=== PATIENT | male | born 1955 | race Caucasian/White ===

== ENCOUNTER 2024-10-12 14:00 | Outpatient (OUT) | payer MEDICARE, OTHER, SELFPAY | END 2024-10-12 14:01 | disposition home or self-care (01) | LOC: WC 14:04 | PROVIDERS: PCP Physician Assistant; Visit Provider Physician Assistant | DX: I70.235 Atherosclerosis of native arteries of right leg with ulceration of other part of foot (principal); L97.512 Non-pressure chronic ulcer of other part of right foot with fat layer exposed; I70.234 Atherosclerosis of native arteries of right leg with ulceration of heel and midfoot; L97.412 Non-pressure chronic ulcer of right heel and midfoot with fat layer exposed | CPT/HCPCS: G0463 ==

== ENCOUNTER 2024-10-19 13:51 | Outpatient (OUT) | payer MEDICARE, OTHER, SELFPAY | END 2024-10-19 13:52 | disposition home or self-care (01) | LOC: WC 13:52 | PROVIDERS: PCP Physician Assistant; Visit Provider Physician Assistant | DX: I70.235 Atherosclerosis of native arteries of right leg with ulceration of other part of foot (principal); L97.512 Non-pressure chronic ulcer of other part of right foot with fat layer exposed; I70.234 Atherosclerosis of native arteries of right leg with ulceration of heel and midfoot; L97.412 Non-pressure chronic ulcer of right heel and midfoot with fat layer exposed | CPT/HCPCS: G0463 ==

== ENCOUNTER 2024-10-19 14:24 | Outpatient (OUT) | payer MEDICARE, OTHER, SELFPAY ==
[2024-10-19 14:46] LABS: Basophils Absolute Auto 0.1 10^3/uL (0.0-0.1); Basophils Percent Auto 0.3 % (0.2-2.0); Eosinophils Absolute Auto 0.4 10^3/uL (0.0-0.7); Hematocrit 30.2 % (42.0-54.0); Hemoglobin 9.4 g/dL (14.0-18.0); Immature Granulocytes Pct Auto 0.7 % (0.0-0.5); Lymphocytes Absolute Auto 2.6 10^3/uL (1.2-3.8); Lymphocytes Percent Auto 17.8 % (20.5-60.0); Mean Corpuscular HGB Conc 31.1 g/dL (29.9-35.2); Mean Corpuscular Hemoglobin 26.4 pg (25.9-34.0); Mean Corpuscular Volume 84.8 fL (80.0-94.0); Mean Platelet Volume 9.1 fL (9.5-13.5); Monocytes Absolute Auto 1.2 10^3/uL (0.3-0.8); Monocytes Percent Auto 7.9 % (1.7-12.0); Neutrophils Absolute Auto 10.2 10^3/uL (1.4-6.5); Neutrophils Percent Auto 70.3 % (43.0-75.0); Platelet Count 398 10^3/uL (150-450); Red Blood Count 3.56 10^6/uL (4.70-6.10); Red Cell Distribution Width 15.1 % (11.0-15.0); White Blood Count 14.5 10^3/uL (4.0-11.0)
[2024-10-19 15:14] LABS: Anion Gap 11.1; Carbon Dioxide 29.3 mmol/L (21.0-32.0); Chloride 99 mmol/L (98-107); Estimated GFR (African America 43 (>=60 mL/min/1.73m^2); Estimated GFR (Non-African Ame 35 (>=60 mL/min/1.73m^2); Glucose 160 mg/dL (74-106); Potassium 4.4 mmol/L (3.5-5.1); Sodium 135 mmol/L (136-145)
== END 2024-10-19 14:25 | disposition home or self-care (01) ==
LOC: LAB 14:26
PROVIDERS: PCP Physician Assistant; Visit Provider Physician Assistant
DX: L03.115 Cellulitis of right lower limb (principal)
CPT/HCPCS: 36415; 80048; 85025

== ENCOUNTER 2024-10-26 14:00 | Outpatient (OUT) | payer MEDICARE, OTHER, SELFPAY | END 2024-10-26 14:01 | disposition home or self-care (01) | LOC: WC 10-27 16:47 | PROVIDERS: Visit Provider Physician Assistant | DX: I70.235 Atherosclerosis of native arteries of right leg with ulceration of other part of foot (principal); L97.512 Non-pressure chronic ulcer of other part of right foot with fat layer exposed; I70.234 Atherosclerosis of native arteries of right leg with ulceration of heel and midfoot; L97.421 Non-pressure chronic ulcer of left heel and midfoot limited to breakdown of skin | CPT/HCPCS: G0463 ==

== ENCOUNTER 2024-11-02 13:58 | Outpatient (OUT) | payer MEDICARE, OTHER, SELFPAY | END 2024-11-02 13:59 | disposition home or self-care (01) | LOC: WC 14:00 | PROVIDERS: Visit Provider Physician Assistant | DX: I70.235 Atherosclerosis of native arteries of right leg with ulceration of other part of foot (principal); L97.512 Non-pressure chronic ulcer of other part of right foot with fat layer exposed; I70.234 Atherosclerosis of native arteries of right leg with ulceration of heel and midfoot; L97.412 Non-pressure chronic ulcer of right heel and midfoot with fat layer exposed | CPT/HCPCS: G0463 ==

== ENCOUNTER 2024-11-09 15:15 | Outpatient (OUT) | payer MEDICARE, OTHER, SELFPAY | END 2024-11-09 15:16 | disposition home or self-care (01) | LOC: WC 15:15 | PROVIDERS: Visit Provider Physician Assistant | DX: I70.235 Atherosclerosis of native arteries of right leg with ulceration of other part of foot (principal); L97.512 Non-pressure chronic ulcer of other part of right foot with fat layer exposed; I70.234 Atherosclerosis of native arteries of right leg with ulceration of heel and midfoot; L97.412 Non-pressure chronic ulcer of right heel and midfoot with fat layer exposed | CPT/HCPCS: G0463 ==

== ENCOUNTER 2024-11-30 13:41 | Outpatient (OUT) | payer MEDICARE, OTHER, SELFPAY ==
--- OUTSIDE RECORDS SUMMARY | 2024-11-30 13:56 | XMS_ITS | CCD ---
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 calories with serious comorbidity and body mass index (BMI) of 32.0 to 32.9 in adult] 08-16-2024 Chronic Other nutritional; endocrine; and metabolic disorders (2 sources) Weight increased; Translations: [Abnormal weight gain] 08-16-2024 Episodic Other upper respiratory infections (2 sources) Nasal discharge; Translations: [Postnasal drip] 08-04-2024 Episodic Peripheral and visceral atherosclerosis (20 sources) Critical lower limb ischemia ; Translations: [Atherosclerosis of [place] arteries of extremities with rest pain, unspecified extremity] Onset: 07-16-2024 07-17-2024 Chronic Residual codes; unclassified (2 sources) Postoperative state; Translations: [Other specified postprocedural states] 09-16-2024 Episodic Residual codes; unclassified (1 source) Other specified postprocedural states; Translations: [Other specified postprocedural states] Onset: 09-13-2024 Episodic Sprains and strains (2 sources) Low back strain; Translations: [Strain of muscle, fascia and tendon of lower back, initial encounter] Onset: 2024 2024 Episodic Unclassified (1 source) Critical Limb [place] Onset: 07-17-2024 Unclassified (1 source) right fem endart with angioplasty 07/29 Onset: 09-01-2024 Unclassified (1 source) Black Foot, Abdominal Pain Onset: 07-16-2024 Past or Other Problems Problem Classification Problem Date Documented Da te Episodic/Chronic Abdominal pain (1 source) Abdominal pain Onset: Episodic Cancer of colon (20 sources) History of malignant neoplasm of colon; Translations: [Personal history of other malignant neoplasm of large intestine] Onset: 0 12-25-2022 Episodic Complication of device; implant or graft (20 sources) Arteriosclerosis of coronary artery bypass graft; Translations: [Atherosclerosis of coronary artery bypass graft(s), unspecified, with other forms of angina pectoris] Onset: 5 Resolved: 3 12-25-2022 Chronic Conditions associated with dizziness or vertigo (20 sources) Dizziness; Translations: [Dizziness and giddiness] Onset: 2 06-30-2023 Episodic Gangrene (1 source) Gangrene, not elsewhere classified; Translations: [Gangrene, not elsewhere classified] Onset: 5 Episodic Genitourinary symptoms and ill-defined conditions (13 sources) Microalbuminuria; Translations: [Proteinuria, unspecified] Onset: 3 06-15-2023 Episodic Mood disorders (2 sources) Mood disorders Onset: 5 09-13-2024 Other aftercare (13 sources) Long-term current use of anticoagulant; Translations: [residential (current) use of anticoagulants] Onset: 3 12-25-2022 Episodic Other aftercare (13 sources) Long-term current use of oral hypoglycemic medication; Translations: [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 drugs] Onset: 3 12-25-2022 Episodic Other and unspecified benign neoplasm (20 sources) History of adenomatous polyp of colon; Translations: [Personal history of colonic polyps] Onset: 0 12-25-2022 Episodic Other and unspecified benign neoplasm (20 sources) Adenomatous polyp of colon ; Translations: [Benign neoplasm of descending colon] Onset: 0 06-30-2023 Episodic Other circulatory disease (13 sources) History of cardiac arrest; Translations: [Personal history of sudden cardiac arrest] Onset: 3 12-25-2022 Episodic Other connective tissue disease (20 sources) Transient neurological symptoms; Translations: [Other symptoms and signs involving the nervous system] Onset: 2 06-30-2023 Episodic Other connective tissue disease (1 source) Foot pain Onset: 5 Episodic Other gastrointestinal disorders (20 sources) Diarrhea; Translations: [Diarrhea, unspecified] Onset: 5 07-22-2024 Episodic Other nutritional; endocrine; and metabolic disorders (13 sources) Overweight in adulthood with body mass index of 25 or more but less than 30; Translations: [Body mass index (BMI) 29.0-29.9, adult] Onset: 3 12-25-2022 Episodic Other skin disorders (13 sources) Acne; Translations: [Other acne] Onset: 3 12-25-2022 Episodic Residual codes; unclassified (13 sources) History of partial resection of colon; Translations: [Acquired absence of other specified parts of digestive tract] Onset: 3 12-25-2022 Episodic Residual codes; unclassified (13 sources) History of excision of intestinal structure; Translations: [Other specified postprocedural states] Onset: 1 06-30-2023 Episodic Screening and history of mental health and substance abuse codes (13 sources) Ex-smoker; Translations: [Personal history of nicotine dependence] Onset: 3 12-25-2022 Episodic Unclassified (13 sources) Onset: 0 08-30-2019 Results Test Name Value Interpretation Reference Range Facility BASIC METABOLIC PANLon 09-17 Anion gap [Moles/Vol] 9 mmol/L Normal 5-15 [facility] Comment on above: Performed By: #### C MELVA BMP, , 2776-07 ####[facility] ([id number])[address] [address] Calcium [Mass/Vol] 8.4 mg/dL Low 8.5-10.5 [facility] Comment on above: Performed By: #### Elise FRYE BMP, , 2776-07 ####[facility] ([id number])[address], [address], [place] [address] Chloride [Moles/Vol] 103 mmol/L Normal 98-109 [facility] Comment on above: Performed By: #### Elise FRYE, BMP, , 2776-07 ####[facility] ([id number])[address], [address] [address] CO2 [Moles/Vol] 23 mmol/L Normal 22-32 [facility] Comment on above: Performed By: #### Elise FRYE, BMP, , 2776-07 ####[facility] ([id number])[address], [address], [place] [address] Creatinine [Mass/Vol] 1.43 mg/dL High 0.60-1.30 [facility] Comment on above: Result Comment: METH OD TRACEABLE TO IDMS STANDARD Performed By: #### Elise FRYE, BMP, , 2776-07 ####[facility] ([id number])[address] [address], [place] [address] GFR/1.73 sq M.predicted among non-blacks MDRD (S/P/Bld) [Vol rate/Area] 53 mL/min/{1.73_m2} Low >59 [facility] Comment on above: Result Comment: Repo rted eGFR is based on theCKD-EPI 2020 equation that doesnot use a race coefficient. Performed By: #### ANIBAL SARGENT, , 2776-07 ####[facility] ([id number])[address] [address], [place] [address] Glucose [Mass/Vol] 215 mg/dL High 65-99 [facility] Comment on above: Performed By: #### ANIBAL SARGENT, , 2776-07 ####[facility] ([id number])[address] [address], [place] [address] Potassium [Moles/Vol] 4.5 mmol/L Normal 3.5-5.0 [facility] Comment on above: Performed By: #### ANIBAL SARGENT, , 2776-07 ####[facility] ([id number])[address] [address], [place] [address] Sodium [Moles/Vol] 135 mmol/L Normal 134-146 [facility] Comment on above: Performed By: #### ANIBAL SARGENT, , 2776-07 ####[facility] ([id number])[address] [address], [place] [address] Urea nitrogen [Mass/Vol] 28 mg/dL High 5-27 [facility] Comment on above: Performed By: #### ANIBAL SARGENT, , 2776-07 ####[facility] ([id number])[address] [address] [address] Basic Metabolic Panelon 03-0 Anion gap [Moles/Vol] 9 mmol/L 5 - 15 mmol/L [facility] Calcium [Mass/Vol] 8.4 mg/dL Low 8.5 - 10. 5 mg/dL [facility] Chloride [Moles/Vol] 103 mmol/L 98 - 10 9 mmol/L [facility] CO2 [Moles/Vol] 23 mmol/L 22 - 32 mmol/L [facility] Creatinine [Mass/Vol] 1.43 mg/dL High 0.60 - 1.30 mg/dL [facility] Comment on above: METHOD TRACEABLE TO [facility] STANDARD eGFR (CKD-EPI)non-race dependent 53 Low - PINF [facility] Comment on above: Reported eGFR is based on the CKD-EPI 2020 equation that does not use a race coefficient. Glucose [Mass/Vol] 215 mg/dL High 65 - 99 mg/dL [facility] Potassium [Moles/Vol] 4.5 mmol/L 3.5 - 5.0 mmol/L [facility] Sodium [Moles/Vol] 135 mmol/L 134 - 146 mmol/L [facility] Urea nitrogen [Mass/Vol] 28 mg/dL High 5 - 27 mg/dL [facility] CBC without diffon Erythrocyte distribution width (RBC) [Ratio] 16 % High 11.5 - 15.0 % [facility] Hematocrit (Bld) [Volume fraction] 24.3 % Low 39 - 49 % [facility] Hemoglobin (Bld) [Mass/Vol] 8.1 g/dL Low 13.0 - 17.0 g/dL [facility] Interpretation and review of laboratory results Abnormal [facility] MCH (RBC) [Entitic mass] 28.5 pg 27 - 34 pg [facility] MCHC (RBC) [Mass/Vol] 33.3 g/dL 32 - 3 6 g/dL [facility] MCV (RBC) [Entitic vol] 86 fL 80 - 100 fL [facility] Platelet mean volume (Bld) [Entitic vol] 7.9 fL 7 - 12 fL [facility] Platelets (Bld) [#/Vol] 255 10*3/uL [facility] RBC (Bld) [#/Vol] 2.84 10*6/uL Low [facility] WBC corrected for nucl RBC Auto (Bld) [#/Vol] 8.6 [facility] COMPLETE BLOOD COUNTon 09-17 Erythrocyte distribution width (RBC) [Ratio] 16.0 % High 11.5-15.0 [facility] Comment on above: Performed By: #### ANIBAL SARGENT, , 2776-07 ####[facility] ([id number])[address], [address] [place] [address] Hematocrit (Bld) [Volume fraction] 24.3 % Low 39-49 [facility] Comment on above: Performed By: #### ANIBAL SARGENT, , 2776-07 ####[facility] ([id number])[address], [address], [place] [address] Hemoglobin (Bld) [Mass/Vol] 8.1 g/dL Low 13.0-17.0 [facility] Comment on above: Performed By: #### ANIBAL SARGENT, , 2776-07 ####[facility] ([id number])[address], [address], [place] [address] MCH (RBC) [Entitic mass] 28.5 pg Normal 27-34 [facility] Comment on above: Performed By: #### ANIBAL SARGENT, , 2776-07 ####[facility] ([id number])[address], [address], [place] [address] MCHC (RBC) [Mass/Vol] 33.3 g/dL Normal 32-36 [facility] Comment on above: Performed By: #### ANIBAL SARGENT, , 2776-07 ####[facility] ([id number])[address], [address], [place] [address] MCV (RBC) [Entitic vol] 86 fL Normal 80-100 [facility] Comment on above: Performed By: #### ANIBAL SARGENT, , 2776-07 ####[facility] ([id number])[address] [address], [place] [address] Platelet mean volume (Bld) [Entitic vol] 7.9 fL Normal 7-12 [facility] Comment on above: Performed By: #### ANIBAL SARGENT, , 2776-07 ####[facility] ([id number])[address], [address], [place] [address] Platelets (Bld) [#/Vol] 255 10*3/uL Normal 150-450 [facility] Comment on above: Performed By: #### ANIBAL SARGENT, , 2776-07 ####[facility] ([id number])[address] [address], [place] [address] RBC COUNT 2.84 X10E12/L Low 4.10-5.70 [facility] Comment on above: Performed By: #### ANIBAL SARGENT, , 2776-07 ####[facility] ([id number])[address] [address] WBC (Bld) [#/Vol] 8.6 10*3/uL Normal 4.0-11.0 [facility] Comment on above: Performed By: #### ANIBAL SARGENT, , 2776-07 ####[facility] ([id number])[address] [address], [place] [address] Glucose Glucometer (BldC) [M ass/Vol]on 09-17-2024 Glucose [Mass/Vol] 289 mg/dL High 65 - 99 mg/dL [facility] Interpretation and review of laboratory results Abnormal [facility] Glucose [Mass/Vol] 289 mg/dL High 65-99 [facility] Glucose [Mass/Vol] 181 mg/dL High 65 - 99 mg/dL [facility] Interpretation and review of laboratory results Abnormal [facility] Glucose [Mass/Vol] 181 mg/dL High 65-99 [facility] MAGNESIUMon 09-17-2024 Magnesium [Mass/Vol] 1.7 mg/dL Low 1.8-2.6 [facility] Comment on above: Performed By: #### ANIBAL SARGENT, , 2776-07 ####[facility] ([id number])[address], [address] [place] [address] Magnesiumon 09-17-2024 Magnesium [Mass/Vol] 1.7 mg/dL Low 1.8 - 2 .6 mg/dL [facility] No Panel Informationon 09-17 Interpretation and review of laboratory results Abnormal [facility] PHOSPHORUSon 09-17-2024 Phosphate [Mass/Vol] 3.1 mg/dL Normal 2.4-4.9 [facility] Comment on above: Performed By: #### ANIBAL SARGENT, , 2776-07 ####[facility] ([id number])[address], [address] [place] [address] Phosphoruson 09-17-2024 Phosphate [Mass/Vol] 3.1 mg/dL 2.4 - 4 .9 mg/dL [facility] BASIC METABOLIC PANLon 09-16 Anion gap [Moles/Vol] 9 mmol/L Normal 5-15 [facility] Comment on above: Performed By: #### ANIBAL SARGENT, , 2776-07 ####[facility] ([id number])[address], [address] [place] [address] Calcium [Mass/Vol] 8.4 mg/dL Low 8.5-10.5 [facility] Comment on above: Performed By: #### ANIBAL SARGENT, , 2776-07 ####[facility] ([id number])[address] [address], [place] [address] Chloride [Moles/Vol] 101 mmol/L Normal 98-109 [facility] Comment on above: Performed By: #### C MELVA [facility], , 2776-07 ####[facility] ([id number])[address], [address], [place] [address] CO2 [Moles/Vol] 24 mmol/L Normal 22-32 [facility] Comment on above: Performed By: #### Elise FRYE [facility], , 2776-07 ####[facility] ([id number])[address] [address] [address] Creatinine [Mass/Vol] 1.40 mg/dL High 0.60-1.30 [facility] Comment on above: Result Comment: METH OD TRACEABLE TO IDMS STANDARD Performed By: #### Elise FRYE [facility], , 2776-07 ####[facility] ([id number])[address] [address] [address] GFR/1.73 sq M.predicted among non-blacks MDRD (S/P/Bld) [Vol rate/Area] 54 mL/min/{1.73_m2} Low >59 [facility] Comment on above: Result Comment: Repo rted eGFR is based on theCKD-EPI 2020 equation that doesnot use a race coefficient. Performed By: #### ANIBAL SARGENT, , 2776-07 ####[facility] ([id number])[address] [address] [address] Glucose [Mass/Vol] 294 mg/dL High 65-99 [facility] Comment on above: Performed By: #### ANIBAL SARGENT, , 2776-07 ####[facility] ([id number])[address] [address], [place] [address] Potassium [Moles/Vol] 5.0 mmol/L Normal 3.5-5.0 [facility] Comment on above: Performed By: #### C MELVA, [facility], , 2776-07 ####[facility] ([id number])[address], [address] [place] [address] Sodium [Moles/Vol] 134 mmol/L Normal 134-146 [facility] Comment on above: Performed By: #### Elise FRYE, ANIBAL, , 2776-07 ####[facility] ([id number])[address], [address] [place] [address] Urea nitrogen [Mass/Vol] 30 mg/dL High 5-27 [facility] Comment on above: Performed By: #### Elise FRYE, ANIBAL, , 2776-07 ####[facility] ([id number])[address], [address] [address] Basic Metabolic Panelon 03-0 Anion gap [Moles/Vol] 9 mmol/L 5 - 15 mmol/L [facility] Calcium [Mass/Vol] 8.4 mg/dL Low 8.5 - 10. 5 mg/dL [facility] Chloride [Moles/Vol] 101 mmol/L 98 - 10 9 mmol/L [facility] CO2 [Moles/Vol] 24 mmol/L 22 - 32 mmol/L [facility] Creatinine [Mass/Vol] 1.4 mg/dL High 0.60 - 1.30 mg/dL [facility] Comment on above: METHOD TRACEABLE TO IDMS STANDARD eGFR (CKD-EPI)non-race dependent 54 Low - PINF [facility] Comment on above: Reported eGFR is based on the CKD-EPI 2020 equation that does not use a race coefficient. Glucose [Mass/Vol] 294 mg/dL High 65 - 99 mg/dL [facility] Interpretation and review of laboratory results Abnormal [facility] Potassium [Moles/Vol] 5 mmol/L 3.5 - 5.0 mmol/L [facility] Sodium [Moles/Vol] 134 mmol/L 134 - 146 mmol/L [facility] Urea nitrogen [Mass/Vol] 30 mg/dL High 5 - 27 mg/dL [facility] CBC without diffon Erythrocyte distribution width (RBC) [Ratio] 15.9 % High 11.5 - 15.0 % [facility] Hematocrit (Bld) [Volume fraction] 23.2 % Low 39 - 49 % [facility] Hemoglobin (Bld) [Mass/Vol] 7.7 g/dL Low 13.0 - 17.0 g/dL [facility] Interpretation and review of laboratory results Abnormal [facility] MCH (RBC) [Entitic mass] 28.5 pg 27 - 34 pg [facility] MCHC (RBC) [Mass/Vol] 33.4 g/dL 32 - 3 6 g/dL [facility] MCV (RBC) [Entitic vol] 85 fL 80 - 100 fL [facility] Platelet mean volume (Bld) [Entitic vol] 8.2 fL 7 - 12 fL [facility] Platelets (Bld) [#/Vol] 223 10*3/uL [facility] RBC (Bld) [#/Vol] 2.72 10*6/uL Low [facility] WBC corrected for nucl RBC Auto (Bld) [#/Vol] 9.1 [facility] COMPLETE BLOOD COUNTon 09-16 Erythrocyte distribution width (RBC) [Ratio] 15.9 % High 11.5-15.0 [facility] Comment on above: Performed By: #### C ANIBAL FRYE, 2777- ####[facility] ([id number])[address], [address], [place] [address] Hematocrit (Bld) [Volume fraction] 23.2 % Low 39-49 [facility] Comment on above: Performed By: #### C ANIBAL FRYE, [address]-5, 2777-1 ####[facility] ([id number])[address], [place] [address] Hemoglobin (Bld) [Mass/Vol] 7.7 g/dL Low 13.0-17.0 [facility] Comment on above: Performed By: #### C MELVA, BMP, , 2776-07 ####[facility] ([id number])[address], [address], [place] [address] MCH (RBC) [Entitic mass] 28.5 pg Normal 27-34 [facility] Comment on above: Performed By: #### Elise FRYE, BMP, , 2776-07 ####[facility] ([id number])[address] [address] MCHC (RBC) [Mass/Vol] 33.4 g/dL Normal 32-36 [facility] Comment on above: Performed By: #### Elise FRYE, BMP, , 2776-07 ####[facility] ([id number])[address], [place] [address] MCV (RBC) [Entitic vol] 85 fL Normal 80-100 [facility] Comment on above: Performed By: #### ANIBAL SARGENT, , 2776-07 ####[facility] ([id number])[address], [address], [place] [address] Platelet mean volume (Bld) [Entitic vol] 8.2 fL Normal 7-12 [facility] Comment on above: Performed By: #### Elise FRYE, BMP, , 2776-07 ####[facility] ([id number])[address], [address], [place] [address] Platelets (Bld) [#/Vol] 223 10*3/uL Normal 150-450 [facility] Comment on above: Performed By: #### Elise FRYE, BMP, , 2776-07 ####[facility] ([id number])[address], [address], [place] [address] RBC COUNT 2.72 X10E12/L Low 4.10-5.70 [facility] Comment on above: Performed By: #### C MELVA, ANIBAL, , 2776-07 ####[facility] ([id number])[address], [address] [place] [address] WBC (Bld) [#/Vol] 9.1 10*3/uL Normal 4.0-11.0 [facility] Comment on above: Performed By: #### C MELVA, ANIBAL, , 2776-07 ####[facility] ([id number])[address], [address] [place] [address] Glucose Glucometer (BldC) [M ass/Vol]on 09-16-2024 Glucose [Mass/Vol] 249 mg/dL High 65 - 99 mg/dL [facility] Interpretation and review of laboratory results Abnormal [facility] Glucose [Mass/Vol] 249 mg/dL High 65-99 [facility] Glucose [Mass/Vol] 293 mg/dL High 65 - 99 mg/dL [facility] Interpretation and review of laboratory results Abnormal [facility] Glucose [Mass/Vol] 293 mg/dL High 65-99 [facility] Glucose [Mass/Vol] 298 mg/dL High 65 - 99 mg/dL [facility] Interpretation and review of laboratory results Abnormal [facility] Glucose [Mass/Vol] 298 mg/dL High 65-99 [facility] Glucose [Mass/Vol] 272 mg/dL High 65 - 99 mg/dL [facility] Interpretation and review of laboratory results Abnormal [facility] Glucose [Mass/Vol] 272 mg/dL High 65-99 [facility] MAGNESIUMon 09-16-2024 Magnesium [Mass/Vol] 1.9 mg/dL Normal 1.8-2.6 [facility] Comment on above: Performed By: #### C MELVA, ANIBAL, , 2776-07 ####[facility] ([id number])[address], [place] [address] Magnesiumon 09-16-2024 Magnesium [Mass/Vol] 1.9 mg/dL 1.8 - 2 .6 mg/dL [facility] No Panel Informationon 09-16 [facility] PHOSPHORUSon 09-16-2024 Phosphate [Mass/Vol] 3.8 mg/dL Normal 2.4-4.9 [facility] Comment on above: Performed By: #### ANIBAL SARGENT, , 1 ####[facility] ([id number])[address], [place] [address] Phosphoruson 09-16-2024 Phosphate [Mass/Vol] 3.8 mg/dL 2.4 - 4 .9 mg/dL [facility] BASIC METABOLIC PANLon 09-15 Anion gap [Moles/Vol] 7 mmol/L Normal 5-15 [facility] Comment on above: Performed By: #### ANIBAL SARGENT, , 2776-07 ####[facility] ([id number])[address], [place] [address] Calcium [Mass/Vol] 7.9 mg/dL Low 8.5-10.5 [facility] Comment on above: Performed By: #### ANIBAL SARGETN, , 2776-07 ####[facility] ([id number])[address], [place] [address] Chloride [Moles/Vol] 103 mmol/L Normal 98-109 [facility] Comment on above: Performed By: #### ANIBAL SARGENT, , 2776-07 ####[facility] ([id number])[address], [place] [address] CO2 [Moles/Vol] 22 mmol/L Normal 22-32 [facility] Comment on above: Performed By: #### ANIBAL SARGENT, , 2776-07 ####[facility] ([id number])[address] [address], [place] [address] Creatinine [Mass/Vol] 1.64 mg/dL High 0.60-1.30 [facility] Comment on above: Result Comment: METH OD TRACEABLE TO IDMS STANDARD Performed By: #### C MELVA, [facility], , 2776-07 ####[facility] ([id number])[address] [address], [place] [address] GFR/1.73 sq M.predicted among non-blacks MDRD (S/P/Bld) [Vol rate/Area] 45 mL/min/{1.73_m2} Low >59 [facility] Comment on above: Result Comment: Repo rted eGFR is based on theCKD-EPI 2020 equation that doesnot use a race coefficient. Performed By: #### C MELVA [facility], , 2776-07 ####[facility] ([id number])[address] [address], [place] [address] Glucose [Mass/Vol] 191 mg/dL High 65-99 [facility] Comment on above: Performed By: #### C MELVA [facility], , 2776-07 ####[facility] ([id number])[address] [address] Potassium [Moles/Vol] 4.7 mmol/L Normal 3.5-5.0 [facility] Comment on above: Performed By: #### C MELVA, [facility], , 2776-07 ####[facility] ([id number])[address] [place] [address] Sodium [Moles/Vol] 132 mmol/L Low 134-146 [facility] Comment on above: Performed By: #### C MELVA, [facility], , 2776-07 ####[facility] ([id number])[address], [place] [address] Urea nitrogen [Mass/Vol] 27 mg/dL Normal 5-27 [facility] Comment on above: Performed By: #### C BC, BMP, [address]-5, 2777-1 ####[facility] ([id number])[address] [facility] [address] [place] [address] Basic Metabolic Panelon Anion gap [Moles/Vol] 7 mmol/L 5 - 15 mmol/L [facility] Calcium [Mass/Vol] 7.9 mg/dL Low 8.5 - 10. 5 mg/dL [facility] Chloride [Moles/Vol] 103 mmol/L 98 - 10 9 mmol/L [facility] CO2 [Moles/Vol] 22 mmol/L 22 - 32 mmol/L [facility] Creatinine [Mass/Vol] 1.64 mg/dL High 0.60 - 1.30 mg/dL [facility] Comment on above: METHOD TRACEABLE TO [facility] STANDARD eGFR (CKD-EPI)non-race dependent 45 Low - PINF [facility] Comment on above: Reported eGFR is based on the CKD-EPI 2020 equation that does not use a race coefficient. Glucose [Mass/Vol] 191 mg/dL High 65 - 99 mg/dL [facility] Interpretation and review of laboratory results Abnormal [facility] Potassium [Moles/Vol] 4.7 mmol/L 3.5 - 5.0 mmol/L [facility] Sodium [Moles/Vol] 132 mmol/L Low 134 - 146 mmol/L [facility] Urea nitrogen [Mass/Vol] 27 mg/dL 5 - 27 mg/dL [facility] CBC without diffon Erythrocyte distribution width (RBC) [Ratio] 16.8 % High 11.5 - 15.0 % [facility] Hematocrit (Bld) [Volume fraction] 24.1 % Low 39 - 49 % [facility] Hemoglobin (Bld) [Mass/Vol] 7.8 g/dL Low 13.0 - 17.0 g/dL [facility] Interpretation and review of laboratory results Abnormal [facility] MCH (RBC) [Entitic mass] 28.1 pg 27 - 34 pg [facility] MCHC (RBC) [Mass/Vol] 32.4 g/dL 32 - 3 6 g/dL [facility] MCV (RBC) [Entitic vol] 87 fL 80 - 100 fL [facility] Platelet mean volume (Bld) [Entitic vol] 8.2 fL 7 - 12 fL [facility] Platelets (Bld) [#/Vol] 217 10*3/uL [facility] RBC (Bld) [#/Vol] 2.78 10*6/uL Low [facility] WBC corrected for nucl RBC Auto (Bld) [#/Vol] 9.5 [facility] COMPLETE BLOOD COUNTon 09-15 Erythrocyte distribution width (RBC) [Ratio] 16.8 % High 11.5-15.0 [facility] Comment on above: Performed By: #### C ANIBAL FRYE, , 2776-07 ####[facility] ([id number])[address], [address] [place] [address] Hematocrit (Bld) [Volume fraction] 24.1 % Low 39-49 [facility] Comment on above: Performed By: #### ANIBAL SARGENT, , 2776-07 ####[facility] ([id number])[address], [address] [place] [address] Hemoglobin (Bld) [Mass/Vol] 7.8 g/dL Low 13.0-17.0 [facility] Comment on above: Performed By: #### ANIBAL SARGENT, , 2776-07 ####[facility] ([id number])[address], [address] [place] [address] MCH (RBC) [Entitic mass] 28.1 pg Normal 27-34 [facility] Comment on above: Performed By: #### ANIBAL SARGENT, , 2776-07 ####[facility] ([id number])[address], [address] [address] MCHC (RBC) [Mass/Vol] 32.4 g/dL Normal 32-36 [facility] Comment on above: Performed By: #### Elise FRYE, ANIBAL, , 2776-07 ####[facility] ([id number])[address], [address] [address] MCV (RBC) [Entitic vol] 87 fL Normal 80-100 [facility] Comment on above: Performed By: #### Elise FRYE, BMP, , 2776-07 ####[facility] ([id number])[address], [address], [place] [address] Platelet mean volume (Bld) [Entitic vol] 8.2 fL Normal 7-12 [facility] Comment on above: Performed By: #### Elise FRYE, [facility], , 2776-07 ####[facility] ([id number])[address] [address] [address] Platelets (Bld) [#/Vol] 217 10*3/uL Normal 150-450 [facility] Comment on above: Performed By: #### ANIBAL SARGENT, , 2776-07 ####[facility] ([id number])[address], [address] [address] RBC COUNT 2.78 X10E12/L Low 4.10-5.70 [facility] Comment on above: Performed By: #### Elise FRYE, BMP, , 2776-07 ####[facility] ([id number])[address], [address] [address] WBC (Bld) [#/Vol] 9.5 10*3/uL Normal 4.0-11.0 [facility] Comment on above: Performed By: #### C ANIBAL FRYE, 2771 ####[facility] ([id number])[address], [address] [place] [address] Glucose Glucometer (BldC) [M ass/Vol]on 09-15-2024 Glucose [Mass/Vol] 266 mg/dL High 65 - 99 mg/dL [facility] Interpretation and review of laboratory results Abnormal [facility] Glucose [Mass/Vol] 266 mg/dL High 65-99 [facility] Glucose [Mass/Vol] 297 mg/dL High 65 - 99 mg/dL [facility] Interpretation and review of laboratory results Abnormal [facility] Glucose [Mass/Vol] 297 mg/dL High 65-99 [facility] Glucose [Mass/Vol] 125 mg/dL High 65 - 99 mg/dL [facility] Interpretation and review of laboratory results Abnormal [facility] Glucose [Mass/Vol] 125 mg/dL High 65-99 [facility] MAGNESIUMon 09-15-2024 Magnesium [Mass/Vol] 2.1 mg/dL Normal 1.8-2.6 [facility] Comment on above: Performed By: #### ANIBAL SARGENT, 2776-07 ####[facility] ([id number])[address], [address] [place] [address] Magnesiumon 09-15-2024 Magnesium [Mass/Vol] 2.1 mg/dL 1.8 - 2 .6 mg/dL [facility] No Panel Informationon 09-15 [facility] PHOSPHORUSon 09-15-2024 Phosphate [Mass/Vol] 4.1 mg/dL Normal 2.4-4.9 [facility] Comment on above: Performed By: #### ANIBAL SARGENT, 2777-1 ####[facility] ([id number])[address], [address] [place] [address] Phosphoruson 09-15-2024 Phosphate [Mass/Vol] 4.1 mg/dL 2.4 - 4 .9 mg/dL [facility] Surgical Pathologyon 025 Surgical Pathology Normal [facility] Comment on above: Result Comment: [facility] [address] [place] [address] Surgical Pathology ConsultationPatient Name:PONCHO JOSE JR.:1955 (Age: 69)Gender:MTaken:09/15/2024Reported:09/26/2024Physician(s):Gucci Murray MD ( )Copy To: Rec. #:[id number]: #[id number] Pathologic Diagnosis1. 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 Right foot, great metatarsal, resection: Viable bone, no evidence of osteomyelitis. Report Electronically Signed Outrg/09/26/2024Carlitos Ochoa MDInterpretation performed at [facility], [address] [place] [address], License number: [id number].Clinical HistoryGangrene.Gross Description1. Received in formalin labeled REBECA, right great toe is a dove and wrinkled digit disarticulated at the proximal margin, 8.3 x 2.9 cm. A brown-mike lesion is identified on 90% of the digit. The proximal margin is inked black. A fuels sales representative cross-section of the lesion into the bone is submitted cassette A. Cassette A is submitted in RDO decalcification. A fuels sales representative shave of the proximal skin margin is submitted cassette B. (2, ss, [id number],m5) DM.2. Received in formalin labeled REBECA, right great metatarsal is a pink-dove portion of bone, 3.8 x 2.7 x 1.5 cm. No skin is identified. The specimen is serially sectioned to reveal dove spongy cut surfaces. A fuels sales representative cross-section of the proximal margin is submitted in RDO for decalcification. (1, ss, [id number],m5) DM.dm/09/15/2024NSKSpecimen(s) Received1: Right great toe2: Right great metatarsalFee Codes(s):1; 12619, 195492; 68135, 06452 TISSUE CULTUREon 09-15-2024 Bacteria identified Aer cx Nom (Tiss) Susceptible [facility] Comment on above: Performed By: #### 6 27-0 ####[facility] ([id number])[address], [address], [place] [address] APTTon 09-14-2024 aPTT Coag (PPP) [Time] 28 s Pr Moment.Us [facility] BASIC METABOLIC PANLon 09-14 Anion gap [Moles/Vol] 7 mmol/L Normal 5-15 [facility] Comment on above: Performed By: #### C MELVA, BMP, , 2776-07 ####[facility] ([id number])[address], [address] [address] Calcium [Mass/Vol] 8.0 mg/dL Low 8.5-10.5 [facility] Comment on above: Performed By: #### Elise FRYE, BMP, , 2776-07 ####[facility] ([id number])[address], [address] [address] Chloride [Moles/Vol] 101 mmol/L Normal 98-109 [facility] Comment on above: Performed By: #### Elise BC, BMP, , 2776-07 ####[facility] ([id number])[address] [address] CO2 [Moles/Vol] 24 mmol/L Normal 22-32 [facility] Comment on above: Performed By: #### Elise BC, BMP, , 2776-07 ####[facility] ([id number])[address], [address], [place] [address] Creatinine [Mass/Vol] 1.45 mg/dL High 0.60-1.30 [facility] Comment on above: Result Comment: METH OD TRACEABLE TO IDMS STANDARD Performed By: #### C ANIBAL FRYE, , 2776-07 ####[facility] ([id number])[address] [address], [place] [address] GFR/1.73 sq M.predicted among non-blacks MDRD (S/P/Bld) [Vol rate/Area] 52 mL/min/{1.73_m2} Low >59 [facility] Comment on above: Result Comment: Repo rted eGFR is based on theCKD-EPI 2020 equation that doesnot use a race coefficient. Performed By: #### ANIBAL SARGENT, , 2776-07 ####[facility] ([id number])[address] [address], [place] [address] Glucose [Mass/Vol] 276 mg/dL High 65-99 [facility] Comment on above: Performed By: #### ANIBAL SARGENT, , 2776-07 ####[facility] ([id number])[address] [address], [place] [address] Potassium [Moles/Vol] 5.3 mmol/L High 3.5-5.0 [facility] Comment on above: Performed By: #### ANIBAL SARGENT, , 2776-07 ####[facility] ([id number])[address] [address], [place] [address] Sodium [Moles/Vol] 132 mmol/L Low 134-146 [facility] Comment on above: Performed By: #### ANIBAL SARGENT, , 2776-07 ####[facility] ([id number])[address] [address] [address] Urea nitrogen [Mass/Vol] 25 mg/dL Normal 5-27 [facility] Comment on above: Performed By: #### C , [facility], [address]-8, 2777-1 ####[facility] ([id number])[address] [facility], [address] [place] [address] Basic Metabolic Panelon 03- Anion gap [Moles/Vol] 7 mmol/L 5 - 15 mmol/L [facility] Calcium [Mass/Vol] 8 mg/dL Low 8.5 - 10. 5 mg/dL [facility] Chloride [Moles/Vol] 101 mmol/L 98 - 10 9 mmol/L [facility] CO2 [Moles/Vol] 24 mmol/L 22 - 32 mmol/L [facility] Creatinine [Mass/Vol] 1.45 mg/dL High 0.60 - 1.30 mg/dL [facility] Comment on above: METHOD TRACEABLE TO IDAR STANDARD eGFR (CKD-EPI)non-race dependent 52 Low - PINF [facility] Comment on above: Reported eGFR is based on the CKD-EPI 2020 equation that does not use a race coefficient. Glucose [Mass/Vol] 276 mg/dL High 65 - 99 mg/dL [facility] Interpretation and review of laboratory results Abnormal [facility] Potassium [Moles/Vol] 5.3 mmol/L High 3.5 - 5.0 mmol/L [facility] Sodium [Moles/Vol] 132 mmol/L Low 134 - 146 mmol/L [facility] Urea nitrogen [Mass/Vol] 25 mg/dL 5 - 27 mg/dL [facility] CBC without diffon Erythrocyte distribution width (RBC) [Ratio] 16 % High 11.5 - 15.0 % [facility] Hematocrit (Bld) [Volume fraction] 25 % Low 39 - 49 % [facility] Hemoglobin (Bld) [Mass/Vol] 8.3 g/dL Low 13.0 - 17.0 g/dL [facility] Interpretation and review of laboratory results Abnormal [facility] MCH (RBC) [Entitic mass] 28.3 pg 27 - 34 pg [facility] MCHC (RBC) [Mass/Vol] 33.1 g/dL 32 - 3 6 g/dL [facility] MCV (RBC) [Entitic vol] 86 fL 80 - 100 fL [facility] Platelet mean volume (Bld) [Entitic vol] 7.9 fL 7 - 12 fL [facility] Platelets (Bld) [#/Vol] 231 10*3/uL [facility] RBC (Bld) [#/Vol] 2.92 10*6/uL Low [facility] WBC corrected for nucl RBC Auto (Bld) [#/Vol] 10.1 [facility] COMPLETE BLOOD COUNTon 09-14 Erythrocyte distribution width (RBC) [Ratio] 16.0 % High 11.5-15.0 [facility] Comment on above: Performed By: #### Elise FRYE [facility], , 2776-07 ####[facility] ([id number])[address] [address] [place] [address] Hematocrit (Bld) [Volume fraction] 25.0 % Low 39-49 [facility] Comment on above: Performed By: #### ANIBAL SARGENT, , 2776-07 ####[facility] ([id number])[address] [address] [place] [address] Hemoglobin (Bld) [Mass/Vol] 8.3 g/dL Low 13.0-17.0 [facility] Comment on above: Performed By: #### ANIBAL SARGENT, , 2776-07 ####[facility] ([id number])[address] [address] [place] [address] MCH (RBC) [Entitic mass] 28.3 pg Normal 27-34 [facility] Comment on above: Performed By: #### Elise FRYE [facility], , 2776-07 ####[facility] ([id number])[address] [address] MCHC (RBC) [Mass/Vol] 33.1 g/dL Normal 32-36 [facility] Comment on above: Performed By: #### C MELVA, BMP, , 2776-07 ####[facility] ([id number])[address], [address], [place] [address] MCV (RBC) [Entitic vol] 86 fL Normal 80-100 [facility] Comment on above: Performed By: #### Elise FRYE, BMP, , 2776-07 ####[facility] ([id number])[address], [address], [place] [address] Platelet mean volume (Bld) [Entitic vol] 7.9 fL Normal 7-12 [facility] Comment on above: Performed By: #### Elise FREY, BMP, , 2776-07 ####[facility] ([id number])[address], [address], [place] [address] Platelets (Bld) [#/Vol] 231 10*3/uL Normal 150-450 [facility] Comment on above: Performed By: #### Elise FRYE, BMP, , 2776-07 ####[facility] ([id number])[address], [address], [place] [address] RBC COUNT 2.92 X10E12/L Low 4.10-5.70 [facility] Comment on above: Performed By: #### Elise FRYE, BMP, , 2776-07 ####[facility] ([id number])[address], [address], [place] [address] WBC (Bld) [#/Vol] 10.1 10*3/uL Normal 4.0-11.0 [facility] Comment on above: Performed By: #### Elise FRYE, BMP, , 2776-07 ####[facility] ([id number])[address], [address], [place] [address] Glucose Glucometer (BldC) [M ass/Vol]on 09-14-2024 Glucose [Mass/Vol] 236 mg/dL High 65 - 99 mg/dL [facility] Interpretation and review of laboratory results Abnormal [facility] Glucose [Mass/Vol] 236 mg/dL High 65-99 [facility] Glucose [Mass/Vol] 177 mg/dL High 65 - 99 mg/dL [facility] Interpretation and review of laboratory results Abnormal [facility] Glucose [Mass/Vol] 177 mg/dL High 65-99 [facility] Glucose [Mass/Vol] 226 mg/dL High 65 - 99 mg/dL [facility] Interpretation and review of laboratory results Abnormal [facility] Glucose [Mass/Vol] 226 mg/dL High 65-99 [facility] HEMOGLOBINon 09-14-2024 Hemoglobin (Bld) [Mass/Vol] 8.2 g/dL Low 13.0-17.0 [facility] Comment on above: Performed By: #### 7 18-7, PLTCT, PINR, 71770-8 ####[facility] ([id number])[address], [address] [place] [address] Hemoglobinon 09-14-2024 Hemoglobin (Bld) [Mass/Vol] 8.2 g/dL Low 13.0 - 17.0 g/dL [facility] Hemoglobin (Bld) [Mass/Vol]o n 09-14-2024 Interpretation and review of laboratory results Abnormal [facility] MAGNESIUMon 09-14-2024 Magnesium [Mass/Vol] 2.4 mg/dL Normal 1.8-2.6 [facility] Comment on above: Performed By: #### C BC, BMP, 14737-6, 2777-1 ####[facility] ([id number])[address], [address] [place] [address] Magnesiumon 09-14-2024 Magnesium [Mass/Vol] 2.4 mg/dL 1.8 - 2 .6 mg/dL [facility] No Panel Informationon 09-14 [facility] PHOSPHORUSon 09-14-2024 Phosphate [Mass/Vol] 3.7 mg/dL Normal 2.4-4.9 [facility] Comment on above: Performed By: #### C BC, BMP, 20670-5, 2777-1 ####[facility] ([id number])[address], [address] [address] PLATELET COUNT AND MPVon Platelet mean volume (Bld) [Entitic vol] 8.0 fL Normal 7-12 [facility] Comment on above: Performed By: #### 7 18-7, PLTCT, PINR, 16409-3 ####[facility] ([id number])[address] [address] Platelets (Bld) [#/Vol] 231 10*3/uL Normal 150-450 [facility] Comment on above: Performed By: #### 7 18-7, PLTCT, PINR, 29090-4 ####[facility] ([id number])[address], [address], [place] [address] POTASSIUMon 09-14-2024 Potassium [Moles/Vol] 4.7 mmol/L Normal 3.5-5.0 [facility] Comment on above: Performed By: #### 2 823-3 ####[facility] ([id number])[address], [address], [place] [address] PROTIME AND INRon 09-14-2024 INR Coag (PPP) [Relative time] 1.0 {INR} Normal 0.9-1.2 [facility] Comment on above: Performed By: #### 7 18-7, PLTCT, PINR, 30874-6 ####[facility] ([id number])[address], [address], [place] [address] PT Coag (PPP) [Time] 11.7 s Normal 9.8-13.2 [facility] Comment on above: Performed By: #### 7 18-7, PLTCT, PINR, 19024-5 ####[facility] ([id number])[address], [address] [place] [address] Phosphoruson 09-14-2024 Phosphate [Mass/Vol] 3.7 mg/dL 2.4 - 4 .9 mg/dL [facility] Platelet counton 09-14-2024 Platelet mean volume (Bld) [Entitic vol] 8 fL 7 - 12 fL [facility] Platelets (Bld) [#/Vol] 231 10*3/uL [facility] Potassiumon 09-14-2024 Potassium [Moles/Vol] 4.7 mmol/L 3.5 - 5.0 mmol/L [facility] Potassium [Moles/Vol]on [facility] Protime & INRon 09-14-2024 INR Coag (PPP) [Relative time] 1 {INR} [facility] PT Coag (PPP) [Time] 11.7 s [facility] aPTT Coag (PPP) [Time]on aPTT Coag (Bld) [Time] 28 s Normal 26-37 [facility] Comment on above: Performed By: #### 7 18-7, PLTCT, PINR, 74547-6 ####[facility] ([id number])[address], [address] [place] [address] BASIC METABOLIC PANLon 09-13 Anion gap [Moles/Vol] 6 mmol/L Normal 5-15 [facility] Comment on above: Performed By: #### Elise BCA, BMP ####[facility] ([id number])[address], [address] [place] [address] Calcium [Mass/Vol] 8.4 mg/dL Low 8.5-10.5 [facility] Comment on above: Performed By: #### C BCA, BMP ####[facility] ([id number])[address] [address] Chloride [Moles/Vol] 104 mmol/L Normal 98-109 [facility] Comment on above: Performed By: #### C BCA, BMP ####[facility] ([id number])[address] [address] CO2 [Moles/Vol] 25 mmol/L Normal 22-32 [facility] Comment on above: Performed By: #### C BCA, BMP ####[facility] ([id number])[address] [address], [place] [address] Creatinine [Mass/Vol] 1.32 mg/dL High 0.60-1.30 [facility] Comment on above: Result Comment: METH OD TRACEABLE TO IDMS STANDARD Performed By: #### C BCA, BMP ####[facility] ([id number])[address] [address], [place] [address] GFR/1.73 sq M.predicted among non-blacks MDRD (S/P/Bld) [Vol rate/Area] 58 mL/min/{1.73_m2} Low >59 [facility] Comment on above: Result Comment: Repo rted eGFR is based on theCKD-EPI 2020 equation that doesnot use a race coefficient. Performed By: #### C BCA, BMP ####[facility] ([id number])[address] [address] [address] Glucose [Mass/Vol] 86 mg/dL Normal 65-99 [facility] Comment on above: Performed By: #### C BCA, BMP ####[facility] ([id number])[address] [address] [address] Potassium [Moles/Vol] 4.2 mmol/L Normal 3.5-5.0 [facility] Comment on above: Performed By: #### C BCA, BMP ####[facility] ([id number])[address], [address] [place] [address] Sodium [Moles/Vol] 135 mmol/L Normal 134-146 [facility] Comment on above: Performed By: #### C BCA, BMP ####[facility] ([id number])[address], [address] [place] [address] Urea nitrogen [Mass/Vol] 18 mg/dL Normal 5-27 [facility] Comment on above: Performed By: #### C BCA, BMP ####[facility] ([id number])[address], [address] [place] [address] Basic Metabolic Panelon Anion gap [Moles/Vol] 6 mmol/L 5 - 15 mmol/L [facility] Calcium [Mass/Vol] 8.4 mg/dL Low 8.5 - 10. 5 mg/dL [facility] Chloride [Moles/Vol] 104 mmol/L 98 - 10 9 mmol/L [facility] CO2 [Moles/Vol] 25 mmol/L 22 - 32 mmol/L [facility] Creatinine [Mass/Vol] 1.32 mg/dL High 0.60 - 1.30 mg/dL [facility] Comment on above: METHOD TRACEABLE TO IDAR STANDARD eGFR (CKD-EPI)non-race dependent 58 Low - PINF [facility] Comment on above: Reported eGFR is based on the CKD-EPI 2020 equation that does not use a race coefficient. Glucose [Mass/Vol] 86 mg/dL 65 - 99 mg/dL [facility] Interpretation and review of laboratory results Abnormal [facility] Potassium [Moles/Vol] 4.2 mmol/L 3.5 - 5.0 mmol/L [facility] Sodium [Moles/Vol] 135 mmol/L 134 - 146 mmol/L [facility] Urea nitrogen [Mass/Vol] 18 mg/dL 5 - 27 mg/dL [facility] CBC AND AUTO DIFFon 09-14-19 25 ABSOLUTE BASOPHIL 0.0 X10E9/L Normal 0.0-0.2 [facility] Comment on above: Performed By: #### C BCA, BMP ####[facility] ([id number])[address], [place] [address] ABSOLUTE NEUTROPHIL 5.9 X10E9/L Normal 1.5-6.6 [facility] Comment on above: Performed By: #### C BCA, BMP ####[facility] ([id number])[address], [place] [address] Basophils/100 WBC (Bld) 0.4 % Normal [facility] Comment on above: Performed By: #### C BCA, BMP ####[facility] ([id number])[address] [address], [place] [address] Eosinophils (Bld) [#/Vol] 0.2 10*3/uL Normal 0.0-0.4 [facility] Comment on above: Performed By: #### C BCA, BMP ####[facility] ([id number])[address] [address], [place] [address] Eosinophils/100 WBC (Bld) 2.5 % Normal [facility] Comment on above: Performed By: #### C BCA, BMP ####[facility] ([id number])[address] [address], [place] [address] Erythrocyte distribution width (RBC) [Ratio] 16.1 % High 11.5-15.0 [facility] Comment on above: Performed By: #### C BCA, BMP ####[facility] ([id number])[address] [address] [place] [address] Hematocrit (Bld) [Volume fraction] 28.0 % Low 39-49 [facility] Comment on above: Performed By: #### C BCA, BMP ####[facility] ([id number])[address], [place] [address] Hemoglobin (Bld) [Mass/Vol] 9.2 g/dL Low 13.0-17.0 [facility] Comment on above: Performed By: #### C [place], BMP ####[facility] ([id number])[address] [address], [place] [address] Lymphocytes (Bld) [#/Vol] 1.4 10*3/uL Normal 1.0-3.5 [facility] Comment on above: Performed By: #### C [place], BMP ####[facility] ([id number])[address] [address] [place] [id number] Lymphocytes/100 WBC (Bld) 17.9 % Normal [facility] Comment on above: Performed By: #### C [place], BMP ####[facility] ([id number])[address] [address], [place] [address] MCH (RBC) [Entitic mass] 28.0 pg Normal 27-34 [facility] Comment on above: Performed By: #### C [place], BMP ####[facility] ([id number])[address] [address], [place] [address] MCHC (RBC) [Mass/Vol] 32.8 g/dL Normal 32-36 [facility] Comment on above: Performed By: #### C [place], BMP ####[facility] ([id number])[address] [address], [place] [address] MCV (RBC) [Entitic vol] 85 fL Normal 80-100 [facility] Comment on above: Performed By: #### C [place], BMP ####[facility] ([id number])[address] [address], [place] [address] Monocytes (Bld) [#/Vol] 0.4 10*3/uL Normal 0-0.9 [facility] Comment on above: Performed By: #### C CLEVELAND, BMP ####[facility] ([id number])[address], [address] [address] Monocytes/100 WBC (Bld) 5.1 % Normal [facility] Comment on above: Performed By: #### C CLEVELAND, BMP ####[facility] ([id number])[address], [address] [address] Neutrophils/100 WBC (Bld) 74.1 % Normal [facility] Comment on above: Performed By: #### C CLEVELAND, BMP ####[facility] ([id number])[address], [address] [address] Platelet mean volume (Bld) [Entitic vol] 7.7 fL Normal 7-12 [facility] Comment on above: Performed By: #### C CLEVELAND, BMP ####[facility] ([id number])[address] [address], [place] [address] Platelets (Bld) [#/Vol] 246 10*3/uL Normal 150-450 [facility] Comment on above: Performed By: #### C CLEVELAND, BMP ####[facility] ([id number])[address] [address] [address] RBC COUNT 3.28 X10E12/L Low 4.10-5.70 [facility] Comment on above: Performed By: #### C CLEVELAND, BMP ####[facility] ([id number])[address] [address] [address] WBC (Bld) [#/Vol] 7.9 10*3/uL Normal 4.0-11.0 [facility] Comment on above: Performed By: #### C CLEVELAND, BMP ####[facility] ([id number])[address] [address] [address] CBC auto differentialon 03-0 Basophils (Bld) [#/Vol] 0 10*3/uL P [facility] Basophils/100 WBC (Bld) 0.4 % P [facility] Eosinophils (Bld) [#/Vol] 0.2 10*3/uL [facility] Eosinophils/100 WBC (Bld) 2.5 % [facility] Erythrocyte distribution width (RBC) [Ratio] 16.1 % High 11.5 - 15.0 % [facility] Hematocrit (Bld) [Volume fraction] 28 % Low 39 - 49 % [facility] Hemoglobin (Bld) [Mass/Vol] 9.2 g/dL Low 13.0 - 17.0 g/dL [facility] Interpretation and review of laboratory results Abnormal [facility] Lymphocytes (Bld) [#/Vol] 1.4 10*3/uL [facility] Lymphocytes/100 WBC (Bld) 17.9 % [facility] MCH (RBC) [Entitic mass] 28 pg 27 - 34 pg [facility] MCHC (RBC) [Mass/Vol] 32.8 g/dL 32 - 3 6 g/dL [facility] MCV (RBC) [Entitic vol] 85 fL 80 - 100 fL [facility] Monocytes (Bld) [#/Vol] 0.4 10*3/uL [facility] Monocytes/100 WBC (Bld) 5.1 % [facility] Neutrophils (Bld) [#/Vol] 5.9 10*3/uL [facility] Neutrophils/100 WBC (Bld) 74.1 % [facility] Platelet mean volume (Bld) [Entitic vol] 7.7 fL 7 - 12 fL [facility] Platelets (Bld) [#/Vol] 246 10*3/uL [facility] RBC (Bld) [#/Vol] 3.28 10*6/uL Low [facility] WBC corrected for nucl RBC Auto (Bld) [#/Vol] 7.9 [facility] Glucose Glucometer (BldC) [M ass/Vol]on 09-13-2024 Glucose [Mass/Vol] 313 mg/dL High 65 - 99 mg/dL [facility] Interpretation and review of laboratory results Abnormal [facility] Glucose [Mass/Vol] 313 mg/dL High 65-99 [facility] Glucose [Mass/Vol] 98 mg/dL 65 - 99 mg/dL [facility] Glucose [Mass/Vol] 98 mg/dL Normal 65-99 [facility] Glucose [Mass/Vol] 108 mg/dL High 65 - 99 mg/dL [facility] Interpretation and review of laboratory results Abnormal [facility] Glucose [Mass/Vol] 108 mg/dL High 65-99 [facility] Ionized magnesiumon 09-14-19 Magnesium Ionized ISE (Bld) [Moles/Vol] 0.43 mmol/L Low 0.45 - 0.74 mmol/L [facility] Comment on above: NEW REFERENCE RANGE Magnesium Ionized ISE (Bld) [Moles/Vol]on 09-13-2024 Interpretation and review of laboratory results Abnormal [facility] Magnesium [Moles/Vol] 0.43 mmol/L Low 0.45-0.74 Pr [facility] Comment on above: Result Comment: NEW REFERENCE RANGE Performed By: #### 7 3572-0 ####[facility] ([id number])[address] [place] [address], [address] [place] [address] POCT ABG Rapid K GLU ICA HHo n 09-13-2024 Arterial patency Wrist artery --pre arterial puncture [facility] Base excess Calc (Bld) [Moles/Vol] 0.6 mmol/L [facility] Calcium.ionized ISE [Moles/Vol] 4.5 mg/dL 4.5 - 5.3 mg/dL [facility] CO2 (Bld) [Partial pressure] 34.9 mm[Hg] Low [facility] Glucose [Mass/Vol] 54 mg/dL Low 65 - 99 mg/dL [facility] HCO3 (Bld) [Moles/Vol] 24.5 mmol/L P [facility] Hematocrit (Bld) [Volume fraction] 27 % Low 39 - 49 % [facility] Hemoglobin (Bld) [Mass/Vol] 8.7 g/dL Low 13.0 - 17.0 g/dL [facility] Interpretation and review of laboratory results Abnormal [facility] Oxygen (Bld) [Partial pressure] 187 mm[Hg] High [facility] Oxygen/Inspired gas setting [Volume Fraction] Ventilator 100 % [facility] pH (Bld) 7.454 [pH] High 7.350 - 7.450 [facility] Potassium [Moles/Vol] 4.2 mmol/L 3.5 - 5.0 mmol/L [facility] Specimen site Narrative YULIA Talley [facility] Specimen type Nom (Spec) Arterial [facility] RAPID CARDIACon 09-13-2024 DUTCH'S TEST Normal [facility] Comment on above: Performed By: #### A SOLO5 ####[facility] ([id number])[address] [place] [address] Base excess Calc (Bld) [Moles/Vol] 0.6 mmol/L Normal 0.0-2.0 [facility] Comment on above: Performed By: #### A FAB5 ####[facility] ([id number])[address] [place] [address] Body temperature 98.6 [degF] Normal 37.0 [facility] Comment on above: Performed By: #### A FAB5 ####[facility] ([id number])[address] [place] [address] Glucose [Mass/Vol] 54 mg/dL Low 65-99 [facility] Comment on above: Performed By: #### A FAB5 ####[facility] ([id number])[address] [place] [address] HCO3 (Bld) [Moles/Vol] 24.5 mmol/L Normal 22-26 [facility] Comment on above: Performed By: #### A FAB5 ####[facility] ([id number])[address] [facility] [address] Hematocrit (Bld) [Volume fraction] 27 % Low 39-49 [facility] Comment on above: Performed By: #### A FAB5 ####[facility] ([id number])[address] [place] [address] Hemoglobin (Bld) [Mass/Vol] 8.7 g/dL Low 13.0-17.0 [facility] Comment on above: Performed By: #### A FAB5 ####[facility] ([id number])[address] [place] [address] INSP. O2 CONC. 100 % Normal [facility] Comment on above: Performed By: #### A FAB5 ####[facility] ([id number])[address] [facility] [address] IONIZED CALCIUM 4.5 mg/dL Normal 4.5-5.3 [facility] Comment on above: Performed By: #### A FAB5 ####[facility] ([id number])[address] [facility] [address] Oxygen (Bld) [Partial pressure] 187 mm[Hg] High 80-100 [facility] Comment on above: Performed By: #### A FAB5 ####[facility] ([id number])[address] [facility] [address] Oxygen saturation in Blood 100.4 % Normal >90 [facility] Comment on above: Performed By: #### A FAB5 ####[facility] ([id number])[address] [place] [address] PCO2 34.9 [facility] Low 35-45 [facility] Comment on above: Performed By: #### A FAB5 ####[facility] ([id number])[address] [facility] [place] [address] pH (Bld) 7.454 [pH] High 7.350-7.45 0 [facility] Comment on above: Performed By: #### A FAB5 ####[facility] ([id number])[address] [place] [address] Potassium [Moles/Vol] 4.2 mmol/L Normal 3.5-5.0 [facility] Comment on above: Performed By: #### A FAB5 ####[facility] ([id number])[address] [place] [address] SAMPLE SITE YULIA Normal [facility] Comment on above: Performed By: #### A FAB5 ####[facility] ([id number])[address] [place] [address] SAMPLE TYPE Arterial [facility] Comment on above: Performed By: #### A FAB5 ####[facility] ([id number])[address] [place] [address] APTTon 09-09-2024 aPTT Coag (PPP) [Time] 33 s Pr [email or web address] BASIC METABOLIC PANLon 09-09 Anion gap [Moles/Vol] 8 mmol/L Normal 5-15 [facility] Comment on above: Performed By: #### C MELVA, PINR, 48066-6, BMP ####[facility] ([id number])[address], [address], [place] [address] Calcium [Mass/Vol] 9.6 mg/dL Normal 8.5-10.5 [facility] Comment on above: Performed By: #### C BC, PINR, 38395-2, BMP ####[facility] ([id number])[address] [address] Chloride [Moles/Vol] 99 mmol/L Normal 98-109 [facility] Comment on above: Performed By: #### Elise BC, PINR, 77839-2, BMP ####[facility] ([id number])[address], [place] [address] CO2 [Moles/Vol] 28 mmol/L Normal 22-32 [facility] Comment on above: Performed By: #### GUY SARGENT, 97329-0, BMP ####[facility] ([id number])[address], [address], [place] [address] Creatinine [Mass/Vol] 1.64 mg/dL High 0.60-1.30 [facility] Comment on above: Result Comment: METH OD TRACEABLE TO IDMS STANDARD Performed By: #### C GUY FRYE, 55881-0, BMP ####[facility] ([id number])[address], [address] [address] GFR/1.73 sq M.predicted among non-blacks MDRD (S/P/Bld) [Vol rate/Area] 45 mL/min/{1.73_m2} Low >59 [facility] Comment on above: Result Comment: Repo rted eGFR is based on theCKD-EPI 2020 equation that doesnot use a race coefficient. Performed By: #### GUY SARGENT, 67187-8, BMP ####[facility] ([id number])[address], [address], [place] [address] Glucose [Mass/Vol] 169 mg/dL High 65-99 [facility] Comment on above: Performed By: #### GUY SARGENT, 31417-0, BMP ####[facility] ([id number])[address] [address], [place] [address] Potassium [Moles/Vol] 4.9 mmol/L Normal 3.5-5.0 [facility] Comment on above: Performed By: #### GUY SARGENT, 17940-7, BMP ####[facility] ([id number])[address], [address], [place] [address] Sodium [Moles/Vol] 135 mmol/L Normal 134-146 [facility] Comment on above: Performed By: #### C BC, PINR, 51806-3, BMP ####[facility] ([id number])[address], [address] [place] [address] Urea nitrogen [Mass/Vol] 19 mg/dL Normal 5-27 [facility] Comment on above: Performed By: #### C BC, PINR, 24596-3, BMP ####[facility] ([id number])[address], [address], [place] [address] Basic Metabolic Panelon 08-14 Anion gap [Moles/Vol] 8 mmol/L 5 - 15 mmol/L [facility] Calcium [Mass/Vol] 9.6 mg/dL 8.5 - 10. 5 mg/dL [facility] Chloride [Moles/Vol] 99 mmol/L 98 - 10 9 mmol/L [facility] CO2 [Moles/Vol] 28 mmol/L 22 - 32 mmol/L [facility] Creatinine [Mass/Vol] 1.64 mg/dL High 0.60 - 1.30 mg/dL [facility] Comment on above: METHOD TRACEABLE TO [facility] STANDARD eGFR (CKD-EPI)non-race dependent 45 Low - PINF [facility] Comment on above: Reported eGFR is based on the CKD-EPI 2020 equation that does not use a race coefficient. Glucose [Mass/Vol] 169 mg/dL High 65 - 99 mg/dL [facility] Interpretation and review of laboratory results Abnormal [facility] Potassium [Moles/Vol] 4.9 mmol/L 3.5 - 5.0 mmol/L [facility] Sodium [Moles/Vol] 135 mmol/L 134 - 146 mmol/L [facility] Urea nitrogen [Mass/Vol] 19 mg/dL 5 - 27 mg/dL [facility] CBC without diffon Erythrocyte distribution width (RBC) [Ratio] 16.1 % High 11.5 - 15.0 % [facility] Hematocrit (Bld) [Volume fraction] 31.6 % Low 39 - 49 % [facility] Hemoglobin (Bld) [Mass/Vol] 10.3 g/dL Low 13.0 - 17.0 g/dL [facility] Interpretation and review of laboratory results Abnormal [facility] MCH (RBC) [Entitic mass] 28.3 pg 27 - 34 pg [facility] MCHC (RBC) [Mass/Vol] 32.6 g/dL 32 - 3 6 g/dL [facility] MCV (RBC) [Entitic vol] 87 fL 80 - 100 fL [facility] Platelet mean volume (Bld) [Entitic vol] 8 fL 7 - 12 fL [facility] Platelets (Bld) [#/Vol] 336 10*3/uL [facility] RBC (Bld) [#/Vol] 3.63 10*6/uL Low [facility] WBC corrected for nucl RBC Auto (Bld) [#/Vol] 8.9 [facility] COMPLETE BLOOD COUNTon 09-09 Erythrocyte distribution width (RBC) [Ratio] 16.1 % High 11.5-15.0 [facility] Comment on above: Performed By: #### C GUY FRYE, 10085-6, BMP ####[facility] ([id number])[address], [address] [place] [address] Hematocrit (Bld) [Volume fraction] 31.6 % Low 39-49 [facility] Comment on above: Performed By: #### GUY SARGENT, 79605-2, BMP ####[facility] ([id number])[address], [address] [place] [address] Hemoglobin (Bld) [Mass/Vol] 10.3 g/dL Low 13.0-17.0 [facility] Comment on above: Performed By: #### GUY SARGENT, 42057-3, BMP ####[facility] ([id number])[address], [address], [place] [address] MCH (RBC) [Entitic mass] 28.3 pg Normal 27-34 [facility] Comment on above: Performed By: #### Elise FRYE, PINR, 47299-5, BMP ####[facility] ([id number])[address] [address] MCHC (RBC) [Mass/Vol] 32.6 g/dL Normal 32-36 [facility] Comment on above: Performed By: #### Elise FRYE, PINR, 24539-9, BMP ####[facility] ([id number])[address], [address] [address] MCV (RBC) [Entitic vol] 87 fL Normal 80-100 [facility] Comment on above: Performed By: #### Elise FRYE, PINR, 53773-3, BMP ####[facility] ([id number])[address], [address] [address] Platelet mean volume (Bld) [Entitic vol] 8.0 fL Normal 7-12 [facility] Comment on above: Performed By: #### Elise FRYE PINR, 66650-5, BMP ####[facility] ([id number])[address], [address] [address] Platelets (Bld) [#/Vol] 336 10*3/uL Normal 150-450 [facility] Comment on above: Performed By: #### Elise FRYE PINR, 35491-6, BMP ####[facility] ([id number])[address], [address] [address] RBC COUNT 3.63 X10E12/L Low 4.10-5.70 [facility] Comment on above: Performed By: #### Elise FRYE, PINR, 66884-5, BMP ####[facility] ([id number])[address], [address] [address] WBC (Bld) [#/Vol] 8.9 10*3/uL Normal 4.0-11.0 [facility] Comment on above: Performed By: #### C MELVA, PINR, 15541-6, BMP ####[facility] ([id number])[address], [address] [place] [address] No Panel Informationon 09-09 [facility] PROTIME AND INRon 09-09-2024 INR Coag (PPP) [Relative time] 1.0 {INR} Normal 0.9-1.2 [facility] Comment on above: Performed By: #### C MELVA, PINR, 12459-2, BMP ####[facility] ([id number])[address], [address] [place] [address] PT Coag (PPP) [Time] 11.2 s Normal 9.8-13.2 [facility] Comment on above: Performed By: #### Elise FRYE, PINR, 27323-5, BMP ####[facility] ([id number])[address], [address] [place] [address] Protime-INRon 09-09-2024 INR Coag (PPP) [Relative time] 1 {INR} [facility] PT Coag (PPP) [Time] 11.2 s [facility] Type and screen(includes ind irect bigg)on 09-09-2024 ABO O [facility] Rh Nom (Bld) Positive [facility] URINALYSISon 09-09-2024 Bilirubin Ql (U) Negative Normal NEG [facility] Comment on above: Performed By: #### U A ####[facility] ([id number])[address], [address] [place] [address] BLOOD/HGB Negative Normal NEG [facility] Comment on above: Performed By: #### U A ####[facility] ([id number])[address], [address] [place] [address] Color (U) YELLOW Normal YELLOW [facility] Comment on above: Performed By: #### U A ####[facility] ([id number])[address], [address], [place] [address] Glucose Ql (U) >1000 Abnormal NEG [facility] Comment on above: Performed By: #### U A ####[facility] ([id number])[address], [address], [place] [address] Ketones Ql (U) Negative Normal NEG [facility] Comment on above: Performed By: #### U A ####[facility] ([id number])[address], [address] [address] Leukocyte esterase Test strip Ql (U) Negative Normal NEG [facility] Comment on above: Result Comment: HIGH CONCENTRATIONS OF GLUCOSE MAY DECREASE THE REACTIVITY OF THE DIPSTICK LEUKOCYTE TEST PAD. Performed By: #### U A ####[facility] ([id number])[address], [address], [place] [address] Nitrite Ql (U) Negative Normal NEG [facility] Comment on above: Performed By: #### U A ####[facility] ([id number])[address], [address], [place] [address] pH (U) 7.5 [pH] Normal 5.0-8.5 [facility] Comment on above: Performed By: #### U A ####[facility] ([id number])[address] [address], [place] [address] Protein Ql (U) Negative Normal NEG [facility] Comment on above: Performed By: #### U A ####[facility] ([id number])[address], [place] [address] Specific gravity (U) [Rel density] 1.022 Normal 1.003-1.03 5 [facility] Comment on above: Performed By: #### U A ####[facility] ([id number])[address], [address], [place] [address] TURBIDITY CLEAR Normal CLEAR [facility] Comment on above: Performed By: #### U A ####[facility] ([id number])[address], [address], [place] [address] Urobilinogen (U) [Mass/Vol] mg/dL Normal <1.1 [facility] Comment on above: Performed By: #### U A ####[facility] ([id number])[address], [address], [place] [address] Urinalysison 09-09-2024 Bilirubin Ql (U) Negative Negative^N egative [facility] Color (U) YELLOW YELLOW^YEL LOW [facility] Glucose (U) [Mass/Vol] mg/dL Abnormal Negat edna^N egative mg/dL [facility] Hemoglobin Auto test strip Ql (U) Negative Negative^N egative [facility] Interpretation and review of laboratory results Abnormal [facility] Ketones (U) [Mass/Vol] Negative Negat edna^N egative mg/dL [facility] Leukocyte esterase Auto test strip Ql (U) Negative Negative^N egative [facility] Comment on above: HIGH CONCENTRATIONS OF GLUCOSE MAY DECREASE THE REACTIVITY OF THE DIPSTICK LEUKOCYTE TEST PAD. Nitrite Auto test strip Ql (U) Negative Negative^N egative [facility] pH (U) 7.5 [pH] 5.0 - 8.5 [facility] Protein (U) [Mass/Vol] Negative Negat edna^N egative mg/dL [facility] Specific gravity Refractometry automated (U) [Rel density] 1.022 1.003 - 1.035 [facility] Turbidity Ql (U) CLEAR CLEAR^SUSY R [facility] Urobilinogen Qn (U) NINF [facility] aPTT Coag (PPP) [Time]on aPTT Coag (Bld) [Time] 33 s Normal 26-37 [facility] Comment on above: Performed By: #### C BC, PINR, 45132-7, BMP ####[facility] ([id number])[address], [place] [address] Glucose (Bld) [Mass/Vol]Orde red By: Veronika Fine on 08-16-2024 Glucose Blood, POC 314 mg/dL [facility] - Hematology and Cell countson 08-16-2024 HbA1c (Bld) [Mass fraction] 9.1 % [facility] No Panel InformationOrdered By: Veronika Fine on 08-16-2024 [facility] Creatinine (Bld) [Mass/Vol]o n 08-12-2024 Creatinine [Mass/Vol] 1.8 mg/dL High 0.7-1.2 [facility] Comment on above: Performed By: #### 6 299-2, 2339-0, 70450-5 ####[facility] ([id number])[address] [place] [address] GFR/1.73 sq M.predicted among non-blacks MDRD (S/P/Bld) [Vol rate/Area] 40 mL/min/{1.73_m2} Low >59 [facility] Comment on above: Result Comment: Repo rted eGFR is based on theCKD-EPI 2020 equation that doesnot use a race coefficient. Performed By: #### 6 299-2, 2339-0, 79097-2 ####[facility] ([id number])[address] [place] [address] Glucose (Bld) [Mass/Vol]on 0 08-12-2024 Glucose [Mass/Vol] 141 mg/dL High 65-99 [facility] Comment on above: Performed By: #### 6 299-2, 2339-0, 17859-7 ####[facility] ([id number])[address] [place] [address] Urea nitrogen (Bld) [Mass/Vo l]on 08-12-2024 Urea nitrogen [Mass/Vol] 23 mg/dL Normal 6-27 [facility] Comment on above: Performed By: #### 6 299-2, 2339-0, 54058-9 ####[facility] ([id number])[address] [place] [address] CBC (INCLUDES DIFF/PLT)on Basophils (Bld) [#/Vol] 0.066 10*3/uL Normal 0-200 [facility] Comment on above: Performed By: #### 1 0231, 6399 #### [facility] of [address], [address] [place] [address] Medical Equipment Technician: Anant Saleh MD Basophils/100 WBC (Bld) 0.5 % Normal [facility] Comment on above: Performed By: #### 1 0231, 6399 #### [facility] [place] [address] Medical Equipment Technician: Anant Saleh MD Eosinophils (Bld) [#/Vol] 0.498 10*3/uL Normal 15-500 [facility] Comment on above: Performed By: #### 1 0231, 6399 #### [facility] of [place] [address] Medical Equipment Technician: Anant Saleh MD Eosinophils/100 WBC (Bld) 3.8 % Normal [facility] Comment on above: Performed By: #### 1 0231, 6399 #### [facility] of [place] [address] Medical Equipment Technician: Anant Saleh MD Erythrocyte distribution width (RBC) [Ratio] 13.9 % Normal 11.0-15.0 [facility] Comment on above: Performed By: #### 1 0231, 6399 #### [facility] of [place] [address] Medical Equipment Technician: Anant Saleh MD Hematocrit (Bld) [Volume fraction] 34.0 % Low 38.5-50.0 [facility] Comment on above: Performed By: #### 1 0231, 6399 #### [facility] of [address], [address] [place] [address] Medical Equipment Technician: Anant Saleh MD Hemoglobin (Bld) [Mass/Vol] 11.0 g/dL Low 13.2-17.1 [facility] Comment on above: Performed By: #### 1 [id number], [id number] #### [facility] of [address], [address] [place] [address] Medical Equipment Technician: Anant Saleh MD Lymphocytes (Bld) [#/Vol] 2.45 10*3/uL Normal 850-3900 [facility] Comment on above: Performed By: #### 1 [id number], [id number] #### [facility] of [address], [address] [place] [address] Medical Equipment Technician: Anant Saleh MD Lymphocytes/100 WBC (Bld) 18.7 % Normal [facility] Comment on above: Performed By: #### 1 023, [id number] #### [facility] [place] [address] Medical Equipment Technician: Anant Saleh MD MCH (RBC) [Entitic mass] 28.7 pg Normal 27.0-33.0 [facility] Comment on above: Performed By: #### 1 023, [id number] #### [facility] [place] [address] Medical Equipment Technician: Anant Saleh MD MCHC (RBC) [Mass/Vol] 32.4 g/dL Normal 32.0-36.[address] [facility] Comment on above: Result Comment: For adults, a slight decrease in the calculated MCHC value (in the range of 30 to 32 g/dL) is most likely not clinically significant; however, it should be interpreted with caution in correlation with other red cell parameters and the patient's clinical condition. Performed By: #### 1 0231, 6399 #### [facility] [place] [address] Medical Equipment Technician: Anant Saleh MD MCV (RBC) [Entitic vol] 88.8 fL Normal 80.0-100.0 [facility] Comment on above: Performed By: #### 1 0231, 6399 #### [facility] [place] [address] Medical Equipment Technician: Anant Saleh MD Monocytes (Bld) [#/Vol] 1.048 10*3/uL High 200-950 [facility] Comment on above: Performed By: #### 1 0231, 6399 #### [facility] [place] [address] Medical Equipment Technician: Anant Saleh MD Monocytes/100 WBC (Bld) 8.0 % Normal [facility] Comment on above: Performed By: #### 1 0231, 6399 #### [facility] [place] [address] Medical Equipment Technician: Anant Saleh MD Neutrophils (Bld) [#/Vol] 9.039 10*3/uL High 5822-2727 [facility] Comment on above: Performed By: #### 1 0231, 6399 #### [facility] [place] [address] Medical Equipment Technician: Anant Saleh MD Neutrophils/100 WBC (Bld) 69 % Normal [facility] Comment on above: Performed By: #### 1 0231, 6399 #### [facility] [place] [address] Medical Equipment Technician: Anant Saleh MD Platelet mean volume (Bld) [Entitic vol] 10.7 fL Normal 7.5-12.5 [facility] Comment on above: Performed By: #### 1 0231, 6399 #### [facility] [place] [address] Medical Equipment Technician: Anant Saleh MD Platelets (Bld) [#/Vol] 357 10*3/uL Normal 140-400 [facility] Comment on above: Performed By: #### 1 0231, 6399 #### [facility] of [address], [address] [place] [address] Medical Equipment Technician: Anant Saleh MD RBC (Bld) [#/Vol] 3.83 10*6/uL Low 4.20-5.80 [facility] Comment on above: Performed By: #### 1 0231, 6399 #### [facility] of [address], [address] [place] [address] Medical Equipment Technician: Anant Saleh MD WBC (Bld) [#/Vol] 13.1 10*3/uL High 3.8-10.8 [facility] Comment on above: Performed By: #### 1 0231, 6399 #### [facility] of [address], [address] [place] [address] Medical Equipment Technician: Anant Saleh MD [facility] METABOLIC PANE [facility] 08-09-2024 Albumin [Mass/Vol] 3.6 g/dL Normal 3.6-5.1 [facility] Comment on above: Performed By: #### 1 0231, 6399 #### [facility] of [address], [address] [place] [address] Medical Equipment Technician: Anant Saleh MD Albumin/Globulin [Mass ratio] 1.2 {ratio} Normal 1.0-2.5 [facility] Comment on above: Performed By: #### 1 0231, 6399 #### [facility] of [address], [address] [place] [address] Medical Equipment Technician: Anant Saleh MD ALP [Catalytic activity/Vol] 114 U/L Normal 35-144 [facility] Comment on above: Performed By: #### 1 0231, 6399 #### [facility] of [address], [address] [place] [address] Medical Equipment Technician: Anant Saleh MD ALT [Catalytic activity/Vol] 17 U/L Normal 9-46 [facility] Comment on above: Performed By: #### 1 0231, 6399 #### [facility] [place] [address] Medical Equipment Technician: Anant Saleh MD AST [Catalytic activity/Vol] 20 U/L Normal 10-35 [facility] Comment on above: Performed By: #### 1 0231, 6399 #### [facility] [place] [address] Medical Equipment Technician: Anant Saleh MD Bilirubin [Mass/Vol] 0.4 mg/dL Normal 0.2-1.2 [facility] Comment on above: Performed By: #### 1 0231, 6399 #### [facility] [place] [address] Medical Equipment Technician: Anant Saleh MD Calcium [Mass/Vol] 8.7 mg/dL Normal 8.6-10.3 [facility] Comment on above: Performed By: #### 1 0231, 6399 #### [facility] [place] [address] Medical Equipment Technician: Anant Saleh MD Chloride [Moles/Vol] 99 mmol/L Normal 98-110 [facility] Comment on above: Performed By: #### 1 0231, 6399 #### [facility] [place] [address] Medical Equipment Technician: Anant Saleh MD CO2 [Moles/Vol] 23 mmol/L Normal 20-32 [facility] Comment on above: Performed By: #### 1 0231, 6399 #### [facility] [place] [address] Medical Equipment Technician: Anant Saleh MD Creatinine [Mass/Vol] 2.06 mg/dL High 0.70-1.[address] [facility] Comment on above: Performed By: #### 1 0231, 6399 #### [facility] [place] [address] Medical Equipment Technician: Anant Saleh MD GFR/1.73 sq M.predicted among non-blacks MDRD (S/P/Bld) [Vol rate/Area] 34 mL/min/{1.73_m2} Low > OR = 60 [facility] Comment on above: Performed By: #### 1 1, 6399 #### [facility] [address], [address] [place] [address] Medical Equipment Technician: Anant Saleh MD Globulin (S) [Mass/Vol] 3.1 g/dL Normal 1.9-3.7 [facility] Comment on above: Performed By: #### 1 0231, 6399 #### [facility] [address], [address] [place] [address] Medical Equipment Technician: Anant Saleh MD Glucose [Mass/Vol] 214 mg/dL High 65-99 [facility] Comment on above: Result Comment: Fasting reference interval For someone without known diabetes, a glucose value >125 mg/dL indicates that they may have diabetes and this should be confirmed with a follow-up test. Performed By: #### 1 230, 6399 #### [facility] [address], [address] [place] [address] Medical Equipment Technician: Anant Saleh MD Potassium [Moles/Vol] 5.5 mmol/L High 3.5-5.[address] [facility] Comment on above: Performed By: #### 1 230, 6399 #### [facility] [place] [address] Medical Equipment Technician: Anant Saleh MD Protein [Mass/Vol] 6.7 g/dL Normal 6.1-8.1 [facility] Comment on above: Performed By: #### 1 0231, 6399 #### [facility] [place] [address] Medical Equipment Technician: Anant Saleh MD Sodium [Moles/Vol] 134 mmol/L Low 135-146 [facility] Comment on above: Performed By: #### 1 023, 6399 #### [facility] [place] [address] Medical Equipment Technician: Anant Saleh MD Urea nitrogen [Mass/Vol] 20 mg/dL Normal 7-25 [facility] Comment on above: Performed By: #### 1 0231, 6399 #### [facility] [address], [address] [place] [address] Medical Equipment Technician: Anant Saleh MD Urea nitrogen/Creatinine [Mass ratio] 10 mg/mg Normal 6- [facility] Comment on above: Performed By: #### 1 0231, 6399 #### [facility] [address] [place] [address] Rd, [address] [place] [phone] Medical Equipment Technician: Anant Saleh MD CBC W Auto Differential pane l (Bld)on 08-05-2024 Basophils (Bld) [#/Vol] 86 10*3/uL [facility] Basophils/100 WBC (Bld) 0.6 % [facility] Eosinophils (Bld) [#/Vol] 601 10*3/uL High [facility] Eosinophils/100 WBC (Bld) 4.2 % [facility] Erythrocyte distribution width (RBC) [Ratio] 14.1 % 11.0 - 15.0 % [facility] Hematocrit (Bld) [Volume fraction] 34.5 % Low 38.5 - 50.0 % [facility] Hemoglobin (Bld) [Mass/Vol] 11.1 g/dL Low 13.2 - 17.1 g/dL [facility] Lymphocytes (Bld) [#/Vol] 2989 10*3/uL [facility] Lymphocytes/100 WBC (Bld) 20.9 % [facility] MCH (RBC) [Entitic mass] 28.5 pg 27.0 - 33.0 pg [facility] MCHC (RBC) [Mass/Vol] 32.2 g/dL 32.0 - 36.0 g/dL [facility] Comment on above: For adults, a slight decrease in the calculated MCHC value (in the range of 30 to 32 g/dL) is most likely not clinically significant; however, it should be interpreted with caution in correlation with other red cell parameters and the patient's clinical condition. MCV (RBC) [Entitic vol] 88.7 fL 80.0 - 100.0 fL [facility] Monocytes (Bld) [#/Vol] 1115 10*3/uL High [facility] Monocytes/100 WBC (Bld) 7.8 % [facility] Neutrophils (Bld) [#/Vol] 9510 10*3/uL High [facility] Neutrophils/100 WBC (Bld) 66.5 % [facility] Platelet mean volume (Bld) [Entitic vol] 10.4 fL 7.5 - 12.5 fL [facility] Platelets (Bld) [#/Vol] 359 10*3/uL [facility] RBC (Bld) [#/Vol] 3.89 10*6/uL Low [facility] WBC (Bld) [#/Vol] 14.3 10*3/uL High [facility] Laboratory - Chemistry and C hemistry - challengeon 08-05-2024 Albumin [Mass/Vol] 3.6 g/dL 3.6 - 5.1 g/dL [facility] Albumin/Globulin [Mass ratio] 1.3 {ratio} [facility] ALP [Catalytic activity/Vol] 90 U/L 35 - 144 U/L [facility] ALT [Catalytic activity/Vol] 16 U/L 9 - 46 U/L [facility] AST [Catalytic activity/Vol] 19 U/L 10 - 35 U/L [facility] Bilirubin [Mass/Vol] 0.6 mg/dL 0.2 - 1 .2 mg/dL [facility] Calcium [Mass/Vol] 9 mg/dL 8.6 - 10. 3 mg/dL [facility] Chloride [Moles/Vol] 100 mmol/L 98 - 11 0 mmol/L [facility] CO2 [Moles/Vol] 24 mmol/L 20 - 32 mmol/L [facility] Creatinine [Mass/Vol] 1.8 mg/dL High 0.70 - 1.35 mg/dL [facility] GFR/1.73 sq M.predicted among non-blacks MDRD (S/P/Bld) [Vol rate/Area] 40 mL/min/{1.73_m2} Low > OR = 60 mL/min/1.7 3m2 [facility] Globulin (S) [Mass/Vol] 2.8 g/dL [facility] Glucose [Mass/Vol] 238 mg/dL High 65 - 99 mg/dL [facility] Comment on above: Fasting reference interval For someone without known diabetes, a glucose value >125 mg/dL indicates that they may have diabetes and this should be confirmed with a follow-up test. Magnesium [Mass/Vol] 2.2 mg/dL 1.5 - 2 .5 mg/dL [facility] Potassium [Moles/Vol] 5.4 mmol/L High 3.5 - 5.3 mmol/L [facility] Protein [Mass/Vol] 6.4 g/dL 6.1 - 8.1 g/dL [facility] Sodium [Moles/Vol] 134 mmol/L Low 135 - 146 mmol/L [facility] Urea nitrogen [Mass/Vol] 20 mg/dL 7 - 25 mg/dL [facility] Urea nitrogen/Creatinine [Mass ratio] 11 mg/mg [facility] No Panel Informationon 08-05 Interpretation and review of laboratory results Abnormal [facility] Performing Organizat ion Information Site ID: QPT Name: [employer] [facility] Address: [address] [place] [address], [address] [place] [id number] Director: Anant Saleh MD [facility]ly [facility] COMPLETE BLOOD COUNTon 08-01 Erythrocyte distribution width (RBC) [Ratio] 14.7 % Normal 11.5-15.0 [facility] Comment on above: Performed By: #### Elise FRYE CMP, [address]-3 ####[facility] ([id number])[address] [address] Hematocrit (Bld) [Volume fraction] 28.8 % Low 39-49 [facility] Comment on above: Performed By: #### Elise FRYE CMP, ####[facility] ([id number])[address] [address] Hemoglobin (Bld) [Mass/Vol] 9.9 g/dL Low 13.0-17.0 [facility] Comment on above: Performed By: #### Elise FRYE CMP, ####[facility] ([id number])[address] [address] MCH (RBC) [Entitic mass] 29.5 pg Normal 27-34 [facility] Comment on above: Performed By: #### Elise FRYE CMP, ####[facility] ([id number])[address] [address] MCHC (RBC) [Mass/Vol] 34.4 g/dL Normal 32-36 [facility] Comment on above: Performed By: #### C BC, CMP, ####[facility] ([id number])[address], [address] [address] MCV (RBC) [Entitic vol] 86 fL Normal 80-100 [facility] Comment on above: Performed By: #### Elise BC, CMP, ####[facility] ([id number])[address] [address] Platelet mean volume (Bld) [Entitic vol] 7.8 fL Normal 7-12 [facility] Comment on above: Performed By: #### Elise BC, CMP, ####[facility] ([id number])[address] [address] Platelets (Bld) [#/Vol] 230 10*3/uL Normal 150-450 [facility] Comment on above: Performed By: #### Elise BC, CMP, ####[facility] ([id number])[address] [address] RBC COUNT 3.35 X10E12/L Low 4.10-5.70 [facility] Comment on above: Performed By: #### C BC, CMP, ####[facility] ([id number])[address] [address] [address] WBC (Bld) [#/Vol] 10.4 10*3/uL Normal 4.0-11.0 [facility] Comment on above: Performed By: #### Elise BC, CMP, ####[facility] ([id number])[address], [address], [place] [address] COMPREHENSIVE METABOLIC PANE [facility]ell 08-01-2024 Albumin [Mass/Vol] 2.8 g/dL Low 3.2-5.3 [facility] Comment on above: Performed By: #### C BC, CMP, [id number] ####[facility] ([id number])[address], [address], [place] [address] ALP [Catalytic activity/Vol] 64 U/L Normal 39-130 [facility] Comment on above: Performed By: #### Elise FRYE, CMP, ####[facility] ([id number])[address], [address], [place] [address] ALT [Catalytic activity/Vol] 11 U/L Normal 0-40 [facility] Comment on above: Performed By: #### Elise FRYE, CMP, ####[facility] ([id number])[address], [address], [place] [address] Anion gap [Moles/Vol] 7 mmol/L Normal 5-15 [facility] Comment on above: Performed By: #### Elise FRYE, CMP, ####[facility] ([id number])[address], [address], [place] [address] AST [Catalytic activity/Vol] 13 U/L Normal 0-41 [facility] Comment on above: Performed By: #### Elise FRYE, CMP, ####[facility] ([id number])[address], [address], [place] [address] Bilirubin [Mass/Vol] 0.4 mg/dL Normal 0.3-1.2 [facility] Comment on above: Performed By: #### Elise BC, CMP, ####[facility] ([id number])[address], [address], [place] [address] Calcium [Mass/Vol] 7.7 mg/dL Low 8.5-10.5 [facility] Comment on above: Performed By: #### Elise FRYE [facility], ####[facility] ([id number])[address], [address], [place] [address] Chloride [Moles/Vol] 105 mmol/L Normal 98-109 [facility] Comment on above: Performed By: #### Elise FRYE [facility], ####[facility] ([id number])[address], [address] [address] CO2 [Moles/Vol] 26 mmol/L Normal 22-32 [facility] Comment on above: Performed By: #### Elise FRYE CMP, ####[facility] ([id number])[address] [address] [address] Creatinine [Mass/Vol] 1.24 mg/dL Normal 0.60-1.30 [facility] Comment on above: Result Comment: METH OD TRACEABLE TO IDMS STANDARD Performed By: #### Elise FRYE [facility], ####[facility] ([id number])[address] [address] [address] GFR/1.73 sq M.predicted among non-blacks MDRD (S/P/Bld) [Vol rate/Area] 63 mL/min/{1.73_m2} Normal >59 [facility] Comment on above: Result Comment: Repo rted eGFR is based on theCKD-EPI 2020 equation that doesnot use a race coefficient. Performed By: #### Elise FRYE CMP, ####[facility] ([id number])[address], [address], [place] [address] Glucose [Mass/Vol] 102 mg/dL High 65-99 [facility] Comment on above: Performed By: #### C GARETH FRYE, ####[facility] ([id number])[address], [address] [address] Potassium [Moles/Vol] 4.0 mmol/L Normal 3.5-5.0 [facility] Comment on above: Performed By: #### Elise FRYE [facility], ####[facility] ([id number])[address], [address] [address] Protein [Mass/Vol] 5.4 g/dL Low 6.0-8.0 [facility] Comment on above: Performed By: #### Elise FRYE [facility], ####[facility] ([id number])[address] [address] Sodium [Moles/Vol] 138 mmol/L Normal 134-146 [facility] Comment on above: Performed By: #### Elise FRYE [facility], ####[facility] ([id number])[address], [place] [address] Urea nitrogen [Mass/Vol] 18 mg/dL Normal 5-27 [facility] Comment on above: Performed By: #### Elise FRYE [facility], [address]-7 ####[facility] ([id number])[address] [address], [place] [address] Calcium.ionized (Bld) [Mass/ Vol]on 08-01-2024 IONIZED CALCIUM 4.6 mg/dL Normal 4.5-5.3 [facility] Comment on above: Performed By: #### 3 8230-9 ####[facility] ([id number])[address] [address] Glucose Glucometer (BldC) [M ass/Vol]on 08-01-2024 Glucose [Mass/Vol] 113 mg/dL High 65-99 [facility] MAGNESIUMon 08-01-2024 Magnesium [Mass/Vol] 1.6 mg/dL Low 1.8-2.6 [facility] Comment on above: Performed By: #### Elise FRYE [facility], ####[facility] ([id number])[address], [place] [address] COMPLETE BLOOD COUNTon 07-31 Erythrocyte distribution width (RBC) [Ratio] 14.4 % Normal 11.5-15.0 [facility] Comment on above: Performed By: #### Elise FRYE [facility], ####[facility] ([id number])[address], [place] [address] Hematocrit (Bld) [Volume fraction] 31.3 % Low 39-49 [facility] Comment on above: Performed By: #### Elise FRYE CMP, ####[facility] ([id number])[address], [place] [address] Hemoglobin (Bld) [Mass/Vol] 10.6 g/dL Low 13.0-17.0 [facility] Comment on above: Performed By: #### Elise FRYE [facility], ####[facility] ([id number])[address], [place] [address] MCH (RBC) [Entitic mass] 29.1 pg Normal 27-34 [facility] Comment on above: Performed By: #### Elise FRYE [facility], ####[facility] ([id number])[address], [place] [address] MCHC (RBC) [Mass/Vol] 34.0 g/dL Normal 32-36 [facility] Comment on above: Performed By: #### Elise FRYE CMP, ####[facility] ([id number])[address], [place] [address] MCV (RBC) [Entitic vol] 86 fL Normal 80-100 [facility] Comment on above: Performed By: #### Elise FRYE, CMP, ####[facility] ([id number])[address], [place] [address] Platelet mean volume (Bld) [Entitic vol] 8.0 fL Normal 7-12 [facility] Comment on above: Performed By: #### Elise BC, CMP, ####[facility] ([id number])[address] [address] Platelets (Bld) [#/Vol] 233 10*3/uL Normal 150-450 [facility] Comment on above: Performed By: #### Elise FRYE, CMP, ####[facility] ([id number])[address] [address] RBC COUNT 3.65 X10E12/L Low 4.10-5.70 [facility] Comment on above: Performed By: #### Elise FRYE, CMP, [address]672-3 ####[facility] ([id number])[address] [address], [place] [address] WBC (Bld) [#/Vol] 13.1 10*3/uL High 4.0-11.0 [facility] Comment on above: Performed By: #### Elise BC, CMP, ####[facility] ([id number])[address], [place] [address] COMPREHENSIVE METABOLIC PANE Markell 07-31-2024 Albumin [Mass/Vol] 3.0 g/dL Low 3.2-5.3 [facility] Comment on above: Performed By: #### Elise BC, CMP, ####[facility] ([id number])[address] [address] ALP [Catalytic activity/Vol] 69 U/L Normal 39-130 [facility] Comment on above: Performed By: #### Elise FRYE, CMP, ####[facility] ([id number])[address], [address], [place] [address] ALT [Catalytic activity/Vol] 7 U/L Normal 0-40 [facility] Comment on above: Performed By: #### Elise FRYE CMP, ####[facility] ([id number])[address], [place] [address] Anion gap [Moles/Vol] 8 mmol/L Normal 5-15 [facility] Comment on above: Performed By: #### Elise FRYE CMP, ####[facility] ([id number])[address], [place] [address] AST [Catalytic activity/Vol] 14 U/L Normal 0-41 [facility] Comment on above: Performed By: #### Elise FRYE CMP, ####[facility] ([id number])[address], [place] [address] Bilirubin [Mass/Vol] 0.4 mg/dL Normal 0.3-1.2 [facility] Comment on above: Performed By: #### Elise FRYE CMP, ####[facility] ([id number])[address], [place] [address] Calcium [Mass/Vol] 8.0 mg/dL Low 8.5-10.5 [facility] Comment on above: Performed By: #### Elise FRYE CMP, ####[facility] ([id number])[address], [place] [address] Chloride [Moles/Vol] 106 mmol/L Normal 98-109 [facility] Comment on above: Performed By: #### Elise FRYE CMP, ####[facility] ([id number])[address], [place] [address] CO2 [Moles/Vol] 24 mmol/L Normal 22-32 [facility] Comment on above: Performed By: #### Elise FRYE CMP, ####[facility] ([id number])[address], [place] [address] Creatinine [Mass/Vol] 1.32 mg/dL High 0.60-1.30 [facility] Comment on above: Result Comment: METH OD TRACEABLE TO IDMS STANDARD Performed By: #### Elise FRYE CMP, ####[facility] ([id number])[address], [place] [address] GFR/1.73 sq M.predicted among non-blacks MDRD (S/P/Bld) [Vol rate/Area] 58 mL/min/{1.73_m2} Low >59 [facility] Comment on above: Result Comment: Repo rted eGFR is based on theCKD-EPI 2020 equation that doesnot use a race coefficient. Performed By: #### Elise FRYE CMP, ####[facility] ([id number])[address], [place] [address] Glucose [Mass/Vol] 80 mg/dL Normal 65-99 [facility] Comment on above: Performed By: #### Elise FRYE CMP, ####[facility] ([id number])[address] [address], [place] [address] Potassium [Moles/Vol] 4.2 mmol/L Normal 3.5-5.0 [facility] Comment on above: Performed By: #### Elise FRYE CMP, ####[facility] ([id number])[address], [place] [address] Protein [Mass/Vol] 5.8 g/dL Low 6.0-8.0 [facility] Comment on above: Performed By: #### C [facility], 132[address]-4 ####[facility] ([id number])[address], [place] [address] Sodium [Moles/Vol] 138 mmol/L Normal 134-146 [facility] Comment on above: Performed By: #### Elise FRYE [facility], 16773-2 ####[facility] ([id number])[address], [place] [address] Urea nitrogen [Mass/Vol] 21 mg/dL Normal 5-27 [facility] Comment on above: Performed By: #### Elise FRYE [facility], 46619-3 ####[facility] ([id number])[address], [place] [address] Glucose Glucometer (BldC) [M ass/Vol]on 07-31-2024 Glucose [Mass/Vol] 100 mg/dL High 65- [facility] Glucose [Mass/Vol] 109 mg/dL High 65- [facility] Glucose [Mass/Vol] 128 mg/dL High 65- [facility] Glucose [Mass/Vol] 160 mg/dL High 65- [facility] Glucose [Mass/Vol] 158 mg/dL High 65- [facility] Glucose [Mass/Vol] 128 mg/dL High 65-99 [facility] Glucose [Mass/Vol] 147 mg/dL High 65- [facility] Glucose [Mass/Vol] 190 mg/dL High 65-99 [facility] Glucose [Mass/Vol] 230 mg/dL High 65-99 [facility] Glucose [Mass/Vol] 211 mg/dL High 65-99 [facility] Glucose [Mass/Vol] 241 mg/dL High 65-99 [facility] Glucose [Mass/Vol] 161 mg/dL High 65-99 [facility] Glucose [Mass/Vol] 140 mg/dL High 65-99 [facility] Glucose [Mass/Vol] 110 mg/dL High 65-99 [facility] Glucose [Mass/Vol] 123 mg/dL High 65-99 [facility] Glucose [Mass/Vol] 104 mg/dL High 65-99 [facility] Glucose [Mass/Vol] 89 mg/dL Normal 65-99 [facility] Glucose [Mass/Vol] 93 mg/dL Normal 65-99 [facility] Glucose [Mass/Vol] 114 mg/dL High 65-99 [facility] Glucose [Mass/Vol] 144 mg/dL High 65-99 [facility] Glucose [Mass/Vol] 189 mg/dL High 65-99 [facility] MAGNESIUMon 07-31-2024 Magnesium [Mass/Vol] 2.2 mg/dL Normal 1.8-2.6 [facility] Comment on above: Performed By: #### C , [facility], 90[address]-4 ####[facility] ([id number])[address], [place] [address] POTASSIUMon 07-31-2024 Potassium [Moles/Vol] 3.9 mmol/L Normal 3.5-5.0 [facility] Comment on above: Performed By: #### 2 823-3 ####[facility] ([id number])[address], [address], [place] [address] Potassium [Moles/Vol] 3.8 mmol/L Normal 3.5-5.0 [facility] Comment on above: Performed By: #### 2 823-3 ####[facility] ([id number])[address], [address], [place] [address] Potassium [Moles/Vol] 3.9 mmol/L Normal 3.5-5.0 [facility] Comment on above: Performed By: #### 2 823-3 ####[facility] ([id number])[address] [address] [address] COMPLETE BLOOD COUNTon 07-30 Erythrocyte distribution width (RBC) [Ratio] 14.3 % Normal 11.5-15.0 [facility] Comment on above: Performed By: #### Elise BC, CMP, ####[facility] ([id number])[address] [address] [address] Hematocrit (Bld) [Volume fraction] 29.2 % Low 39-49 [facility] Comment on above: Performed By: #### Elise FRYE, CMP, ####[facility] ([id number])[address] [address] Hemoglobin (Bld) [Mass/Vol] 9.9 g/dL Low 13.0-17.0 [facility] Comment on above: Performed By: #### Elise FRYE, CMP, ####[facility] ([id number])[address] [address] [address] MCH (RBC) [Entitic mass] 29.0 pg Normal 27-34 [facility] Comment on above: Performed By: #### Elies FRYE, CMP, ####[facility] ([id number])[address] [address] [address] MCHC (RBC) [Mass/Vol] 33.9 g/dL Normal 32-36 [facility] Comment on above: Performed By: #### Elise BC, CMP, ####[facility] ([id number])[address] [address] [address] MCV (RBC) [Entitic vol] 85 fL Normal 80-100 [facility] Comment on above: Performed By: #### Elise BC, CMP, ####[facility] ([id number])[address] [address] Platelet mean volume (Bld) [Entitic vol] 8.0 fL Normal 7-12 [facility] Comment on above: Performed By: #### Eilse BC, CMP, ####[facility] ([id number])[address], [address] [address] Platelets (Bld) [#/Vol] 223 10*3/uL Normal 150-450 [facility] Comment on above: Performed By: #### Elise BC, CMP, ####[facility] ([id number])[address], [address] [address] RBC COUNT 3.42 X10E12/L Low 4.10-5.70 [facility] Comment on above: Performed By: #### Elise BC, CMP, ####[facility] ([id number])[address] [address] [place] [address] WBC (Bld) [#/Vol] 12.1 10*3/uL High 4.0-11.0 [facility] Comment on above: Performed By: #### Elise BC, CMP, ####[facility] ([id number])[address] [address] COMPREHENSIVE METABOLIC PANE Markell 07-30-2024 Albumin [Mass/Vol] 3.0 g/dL Low 3.2-5.3 [facility] Comment on above: Performed By: #### Elise BC, CMP, ####[facility] ([id number])[address], [address] [address] ALP [Catalytic activity/Vol] 76 U/L Normal 39-130 [facility] Comment on above: Performed By: #### Elise BC, CMP, ####[facility] ([id number])[address], [address], [place] [address] ALT [Catalytic activity/Vol] 11 U/L Normal 0-40 [facility] Comment on above: Performed By: #### Elise FRYE [facility], ####[facility] ([id number])[address], [place] [address] Anion gap [Moles/Vol] 16 mmol/L High 5-15 [facility] Comment on above: Performed By: #### Elise FRYE CMP, ####[facility] ([id number])[address], [place] [address] AST [Catalytic activity/Vol] 13 U/L Normal 0-41 [facility] Comment on above: Performed By: #### Elise FRYE CMP, ####[facility] ([id number])[address], [address], [place] [address] Bilirubin [Mass/Vol] 0.7 mg/dL Normal 0.3-1.2 [facility] Comment on above: Performed By: #### Elise FRYE CMP, ####[facility] ([id number])[address], [place] [address] Calcium [Mass/Vol] 8.1 mg/dL Low 8.5-10.5 [facility] Comment on above: Performed By: #### Elise FRYE CMP, ####[facility] ([id number])[address], [address], [place] [address] Chloride [Moles/Vol] 94 mmol/L Low 98-109 [facility] Comment on above: Performed By: #### Elise FRYE CMP, ####[facility] ([id number])[address], [address], [place] [address] CO2 [Moles/Vol] 20 mmol/L Low 22-32 [facility] Comment on above: Performed By: #### Elise FRYE [facility], ####[facility] ([id number])[address] [address] [address] Creatinine [Mass/Vol] 1.36 mg/dL High 0.60-1.30 [facility] Comment on above: Result Comment: METH OD TRACEABLE TO IDMS STANDARD Performed By: #### Elise FRYE [facility], ####[facility] ([id number])[address] [address] [address] GFR/1.73 sq M.predicted among non-blacks MDRD (S/P/Bld) [Vol rate/Area] 56 mL/min/{1.73_m2} Low >59 [facility] Comment on above: Result Comment: Repo rted eGFR is based on theCKD-EPI 2020 equation that doesnot use a race coefficient. Performed By: #### Elise FRYE [facility], ####[facility] ([id number])[address] [address] [address] Glucose [Mass/Vol] 406 mg/dL Critically high 65-99 [facility] Comment on above: Performed By: #### Elise FRYE [facility], ####[facility] ([id number])[address] [address] [address] Potassium [Moles/Vol] 4.8 mmol/L Normal 3.5-5.0 [facility] Comment on above: Performed By: #### Elise FRYE [facility], ####[facility] ([id number])[address] [address] [address] Protein [Mass/Vol] 6.0 g/dL Normal 6.0-8.0 [facility] Comment on above: Performed By: #### Elise FRYE [facility], ####[facility] ([id number])[address], [place] [address] Sodium [Moles/Vol] 130 mmol/L Low 134-146 [facility] Comment on above: Performed By: #### C MELVA, [facility], 87[address]-5 ####[facility] ([id number])[address], [address] [place] [address] Urea nitrogen [Mass/Vol] 19 mg/dL Normal 5-27 [facility] Comment on above: Performed By: #### C MELVA, [facility], ####[facility] ([id number])[address], [address], [place] [address] Glucose Glucometer (BldC) [M ass/Vol]on 07-30-2024 Glucose [Mass/Vol] 182 mg/dL High 65-99 [facility] Glucose [Mass/Vol] 171 mg/dL High 65-99 [facility] Glucose [Mass/Vol] 140 mg/dL High 65-99 [facility] Glucose [Mass/Vol] 121 mg/dL High 65-99 [facility] Glucose [Mass/Vol] 94 mg/dL Normal 65-99 [facility] Glucose [Mass/Vol] 98 mg/dL Normal 65-99 [facility] Glucose [Mass/Vol] 91 mg/dL Normal 65-99 [facility] Glucose [Mass/Vol] 137 mg/dL High 65-99 [facility] Glucose [Mass/Vol] 165 mg/dL High 65-99 [facility] Glucose [Mass/Vol] 267 mg/dL High 65-99 [facility] Glucose [Mass/Vol] 296 mg/dL High 65-99 [facility] Glucose [Mass/Vol] 303 mg/dL High 65-99 [facility] Glucose [Mass/Vol] 311 mg/dL High 65-99 [facility] Glucose [Mass/Vol] 314 mg/dL High 65-99 [facility] Glucose [Mass/Vol] 372 mg/dL High 65-99 [facility] Glucose [Mass/Vol] 428 mg/dL Critically high 65-99 [facility] Glucose [Mass/Vol] 365 mg/dL High 65-99 [facility] Glucose [Mass/Vol] 415 mg/dL Critically high 65-99 [facility] Heparin unfractionated Chrom ogenic method Qn (PPP)on 07-30-2024 ANTI XA UFH <0.04 Low 0.30-0.70 [facility] Comment on above: Result Comment: Opti mal time for testing is 6 hrs post dosageThis test is specific for monitoring patientson UFH, and is not recommended for use withother Anti-Xa medications. Performed By: #### 3 274-8 ####[facility] ([id number])[address], [address] [place] [address] MAGNESIUMon 07-30-2024 Magnesium [Mass/Vol] 2.7 mg/dL High 1.8-2.6 [facility] Comment on above: Performed By: #### C BC, CMP, ####[facility] ([id number])[address], [address] [place] [address] POTASSIUMon 07-30-2024 Potassium [Moles/Vol] 3.8 mmol/L Normal 3.5-5.0 [facility] Comment on above: Performed By: #### 2 823-3 ####[facility] ([id number])[address], [address] [place] [address], [place] [address] BASIC METABOLIC PANLon 07-29 Anion gap [Moles/Vol] 12 mmol/L Normal 5-15 [facility] Comment on above: Performed By: #### 3 274-8, CBC, BMP, , 2777-1 ####[facility] ([id number])[address], [address] [place] [address], [place] [address] Calcium [Mass/Vol] 8.3 mg/dL Low 8.5-10.5 [facility] Comment on above: Performed By: #### 3 274-8, CBC, BMP, , 2776-07 ####[facility] ([id number])[address], [address], [place] [address] Chloride [Moles/Vol] 96 mmol/L Low 98-109 [facility] Comment on above: Performed By: #### 3 274-8, CBC, BMP, , 2776-07 ####[facility] ([id number])[address], [address], [place] [address] CO2 [Moles/Vol] 25 mmol/L Normal 22-32 [facility] Comment on above: Performed By: #### 3 274-8, CBC, BMP, , 2776-07 ####[facility] ([id number])[address] [address] [place] [address] Creatinine [Mass/Vol] 1.48 mg/dL High 0.60-1.30 [facility] Comment on above: Result Comment: METH OD TRACEABLE TO IDMS STANDARD Performed By: #### 3 274-8, CBC, BMP, , 2776-07 ####[facility] ([id number])[address] [address] GFR/1.73 sq M.predicted among non-blacks MDRD (S/P/Bld) [Vol rate/Area] 51 mL/min/{1.73_m2} Low >59 [facility] Comment on above: Result Comment: Repo rted eGFR is based on theCKD-EPI 2020 equation that doesnot use a race coefficient. Performed By: #### 3 274-8, CBC, BMP, , 2776-07 ####[facility] ([id number])[address], [address], [place] [address] Glucose [Mass/Vol] 237 mg/dL High 65-99 [facility] Comment on above: Performed By: #### 3 274-8, CBC, BMP, , 2776- ####[facility] ([id number])[address], [address], [place] [address] Potassium [Moles/Vol] 3.7 mmol/L Normal 3.5-5.0 [facility] Comment on above: Performed By: #### 3 274-8, CBC, BMP, , 2776- ####[facility] ([id number])[address], [address], [place] [address] Sodium [Moles/Vol] 133 mmol/L Low 134-146 [facility] Comment on above: Performed By: #### 3 274-8, CBC, BMP, , 2776- ####[facility] ([id number])[address], [address] [place] [address] Urea nitrogen [Mass/Vol] 13 mg/dL Normal 5-27 [facility] Comment on above: Performed By: #### 3 274-8, CBC, BMP, , 2776- ####[facility] ([id number])[address], [address] [place] [address] CBC AND AUTO DIFFon 20 25 ABSOLUTE BASOPHIL 0.0 X10E9/L Normal 0.0-0.2 [facility] Comment on above: Performed By: #### C BCA, CMP ####[facility] ([id number])[address], [address], [place] [address] ABSOLUTE NEUTROPHIL 8.7 X10E9/L High 1.5-6.6 [facility] Comment on above: Performed By: #### C BCA, CMP ####[facility] ([id number])[address], [address] [place] [address] Basophils/100 WBC (Bld) 0.2 % Normal [facility] Comment on above: Performed By: #### C BCA, CMP ####[facility] ([id number])[address] [address], [place] [address] Eosinophils (Bld) [#/Vol] 0.2 10*3/uL Normal 0.0-0.4 [facility] Comment on above: Performed By: #### C BCA, CMP ####[facility] ([id number])[address] [address] Eosinophils/100 WBC (Bld) 1.4 % Normal [facility] Comment on above: Performed By: #### C [place], CMP ####[facility] ([id number])[address] [address] Erythrocyte distribution width (RBC) [Ratio] 14.5 % Normal 11.5-15.0 [facility] Comment on above: Performed By: #### C [place], CMP ####[facility] ([id number])[address] [address], [place] [address] Hematocrit (Bld) [Volume fraction] 29.6 % Low 39-49 [facility] Comment on above: Performed By: #### C BCA, CMP ####[facility] ([id number])[address] [address], [place] [address] Hemoglobin (Bld) [Mass/Vol] 10.1 g/dL Low 13.0-17.0 [facility] Comment on above: Performed By: #### C BCA, CMP ####[facility] ([id number])[address] [address] Lymphocytes (Bld) [#/Vol] 1.4 10*3/uL Normal 1.0-3.5 [facility] Comment on above: Performed By: #### C BCA, CMP ####[facility] ([id number])[address] [address] Lymphocytes/100 WBC (Bld) 12.5 % Normal [facility] Comment on above: Performed By: #### C [place], CMP ####[facility] ([id number])[address], [facility] [address], [place] [address] MCH (RBC) [Entitic mass] 29.3 pg Normal 27-34 [facility] Comment on above: Performed By: #### C BCA, CMP ####[facility] ([id number])[address] [address] MCHC (RBC) [Mass/Vol] 34.1 g/dL Normal 32-36 [facility] Comment on above: Performed By: #### C [place], CMP ####[facility] ([id number])[address] [address], [place] [address] MCV (RBC) [Entitic vol] 86 fL Normal 80-100 [facility] Comment on above: Performed By: #### C [place], CMP ####[facility] ([id number])[address] [address] Monocytes (Bld) [#/Vol] 0.7 10*3/uL Normal 0-0.9 [facility] Comment on above: Performed By: #### C BCA, CMP ####[facility] ([id number])[address] [address] Monocytes/100 WBC (Bld) 6.7 % Normal [facility] Comment on above: Performed By: #### C BCA, CMP ####[facility] ([id number])[address] [address] Neutrophils/100 WBC (Bld) 79.2 % Normal [facility] Comment on above: Performed By: #### C BCA, CMP ####[facility] ([id number])[address], [place] [address] Platelet mean volume (Bld) [Entitic vol] 7.8 fL Normal 7-12 [facility] Comment on above: Performed By: #### C [place], CMP ####[facility] ([id number])[address], [place] [address] Platelets (Bld) [#/Vol] 205 10*3/uL Normal 150-450 [facility] Comment on above: Performed By: #### C [place], CMP ####[facility] ([id number])[address], [place] [address] RBC COUNT 3.43 X10E12/L Low 4.10-5.70 [facility] Comment on above: Performed By: #### Elise GUTHRIE, CMP ####[facility] ([id number])[address] [address] WBC (Bld) [#/Vol] 11.0 10*3/uL Normal 4.0-11.0 [facility] Comment on above: Performed By: #### C [place], CMP ####[facility] ([id number])[address] [place] [address] COMPLETE BLOOD COUNTon 07-29 Erythrocyte distribution width (RBC) [Ratio] 14.3 % Normal 11.5-15.0 [facility] Comment on above: Performed By: #### 3 274-8, CBC, BMP, 66160-1, 2776-1 ####[facility] ([id number])[address] [address], [place] [address] Hematocrit (Bld) [Volume fraction] 30.4 % Low 39-49 [facility] Comment on above: Performed By: #### 3 274-8, CBC, BMP, 06937-8, 2776-1 ####[facility] ([id number])[address], [place] [address] Hemoglobin (Bld) [Mass/Vol] 10.4 g/dL Low 13.0-17.0 [facility] Comment on above: Performed By: #### 3 274-8, CBC, BMP, 05950-0, 2776-07 ####[facility] ([id number])[address] [address] [place] [address] MCH (RBC) [Entitic mass] 29.2 pg Normal 27-34 [facility] Comment on above: Performed By: #### 3 274-8, CBC, BMP, , 2776-07 ####[facility] ([id number])[address] [address] [place] [address] MCHC (RBC) [Mass/Vol] 34.1 g/dL Normal 32-36 [facility] Comment on above: Performed By: #### 3 274-8, CBC, BMP, , 2776-07 ####[facility] ([id number])[address] [address] [place] [address], [place] [address] MCV (RBC) [Entitic vol] 86 fL Normal 80-100 [facility] Comment on above: Performed By: #### 3 274-8, CBC, BMP, , 2776-07 ####[facility] ([id number])[address] [address] [place] [address] Platelet mean volume (Bld) [Entitic vol] 8.5 fL Normal 7-12 [facility] Comment on above: Performed By: #### 3 274-8, CBC, BMP, , 2776-07 ####[facility] ([id number])[address] [address] [place] [address], [place] [address] Platelets (Bld) [#/Vol] 219 10*3/uL Normal 150-450 [facility] Comment on above: Performed By: #### 3 274-8, CBC, BMP, , 2776-07 ####[facility] ([id number])[address], [place] [address] RBC COUNT 3.55 X10E12/L Low 4.10-5.70 [facility] Comment on above: Performed By: #### 3 274-8, CBC, BMP, , 2776-07 ####[facility] ([id number])[address] [address] [place] [address] WBC (Bld) [#/Vol] 9.5 10*3/uL Normal 4.0-11.0 [facility] Comment on above: Performed By: #### 3 274-8, CBC, BMP, , 2776-07 ####[facility] ([id number])[address] [place] [address] COMPREHENSIVE METABOLIC PANE Markell 07-29-2024 Albumin [Mass/Vol] 2.9 g/dL Low 3.2-5.3 [facility] Comment on above: Performed By: #### C BCA, CMP ####[facility] ([id number])[address], [place] [address] ALP [Catalytic activity/Vol] 73 U/L Normal 39-130 [facility] Comment on above: Performed By: #### C BCA, CMP ####[facility] ([id number])[address] [address] [place] [address] ALT [Catalytic activity/Vol] 11 U/L Normal 0-40 [facility] Comment on above: Performed By: #### C BCA, CMP ####[facility] ([id number])[address], [address] [place] [address] Anion gap [Moles/Vol] 12 mmol/L Normal 5-15 [facility] Comment on above: Performed By: #### C BCA, CMP ####[facility] ([id number])[address], [place] [address] AST [Catalytic activity/Vol] 14 U/L Normal 0-41 [facility] Comment on above: Performed By: #### C BCA, CMP ####[facility] ([id number])[address] [address], [place] [address] Bilirubin [Mass/Vol] 0.9 mg/dL Normal 0.3-1.2 [facility] Comment on above: Performed By: #### C BCA, CMP ####[facility] ([id number])[address] [address], [place] [address] Calcium [Mass/Vol] 7.9 mg/dL Low 8.5-10.5 [facility] Comment on above: Performed By: #### C BCA, CMP ####[facility] ([id number])[address] [address], [place] [address] Chloride [Moles/Vol] 96 mmol/L Low 98-109 [facility] Comment on above: Performed By: #### C BCA, CMP ####[facility] ([id number])[address] [address], [place] [address] CO2 [Moles/Vol] 24 mmol/L Normal 22-32 [facility] Comment on above: Performed By: #### C BCA, CMP ####[facility] ([id number])[address] [address], [place] [address] Creatinine [Mass/Vol] 1.32 mg/dL High 0.60-1.30 [facility] Comment on above: Result Comment: METH OD TRACEABLE TO IDMS STANDARD Performed By: #### C BCA, CMP ####[facility] ([id number])[address] [address], [place] [address] GFR/1.73 sq M.predicted among non-blacks MDRD (S/P/Bld) [Vol rate/Area] 58 mL/min/{1.73_m2} Low >59 [facility] Comment on above: Result Comment: Repo rted eGFR is based on theCKD-EPI 2020 equation that doesnot use a race coefficient. Performed By: #### C BCA, CMP ####[facility] ([id number])[address], [place] [address] Glucose [Mass/Vol] 319 mg/dL High 65-99 [facility] Comment on above: Performed By: #### C BCA, CMP ####[facility] ([id number])[address] [address], [place] [address] Potassium [Moles/Vol] 4.7 mmol/L Normal 3.5-5.0 [facility] Comment on above: Performed By: #### C BCA, CMP ####[facility] ([id number])[address] [address], [place] [address] Protein [Mass/Vol] 5.7 g/dL Low 6.0-8.0 [facility] Comment on above: Performed By: #### C BCA, CMP ####[facility] ([id number])[address], [place] [address] Sodium [Moles/Vol] 132 mmol/L Low 134-146 [facility] Comment on above: Performed By: #### C BCA, CMP ####[facility] ([id number])[address] [address] [address] Urea nitrogen [Mass/Vol] 14 mg/dL Normal 5-27 [facility] Comment on above: Performed By: #### C BCA, CMP ####[facility] ([id number])[address], [place] [address] Calcium.ionized (Bld) [Mass/ Vol]on 07-29-2024 IONIZED CALCIUM 4.5 mg/dL Normal 4.5-5.3 [facility] Comment on above: Performed By: #### 3 8230-9, 46471-6 ####[facility] ([id number])[address], [address] [place] [address] IONIZED CALCIUM 4.5 mg/dL Normal 4.5-5.3 [facility] Comment on above: Performed By: #### 3 8230-9 ####[facility] ([id number])[address] [address] [place] [id number] Glucose Glucometer (BldC) [M ass/Vol]on 07-29-2024 Glucose [Mass/Vol] 308 mg/dL High 65-99 [facility] Glucose [Mass/Vol] 218 mg/dL High 65-99 [facility] Glucose [Mass/Vol] 231 mg/dL High 65-99 [facility] Glucose [Mass/Vol] 256 mg/dL High 65-99 [facility] Heparin unfractionated Chrom ogenic method Qn (PPP)on 07-29-2024 ANTI XA UFH 0.51 IU/mL Normal 0.30-0.70 [facility] Comment on above: Result Comment: Opti mal time for testing is 6 hrs post dosageThis test is specific for monitoring patientson UFH, and is not recommended for use withother Anti-Xa medications. Performed By: #### 3 274-8, CBC, BMP, , 2776-1 ####[facility] ([id number])[address], [address] [place] [address] MAGNESIUMon 07-29-2024 Magnesium [Mass/Vol] 1.9 mg/dL Normal 1.8-2.6 [facility] Comment on above: Performed By: #### 3 274-8, CBC, BMP, , 7-1 ####[facility] ([id number])[address], [address] [place] [address] Magnesium Ionized ISE (Bld) [Moles/Vol]on 07-29-2024 Magnesium [Moles/Vol] 0.44 mmol/L Low 0.45-0.74 [facility] Comment on above: Result Comment: NEW REFERENCE RANGE Performed By: #### 3 8230-9, 48315-9 ####[facility] ([id number])[address], [address], [place] [address] PHOSPHORUSon 07-29-2024 Phosphate [Mass/Vol] 3.0 mg/dL Normal 2.4-4.9 [facility] Comment on above: Performed By: #### 3 274-8, CBC, BMP, , 1 ####[facility] ([id number])[address], [address], [place] [address] POTASSIUMon 07-29-2024 Potassium [Moles/Vol] 3.7 mmol/L Normal 3.5-5.0 [facility] Comment on above: Performed By: #### 2 823-3 ####[facility] ([id number])[address], [address], [place] [address] XR PELVIS 1 OR 2 VWSon 07-29 XR PELVIS 1 OR 2 VWS Normal [facility] BASIC METABOLIC PANLon 07-28 Anion gap [Moles/Vol] 11 mmol/L Normal 5-15 [facility] Comment on above: Performed By: #### C BC, BMP, , 2776-07, 3274-8 ####[facility] ([id number])[address], [address] [address] Calcium [Mass/Vol] 8.2 mg/dL Low 8.5-10.5 [facility] Comment on above: Performed By: #### C BC, BMP, , 2776-, 3274-8 ####[facility] ([id number])[address], [place] [address] Chloride [Moles/Vol] 97 mmol/L Low 98-109 [facility] Comment on above: Performed By: #### C BC, BMP, 23614-7, 2776-1, 3273-8 ####[facility] ([id number])[address], [address], [place] [address] CO2 [Moles/Vol] 24 mmol/L Normal 22-32 [facility] Comment on above: Performed By: #### C BC, BMP, , 2776-1, 327-8 ####[facility] ([id number])[address], [facility] [address], [place] [address] Creatinine [Mass/Vol] 1.56 mg/dL High 0.60-1.30 [facility] Comment on above: Result Comment: METH OD TRACEABLE TO IDMS STANDARD Performed By: #### C MELVA, BMP, , 2776-07, 3273-8 ####[facility] ([id number])[address] [address] GFR/1.73 sq M.predicted among non-blacks MDRD (S/P/Bld) [Vol rate/Area] 48 mL/min/{1.73_m2} Low >59 [facility] Comment on above: Result Comment: Repo rted eGFR is based on theCKD-EPI 2020 equation that doesnot use a race coefficient. Performed By: #### C BC, BMP, , 2776-1, 327-8 ####[facility] ([id number])[address] [address], [place] [address] Glucose [Mass/Vol] 275 mg/dL High 65-99 [facility] Comment on above: Performed By: #### C BC, BMP, 89992-0, 2776-1, 327-8 ####[facility] ([id number])[address], [address], [place] [address] Potassium [Moles/Vol] 3.9 mmol/L Normal 3.5-5.0 [facility] Comment on above: Performed By: #### C BC, BMP, 40343-9, 2776-1, 3273-8 ####[facility] ([id number])[address], [address], [place] [address] Sodium [Moles/Vol] 132 mmol/L Low 134-146 [facility] Comment on above: Performed By: #### C MELVA, BMP, 59333-5, 2776-, 3274-8 ####[facility] ([id number])[address], [address], [place] [address] Urea nitrogen [Mass/Vol] 13 mg/dL Normal 5-27 [facility] Comment on above: Performed By: #### Elise FRYE, BMP, , 2776-07, 3278 ####[facility] ([id number])[address], [address], [place] [address] COMPLETE BLOOD COUNTon 07-28 Erythrocyte distribution width (RBC) [Ratio] 14.2 % Normal 11.5-15.0 [facility] Comment on above: Performed By: #### Elise FRYE, BMP, 49614-5, 2776-, 327-8 ####[facility] ([id number])[address], [address] [place] [address] Hematocrit (Bld) [Volume fraction] 32.1 % Low 39-49 [facility] Comment on above: Performed By: #### C MELVA, BMP, 77848-5, 2776-, 3274-8 ####[facility] ([id number])[address] [address] [place] [address] Hemoglobin (Bld) [Mass/Vol] 11.0 g/dL Low 13.0-17.0 [facility] Comment on above: Performed By: #### C BC, BMP, 39678-5, 7-1, 327-8 ####[facility] ([id number])[address], [address] [address] MCH (RBC) [Entitic mass] 29.2 pg Normal 27-34 [facility] Comment on above: Performed By: #### C BC, BMP, 72625-6, 2776-1, 3273-8 ####[facility] ([id number])[address], [address] [address] MCHC (RBC) [Mass/Vol] 34.1 g/dL Normal 32-36 [facility] Comment on above: Performed By: #### Elise BC, BMP, 75877-2, 2776-1, 327-8 ####[facility] ([id number])[address], [address] [address] MCV (RBC) [Entitic vol] 86 fL Normal 80-100 [facility] Comment on above: Performed By: #### Elise BC, BMP, 62838-2, 2776-, 327-8 ####[facility] ([id number])[address], [address], [place] [address] Platelet mean volume (Bld) [Entitic vol] 8.9 fL Normal 7-12 [facility] Comment on above: Performed By: #### Elise BC, BMP, 10760-1, 2776-1, 327-8 ####[facility] ([id number])[address], [address] [address] Platelets (Bld) [#/Vol] 242 10*3/uL Normal 150-450 [facility] Comment on above: Performed By: #### Elise BC, BMP, 26968-6, 2777-1, 3274-8 ####[facility] ([id number])[address] [address] RBC COUNT 3.75 X10E12/L Low 4.10-5.70 [facility] Comment on above: Performed By: #### C MELVA, [facility], [address]-3, 2776-, 3274-8 ####[facility] ([id number])[address] [address] WBC (Bld) [#/Vol] 8.4 10*3/uL Normal 4.0-11.0 [facility] Comment on above: Performed By: #### C MELVA, [facility], , 2776-, 3274-8 ####[facility] ([id number])[address] [address] Calcium.ionized (Bld) [Mass/ Vol]on 07-28-2024 IONIZED CALCIUM 4.6 mg/dL Normal 4.5-5.3 [facility] Comment on above: Performed By: #### 3 8230-9 ####[facility] ([id number])[address] [address] IONIZED CALCIUM 4.3 mg/dL Low 4.5-5.3 [facility] Comment on above: Performed By: #### 3 8230-9 ####[facility] ([id number])[address] [address] Glucose Glucometer (BldC) [M ass/Vol]on 07-28-2024 Glucose [Mass/Vol] 309 mg/dL High 65-99 [facility] Glucose [Mass/Vol] 225 mg/dL High 65-99 [facility] Glucose [Mass/Vol] 258 mg/dL High 65-99 [facility] Glucose [Mass/Vol] 226 mg/dL High 65-99 [facility] Heparin unfractionated Chrom ogenic method Qn (PPP)on 07-28-2024 ANTI XA UFH 0.58 IU/mL Normal 0.30-0.70 [facility] Comment on above: Result Comment: Opti mal time for testing is 6 hrs post dosageThis test is specific for monitoring patientson UFH, and is not recommended for use withother Anti-Xa medications. Performed By: #### C MELVA, BMP, , 2776-07, 3274-8 ####[facility] ([id number])[address], [address] [address] MAGNESIUMon 07-28-2024 Magnesium [Mass/Vol] 2.2 mg/dL Normal 1.8-2.6 [facility] Comment on above: Performed By: #### 1 9123-9 ####[facility] ([id number])[address], [address] [address] Magnesium [Mass/Vol] 1.6 mg/dL Low 1.8-2.6 [facility] Comment on above: Performed By: #### C MELVA, [facility], , 2776-07, 3274-8 ####[facility] ([id number])[address], [address], [place] [address] PHOSPHORUSon 07-28-2024 Phosphate [Mass/Vol] 3.0 mg/dL Normal 2.4-4.9 [facility] Comment on above: Performed By: #### C MELVA, ANIBAL, , 2776-07, 3274-8 ####[facility] ([id number])[address], [address], [place] [address] BASIC METABOLIC PANLon 07-27 Anion gap [Moles/Vol] 10 mmol/L Normal 5-15 [facility] Comment on above: Performed By: #### C [place], BMP, , 2776-07 ####[facility] ([id number])[address], [address], [place] [address] Calcium [Mass/Vol] 8.3 mg/dL Low 8.5-10.5 [facility] Comment on above: Performed By: #### C ANIBAL GUTHRIE, , 2776-07 ####[facility] ([id number])[address], [address] [address] Chloride [Moles/Vol] 98 mmol/L Normal 98-109 [facility] Comment on above: Performed By: #### C ANIBAL GUTHRIE, , 2776-07 ####[facility] ([id number])[address], [address], [place] [address] CO2 [Moles/Vol] 26 mmol/L Normal 22-32 [facility] Comment on above: Performed By: #### C ANIBAL GUTHRIE, , 2776-07 ####[facility] ([id number])[address], [address], [place] [address] Creatinine [Mass/Vol] 1.52 mg/dL High 0.60-1.30 [facility] Comment on above: Result Comment: METH OD TRACEABLE TO IDMS STANDARD Performed By: #### C ANIBAL GUTHRIE, , 2776-07 ####[facility] ([id number])[address], [address], [place] [address] GFR/1.73 sq M.predicted among non-blacks MDRD (S/P/Bld) [Vol rate/Area] 49 mL/min/{1.73_m2} Low >59 [facility] Comment on above: Result Comment: Repo rted eGFR is based on theCKD-EPI 2020 equation that doesnot use a race coefficient. Performed By: #### C ANIBAL GUTHRIE, , 2776-07 ####[facility] ([id number])[address], [address] [address] Glucose [Mass/Vol] 231 mg/dL High 65-99 [facility] Comment on above: Performed By: #### C ANIBAL GUTHRIE, , 2776-07 ####[facility] ([id number])[address], [address], [place] [address] Potassium [Moles/Vol] 3.9 mmol/L Normal 3.5-5.0 [facility] Comment on above: Performed By: #### C [facility], [facility], , 2776-07 ####[facility] ([id number])[address], [address], [place] [address] Sodium [Moles/Vol] 134 mmol/L Normal 134-146 [facility] Comment on above: Performed By: #### C [place], [facility], , 2776-07 ####[facility] ([id number])[address], [address] [place] [address] Urea nitrogen [Mass/Vol] 12 mg/dL Normal 5-27 [facility] Comment on above: Performed By: #### C [place], [facility], , 2776-07 ####[facility] ([id number])[address], [address] [place] [address] CBC AND AUTO DIFFon 01-15-20 25 ABSOLUTE BASOPHIL 0.0 X10E9/L Normal 0.0-0.2 [facility] Comment on above: Performed By: #### C [place] [facility], , 2776-07 ####[facility] ([id number])[address], [address] [place] [address] ABSOLUTE NEUTROPHIL 6.9 X10E9/L High 1.5-6.6 [facility] Comment on above: Performed By: #### C [place], [facility], , 2776-07 ####[facility] ([id number])[address], [address] [place] [address] Basophils/100 WBC (Bld) 0.4 % Normal [facility] Comment on above: Performed By: #### C [place], BMP, , 2776-07 ####[facility] ([id number])[address] [address], [place] [address] Eosinophils (Bld) [#/Vol] 0.3 10*3/uL Normal 0.0-0.4 [facility] Comment on above: Performed By: #### C [place], BMP, , 2776-07 ####[facility] ([id number])[address] [address], [place] [address] Eosinophils/100 WBC (Bld) 3.2 % Normal [facility] Comment on above: Performed By: #### C [place], BMP, , 2776-07 ####[facility] ([id number])[address] [address], [place] [address] Erythrocyte distribution width (RBC) [Ratio] 14.3 % Normal 11.5-15.0 [facility] Comment on above: Performed By: #### C [place], BMP, , 2776-07 ####[facility] ([id number])[address] [address], [place] [address] Hematocrit (Bld) [Volume fraction] 33.6 % Low 39-49 [facility] Comment on above: Performed By: #### C [place], BMP, , 2776-07 ####[facility] ([id number])[address] [address], [place] [address] Hemoglobin (Bld) [Mass/Vol] 11.4 g/dL Low 13.0-17.0 [facility] Comment on above: Performed By: #### C BCA, BMP, , 2776-07 ####[facility] ([id number])[address] [address], [place] [address] Lymphocytes (Bld) [#/Vol] 2.3 10*3/uL Normal 1.0-3.5 [facility] Comment on above: Performed By: #### C ANIBAL GUTHRIE, , 2776-07 ####[facility] ([id number])[address], [address] [address] Lymphocytes/100 WBC (Bld) 21.6 % Normal [facility] Comment on above: Performed By: #### Elise GUTHRIE BMP, , 2776-07 ####[facility] ([id number])[address], [address] [address] MCH (RBC) [Entitic mass] 29.2 pg Normal 27-34 [facility] Comment on above: Performed By: #### ANIBAL Olivares BCA, , 2776-07 ####[facility] ([id number])[address], [address] [address] MCHC (RBC) [Mass/Vol] 33.8 g/dL Normal 32-36 [facility] Comment on above: Performed By: #### Elise GUTHRIE BMP, , 2776-07 ####[facility] ([id number])[address], [address] [address] MCV (RBC) [Entitic vol] 87 fL Normal 80-100 [facility] Comment on above: Performed By: #### Elise GUTHRIE BMP, , 2776-07 ####[facility] ([id number])[address], [address] [address] Monocytes (Bld) [#/Vol] 1.2 10*3/uL High 0-0.9 [facility] Comment on above: Performed By: #### Elise GUTHRIE, BMP, , 2776-07 ####[facility] ([id number])[address], [address] [address] Monocytes/100 WBC (Bld) 10.9 % Normal [facility] Comment on above: Performed By: #### C [place], BMP, , 2776-07 ####[facility] ([id number])[address], [address], [place] [address] Neutrophils/100 WBC (Bld) 63.9 % Normal [facility] Comment on above: Performed By: #### Elise GUTHRIE, BMP, , 2776-07 ####[facility] ([id number])[address], [address], [place] [address] Platelet mean volume (Bld) [Entitic vol] 8.5 fL Normal 7-12 [facility] Comment on above: Performed By: #### Elise GUTHRIE, BMP, , 2776-07 ####[facility] ([id number])[address], [address], [place] [address] Platelets (Bld) [#/Vol] 235 10*3/uL Normal 150-450 [facility] Comment on above: Performed By: #### Elise GUTHRIE, BMP, , 2776-07 ####[facility] ([id number])[address], [address], [place] [address] RBC COUNT 3.89 X10E12/L Low 4.10-5.70 [facility] Comment on above: Performed By: #### Elise BCA, BMP, , 2776-07 ####[facility] ([id number])[address], [address], [place] [address] WBC (Bld) [#/Vol] 10.8 10*3/uL Normal 4.0-11.0 [facility] Comment on above: Performed By: #### Elise BCA, BMP, , 2776-07 ####[facility] ([id number])[address], [place] [address] Calcium.ionized (Bld) [Mass/ Vol]on 07-27-2024 IONIZED CALCIUM 4.3 mg/dL Low 4.5-5.3 [facility] Comment on above: Performed By: #### 3 8230-9 ####[facility] ([id number])[address], [address] [place] [address] Glucose Glucometer (BldC) [M ass/Vol]on 07-27-2024 Glucose [Mass/Vol] 274 mg/dL High 65-99 [facility] Glucose [Mass/Vol] 261 mg/dL High 65-99 [facility] Glucose [Mass/Vol] 313 mg/dL High 65-99 [facility] Glucose [Mass/Vol] 228 mg/dL High 65-99 [facility] Heparin unfractionated Chrom ogenic method Qn (PPP)on 07-27-2024 ANTI XA UFH 0.60 IU/mL Normal 0.30-0.70 [facility] Comment on above: Result Comment: Opti mal time for testing is 6 hrs post dosageThis test is specific for monitoring patientson UFH, and is not recommended for use withother Anti-Xa medications. Performed By: #### 3 274-8 ####[facility] ([id number])[address] [address] [place] [address] MAGNESIUMon 07-27-2024 Magnesium [Mass/Vol] 2.1 mg/dL Normal 1.8-2.6 [facility] Comment on above: Performed By: #### C ANIBAL GUTHRIE, [address]-8, 2777-1 ####[facility] ([id number])[address] [address] [place] [address] PHOSPHORUSon 07-27-2024 Phosphate [Mass/Vol] 2.9 mg/dL Normal 2.4-4.9 [facility] Comment on above: Performed By: #### C ANIBAL GUTHRIE, 01637-7, 2777-1 ####[facility] ([id number])[address], [address], [place] [address] BASIC METABOLIC PANLon 07-26 Anion gap [Moles/Vol] 11 mmol/L Normal 5-15 [facility] Comment on above: Performed By: #### C BCA, PINR, 3274-8, BMP, 20234-9, 2776-1 ####[facility] ([id number])[address], [address], [place] [address] Calcium [Mass/Vol] 8.4 mg/dL Low 8.5-10.5 [facility] Comment on above: Performed By: #### C BCA, PINR, 3274-8, BMP, 81538-3, 2776-07 ####[facility] ([id number])[address], [address], [place] [address] Chloride [Moles/Vol] 96 mmol/L Low 98-109 [facility] Comment on above: Performed By: #### C BCA, PINR, 3274-8, BMP, 55793-4, 2776-07 ####[facility] ([id number])[address], [address], [place] [address] CO2 [Moles/Vol] 28 mmol/L Normal 22-32 [facility] Comment on above: Performed By: #### C BCA, PINR, 3274-8, BMP, 96259-5, 2776-07 ####[facility] ([id number])[address], [address], [place] [address] Creatinine [Mass/Vol] 1.55 mg/dL High 0.60-1.30 [facility] Comment on above: Result Comment: METH OD TRACEABLE TO IDMS STANDARD Performed By: #### C BCA, PINR, 3274-8, BMP, 88705-7, 2776- ####[facility] ([id number])[address], [address], [place] [address] GFR/1.73 sq M.predicted among non-blacks MDRD (S/P/Bld) [Vol rate/Area] 48 mL/min/{1.73_m2} Low >59 [facility] Comment on above: Result Comment: Repo rted eGFR is based on theCKD-EPI 2020 equation that doesnot use a race coefficient. Performed By: #### C BCA, PINR, 3274-8, BMP, , 2776-07 ####[facility] ([id number])[address], [address], [place] [address] Glucose [Mass/Vol] 259 mg/dL High 65-99 [facility] Comment on above: Performed By: #### C BCA, PINR, 3274-8, BMP, , 2776-07 ####[facility] ([id number])[address], [address], [place] [address] Potassium [Moles/Vol] 3.7 mmol/L Normal 3.5-5.0 [facility] Comment on above: Performed By: #### C BCA, PINR, 3274-8, BMP, , 2776-07 ####[facility] ([id number])[address], [address], [place] [address] Sodium [Moles/Vol] 135 mmol/L Normal 134-146 [facility] Comment on above: Performed By: #### C BCA, PINR, 3274-8, BMP, , 2776-07 ####[facility] ([id number])[address] [address], [place] [address] Urea nitrogen [Mass/Vol] 12 mg/dL Normal 5-27 [facility] Comment on above: Performed By: #### C BCA, PINR, 3274-8, BMP, , 2776-07 ####[facility] ([id number])[address], [address] [place] [address] CBC AND AUTO DIFFon 07-26-19 25 ABSOLUTE BASOPHIL 0.0 X10E9/L Normal 0.0-0.2 [facility] Comment on above: Performed By: #### C BCA, PINR, 4-8, BMP, , 2776-07 ####[facility] ([id number])[address], [address] [place] [address] ABSOLUTE NEUTROPHIL 5.2 X10E9/L Normal 1.5-6.6 [facility] Comment on above: Performed By: #### C BCA, PINR, 4-8, BMP, , 2776-07 ####[facility] ([id number])[address] [address] [place] [address] Basophils/100 WBC (Bld) 0.4 % Normal [facility] Comment on above: Performed By: #### C BCA, PINR, 3273-8, BMP, , 2776-07 ####[facility] ([id number])[address] [address] Eosinophils (Bld) [#/Vol] 0.3 10*3/uL Normal 0.0-0.4 [facility] Comment on above: Performed By: #### C BCA, PINR, 3273-8, BMP, , 2776-07 ####[facility] ([id number])[address] [address] Eosinophils/100 WBC (Bld) 3.0 % Normal [facility] Comment on above: Performed By: #### C BCA, PINR, 3274-8, BMP, , 2776-07 ####[facility] ([id number])[address] [address] [place] [address] Erythrocyte distribution width (RBC) [Ratio] 14.1 % Normal 11.5-15.0 [facility] Comment on above: Performed By: #### C BCA, PINR, 3274-8, BMP, , 2776-07 ####[facility] ([id number])[address], [address] [place] [address] Hematocrit (Bld) [Volume fraction] 31.2 % Low 39-49 [facility] Comment on above: Performed By: #### C BCA, PINR, 3274-8, BMP, , 2776-07 ####[facility] ([id number])[address], [address] [place] [address]116 Hemoglobin (Bld) [Mass/Vol] 10.9 g/dL Low 13.0-17.0 [facility] Comment on above: Performed By: #### C BCA, PINR, 3274-8, BMP, , 2776-07 ####[facility] ([id number])[address], [address] [place] [address]751 Lymphocytes (Bld) [#/Vol] 2.2 10*3/uL Normal 1.0-3.5 [facility] Comment on above: Performed By: #### C BCA, PINR, 3274-8, BMP, , 2776-07 ####[facility] ([id number])[address] [address] [place] [address]58 Lymphocytes/100 WBC (Bld) 25.0 % Normal [facility] Comment on above: Performed By: #### C BCA, PINR, 3274-8, BMP, , 2776-07 ####[facility] ([id number])[address] [address] [place] [address]058 MCH (RBC) [Entitic mass] 29.7 pg Normal 27-34 [facility] Comment on above: Performed By: #### C BCA, PINR, 3274-8, BMP, , 2776-07 ####[facility] ([id number])[address], [address], [place] [address] MCHC (RBC) [Mass/Vol] 34.9 g/dL Normal 32-36 [facility] Comment on above: Performed By: #### C BCA, PINR, 3274-8, BMP, , 2776-07 ####[facility] ([id number])[address], [address] [place] [address]458 MCV (RBC) [Entitic vol] 85 fL Normal 80-100 [facility] Comment on above: Performed By: #### C BCA, PINR, 3274-8, BMP, , 2776-07 ####[facility] ([id number])[address] [address], [place] [address] Monocytes (Bld) [#/Vol] 1.2 10*3/uL High 0-0.9 [facility] Comment on above: Performed By: #### C BCA, PINR, 3274-8, BMP, , 2776-07 ####[facility] ([id number])[address] [address] [place] [address] Monocytes/100 WBC (Bld) 13.3 % Normal P [facility] Comment on above: Performed By: #### C BCA, PINR, 3274-8, BMP, , 2776-07 ####[facility] ([id number])[address] [address] [place] [address]169 Neutrophils/100 WBC (Bld) 58.3 % Normal [facility] Comment on above: Performed By: #### C BCA, PINR, 3274-8, BMP, , 2776-07 ####[facility] ([id number])[address] [address] [place] [address] 85000 Platelet mean volume (Bld) [Entitic vol] 9.0 fL Normal 7-12 [facility] Comment on above: Performed By: #### C BCA, PINR, 3274-8, BMP, , 1 ####[facility] ([id number])[address] [address] [place] [address] Platelets (Bld) [#/Vol] 221 10*3/uL Normal 150-450 [facility] Comment on above: Performed By: #### C BCA, PINR, 3274-8, BMP, , 1 ####[facility] ([id number])[address] [address] RBC COUNT 3.66 X10E12/L Low 4.10-5.70 [facility] Comment on above: Performed By: #### C BCA, PINR, 4-8, BMP, , 1 ####[facility] ([id number])[address] [address] WBC (Bld) [#/Vol] 8.9 10*3/uL Normal 4.0-11.0 [facility] Comment on above: Performed By: #### C BCA, PINR, 3274-8, BMP, , 1 ####[facility] ([id number])[address] [address] Calcium.ionized (Bld) [Mass/ Vol]on 07-26-2024 IONIZED CALCIUM 4.2 mg/dL Low 4.5-5.3 [facility] Comment on above: Performed By: #### 3 8230-9 ####[facility] ([id number])[address] [address] [place] [address] Glucose Glucometer (BldC) [M ass/Vol]on 07-26-2024 Glucose [Mass/Vol] 354 mg/dL High 65-99 [facility] Glucose [Mass/Vol] 348 mg/dL High 65-99 [facility] Glucose [Mass/Vol] 235 mg/dL High 65-99 [facility] Glucose [Mass/Vol] 229 mg/dL High 65-99 [facility] Heparin unfractionated Chrom ogenic method Qn (PPP)on 07-26-2024 ANTI XA UFH 0.52 IU/mL Normal 0.30-0.70 [facility] Comment on above: Result Comment: Opti mal time for testing is 6 hrs post dosageThis test is specific for monitoring patientson UFH, and is not recommended for use withother Anti-Xa medications. Performed By: #### C GUY GUTHRIE, 3274-8, BMP, , 1 ####[facility] ([id number])[address], [address] [place] [address] MAGNESIUMon 07-26-2024 Magnesium [Mass/Vol] 2.3 mg/dL Normal 1.8-2.6 [facility] Comment on above: Performed By: #### 2 823-3, ####[facility] ([id number])[address], [address] [place] [address] Magnesium [Mass/Vol] 1.6 mg/dL Low 1.8-2.6 [facility] Comment on above: Performed By: #### C [place], PINR, 327-8, BMP, , 1 ####[facility] ([id number])[address], [address], [place] [address] PHOSPHORUSon 07-26-2024 Phosphate [Mass/Vol] 3.4 mg/dL Normal 2.4-4.9 [facility] Comment on above: Performed By: #### C [place], PINR, 327-8, BMP, , 1 ####[facility] ([id number])[address], [address], [place] [address] POTASSIUMon 07-26-2024 Potassium [Moles/Vol] 4.1 mmol/L Normal 3.5-5.0 [facility] Comment on above: Performed By: #### 2 823-3, ####[facility] ([id number])[address], [address], [place] [address] PROTIME AND INRon 07-26-2024 INR Coag (PPP) [Relative time] 1.1 {INR} Normal 0.8-1.1 [facility] Comment on above: Performed By: #### C BCA, PINR, 3274-8, BMP, , 2776-07 ####[facility] ([id number])[address], [address], [place] [address] PT Coag (PPP) [Time] 12.6 s Normal 9.8-13.2 [facility] Comment on above: Performed By: #### C BCA, PINR, 3274-8, BMP, , 2776-07 ####[facility] ([id number])[address], [address], [place] [address] BASIC METABOLIC PANLon 07-25 Anion gap [Moles/Vol] 11 mmol/L Normal 5-15 [facility] Comment on above: Performed By: #### C BCA, 3274-8, BMP, 84632-6, 2776-, FEPR, 2276-4, 4-8, 2132-03 ####[facility] ([id number])[address], [address] [address] Calcium [Mass/Vol] 8.6 mg/dL Normal 8.5-10.5 [facility] Comment on above: Performed By: #### C BCA, 3274-8, BMP, 10068-8, 2776-1, FEPR, 2276-4, 2284-8, 2132-9 ####[facility] ([id number])[address], [address] [place] [address] Chloride [Moles/Vol] 97 mmol/L Low 98-109 [facility] Comment on above: Performed By: #### C BCA, 3274-8, BMP, 62412-1, 2777-1, FEPR, 2276-4, 2284-8, 2132-03 ####[facility] ([id number])[address], [address] [place] [address] CO2 [Moles/Vol] 26 mmol/L Normal 22-32 [facility] Comment on above: Performed By: #### C BCA, 3274-8, BMP, 86440-7, 2776-1, FEPR, 2276-4, 2283-8, 2132-03 ####[facility] ([id number])[address] [address] [place] [address] Creatinine [Mass/Vol] 1.53 mg/dL High 0.60-1.30 [facility] Comment on above: Result Comment: METH OD TRACEABLE TO IDMS STANDARD Performed By: #### C BCA, 3274-8, BMP, 98420-4, 2776-1, FEPR, 2276-4, 2283-8, 2132-03 ####[facility] ([id number])[address] [address] GFR/1.73 sq M.predicted among non-blacks MDRD (S/P/Bld) [Vol rate/Area] 49 mL/min/{1.73_m2} Low >59 [facility] Comment on above: Result Comment: Repo rted eGFR is based on theCKD-EPI 2020 equation that doesnot use a race coefficient. Performed By: #### C BCA, 3274-8, BMP, 49932-2, 2777-1, FEPR, 2276-4, 2284-8, 2132-03 ####[facility] ([id number])[address], [address], [place] [address] Glucose [Mass/Vol] 209 mg/dL High 65-99 [facility] Comment on above: Performed By: #### C BCA, 3274-8, BMP, 99113-5, 2777-1, FEPR, 2276-4, 2284-8, 2132-03 ####[facility] ([id number])[address], [address] [place] [address] Potassium [Moles/Vol] 3.7 mmol/L Normal 3.5-5.0 [facility] Comment on above: Performed By: #### C BCA, 3274-8, BMP, 65037-7, 7-1, FEPR, 2276-4, 228-8, 2132-03 ####[facility] ([id number])[address], [address] [place] [address] Sodium [Moles/Vol] 134 mmol/L Normal 134-146 [facility] Comment on above: Performed By: #### C BCA, 3274-8, BMP, 85351-9, 2776-1, FEPR, 2276-4, 228-8, 2132-03 ####[facility] ([id number])[address], [address] [place] [address] Urea nitrogen [Mass/Vol] 10 mg/dL Normal 5-27 [facility] Comment on above: Performed By: #### C BCA, 3274-8, BMP, 35606-1, 2776-1, FEPR, 2276-4, 2284-8, 2132-03 ####[facility] ([id number])[address], [address] [place] [address] CBC AND AUTO DIFFon 07-25-19 25 ABSOLUTE BASOPHIL 0.1 X10E9/L Normal 0.0-0.2 [facility] Comment on above: Performed By: #### C BCA, 3274-8, BMP, 78579-0, 2777-1, FEPR, 2276-4, 2284-8, 2132-03 ####[facility] ([id number])[address], [address], [place] [address] ABSOLUTE NEUTROPHIL 6.4 X10E9/L Normal 1.5-6.6 [facility] Comment on above: Performed By: #### C BCA, 3274-8, BMP, 50887-8, 2777-1, FEPR, 2276-4, 2284-8, 2132-03 ####[facility] ([id number])[address], [address], [place] [address] Basophils/100 WBC (Bld) 0.7 % Normal [facility] Comment on above: Performed By: #### C BCA, 3274-8, BMP, 55050-8, 7-1, FEPR, 2276-4, 2283-8, 2132-03 ####[facility] ([id number])[address] [address] [place] [address] Eosinophils (Bld) [#/Vol] 0.3 10*3/uL Normal 0.0-0.4 [facility] Comment on above: Performed By: #### C BCA, 3274-8, BMP, 56151-8, 7-1, FEPR, 2276-4, 2283-8, 2132-03 ####[facility] ([id number])[address], [address] [place] [address] Eosinophils/100 WBC (Bld) 2.9 % Normal [facility] Comment on above: Performed By: #### C BCA, 3274-8, BMP, 72272-9, 2777-1, FEPR, 2276-4, 4-8, 2132-03 ####[facility] ([id number])[address], [address], [place] [address] Erythrocyte distribution width (RBC) [Ratio] 14.2 % Normal 11.5-15.0 [facility] Comment on above: Performed By: #### C BCA, 3274-8, BMP, 23273-9, 2777-1, FEPR, 2276-4, 2284-8, 2132-03 ####[facility] ([id number])[address], [address], [place] [address] Hematocrit (Bld) [Volume fraction] 33.0 % Low 39-49 [facility] Comment on above: Performed By: #### C BCA, 3274-8, BMP, 93257-2, 2777-1, FEPR, 2276-4, 2284-8, 2132-03 ####[facility] ([id number])[address], [address] [place] [address] Hemoglobin (Bld) [Mass/Vol] 11.4 g/dL Low 13.0-17.0 [facility] Comment on above: Performed By: #### C BCA, 3274-8, BMP, 09037-9, 2777-1, FEPR, 2276-4, 2284-8, 2132-03 ####[facility] ([id number])[address], [address] [place] [address] Lymphocytes (Bld) [#/Vol] 2.7 10*3/uL Normal 1.0-3.5 [facility] Comment on above: Performed By: #### C BCA, 3274-8, BMP, 01876-3, 2777-1, FEPR, 2276-4, 2284-8, 2132-03 ####[facility] ([id number])[address] [address] [place] [address] Lymphocytes/100 WBC (Bld) 25.0 % Normal [facility] Comment on above: Performed By: #### C BCA, 3274-8, BMP, 43438-0, 2777-1, FEPR, 2276-4, 2284-8, 2132-03 ####[facility] ([id number])[address], [address] [place] [address] MCH (RBC) [Entitic mass] 29.0 pg Normal 27-34 [facility] Comment on above: Performed By: #### C BCA, 3274-8, BMP, 29702-9, 2777-1, FEPR, 2276-4, 2283-8, 2132-03 ####[facility] ([id number])[address], [address] [place] [address] MCHC (RBC) [Mass/Vol] 34.5 g/dL Normal 32-36 [facility] Comment on above: Performed By: #### C BCA, 3274-8, BMP, 37779-7, 2777-1, FEPR, 2276-4, 2283-8, 2132-03 ####[facility] ([id number])[address], [address] [place] [address] MCV (RBC) [Entitic vol] 84 fL Normal 80-100 [facility] Comment on above: Performed By: #### C BCA, 3274-8, BMP, 31738-0, 7-1, FEPR, 2276-4, 2283-8, 2132-03 ####[facility] ([id number])[address] [address] [place] [address] Monocytes (Bld) [#/Vol] 1.3 10*3/uL High 0-0.9 [facility] Comment on above: Performed By: #### C BCA, 3274-8, BMP, 30921-5, 2777-1, FEPR, 2276-4, 2283-8, 2132-03 ####[facility] ([id number])[address], [address] [place] [address] Monocytes/100 WBC (Bld) 12.3 % Normal [facility] Comment on above: Performed By: #### C BCA, 3274-8, BMP, 01040-9, 2777-1, FEPR, 2276-4, 2284-8, 2132-03 ####[facility] ([id number])[address], [address] [place] [address] Neutrophils/100 WBC (Bld) 59.1 % Normal [facility] Comment on above: Performed By: #### C BCA, 3274-8, BMP, 31657-0, 2777-1, FEPR, 2276-4, 2284-8, 2132-03 ####[facility] ([id number])[address], [address] [place] [address] Platelet mean volume (Bld) [Entitic vol] 8.8 fL Normal 7-12 [facility] Comment on above: Performed By: #### C BCA, 3274-8, BMP, 82780-7, 2777-1, FEPR, 2276-4, 2284-8, 2132-03 ####[facility] ([id number])[address] [address] [place] [address] Platelets (Bld) [#/Vol] 241 10*3/uL Normal 150-450 [facility] Comment on above: Performed By: #### C BCA, 3274-8, BMP, 23814-3, 2777-1, FEPR, 2276-4, 2284-8, 2132-03 ####[facility] ([id number])[address], [address] [place] [address] RBC COUNT 3.92 X10E12/L Low 4.10-5.70 [facility] Comment on above: Performed By: #### C BCA, 3274-8, BMP, 55287-3, 2777-1, FEPR, 2276-4, 2284-8, 2132-03 ####[facility] ([id number])[address], [address] [place] [address] WBC (Bld) [#/Vol] 10.9 10*3/uL Normal 4.0-11.0 [facility] Comment on above: Performed By: #### C BCA, 3274-8, BMP, 37100-3, 2777-1, FEPR, 2276-4, 2284-8, 2132-03 ####[facility] ([id number])[address], [address] [place] [address] Calcium.ionized (Bld) [Mass/ Vol]on 07-25-2024 IONIZED CALCIUM 4.3 mg/dL Low 4.5-5.3 [facility] Comment on above: Performed By: #### 3 8230-9 ####[facility] ([id number])[address], [address] [place] [address] FERRITINon 07-25-2024 Ferritin [Mass/Vol] 136 ng/mL Normal 24-336 [facility] Comment on above: Performed By: #### C BCA, 3274-8, BMP, 60217-8, 7-1, FEPR, 2276-4, 2283-8, 2132-03 ####[facility] ([id number])[address], [address] [place] [address] Folate [Mass/Vol]on 07-25-19 25 FOLIC ACID 23.9 ng/mL Normal >5.8 [facility] Comment on above: Result Comment: NEW REFERENCE RANGE Performed By: #### C BCA, 3274-8, BMP, 26231-8, 7-1, FEPR, 2276-4, 228-8, 2132-03 ####[facility] ([id number])[address], [address] [place] [address] Glucose Glucometer (BldC) [M ass/Vol]on 07-25-2024 Glucose [Mass/Vol] 257 mg/dL High 65-99 [facility] Glucose [Mass/Vol] 209 mg/dL High 65-99 [facility] Glucose [Mass/Vol] 268 mg/dL High 65-99 [facility] Glucose [Mass/Vol] 203 mg/dL High 65-99 [facility] Heparin unfractionated Chrom ogenic method Qn (PPP)on 07-25-2024 ANTI XA UFH 0.59 IU/mL Normal 0.30-0.70 [facility] Comment on above: Result Comment: Opti mal time for testing is 6 hrs post dosageThis test is specific for monitoring patientson UFH, and is not recommended for use withother Anti-Xa medications. Performed By: #### C BCA, 3274-8, BMP, 75251-7, 2777-1, FEPR, 2276-4, 2284-8, 2132-03 ####[facility] ([id number])[address], [address] [place] [address] IRON PROFILEon 07-25-2024 Iron [Mass/Vol] 47 ug/dL Low 50-212 [facility] Comment on above: Performed By: #### C BCA, 3274-8, BMP, 21677-9, 2777-1, FEPR, 2276-4, 2284-8, 2132-03 ####[facility] ([id number])[address], [address] [place] [address] IRON BINDING 216 ug/dL Low 250-425 [facility] Comment on above: Performed By: #### C BCA, 3274-8, BMP, 63149-6, 2777-1, FEPR, 2276-4, 2284-8, 2132-03 ####[facility] ([id number])[address], [address] [place] [address] IRON SATURATION 22 % SATURATION Normal 20-50 [facility] Comment on above: Performed By: #### C BCA, 3274-8, BMP, 02007-1, 2777-1, FEPR, 2276-4, 2284-8, 9 ####[facility] ([id number])[address], [address] [address] MAGNESIUMon 07-25-2024 Magnesium [Mass/Vol] 1.7 mg/dL Low 1.8-2.6 [facility] Comment on above: Performed By: #### C BCA, 3274-8, BMP, 38768-7, 2776-1, FEPR, 6-4, 2283-8, 2132-03 ####[facility] ([id number])[address], [address] [address] PHOSPHORUSon 07-25-2024 Phosphate [Mass/Vol] 3.5 mg/dL Normal 2.4-4.9 [facility] Comment on above: Performed By: #### C BCA, 3274-8, BMP, 61642-3, 2776-, FEPR, 2275-4, 2284-02, 2132-03 ####[facility] ([id number])[address], [address], [place] [address] VITAMIN B12on 07-25-2024 Cobalamin (Vitamin B12) [Mass/Vol] 710 pg/mL Normal 180-914 [facility] Comment on above: Performed By: #### C BCA, 3274-8, BMP, 42607-5, 2776-07, FEPR, 2275-4, 8, 2132-03 ####[facility] ([id number])[address], [address], [place] [address] CBC AND AUTO DIFFon 07-24-19 25 ABSOLUTE BASOPHIL 0.0 X10E9/L Normal 0.0-0.2 [facility] Comment on above: Performed By: #### 3 274-8, CBCA, CMP, , 2776-07 ####[facility] ([id number])[address], [address] [address] ABSOLUTE NEUTROPHIL 6.8 X10E9/L High 1.5-6.6 [facility] Comment on above: Performed By: #### 3 274-8, CBCA, CMP, , 2776-07 ####[facility] ([id number])[address] [address] [address] Basophils/100 WBC (Bld) 0.4 % Normal [facility] Comment on above: Performed By: #### 3 274-8, CBCA, CMP, , 2776- ####[facility] ([id number])[address] [address], [place] [address] Eosinophils (Bld) [#/Vol] 0.3 10*3/uL Normal 0.0-0.4 [facility] Comment on above: Performed By: #### 3 274-8, CBCA, CMP, , 2776-07 ####[facility] ([id number])[address] [address] [place] [address]689 Eosinophils/100 WBC (Bld) 2.8 % Normal [facility] Comment on above: Performed By: #### 3 274-8, CBCA, CMP, , 2776-07 ####[facility] ([id number])[address] [address], [place] [address] Erythrocyte distribution width (RBC) [Ratio] 14.1 % Normal 11.5-15.0 [facility] Comment on above: Performed By: #### 3 274-8, CBCA, CMP, , 2776-07 ####[facility] ([id number])[address] [address], [place] [address] Hematocrit (Bld) [Volume fraction] 32.1 % Low 39-49 [facility] Comment on above: Performed By: #### 3 274-8, CBCA, CMP, 38060-2, 2776- ####[facility] ([id number])[address] [address] [place] [address]97 Hemoglobin (Bld) [Mass/Vol] 11.1 g/dL Low 13.0-17.0 [facility] Comment on above: Performed By: #### 3 274-8, CBCA, CMP, , 2776-07 ####[facility] ([id number])[address] [address] Lymphocytes (Bld) [#/Vol] 2.4 10*3/uL Normal 1.0-3.5 [facility] Comment on above: Performed By: #### 3 274-8, CBCA, CMP, , 2776-07 ####[facility] ([id number])[address] [address] Lymphocytes/100 WBC (Bld) 22.3 % Normal [facility] Comment on above: Performed By: #### 3 274-8, CBCA, CMP, , 2776-07 ####[facility] ([id number])[address] [address] MCH (RBC) [Entitic mass] 29.4 pg Normal 27-34 [facility] Comment on above: Performed By: #### 3 274-8, CBCA, CMP, , 2776-07 ####[facility] ([id number])[address] [address] MCHC (RBC) [Mass/Vol] 34.4 g/dL Normal 32-36 [facility] Comment on above: Performed By: #### 3 274-8, CBCA, CMP, , 2776-07 ####[facility] ([id number])[address] [address] MCV (RBC) [Entitic vol] 86 fL Normal 80-100 [facility] Comment on above: Performed By: #### 3 274-8, CBCA, CMP, 72103-6, 2776-07 ####[facility] ([id number])[address], [place] [address] Monocytes (Bld) [#/Vol] 1.1 10*3/uL High 0-0.9 [facility] Comment on above: Performed By: #### 3 274-8, CBCA, CMP, 62402-9, 2776- ####[facility] ([id number])[address], [place] [address] Monocytes/100 WBC (Bld) 10.5 % Normal [facility] Comment on above: Performed By: #### 3 274-8, CBCA, CMP, 22349-6, 2776-07 ####[facility] ([id number])[address], [address] [place] [address] Neutrophils/100 WBC (Bld) 64.0 % Normal [facility] Comment on above: Performed By: #### 3 274-8, CBCA, CMP, 17760-8, 2776- ####[facility] ([id number])[address], [address] [place] [address]18 Platelet mean volume (Bld) [Entitic vol] 8.7 fL Normal 7-12 [facility] Comment on above: Performed By: #### 3 274-8, CBCA, CMP, 51746-7, 2776- ####[facility] ([id number])[address], [address] [place] [address]998 Platelets (Bld) [#/Vol] 230 10*3/uL Normal 150-450 [facility] Comment on above: Performed By: #### 3 274-8, CBCA, CMP, 13549-8, 2776- ####[facility] ([id number])[address] [address] RBC COUNT 3.76 X10E12/L Low 4.10-5.70 [facility] Comment on above: Performed By: #### 3 274-8, CBCA, CMP, 70789-8, 2776-1 ####[facility] ([id number])[address], [place] [address] WBC (Bld) [#/Vol] 10.7 10*3/uL Normal 4.0-11.0 [facility] Comment on above: Performed By: #### 3 274-8, CBCA, CMP, 73251-0, 2776-1 ####[facility] ([id number])[address], [place] [address] COMPREHENSIVE METABOLIC PANE [place] 07-24-2024 Albumin [Mass/Vol] 3.2 g/dL Normal 3.2-5.3 [facility] Comment on above: Performed By: #### 3 274-8, CBCA, CMP, 98435-1, 2776-1 ####[facility] ([id number])[address], [place] [address] ALP [Catalytic activity/Vol] 83 U/L Normal 39-130 [facility] Comment on above: Performed By: #### 3 274-8, CBCA, CMP, 62480-8, 2776-1 ####[facility] ([id number])[address], [address] [facility] [address] ALT [Catalytic activity/Vol] 17 U/L Normal 0-40 [facility] Comment on above: Performed By: #### 3 274-8, CBCA, CMP, 62781-8, 2776-1 ####[facility] ([id number])[address], [address] [address] Anion gap [Moles/Vol] 10 mmol/L Normal 5-15 [facility] Comment on above: Performed By: #### 3 274-8, CBCA, CMP, 02486-9, 2776-07 ####[facility] ([id number])[address], [address], [place] [address] AST [Catalytic activity/Vol] 19 U/L Normal 0-41 [facility] Comment on above: Performed By: #### 3 274-8, CBCA, CMP, , 2776- ####[facility] ([id number])[address], [address], [place] [address] Bilirubin [Mass/Vol] 0.5 mg/dL Normal 0.3-1.2 [facility] Comment on above: Performed By: #### 3 274-8, CBCA, CMP, , 2776-07 ####[facility] ([id number])[address], [address], [place] [address] Calcium [Mass/Vol] 8.1 mg/dL Low 8.5-10.5 [facility] Comment on above: Performed By: #### 3 274-8, CBCA, CMP, , 2776-07 ####[facility] ([id number])[address], [address], [place] [address] Chloride [Moles/Vol] 95 mmol/L Low 98-109 [facility] Comment on above: Performed By: #### 3 274-8, CBCA, CMP, , 2776-07 ####[facility] ([id number])[address], [address], [place] [address] CO2 [Moles/Vol] 25 mmol/L Normal 22-32 [facility] Comment on above: Performed By: #### 3 274-8, CBCA, CMP, , 2776-07 ####[facility] ([id number])[address], [address], [place] [address] Creatinine [Mass/Vol] 1.50 mg/dL High 0.60-1.30 [facility] Comment on above: Result Comment: METH OD TRACEABLE TO IDMS STANDARD Performed By: #### 3 274-8, CBCA, CMP, , 2776-07 ####[facility] ([id number])[address] [address] [address] GFR/1.73 sq M.predicted among non-blacks MDRD (S/P/Bld) [Vol rate/Area] 50 mL/min/{1.73_m2} Low >59 [facility] Comment on above: Result Comment: Repo rted eGFR is based on theCKD-EPI 2020 equation that doesnot use a race coefficient. Performed By: #### 3 274-8, CBCA, CMP, , 2776-07 ####[facility] ([id number])[address] [address], [place] [address] Glucose [Mass/Vol] 280 mg/dL High 65-99 [facility] Comment on above: Performed By: #### 3 274-8, CBCA, CMP, , 2776-07 ####[facility] ([id number])[address] [address] [address] Potassium [Moles/Vol] 3.9 mmol/L Normal 3.5-5.0 [facility] Comment on above: Performed By: #### 3 274-8, CBCA, CMP, , 2776-07 ####[facility] ([id number])[address] [address] [address] Protein [Mass/Vol] 6.1 g/dL Normal 6.0-8.0 [facility] Comment on above: Performed By: #### 3 274-8, CBCA, CMP, , 2776-07 ####[facility] ([id number])[address] [address] [address] Sodium [Moles/Vol] 130 mmol/L Low 134-146 [facility] Comment on above: Performed By: #### 3 274-8, CBCA, CMP, , 2776-1 ####[facility] ([id number])[address], [address] [place] [address] Urea nitrogen [Mass/Vol] 10 mg/dL Normal 5-27 [facility] Comment on above: Performed By: #### 3 274-8, CBCA, CMP, , 1 ####[facility] ([id number])[address], [address] [place] [address] Calcium.ionized (Bld) [Mass/ Vol]on 07-24-2024 IONIZED CALCIUM 4.6 mg/dL Normal 4.5-5.3 [facility] Comment on above: Performed By: #### 3 8230-9 ####[facility] ([id number])[address], [address] [place] [address] IONIZED CALCIUM 4.1 mg/dL Low 4.5-5.3 [facility] Comment on above: Performed By: #### 3 8230-9 ####[facility] ([id number])[address], [address] [place] [address] Glucose Glucometer (BldC) [M ass/Vol]on 07-24-2024 Glucose [Mass/Vol] 225 mg/dL High 65-99 [facility] Glucose [Mass/Vol] 285 mg/dL High 65-99 [facility] Glucose [Mass/Vol] 189 mg/dL High 65-99 [facility] Glucose [Mass/Vol] 274 mg/dL High 65-99 [facility] HEMOGLOBINon 07-24-2024 Hemoglobin (Bld) [Mass/Vol] 11.0 g/dL Low 13.0-17.0 [facility] Comment on above: Performed By: #### 7 18-7 ####[facility] ([id number])[address] [address] [place] [address] Heparin unfractionated Chrom ogenic method Qn (PPP)on 07-24-2024 ANTI XA UFH 0.59 IU/mL Normal 0.30-0.70 [facility] Comment on above: Result Comment: Opti mal time for testing is 6 hrs post dosageThis test is specific for monitoring patientson UFH, and is not recommended for use withother Anti-Xa medications. Performed By: #### 3 274-8, CBCA, CMP, , 1 ####[facility] ([id number])[address] [address] [place] [address] MAGNESIUMon 07-24-2024 Magnesium [Mass/Vol] 2.2 mg/dL Normal 1.8-2.6 [facility] Comment on above: Performed By: #### 1 9123-9 ####[facility] ([id number])[address] [address] [place] [address] Magnesium [Mass/Vol] 1.8 mg/dL Normal 1.8-2.6 [facility] Comment on above: Performed By: #### 3 274-8, CBCA, CMP, , 1 ####[facility] ([id number])[address] [address] [place] [address] PHOSPHORUSon 07-24-2024 Phosphate [Mass/Vol] 2.7 mg/dL Normal 2.4-4.9 [facility] Comment on above: Performed By: #### 3 274-8, CBCA, CMP, , 2776-07 ####[facility] ([id number])[address] [address] [place] [address] COMPLETE BLOOD COUNTon 07-23 Erythrocyte distribution width (RBC) [Ratio] 14.1 % Normal 11.5-15.0 [facility] Comment on above: Performed By: #### C BC, CMP, , 2776-07 ####[facility] ([id number])[address], [address] [address] Hematocrit (Bld) [Volume fraction] 31.6 % Low 39-49 [facility] Comment on above: Performed By: #### Elise FRYE, [facility], , 2776-07 ####[facility] ([id number])[address], [address] [address] Hemoglobin (Bld) [Mass/Vol] 10.9 g/dL Low 13.0-17.0 [facility] Comment on above: Performed By: #### Elise FRYE, [facility], , 2776-07 ####[facility] ([id number])[address] [address], [place] [address] MCH (RBC) [Entitic mass] 28.9 pg Normal 27-34 [facility] Comment on above: Performed By: #### Elise FRYE, [facility], , 2776-07 ####[facility] ([id number])[address] [address] [place] [address], [place] [address] MCHC (RBC) [Mass/Vol] 34.4 g/dL Normal 32-36 [facility] Comment on above: Performed By: #### Elise FRYE [facility], , 2776-07 ####[facility] ([id number])[address] [address], [place] [address] MCV (RBC) [Entitic vol] 84 fL Normal 80-100 [facility] Comment on above: Performed By: #### Elise BC, [facility], , 2776-07 ####[facility] ([id number])[address] [address] [address] Platelet mean volume (Bld) [Entitic vol] 8.9 fL Normal 7-12 [facility] Comment on above: Performed By: #### C MELVA, CMP, , 2776-07 ####[facility] ([id number])[address], [address], [place] [address] Platelets (Bld) [#/Vol] 222 10*3/uL Normal 150-450 [facility] Comment on above: Performed By: #### Elise BC, CMP, , 2776-07 ####[facility] ([id number])[address], [address], [place] [address] RBC COUNT 3.76 X10E12/L Low 4.10-5.70 [facility] Comment on above: Performed By: #### Elise BC, CMP, , 2776-07 ####[facility] ([id number])[address], [address], [place] [address] WBC (Bld) [#/Vol] 9.9 10*3/uL Normal 4.0-11.0 [facility] Comment on above: Performed By: #### Elise FRYE, CMP, , 2776-07 ####[facility] ([id number])[address], [address] [address] COMPREHENSIVE METABOLIC PANE Markell 07-23-2024 Albumin [Mass/Vol] 3.0 g/dL Low 3.2-5.3 [facility] Comment on above: Performed By: #### C BC, CMP, , 2776-07 ####[facility] ([id number])[address], [address], [place] [address] ALP [Catalytic activity/Vol] 83 U/L Normal 39-130 [facility] Comment on above: Performed By: #### Elise BC, CMP, , 2776-07 ####[facility] ([id number])[address], [address] [address] ALT [Catalytic activity/Vol] 20 U/L Normal 0-40 [facility] Comment on above: Performed By: #### Elise FRYE, CMP, , 2776-07 ####[facility] ([id number])[address], [address], [place] [address] Anion gap [Moles/Vol] 10 mmol/L Normal 5-15 [facility] Comment on above: Performed By: #### Elise FRYE, CMP, , 2776-07 ####[facility] ([id number])[address], [address], [place] [address] AST [Catalytic activity/Vol] 18 U/L Normal 0-41 [facility] Comment on above: Performed By: #### Elise FRYE, CMP, , 2776-07 ####[facility] ([id number])[address], [address], [place] [address] Bilirubin [Mass/Vol] 0.4 mg/dL Normal 0.3-1.2 [facility] Comment on above: Performed By: #### Elise FRYE, CMP, , 2776-07 ####[facility] ([id number])[address], [address], [place] [address] Calcium [Mass/Vol] 8.1 mg/dL Low 8.5-10.5 [facility] Comment on above: Performed By: #### Elise FRYE, CMP, , 2776-07 ####[facility] ([id number])[address], [address], [place] [address] Chloride [Moles/Vol] 101 mmol/L Normal 98-109 [facility] Comment on above: Performed By: #### Elise BC, CMP, , 2776-07 ####[facility] ([id number])[address], [address], [place] [address] CO2 [Moles/Vol] 22 mmol/L Normal 22-32 [facility] Comment on above: Performed By: #### C MELVA [facility], , 2776-07 ####[facility] ([id number])[address], [address], [place] [address] Creatinine [Mass/Vol] 1.63 mg/dL High 0.60-1.30 [facility] Comment on above: Result Comment: METH OD TRACEABLE TO IDMS STANDARD Performed By: #### C MELVA [facility], , 2776-07 ####[facility] ([id number])[address] [address], [place] [address] GFR/1.73 sq M.predicted among non-blacks MDRD (S/P/Bld) [Vol rate/Area] 45 mL/min/{1.73_m2} Low >59 [facility] Comment on above: Result Comment: Repo rted eGFR is based on theCKD-EPI 2020 equation that doesnot use a race coefficient. Performed By: #### C GARETH FRYE, , 2776-07 ####[facility] ([id number])[address] [address], [place] [address] Glucose [Mass/Vol] 272 mg/dL High 65-99 [facility] Comment on above: Performed By: #### Elise FRYE CMP, , 2776-07 ####[facility] ([id number])[address] [address], [place] [address] Potassium [Moles/Vol] 3.6 mmol/L Normal 3.5-5.0 [facility] Comment on above: Performed By: #### Elise FRYE, CMP, , 2776-07 ####[facility] ([id number])[address] [address] [address] Protein [Mass/Vol] 6.0 g/dL Normal 6.0-8.0 [facility] Comment on above: Performed By: #### C MELVA, [facility], , 2776-07 ####[facility] ([id number])[address], [address] [place] [address] Sodium [Moles/Vol] 133 mmol/L Low 134-146 [facility] Comment on above: Performed By: #### Elise FRYE [facility], , 2776-07 ####[facility] ([id number])[address], [address] [place] [address] Urea nitrogen [Mass/Vol] 15 mg/dL Normal 5-27 [facility] Comment on above: Performed By: #### Elise FRYE [facility], , 2776-07 ####[facility] ([id number])[address], [address] [place] [address] Calcium.ionized (Bld) [Mass/ Vol]on 07-23-2024 IONIZED CALCIUM 4.4 mg/dL Low 4.5-5.3 [facility] Comment on above: Performed By: #### 3 8230-9 ####[facility] ([id number])[address], [address] [place] [address] IONIZED CALCIUM 4.1 mg/dL Low 4.5-5.3 [facility] Comment on above: Performed By: #### 3 8230-9 ####[facility] ([id number])[address] [address] [place] [address] Glucose Glucometer (BldC) [M ass/Vol]on 07-23-2024 Glucose [Mass/Vol] 245 mg/dL High 65-99 [facility] Glucose [Mass/Vol] 238 mg/dL High 65-99 [facility] Glucose [Mass/Vol] 275 mg/dL High 65-99 [facility] Glucose [Mass/Vol] 242 mg/dL High 65-99 [facility] Heparin unfractionated Chrom ogenic method Qn (PPP)on 07-23-2024 ANTI XA UFH 0.52 IU/mL Normal 0.30-0.70 [facility] Comment on above: Result Comment: Opti mal time for testing is 6 hrs post dosageThis test is specific for monitoring patientson UFH, and is not recommended for use withother Anti-Xa medications. Performed By: #### 2 823-3, 3274-8 ####[facility] ([id number])[address], [address], [place] [address] ANTI XA UFH 0.48 IU/mL Normal 0.30-0.70 [facility] Comment on above: Result Comment: Opti mal time for testing is 6 hrs post dosageThis test is specific for monitoring patientson UFH, and is not recommended for use withother Anti-Xa medications. Performed By: #### 3 274-8 ####[facility] ([id number])[address] [address] MAGNESIUMon 07-23-2024 Magnesium [Mass/Vol] 2.2 mg/dL Normal 1.8-2.6 [facility] Comment on above: Performed By: #### 2 823-3, 91171-9 ####[facility] ([id number])[address] [address], [place] [address] Magnesium [Mass/Vol] 1.3 mg/dL Low 1.8-2.6 [facility] Comment on above: Performed By: #### C MELVA, [facility], , 2777-1 ####[facility] ([id number])[address], [place] [address] PHOSPHORUSon 07-23-2024 Phosphate [Mass/Vol] 3.2 mg/dL Normal 2.4-4.9 [facility] Comment on above: Performed By: #### C MELVA, [facility], , 2777-1 ####[facility] ([id number])[address], [address], [place] [address] POTASSIUMon 07-23-2024 Potassium [Moles/Vol] 3.8 mmol/L Normal 3.5-5.0 [facility] Comment on above: Performed By: #### 2 823-3, 91311-7 ####[facility] ([id number])[address] [address], [place] [address] Potassium [Moles/Vol] 3.7 mmol/L Normal 3.5-5.0 [facility] Comment on above: Performed By: #### 2 823-3, 3274-8 ####[facility] ([id number])[address] [address], [place] [address] COMPLETE BLOOD COUNTon 07-22 Erythrocyte distribution width (RBC) [Ratio] 14.1 % Normal 11.5-15.0 [facility] Comment on above: Performed By: #### Elise FRYE CMP, , 2776-07 ####[facility] ([id number])[address] [address], [place] [address] Hematocrit (Bld) [Volume fraction] 34.0 % Low 39-49 [facility] Comment on above: Performed By: #### Elise FRYE CMP, , 2776-07 ####[facility] ([id number])[address] [address], [place] [address] Hemoglobin (Bld) [Mass/Vol] 11.6 g/dL Low 13.0-17.0 [facility] Comment on above: Performed By: #### Elise FRYE CMP, , 2776-07 ####[facility] ([id number])[address] [address], [place] [address] MCH (RBC) [Entitic mass] 28.9 pg Normal 27-34 [facility] Comment on above: Performed By: #### Elise BC CMP, , 2776-07 ####[facility] ([id number])[address] [address] MCHC (RBC) [Mass/Vol] 34.0 g/dL Normal 32-36 [facility] Comment on above: Performed By: #### Elise FRYE, CMP, , 2776-07 ####[facility] ([id number])[address], [address] [address] MCV (RBC) [Entitic vol] 85 fL Normal 80-100 [facility] Comment on above: Performed By: #### Elise FRYE, CMP, , 2776-07 ####[facility] ([id number])[address] [address] Platelet mean volume (Bld) [Entitic vol] 8.7 fL Normal 7-12 [facility] Comment on above: Performed By: #### Elise BC, CMP, , 2776-07 ####[facility] ([id number])[address] [address] [address] Platelets (Bld) [#/Vol] 243 10*3/uL Normal 150-450 [facility] Comment on above: Performed By: #### Elise FRYE, CMP, , 2776-07 ####[facility] ([id number])[address], [address] [address] RBC COUNT 4.00 X10E12/L Low 4.10-5.70 [facility] Comment on above: Performed By: #### Elise BC, CMP, , 2776-07 ####[facility] ([id number])[address] [address] [address] WBC (Bld) [#/Vol] 9.9 10*3/uL Normal 4.0-11.0 [facility] Comment on above: Performed By: #### C BC, CMP, , 2776-07 ####[facility] ([id number])[address], [place] [address] COMPREHENSIVE METABOLIC PANE Markell 07-22-2024 Albumin [Mass/Vol] 3.4 g/dL Normal 3.2-5.3 [facility] Comment on above: Performed By: #### C BC, CMP, , 2776-07 ####[facility] ([id number])[address], [address], [place] [address] ALP [Catalytic activity/Vol] 89 U/L Normal 39-130 [facility] Comment on above: Performed By: #### Elise BC, CMP, , 2776-07 ####[facility] ([id number])[address], [address], [place] [address] ALT [Catalytic activity/Vol] 17 U/L Normal 0-40 [facility] Comment on above: Performed By: #### Elise FRYE, CMP, , 2776-07 ####[facility] ([id number])[address], [address], [place] [address] Anion gap [Moles/Vol] 13 mmol/L Normal 5-15 [facility] Comment on above: Performed By: #### C MELVA, CMP, , 2776-07 ####[facility] ([id number])[address], [address], [place] [address] AST [Catalytic activity/Vol] 20 U/L Normal 0-41 [facility] Comment on above: Performed By: #### C BC, CMP, , 2776-07 ####[facility] ([id number])[address], [address], [place] [address] Bilirubin [Mass/Vol] 0.5 mg/dL Normal 0.3-1.2 [facility] Comment on above: Performed By: #### C MELVA, [facility], , 2776-07 ####[facility] ([id number])[address], [address], [place] [address] Calcium [Mass/Vol] 8.5 mg/dL Normal 8.5-10.5 [facility] Comment on above: Performed By: #### Elise FRYE, [facility], , 2776-07 ####[facility] ([id number])[address] [address] Chloride [Moles/Vol] 103 mmol/L Normal 98-109 [facility] Comment on above: Performed By: #### Elise FRYE [facility], , 2776-07 ####[facility] ([id number])[address] [address] [address] CO2 [Moles/Vol] 18 mmol/L Low 22-32 [facility] Comment on above: Performed By: #### Elise FRYE [facility], , 2776-07 ####[facility] ([id number])[address] [address], [place] [address] Creatinine [Mass/Vol] 1.73 mg/dL High 0.60-1.30 [facility] Comment on above: Result Comment: METH OD TRACEABLE TO IDMS STANDARD Performed By: #### Elise FRYE, [facility], , 2776-07 ####[facility] ([id number])[address] [address] [address] GFR/1.73 sq M.predicted among non-blacks MDRD (S/P/Bld) [Vol rate/Area] 42 mL/min/{1.73_m2} Low >59 [facility] Comment on above: Result Comment: Repo rted eGFR is based on theCKD-EPI 2020 equation that doesnot use a race coefficient. Performed By: #### C BC, CMP, , 2776-07 ####[facility] ([id number])[address], [place] [address] Glucose [Mass/Vol] 209 mg/dL High 65-99 [facility] Comment on above: Performed By: #### C BC, [facility], , 2776-07 ####[facility] ([id number])[address], [place] [address] Potassium [Moles/Vol] 4.1 mmol/L Normal 3.5-5.0 [facility] Comment on above: Performed By: #### C BC, [facility], , 2776-07 ####[facility] ([id number])[address], [address], [place] [address] Protein [Mass/Vol] 6.6 g/dL Normal 6.0-8.0 [facility] Comment on above: Performed By: #### C BC, [facility], , 2776-07 ####[facility] ([id number])[address], [place] [address] Sodium [Moles/Vol] 134 mmol/L Normal 134-146 [facility] Comment on above: Performed By: #### C BC, [facility], , 2776-07 ####[facility] ([id number])[address], [place] [address] Urea nitrogen [Mass/Vol] 21 mg/dL Normal 5-27 [facility] Comment on above: Performed By: #### C BC, CMP, , 2776-07 ####[facility] ([id number])[address], [place] [address] Calcium.ionized (Bld) [Mass/ Vol]on 07-22-2024 IONIZED CALCIUM 4.6 mg/dL Normal 4.5-5.3 [facility] Comment on above: Performed By: #### 3 8230-9 ####[facility] ([id number])[address] [place] [address] Glucose Glucometer (BldC) [M ass/Vol]on 07-22-2024 Glucose [Mass/Vol] 305 mg/dL High 65-99 [facility] Glucose [Mass/Vol] 261 mg/dL High 65-99 [facility] Glucose [Mass/Vol] 226 mg/dL High 65-99 [facility] Glucose [Mass/Vol] 226 mg/dL High 65-99 [facility] Glucose [Mass/Vol] 220 mg/dL High 65-99 [facility] Heparin unfractionated Chrom ogenic method Qn (PPP)on 07-22-2024 ANTI XA UFH 0.29 IU/mL Low 0.30-0.70 [facility] Comment on above: Result Comment: Opti mal time for testing is 6 hrs post dosageThis test is specific for monitoring patientson UFH, and is not recommended for use withother Anti-Xa medications. Performed By: #### 3 274-8 ####[facility] ([id number])[address] [place] [address] MAGNESIUMon 07-22-2024 Magnesium [Mass/Vol] 1.7 mg/dL Low 1.8-2.6 [facility] Comment on above: Performed By: #### Elise FRYE [facility], , 2776-07 ####[facility] ([id number])[address], [address] [place] [address] PHOSPHORUSon 07-22-2024 Phosphate [Mass/Vol] 3.2 mg/dL Normal 2.4-4.9 [facility] Comment on above: Performed By: #### Elise FRYE CMP, , 2776-07 ####[facility] ([id number])[address] [place] [address] Surgical Pathologyon 025 Surgical Pathology Normal [facility] Comment on above: Result Comment: [facility] [address] [place] [address] Surgical Pathology ConsultationPatient Name:PONCHO JOSE JR.:1955 (Age: 69)Gender:MTaken:07/22/2024Reported:07/23/2024Physician(s):SHAE OLSNO ([phone])Copy To: Rec. #:[id number]: #[id number] Pathologic Diagnosis1. Terminal ileum, biopsy: Mucoid material. No tissue sample identified.2. Colon, random biopsy: Fragments of colonic mucosa with no diagnostic abnormalities. No colitis or dysplasia identified.3. Transverse colon polyp: Fragments of colonic mucosa with features suggestive of hyperplastic polyp. No dysplasia identified. Report Electronically Signed Outnxk/07/23/2024Chris Burns MDInterpretation performed at [facility], [address] [place] [address], License number: [id number].Clinical HistoryDiarrhea, unspecified type.2. R/O microscopic colitis.Gross Description1. Received in formalin labeled REBECA, #1: Terminal ileum biopsy is a specimen container with no grossly visible tissue. A colleague, MICHAEL, verifies that no tissue can be grossly identified. The specimen is submitted to Cytology for histogel processing. Submitted in a single cassette. (1, ns, [id number], m1) MG2. Received in formalin labeled REBECA, #2: Random colon biopsy R/O microscopic colitis are 6 dove bits/strips of soft tissue, ranging from 0.1-0.6 cm in greatest dimension. Filtered and submitted in a single cassette. (1, ns, [id number], m1) MG3. Received in formalin labeled REBECA, #3: Transverse colon polyp are 3 dove bits of soft tissue, ranging from 0.1-0.4 cm in greatest dimension. Filtered and submitted in a single cassette. (1, ns, [id number], m1) MGmjg/07/22/2024GRSpecimen(s) Received1: Terminal ileum biopsy2: Colon random biopsy3: Transverse colon polypFee Codes(s):1; 485201; 091099; 29744 COMPLETE BLOOD COUNTon 07-21 Erythrocyte distribution width (RBC) [Ratio] 14.2 % Normal 11.5-15.0 [facility] Comment on above: Performed By: #### Elise FRYE [facility], , 2776-07 ####[facility] ([id number])[address], [place] [address] Hematocrit (Bld) [Volume fraction] 29.0 % Low 39-49 [facility] Comment on above: Performed By: #### Elise FRYE CMP, , 2776-07 ####[facility] ([id number])[address] [address] [address] Hemoglobin (Bld) [Mass/Vol] 10.0 g/dL Low 13.0-17.0 [facility] Comment on above: Performed By: #### Elise FRYE CMP, , 2776-07 ####[facility] ([id number])[address] [address] [address] MCH (RBC) [Entitic mass] 29.4 pg Normal 27-34 [facility] Comment on above: Performed By: #### Elise BC CMP, , 2776-07 ####[facility] ([id number])[address] [address] MCHC (RBC) [Mass/Vol] 34.5 g/dL Normal 32-36 [facility] Comment on above: Performed By: #### Elise BC, CMP, , 2776-07 ####[facility] ([id number])[address] [address] MCV (RBC) [Entitic vol] 85 fL Normal 80-100 [facility] Comment on above: Performed By: #### Elise BC, CMP, , 2776-07 ####[facility] ([id number])[address], [place] [address] Platelet mean volume (Bld) [Entitic vol] 9.3 fL Normal 7-12 [facility] Comment on above: Performed By: #### Elise BC, CMP, , 2776-07 ####[facility] ([id number])[address], [place] [address] Platelets (Bld) [#/Vol] 221 10*3/uL Normal 150-450 [facility] Comment on above: Performed By: #### Elise BC, CMP, , 2776-07 ####[facility] ([id number])[address], [place] [address] RBC COUNT 3.41 X10E12/L Low 4.10-5.70 [facility] Comment on above: Performed By: #### Elise BC, CMP, , 2776-07 ####[facility] ([id number])[address], [place] [address] WBC (Bld) [#/Vol] 7.7 10*3/uL Normal 4.0-11.0 [facility] Comment on above: Performed By: #### Elise BC, CMP, , 2776-07 ####[facility] ([id number])[address] [address] COMPREHENSIVE METABOLIC PANE Markell 07-21-2024 Albumin [Mass/Vol] 3.0 g/dL Low 3.2-5.3 [facility] Comment on above: Performed By: #### Elise BC, CMP, , 2776-07 ####[facility] ([id number])[address], [address], [place] [address] ALP [Catalytic activity/Vol] 74 U/L Normal 39-130 [facility] Comment on above: Performed By: #### C BC, CMP, , 2776-07 ####[facility] ([id number])[address], [address], [place] [address] ALT [Catalytic activity/Vol] 12 U/L Normal 0-40 [facility] Comment on above: Performed By: #### C BC, CMP, , 2776-07 ####[facility] ([id number])[address], [address], [place] [address] Anion gap [Moles/Vol] 10 mmol/L Normal 5-15 [facility] Comment on above: Performed By: #### Elise BC, CMP, , 2776-07 ####[facility] ([id number])[address], [address], [place] [address] AST [Catalytic activity/Vol] 14 U/L Normal 0-41 [facility] Comment on above: Performed By: #### Elise BC, CMP, , 2776-07 ####[facility] ([id number])[address], [address], [place] [address] Bilirubin [Mass/Vol] 0.4 mg/dL Normal 0.3-1.2 [facility] Comment on above: Performed By: #### C BC, CMP, , 2776-07 ####[facility] ([id number])[address], [address], [place] [address] Calcium [Mass/Vol] 8.1 mg/dL Low 8.5-10.5 [facility] Comment on above: Performed By: #### Elise BC, CMP, , 2776-07 ####[facility] ([id number])[address], [address], [place] [address] Chloride [Moles/Vol] 108 mmol/L Normal 98-109 [facility] Comment on above: Performed By: #### Elise FRYE [facility], , 2776-07 ####[facility] ([id number])[address], [address], [place] [address] CO2 [Moles/Vol] 18 mmol/L Low 22-32 [facility] Comment on above: Performed By: #### Elise FRYE [facility], , 2776-07 ####[facility] ([id number])[address], [address], [place] [address] Creatinine [Mass/Vol] 2.21 mg/dL High 0.60-1.30 [facility] Comment on above: Result Comment: METH OD TRACEABLE TO IDMS STANDARD Performed By: #### Elise FRYE [facility], , 2776-07 ####[facility] ([id number])[address] [address], [place] [address] GFR/1.73 sq M.predicted among non-blacks MDRD (S/P/Bld) [Vol rate/Area] 31 mL/min/{1.73_m2} Low >59 [facility] Comment on above: Result Comment: Repo rted eGFR is based on theCKD-EPI 2020 equation that doesnot use a race coefficient. Performed By: #### Elise FRYE [facility], , 2776-07 ####[facility] ([id number])[address] [address], [place] [address] Glucose [Mass/Vol] 183 mg/dL High 65-99 [facility] Comment on above: Performed By: #### Elise [facility]YE [facility], , 2776-07 ####[facility] ([id number])[address] [address], [place] [address] Potassium [Moles/Vol] 4.0 mmol/L Normal 3.5-5.0 [facility] Comment on above: Performed By: #### C MELVA, [facility], , 2776-1 ####[facility] ([id number])[address], [address], [place] [address] Protein [Mass/Vol] 5.7 g/dL Low 6.0-8.0 [facility] Comment on above: Performed By: #### Elise FRYE, [facility], , 2776- ####[facility] ([id number])[address], [address], [place] [address] Sodium [Moles/Vol] 136 mmol/L Normal 134-146 [facility] Comment on above: Performed By: #### Elise FREY [facility], , 2776- ####[facility] ([id number])[address], [address] [place] [address] Urea nitrogen [Mass/Vol] 32 mg/dL High 5-27 [facility] Comment on above: Performed By: #### Elise FRYE, [facility], , 277-1 ####[facility] ([id number])[address], [address] [place] [address] Calcium.ionized (Bld) [Mass/ Vol]on 07-21-2024 IONIZED CALCIUM 4.6 mg/dL Normal 4.5-5.3 [facility] Comment on above: Performed By: #### 3 8230-9 ####[facility] ([id number])[address] [address] [place] [address] Heparin unfractionated Chrom ogenic method Qn (PPP)on 07-21-2024 ANTI XA UFH 0.42 IU/mL Normal 0.30-0.70 [facility] Comment on above: Result Comment: Opti mal time for testing is 6 hrs post dosageThis test is specific for monitoring patientson UFH, and is not recommended for use withother Anti-Xa medications. Performed By: #### 3 274-8 ####[facility] ([id number])[address], [address] [place] [address] MAGNESIUMon 07-21-2024 Magnesium [Mass/Vol] 1.6 mg/dL Low 1.8-2.6 [facility] Comment on above: Performed By: #### C MELVA, CMP, , 1 ####[facility] ([id number])[address], [address] [place] [address] PHOSPHORUSon 07-21-2024 Phosphate [Mass/Vol] 3.7 mg/dL Normal 2.4-4.9 [facility] Comment on above: Performed By: #### Elise FRYE CMP, , 1 ####[facility] ([id number])[address] [address] [place] [address] COMPLETE BLOOD COUNTon 07-20 Erythrocyte distribution width (RBC) [Ratio] 14.2 % Normal 11.5-15.0 [facility] Comment on above: Performed By: #### Elise FRYE, 3274-8, CMP, , 2776-07 ####[facility] ([id number])[address] [address] Hematocrit (Bld) [Volume fraction] 28.1 % Low 39-49 [facility] Comment on above: Performed By: #### Elise FRYE, 3274-8, CMP, , 2776- ####[facility] ([id number])[address] [address] Hemoglobin (Bld) [Mass/Vol] 9.8 g/dL Low 13.0-17.0 [facility] Comment on above: Performed By: #### Elise FRYE, 3274-8, CMP, , 2776-07 ####[facility] ([id number])[address], [address], [place] [address] MCH (RBC) [Entitic mass] 30.1 pg Normal 27-34 [facility] Comment on above: Performed By: #### Elise FRYE, 3274-8, CMP, 15223-9, 2776-07 ####[facility] ([id number])[address], [address], [place] [address] MCHC (RBC) [Mass/Vol] 35.0 g/dL Normal 32-36 [facility] Comment on above: Performed By: #### Elise FRYE, 4-8, CMP, 46227-8, 2776-07 ####[facility] ([id number])[address] [address], [place] [address] MCV (RBC) [Entitic vol] 86 fL Normal 80-100 [facility] Comment on above: Performed By: #### Elise FRYE, 4-8, CMP, , 2776-07 ####[facility] ([id number])[address] [address], [place] [address] Platelet mean volume (Bld) [Entitic vol] 9.0 fL Normal 7-12 [facility] Comment on above: Performed By: #### Elise FRYE, 4-8, CMP, , 2776- ####[facility] ([id number])[address] [address] [place] [address] Platelets (Bld) [#/Vol] 206 10*3/uL Normal 150-450 [facility] Comment on above: Performed By: #### Elise FRYE, 4-8, CMP, , 2776-07 ####[facility] ([id number])[address] [address], [place] [address] RBC COUNT 3.27 X10E12/L Low 4.10-5.70 [facility] Comment on above: Performed By: #### Elise FRYE, 3274-8, CMP, 77415-3, 2776-1 ####[facility] ([id number])[address], [address], [place] [address] WBC (Bld) [#/Vol] 8.0 10*3/uL Normal 4.0-11.0 [facility] Comment on above: Performed By: #### Elise FRYE, 3274-8, CMP, 50131-4, 2776- ####[facility] ([id number])[address], [address], [place] [address] COMPREHENSIVE METABOLIC PANE Markell 07-20-2024 Albumin [Mass/Vol] 3.0 g/dL Low 3.2-5.3 [facility] Comment on above: Performed By: #### Elise FRYE, 3274-8, CMP, 05893-9, 2776- ####[facility] ([id number])[address], [address], [place] [address] ALP [Catalytic activity/Vol] 80 U/L Normal 39-130 [facility] Comment on above: Performed By: #### Elise FRYE, 3274-8, CMP, 82045-4, 2776- ####[facility] ([id number])[address] [address], [place] [address] ALT [Catalytic activity/Vol] 8 U/L Normal 0-40 [facility] Comment on above: Performed By: #### Elise FRYE, 3274-8, CMP, 27497-3, 2776- ####[facility] ([id number])[address], [address] [address] Anion gap [Moles/Vol] 11 mmol/L Normal 5-15 [facility] Comment on above: Performed By: #### Elise FRYE, 3274-8, CMP, 72457-1, 2776-1 ####[facility] ([id number])[address], [address], [place] [address] AST [Catalytic activity/Vol] 12 U/L Normal 0-41 [facility] Comment on above: Performed By: #### Elise FRYE, 3274-8, CMP, 60446-7, 2776- ####[facility] ([id number])[address], [address], [place] [address] Bilirubin [Mass/Vol] 0.4 mg/dL Normal 0.3-1.2 [facility] Comment on above: Performed By: #### Elise FRYE, 3274-8, CMP, 82922-7, 2776- ####[facility] ([id number])[address], [place] [address] Calcium [Mass/Vol] 8.2 mg/dL Low 8.5-10.5 [facility] Comment on above: Performed By: #### Elise FRYE, 4-8, CMP, , 2776-07 ####[facility] ([id number])[address], [address], [place] [address] Chloride [Moles/Vol] 106 mmol/L Normal 98-109 [facility] Comment on above: Performed By: #### Elise FRYE, 3274-8, CMP, 25378-0, 2776- ####[facility] ([id number])[address], [address], [place] [address] CO2 [Moles/Vol] 16 mmol/L Low 22-32 [facility] Comment on above: Performed By: #### Elise FRYE, 3274-8, CMP, 08310-3, 2776- ####[facility] ([id number])[address], [address], [place] [address] Creatinine [Mass/Vol] 2.84 mg/dL High 0.60-1.30 [facility] Comment on above: Result Comment: METH OD TRACEABLE TO IDMS STANDARD Performed By: #### C MELVA, 3274-8, CMP, , 2776-07 ####[facility] ([id number])[address] [address], [place] [address] GFR/1.73 sq M.predicted among non-blacks MDRD (S/P/Bld) [Vol rate/Area] 23 mL/min/{1.73_m2} Low >59 [facility] Comment on above: Result Comment: Repo rted eGFR is based on theCKD-EPI 2020 equation that doesnot use a race coefficient. Performed By: #### Elise FRYE, 4-8, [facility], , 2776-07 ####[facility] ([id number])[address] [address], [place] [address] Glucose [Mass/Vol] 160 mg/dL High 65-99 [facility] Comment on above: Performed By: #### Elise FRYE, 3273-8, [facility], , 2776-07 ####[facility] ([id number])[address] [address], [place] [address] Potassium [Moles/Vol] 4.2 mmol/L Normal 3.5-5.0 [facility] Comment on above: Performed By: #### Elise FRYE, 3273-8, [facility], , 2776-07 ####[facility] ([id number])[address] [address], [place] [address] Protein [Mass/Vol] 5.7 g/dL Low 6.0-8.0 [facility] Comment on above: Performed By: #### Elise FRYE, 3274-8, CMP, , 2776-07 ####[facility] ([id number])[address] [address], [place] [address] Sodium [Moles/Vol] 133 mmol/L Low 134-146 [facility] Comment on above: Performed By: #### C , 3274-8, [facility], 48774-4, 2776-1 ####[facility] ([id number])[address] [address] [place] [address] Urea nitrogen [Mass/Vol] 41 mg/dL High 5-27 [facility] Comment on above: Performed By: #### C , 3274-8, [facility], 60814-9, 2777-1 ####[facility] ([id number])[address], [address] [place] [address] Calcium.ionized (Bld) [Mass/ Vol]on 07-20-2024 IONIZED CALCIUM 4.7 mg/dL Normal 4.5-5.3 [facility] Comment on above: Performed By: #### 3 8230-9 ####[facility] ([id number])[address], [address] [address] Heparin unfractionated Chrom ogenic method Qn (PPP)on 07-20-2024 ANTI XA UFH 0.39 IU/mL Normal 0.30-0.70 [facility] Comment on above: Result Comment: Opti mal time for testing is 6 hrs post dosageThis test is specific for monitoring patientson UFH, and is not recommended for use withother Anti-Xa medications. Performed By: #### 3 274-8 ####[facility] ([id number])[address] [address] ANTI XA UFH 0.40 IU/mL Normal 0.30-0.70 [facility] Comment on above: Result Comment: Opti mal time for testing is 6 hrs post dosageThis test is specific for monitoring patientson UFH, and is not recommended for use withother Anti-Xa medications. Performed By: #### 3 274-8 ####[facility] ([id number])[address], [address] [place] [address] ANTI XA UFH 0.28 IU/mL Low 0.30-0.70 [facility] Comment on above: Result Comment: Opti mal time for testing is 6 hrs post dosageThis test is specific for monitoring patientson UFH, and is not recommended for use withother Anti-Xa medications. Performed By: #### C BC, 3274-8, CMP, 36507-8, 2776-1 ####[facility] ([id number])[address], [address] [place] [address] MAGNESIUMon 07-20-2024 Magnesium [Mass/Vol] 1.8 mg/dL Normal 1.8-2.6 [facility] Comment on above: Performed By: #### C BC, 3274-8, CMP, 67169-8, 2776-1 ####[facility] ([id number])[address], [address] [place] [address] PHOSPHORUSon 07-20-2024 Phosphate [Mass/Vol] 3.8 mg/dL Normal 2.4-4.9 [facility] Comment on above: Performed By: #### C BC, 3274-8, [facility], 58394-7, 2776-1 ####[facility] ([id number])[address], [address] [place] [address] US RETROPERITONEAL COMPLETEo n 07-20-2024 US RETROPERITONEAL COMPLETE Normal [facility] XR CHEST 1 VWon 07-20-2024 XR CHEST 1 VW Normal [facility] ACUTE HEPATITIS PANELon ANTI HCV W/PCR REFLX Non-Reactive Normal NRCT Pr [facility] Comment on above: Result Comment: NEW TEST METHODNOTEIf recent infection suspected, recommend repeat testing (>2 months).Fawqcq-yf-xyuxje ratio is <1.00. Performed By: #### H A1C, 53948-3, 20053-7, 36240-6, 5130-0, 99343-7, 79684-4, 72243-9, 69153-6, C34, IMEL, 19324-5, SPE, AHP ####[facility] ([id number])[address] [facility], [address], [place] [address] HEPATITIS A IGM Non-Reactive Normal NRCT [facility] Comment on above: Result Comment: NEW TEST METHOD Performed By: #### H A1C, 43191-6, 61481-3, 98272-0, 5130-0, 10428-2, 60877-2, 56268-7, 00610-0, C34, IMEL, 87936-1, SPE, AHP ####[facility] ([id number])[address] [facility], [address], [place] [address] HEPATITIS B CORE IGM Non-Reactive Normal NRCT Pr [facility] Comment on above: Result Comment: NEW TEST METHOD Performed By: #### H A1C, 19190-3, 96577-1, 08622-4, 5130-0, 39400-0, 48794-4, 73189-4, 03539-2, C34, IMEL, 31441-5, SPE, AHP ####[facility] ([id number])[address] [facility], [address] [place] [address] HEPATITIS B SURF AG Non-Reactive Normal NRCT [facility] Comment on above: Result Comment: NEW TEST METHOD Performed By: #### H A1C, 04741-1, 97436-0, 61383-8, 5130-0, 42286-7, 23772-4, 96863-0, 54643-7, C34, IMEL, 40203-2, SPE, AHP ####[facility] ([id number])[address] [facility], [address] [place] [address] BASIC METABOLIC PANLon 07-19 Anion gap [Moles/Vol] 12 mmol/L Normal 5-15 [facility] Comment on above: Performed By: #### C BC, BMP, 26329-9, 2132-9, FEPR, 2276-4, 2284-8 ####[facility] ([id number])[address] [facility], [address], [place] [address] Calcium [Mass/Vol] 8.6 mg/dL Normal 8.5-10.5 [facility] Comment on above: Performed By: #### C BC, BMP, , 2132-03, FEPR, 2276-4, 2284-8 ####[facility] ([id number])[address], [address] [place] [address] Chloride [Moles/Vol] 103 mmol/L Normal 98-109 [facility] Comment on above: Performed By: #### C BC, BMP, , 2132-03, FEPR, 6-4, 4-8 ####[facility] ([id number])[address] [address] [place] [address] CO2 [Moles/Vol] 17 mmol/L Low 22-32 [facility] Comment on above: Performed By: #### C BC, BMP, , 2132-03, FEPR, 6-4, 4-8 ####[facility] ([id number])[address] [address] Creatinine [Mass/Vol] 3.06 mg/dL High 0.60-1.30 [facility] Comment on above: Result Comment: METH OD TRACEABLE TO IDMS STANDARD Performed By: #### C BC, BMP, , 2132-03, FEPR, 6-4, 4-8 ####[facility] ([id number])[address] [address] GFR/1.73 sq M.predicted among non-blacks MDRD (S/P/Bld) [Vol rate/Area] 21 mL/min/{1.73_m2} Low >59 [facility] Comment on above: Result Comment: Repo rted eGFR is based on theCKD-EPI 2020 equation that doesnot use a race coefficient. Performed By: #### C BC, BMP, , 2132-03, FEPR, 2276-4, 2284-8 ####[facility] ([id number])[address] [address] Glucose [Mass/Vol] 277 mg/dL High 65-99 [facility] Comment on above: Performed By: #### C BC, BMP, , 2132-03, FEPR, 2276-4, 2284-8 ####[facility] ([id number])[address], [address], [place] [address] Potassium [Moles/Vol] 4.1 mmol/L Normal 3.5-5.0 [facility] Comment on above: Performed By: #### C BC, BMP, , 2132-03, FEPR, 2276-4, 2284-8 ####[facility] ([id number])[address], [place] [address] Sodium [Moles/Vol] 132 mmol/L Low 134-146 [facility] Comment on above: Performed By: #### C BC, BMP, , 2132-03, FEPR, 2276-4, 4-8 ####[facility] ([id number])[address], [address], [place] [address] Urea nitrogen [Mass/Vol] 46 mg/dL High 5-27 [facility] Comment on above: Performed By: #### C BC, BMP, , 2132-03, FEPR, 2276-4, 2284-8 ####[facility] ([id number])[address] [address] COMPLEMENT PROFILEon 025 COMPLEMENT C3 190 mg/dL High 86-184 [facility] Comment on above: Performed By: #### H A1C, 03324-9, 31378-3, 25443-7, 5130-0, 62406-5, 31037-5, 60813-8, 16490-6, C34, IMEL, 46661-0, SPE, AHP ####[facility] ([id number])[address] [address] [place] [address] COMPLEMENT C4 50 mg/dL High 16-47 [facility] Comment on above: Performed By: #### H A1C, 69807-7, 39620-5, 30290-6, 5130-0, 72498-6, 45489-4, 93468-8, 12243-0, C34, IMEL, 31825-1, SPE, AHP ####[facility] ([id number])[address] [address] COMPLETE BLOOD COUNTon 07-19 Erythrocyte distribution width (RBC) [Ratio] 14.4 % Normal 11.5-15.0 [facility] Comment on above: Performed By: #### C BC, BMP, , 2132-03, FEPR, 6-4, 2283-8 ####[facility] ([id number])[address] [address] [place] [address] Hematocrit (Bld) [Volume fraction] 30.6 % Low 39-49 [facility] Comment on above: Performed By: #### C BC, BMP, , 2132-03, FEPR, 6-4, 2283-8 ####[facility] ([id number])[address] [address] [place] [address] Hemoglobin (Bld) [Mass/Vol] 10.4 g/dL Low 13.0-17.0 [facility] Comment on above: Performed By: #### C BC, BMP, , 2132-03, FEPR, 2276-4, 2284-8 ####[facility] ([id number])[address] [address] [place] [address] MCH (RBC) [Entitic mass] 29.6 pg Normal 27-34 [facility] Comment on above: Performed By: #### C BC, BMP, , 2132-03, FEPR, 6-4, 2283-8 ####[facility] ([id number])[address], [address], [place] [address] MCHC (RBC) [Mass/Vol] 34.0 g/dL Normal 32-36 [facility] Comment on above: Performed By: #### C BC, BMP, , 2132-03, FEPR, 6-4, 2283-8 ####[facility] ([id number])[address], [place] [address] MCV (RBC) [Entitic vol] 87 fL Normal 80-100 [facility] Comment on above: Performed By: #### C BC, BMP, , 2132-03, FEPR, 2275-, 2283- ####[facility] ([id number])[address], [place] [address] Platelet mean volume (Bld) [Entitic vol] 9.1 fL Normal 7-12 [facility] Comment on above: Performed By: #### C BC, BMP, , 2132-03, FEPR, 2275-, 2283- ####[facility] ([id number])[address] [address] [place] [address] Platelets (Bld) [#/Vol] 230 10*3/uL Normal 150-450 [facility] Comment on above: Performed By: #### C BC, BMP, , 2132-03, FEPR, 6-, 2283-8 ####[facility] ([id number])[address] [address], [place] [address] RBC COUNT 3.51 X10E12/L Low 4.10-5.70 [facility] Comment on above: Performed By: #### C BC, BMP, 67585-6, 2132-03, FEPR, 2276-4, 2284-8 ####[facility] ([id number])[address] [place] [address], [address] [place] [address] WBC (Bld) [#/Vol] 8.5 10*3/uL Normal 4.0-11.0 [facility] Comment on above: Performed By: #### C BC, BMP, 53555-4, 2132-03, FEPR, 2276-4, 2284-8 ####[facility] ([id number])[address] [place] [address] Chromatin Ab Qlon 07-19-2024 CHROMATIN AB IGG <0.2 Normal <1.0 [facility] Comment on above: Performed By: #### H A1C, 24789-3, 68902-3, 71971-5, 5130-0, 43476-3, 86667-3, 03652-5, 92038-8, C34, IMEL, 65620-7, SPE, AHP ####[facility] ([id number])[address] [place] [address], [address] [place] [address] Clinical Pathologyon 025 Clinical Pathology Normal [facility] Comment on above: Result Comment: [facility] [address] [place] [address] Clinical Pathology ReportPatient Name:PONCHO JOSE JR.:1955 (Age: 69)Gender:MTaken:07/19/2024Reported:07/20/2024Physician(s):Elyssa Ribeiro MD ([phone])Copy To: Rec. #:[id number]: #[id number] Pathologic DiagnosisMild hypoalbuminemia.No monoclonal protein identified. Report Electronically Signed Outdf/07/20/2024Sami Gresham MDInterpretation performed at [facility], [address] [place] [address], License number: [id number].Clinical OzvactnI15.229, I50.9.SERUM PROTEIN ELECTROPHORESISSAMPLE NO: [id number] FRACTION CONCENTRATIONS (g/dL) PATIENT REFERENCE RANGEAlbumin 3.3 L 3.4 - 5.3Alpha-1 globulin 0.4 0.1 - 0.4Alpha-2 globulin 1.0 0.4 - 1.1Beta globulin 0.9 0.5 - 1.2Gamma globulin 0.9 0.5 - 1.61 0.3Total protein 6.5 6.0 - 8.0(Electrophoretic gels and densitometric tracings on file in lab.)SERUM IEPIMMUNOGLOBULIN LEVELS (mg/dL): IgG : 980 IgA : 186 IgM : 110 Free [place]: 5.67 Free Lambda: 4.41 Free [place]/Lambda ratio: 1.29Specimen(s) Received1: Serum Protein Electrophoresis2: Serum IEPFee Codes(s):1; 95450-729; 30784-97 Creatinine (U) [Mass/Vol]on 07-19-2024 URINE CREATININE,RDM 92.06 mg/dL Normal [facility] Comment on above: Performed By: #### 2 161-8 ####[facility] ([id number])[address] [place] [address], [address] [place] [address] DNA double strand Ab Qn (S)o n 07-19-2024 DOUBLE STRANDED DNA <1 Normal <5 [facility] Comment on above: Result Comment: ---- ------Interpretation--------<5 Negative5-9 Indeterminate>9 Positive Performed By: #### H A1C, 04594-8, 14247-1, 37703-9, 5130-0, 69116-7, 59111-5, 35336-8, 43656-1, C34, IMEL, 88175-5, SPE, AHP ####[facility] ([id number])[address], [address] [address] FERRITINon 07-19-2024 Ferritin [Mass/Vol] 89 ng/mL Normal 24-336 [facility] Comment on above: Performed By: #### C BC, BMP, 86744-4, 2132-03, FEPR, 2276-4, 2284-8 ####[facility] ([id number])[address], [address] [address] Folate [Mass/Vol]on 07-19-19 25 FOLIC ACID 22.9 ng/mL Normal >5.8 [facility] Comment on above: Result Comment: NEW REFERENCE RANGE Performed By: #### C BC, BMP, , 2132-03, FEPR, 2276-4, 2284-8 ####[facility] ([id number])[address], [address], [place] [address] Glomerular basement membrane IgG Qn (S)on 07-19-2024 GBM IgG Ab <0.2 Normal <1.0 [facility] Comment on above: Performed By: #### H A1C, 98307-3, 16637-0, 08605-8, 5130-0, 35731-1, 17910-6, 16583-5, 80418-9, C34, IMEL, 63712-6, SPE, AHP ####[facility] ([id number])[address], [address] [address] HGB A1C (GLYCO-HGB)on 2024 Glucose [Mass/Vol] 220 mg/dL Normal [facility] Comment on above: Performed By: #### H A1C, 13355-9, 55655-2, 24512-6, 5130-0, 88207-9, 32013-1, 62385-7, 15538-4, C34, IMEL, 89243-7, SPE, AHP ####[facility] ([id number])[address] [place] [address], [address] [address] HbA1c (Bld) [Mass fraction] 9.3 % High 4.4-5.6 [facility] Comment on above: Result Comment: NOTE ADA Guidelines Result HgbA1c Normal : less than 5.7 % Prediabetes : 5.7 % to 6.4 % Diabetes : > 6.4 %Use with caution in patients with abnormal hemoglobin variants asthe half-life of red blood cells and in vivo glycation rates areaffected. Performed By: #### H A1C, 62741-0, 02784-3, 56870-8, 5130-0, 26530-7, 19079-2, 89405-7, 00774-0, C34, IMEL, 21768-0, SPE, AHP ####[facility] ([id number])[address] [place] [address] HIV 1+2 Ab+HIV1 p24 Ag IA Ql on 07-19-2024 HIV 1 and 2 Ab/Ag Screen Non-Reactive Normal NRCT [facility] Comment on above: Result Comment: NEW TEST METHODNOTEThis information has been disclosed to you from confidentialrecords protected from disclosure by state law. You shall makeno further disclosure of this information without the specific,written and informed release of the individual to whom itpertains, or as otherwise permitted by state law. A generalauthorization for the release of medical or other informationis not sufficient for the purpose of the release of HIV testresults or diagnoses. Performed By: #### H A1C, 93432-0, 16547-3, 36400-9, 5130-0, 33349-7, 15491-8, 04622-8, 17452-3, C34, IMEL, 32773-5, SPE, AHP ####[facility] ([id number])[address] [place] [address] Heparin unfractionated Chrom ogenic method Qn (PPP)on 07-19-2024 ANTI XA UFH 0.33 IU/mL Normal 0.30-0.70 [facility] Comment on above: Result Comment: Opti mal time for testing is 6 hrs post dosageThis test is specific for monitoring patientson UFH, and is not recommended for use withother Anti-Xa medications. Performed By: #### 3 274-8 ####[facility] ([id number])[address] [address] ANTI XA UFH 0.56 IU/mL Normal 0.30-0.70 [facility] Comment on above: Result Comment: Opti mal time for testing is 6 hrs post dosageThis test is specific for monitoring patientson UFH, and is not recommended for use withother Anti-Xa medications. Performed By: #### 3 274-8 ####[facility] ([id number])[address] [address] ANTI XA UFH 0.19 IU/mL Low 0.30-0.70 [facility] Comment on above: Result Comment: Opti mal time for testing is 6 hrs post dosageThis test is specific for monitoring patientson UFH, and is not recommended for use withother Anti-Xa medications. Performed By: #### 3 274-8 ####[facility] ([id number])[address] [address] ANTI XA UFH 0.21 IU/mL Low 0.30-0.70 [facility] Comment on above: Result Comment: Opti mal time for testing is 6 hrs post dosageThis test is specific for monitoring patientson UFH, and is not recommended for use withother Anti-Xa medications. Performed By: #### 3 274-8 ####[facility] ([id number])[address] [address] [place] [address] IMMUNOELECTROPHORESIS FOR TH ERAPY MONITORINGon 07-19-2024 FREE JAY/LAMBD RATIO 1.29 Normal 0.26-1.65 [facility] Comment on above: Performed By: #### H A1C, 17282-9, 41065-5, 19844-4, 5130-0, 84305-5, 96155-2, 22854-0, 44260-8, C34, IMEL, 27650-9, SPE, AHP ####[facility] ([id number])[address], [address], [place] [address] FREE KAPPA LT CHAINS 5.67 mg/dL High 0.33-1.94 [facility] Comment on above: Performed By: #### H A1C, 88321-2, 62001-1, 40041-5, 5130-0, 39668-3, 61982-5, 63622-9, 18604-6, C34, IMEL, 66769-4, SPE, AHP ####[facility] ([id number])[address], [address] [place] [address] FREE LAMBDA LT CHAINS 4.41 mg/dL High 0.57-2.63 [facility] Comment on above: Performed By: #### H A1C, 13915-1, 38746-5, 53887-9, 5130-0, 07744-9, 25425-9, 76951-9, 27633-4, C34, IMEL, 96190-6, SPE, AHP ####[facility] ([id number])[address], [address] [place] [address] IgA [Mass/Vol] 186 mg/dL Normal 68-378 [facility] Comment on above: Performed By: #### H A1C, 46063-0, 71889-4, 38554-6, 5130-0, 93508-8, 90054-1, 10154-4, 26456-7, C34, IMEL, 24399-5, SPE, AHP ####[facility] ([id number])[address], [address] [place] [address] IgG [Mass/Vol] 980 mg/dL Normal 635-1741 [facility] Comment on above: Performed By: #### H A1C, 44815-1, 90755-7, 94891-9, 5130-0, 13721-5, 47723-0, 08126-3, 85535-3, C34, IMEL, 57793-4, SPE, AHP ####[facility] ([id number])[address] [facility], [address] [address] IgM [Mass/Vol] 110 mg/dL Normal 45-281 [facility] Comment on above: Performed By: #### H A1C, 21284-7, 16896-6, 56406-7, 5130-0, 45072-4, 88366-5, 80376-1, 38676-4, C34, IMEL, 81146-3, SPE, AHP ####[facility] ([id number])[address] [facility], [address] [address] IMMUNE PROFILE INTERP SEE SEPARATE REPORT Normal [facility] Comment on above: Performed By: #### H A1C, 62149-4, 88231-4, 99308-4, 5130-0, 52920-8, 32041-9, 93041-8, 21972-4, C34, IMEL, 90769-8, SPE, AHP ####[facility] ([id number])[address], [address] [place] [address] IRON PROFILEon 07-19-2024 Iron [Mass/Vol] 44 ug/dL Low 50-212 [facility] Comment on above: Result Comment: SPEC IMEN HEMOLYZED, RESULTS INCREASEDSLIGHTLY HEMOLYZED Performed By: #### C BC, BMP, 76028-5, 2-9, FEPR, 2276-4, 2284-8 ####[facility] ([id number])[address] [facility], [address] [place] [address] IRON BINDING 232 ug/dL Low 250-425 [facility] Comment on above: Performed By: #### C BC, BMP, , 2132-03, FEPR, 6-4, 2283-8 ####[facility] ([id number])[address], [address] [place] [address] IRON SATURATION 19 % SATURATION Low 20-50 [facility] Comment on above: Performed By: #### C BC, BMP, , 2132-03, FEPR, 6-4, 2283-8 ####[facility] ([id number])[address], [address] [place] [address] MAGNESIUMon 07-19-2024 Magnesium [Mass/Vol] 2.0 mg/dL Normal 1.8-2.6 [facility] Comment on above: Performed By: #### C BC, BMP, , 2132-03, FEPR, 2275-10, 8 ####[facility] ([id number])[address], [address] [place] [address] MICROALBUMIN - ALBUMIN:CREAT ININE URINE RATIOon 07-19-2024 ALB/CREAT RATIO 31.5 mg/g creat High 0.0-30.0 [facility] Comment on above: Performed By: #### KASHMIR Welsh UPCR ####[facility] ([id number])[address], [address] [place] [address] Albumin DL <= 20 mg/L (U) [Mass/Vol] 2.9 mg/dL High 0.0-1.9 [facility] Comment on above: Performed By: #### KASHMIR Welsh UPCR ####[facility] ([id number])[address], [address] [place] [address] URINE CREAT 91.96 mg/dL Normal [facility] Comment on above: Performed By: #### KASHMIR Welsh UPCR ####[facility] ([id number])[address], [address], [place] [address] Neutrophil cytoplasmic Ab pa tristen IF (S)on 07-19-2024 c-ANCA Negative Normal Negative [facility] Comment on above: Performed By: #### H A1C, 91238-1, 60691-9, 48144-3, 5130-0, 33646-7, 30813-3, 16049-9, 08030-4, C34, IMEL, 84185-4, SPE, AHP ####[facility] ([id number])[address], [address], [place] [address] p-ANCA Negative Normal Negative [facility] Comment on above: Result Comment: NOTE Negative for cANCA and pANCA patterns by immunofluorescence. ADDITIONAL INFORMATION This test was developed and its performance characteristicsdetermined by [facility] in a manner consistent with CLIArequirements. This test has not been cleared or approved bythe U.S. Food and Drug Administration.Test Performed by:[facility] [place] [id number] Director: Rachid Garcia Ph.D.; CLIA# [id number] Performed By: #### H A1C, 78049-3, 50941-3, 56164-1, 5130-0, 67610-1, 92485-8, 69071-9, 17684-6, C34, IMEL, 93402-5, SPE, AHP ####[facility] ([id number])[address] [facility] [facility], [address], [place] [address] Nuclear Ab IA Ql (S)on 07-19 CELESTINA Screen w/reflex Positive Abnormal NEG [facility] Comment on above: Result Comment: Test ing performed using multiplex flowimmunoassay. Eleven different antigensassociated with systemic autoimmunediseases (dsDNA,Sm,Sm/REFRIGERATOR MOVER,REFRIGERATOR MOVER,Chromatin,SSA,SSB,Marianela-1,Scl70,Ribo P,Centromere B)are included in this screening test. Performed By: #### H A1C, 94584-3, 79741-7, 06145-4, 5130-0, 44285-4, 68653-6, 85292-8, 12791-7, C34, IMEL, 67757-5, SPE, AHP ####[facility] ([id number])[address] [address] PROTEIN CREAT RATIOon 2024 RANDOM URINE PROTEIN 230 mg/L High <120 [facility] Comment on above: Performed By: #### KASHMIR Welsh UPCR ####[facility] ([id number])[address] [address] U/PRO/TEAM PSYCHOLOGIST RATIO CALC 0.25 High <0.2 [facility] Comment on above: Result Comment: Neph rotic Syndrome is associated with ratios >3.5 Performed By: #### KASHMIR Welsh UPJACKIE ####[facility] ([id number])[address] [address] URINE CREATININE,RDM 91.96 mg/dL Normal [facility] Comment on above: Performed By: #### KASHMIR Welsh UPJACKIE ####[facility] ([id number])[address] [address] Rheumatoid factor Nephelomet ry Qn (S)on 07-19-2024 RHEUMATOID FACTOR <10 Normal <20 [facility] Comment on above: Performed By: #### H A1C, 64683-8, 41574-0, 62288-3, 5130-0, 21412-9, 47097-9, 90963-7, 54323-4, C34, IMEL, 92466-0, SPE, AHP ####[facility] ([id number])[address] [place] [address] Ribonucleoprotein extractabl e nuclear IgG Qn (S)on 07-19-2024 REFRIGERATOR MOVER ANTIBODY IGG 1.4 AI High <1.0 [facility] Comment on above: Performed By: #### H A1C, 24453-4, 38649-9, 84371-8, 5130-0, 60304-4, 35682-6, 87968-2, 23435-8, C34, IMEL, 34385-6, SPE, AHP ####[facility] ([id number])[address], [address] [place] [address] SERUM PROTEIN ELECTROPHORESI Son 07-19-2024 Albumin [Mass/Vol] 3.3 g/dL Low 3.4-5.3 [facility] Comment on above: Performed By: #### H A1C, 47715-5, 45332-0, 87109-3, 5130-0, 26132-4, 50628-0, 10368-1, 29239-7, C34, IMEL, 56343-1, SPE, AHP ####[facility] ([id number])[address], [address] [place] [address] ALPHA 1 GLOBULIN 0.4 g/dL Normal 0.1-0.4 [facility] Comment on above: Performed By: #### H A1C, 26703-0, 70708-0, 20384-7, 5130-0, 93873-0, 54668-3, 43987-2, 52874-7, C34, IMEL, 02042-4, SPE, AHP ####[facility] ([id number])[address], [address] [place] [address] ALPHA 2 GLOBULIN 1.0 g/dL Normal 0.4-1.1 [facility] Comment on above: Performed By: #### H A1C, 31505-1, 54582-0, 95064-2, 5130-0, 48371-9, 79787-3, 24630-8, 48559-4, C34, IMEL, 87305-2, SPE, AHP ####[facility] ([id number])[address], [address], [place] [address] BETA GLOBULIN 0.9 g/dL Normal 0.5-1.2 [facility] Comment on above: Performed By: #### H A1C, 68710-6, 91383-0, 32094-6, 5130-0, 31190-6, 57226-4, 40758-0, 47976-6, C34, IMEL, 78415-5, SPE, AHP ####[facility] ([id number])[address], [address] [place] [address] GAMMA GLOBULIN 0.9 g/dL Normal 0.5-1.6 [facility] Comment on above: Performed By: #### H A1C, 01562-5, 84137-1, 00912-0, 5130-0, 58425-9, 90787-0, 22128-6, 38334-1, C34, IMEL, 38772-3, SPE, AHP ####[facility] ([id number])[address], [address] [place] [address] PROT. ELECTROPHORESIS INTERP SEE SEPARATE REPORT Normal [facility] Comment on above: Performed By: #### H A1C, 55873-3, 22368-4, 04150-0, 5130-0, 01891-3, 07078-1, 47174-9, 89655-1, C34, IMEL, 78106-3, SPE, AHP ####[facility] ([id number])[address], [address], [place] [address] Protein [Mass/Vol] 6.5 g/dL Normal 6.0-8.0 [facility] Comment on above: Performed By: #### H A1C, 00096-2, 02349-0, 12660-7, 5130-0, 11792-5, 95689-0, 88433-0, 16497-3, C34, IMEL, 47602-0, SPE, AHP ####[facility] ([id number])[address], [address] [place] [address] Hope extractable nuclear Ab +Ribonucleoprotein extractable nuclear IgG Qn (S)on 07-19-2024 HOPE/REFRIGERATOR MOVER AB IGG <0.2 Normal <1.0 [facility] Comment on above: Performed By: #### H A1C, 20131-3, 86423-1, 72254-6, 5130-0, 08367-1, 47167-2, 99852-7, 46090-8, C34, IMEL, 68868-7, SPE, AHP ####[facility] ([id number])[address], [address] [place] [address] Hope extractable nuclear Ig G Qn (S)on 07-19-2024 ANTI-HOPE AB IGG <0.2 Normal <1.0 [facility] Comment on above: Performed By: #### H A1C, 41549-1, 33127-9, 55961-5, 5130-0, 92541-4, 86730-1, 43954-0, 84219-3, C34, IMEL, 43719-4, SPE, AHP ####[facility] ([id number])[address], [address] [place] [address] URINALYSISon 07-19-2024 Bilirubin Ql (U) Negative Normal NEG [facility] Comment on above: Performed By: #### U KASHMIR Juan, UPCR ####[facility] ([id number])[address], [address] [place] [address] BLOOD/HGB Negative Normal NEG [facility] Comment on above: Performed By: #### U KASHMIR Juan, UPCR ####[facility] ([id number])[address], [address] [place] [address] Color (U) YELLOW Normal YELLOW [facility] Comment on above: Performed By: #### KASHMIR Welsh [facility] ####[facility] ([id number])[address], [place] [address] Glucose Ql (U) 100 mg/dL Abnormal NEG [facility] Comment on above: Performed By: #### KASHMIR Welsh UP ####[facility] ([id number])[address], [place] [address] Ketones Ql (U) Negative Normal NEG [facility] Comment on above: Performed By: #### KASHMIR Welsh [facility] ####[facility] ([id number])[address], [place] [address] Leukocyte esterase Test strip Ql (U) Negative Normal NEG [facility] Comment on above: Performed By: #### KASHMIR Welsh UP ####[facility] ([id number])[address], [address], [place] [address] MUCOUS PRESENT Abnormal NONE [facility] Comment on above: Performed By: #### KASHMIR Welsh [facility] ####[facility] ([id number])[address], [address], [place] [address] Nitrite Ql (U) Negative Normal NEG [facility] Comment on above: Performed By: #### KASHMIR Welsh [facility] ####[facility] ([id number])[address], [address], [place] [address] pH (U) 5.5 [pH] Normal 5.0-8.5 [facility] Comment on above: Performed By: #### KASHMIR Welsh UP ####[facility] ([id number])[address], [address], [place] [address] Protein Ql (U) Trace Abnormal NEG [facility] Comment on above: Performed By: #### KASHMIR Welsh UPCR ####[facility] ([id number])[address] [address], [place] [address] R.B.CELLS 0 /hpf Normal 0-5 [facility] Comment on above: Performed By: #### KASHMIR Welsh, UPCR ####[facility] ([id number])[address], [place] [address] Specific gravity (U) [Rel density] 1.012 Normal 1.003-1.03 5 [facility] Comment on above: Performed By: #### KASHMIR Welsh UP ####[facility] ([id number])[address] [address] [place] [address], [place] [address] TURBIDITY CLEAR Normal CLEAR [facility] Comment on above: Performed By: #### KASHMIR Welsh [facility] ####[facility] ([id number])[address] [address] [place] [address], [place] [address] Urobilinogen (U) [Mass/Vol] mg/dL Normal <1.1 [facility] Comment on above: Performed By: #### KASHMIR Welsh UP ####[facility] ([id number])[address] [address] [place] [address], [place] [address] W.B.CELLS <1 Normal 0-5 [facility] Comment on above: Performed By: #### KASHMIR Welsh UPCR ####[facility] ([id number])[address] [address] [address] URINE SODIUM,RANDOMon 2024 Sodium (U) [Moles/Vol] 31 mmol/L Normal Pr [facility] Comment on above: Performed By: #### 2 955-3 ####[facility] ([id number])[address], [place] [address] VITAMIN B12on 07-19-2024 Cobalamin (Vitamin B12) [Mass/Vol] 491 pg/mL Normal 180-914 [facility] Comment on above: Performed By: #### C MELVA, ANIBAL, , 2132-03, FEPR, 2276-4, 2284-8 ####[facility] ([id number])[address], [place] [address] BASIC METABOLIC PANLon 07-18 Anion gap [Moles/Vol] 10 mmol/L Normal 5-15 [facility] Comment on above: Performed By: #### ANIBAL SARGENT, ####[facility] ([id number])[address], [place] [address] Calcium [Mass/Vol] 8.6 mg/dL Normal 8.5-10.5 [facility] Comment on above: Performed By: #### ANIBAL SARGENT, ####[facility] ([id number])[address], [place] [address] Chloride [Moles/Vol] 104 mmol/L Normal 98-109 [facility] Comment on above: Performed By: #### ANIBAL SARGENT, ####[facility] ([id number])[address], [place] [address] CO2 [Moles/Vol] 20 mmol/L Low 22-32 [facility] Comment on above: Performed By: #### ANIBAL SARGENT, ####[facility] ([id number])[address], [place] [address] Creatinine [Mass/Vol] 2.46 mg/dL High 0.60-1.30 [facility] Comment on above: Result Comment: METH OD TRACEABLE TO IDMS STANDARD Performed By: #### ANIBAL SARGENT, ####[facility] ([id number])[address] [address], [place] [address] GFR/1.73 sq M.predicted among non-blacks MDRD (S/P/Bld) [Vol rate/Area] 28 mL/min/{1.73_m2} Low >59 [facility] Comment on above: Result Comment: Repo rted eGFR is based on theCKD-EPI 2020 equation that doesnot use a race coefficient. Performed By: #### ANIBAL SARGENT, ####[facility] ([id number])[address] [address], [place] [address] Glucose [Mass/Vol] 230 mg/dL High 65-99 [facility] Comment on above: Performed By: #### ANIBAL SARGENT, ####[facility] ([id number])[address] [address] Potassium [Moles/Vol] 4.4 mmol/L Normal 3.5-5.0 [facility] Comment on above: Performed By: #### ANIBAL SARGENT, ####[facility] ([id number])[address] [address] Sodium [Moles/Vol] 134 mmol/L Normal 134-146 [facility] Comment on above: Performed By: #### ANIBAL SARGENT, ####[facility] ([id number])[address] [address] Urea nitrogen [Mass/Vol] 40 mg/dL High 5-27 [facility] Comment on above: Performed By: #### ANIBAL SARGENT, ####[facility] ([id number])[address] [address] C DIFFICILE BY PCRon 025 C. difficile toxin genes ARIES+probe Ql (Stl) TOXIGENIC C DIFF Negative (qualifier value) 027 NAP1 Negative (qualifier value) Normal PRNEG [facility] Comment on above: Performed By: #### 5 4067-4 ####[facility] ([id number])[address], [place] [address] COMPLETE BLOOD COUNTon 07-18 Erythrocyte distribution width (RBC) [Ratio] 14.5 % Normal 11.5-15.0 [facility] Comment on above: Performed By: #### Elise FRYE [facility], ####[facility] ([id number])[address], [place] [address] Hematocrit (Bld) [Volume fraction] 34.6 % Low 39-49 [facility] Comment on above: Performed By: #### Elise FRYE [facility], ####[facility] ([id number])[address], [place] [address] Hemoglobin (Bld) [Mass/Vol] 11.6 g/dL Low 13.0-17.0 [facility] Comment on above: Performed By: #### Elise FRYE [facility], ####[facility] ([id number])[address], [place] [address] MCH (RBC) [Entitic mass] 28.9 pg Normal 27-34 [facility] Comment on above: Performed By: #### Elise FRYE [facility], ####[facility] ([id number])[address] [address] [address] MCHC (RBC) [Mass/Vol] 33.6 g/dL Normal 32-36 [facility] Comment on above: Performed By: #### Elise FRYE [facility], ####[facility] ([id number])[address], [address] [address] MCV (RBC) [Entitic vol] 86 fL Normal 80-100 [facility] Comment on above: Performed By: #### C MELVA [facility], ####[facility] ([id number])[address], [place] [address] Platelet mean volume (Bld) [Entitic vol] 8.3 fL Normal 7-12 [facility] Comment on above: Performed By: #### C ANIBAL FRYE, ####[facility] ([id number])[address], [address] [address] Platelets (Bld) [#/Vol] 257 10*3/uL Normal 150-450 [facility] Comment on above: Performed By: #### ANIBAL SARGENT, ####[facility] ([id number])[address] [address] RBC COUNT 4.02 X10E12/L Low 4.10-5.70 [facility] Comment on above: Performed By: #### C ANIBAL FRYE, ####[facility] ([id number])[address], [address] [address] WBC (Bld) [#/Vol] 10.4 10*3/uL Normal 4.0-11.0 [facility] Comment on above: Performed By: #### ANIBAL SARGENT, ####[facility] ([id number])[address], [address] [address] Calprotectin (Stl) [Mass/Mas s]on 07-18-2024 Calprotectin, F 757 mcg/g High <50.0 (Normal) [facility] Comment on above: Result Comment: NOTE Interpretation: Abnormal (>120 mcg/g)Test Performed by:[facility] [place] [id number] Director: Rachid Garcia Ph.D.; CLIA# [id number] Performed By: #### 3 8445-3 ####[facility] ([id number])[address] [address] [place] [id number] GI PANELon 07-18-2024 Gastrointestinal pathogens DNA and RNA panel ARIES+non-probe (Stl) Normal NDET [facility] Comment on above: Performed By: #### 8 2195-9 ####[facility] ([id number])[address] [address] [place] [address] Heparin unfractionated Chrom ogenic method Qn (PPP)on 07-18-2024 ANTI XA UFH 0.39 IU/mL Normal 0.30-0.70 [facility] Comment on above: Result Comment: Opti mal time for testing is 6 hrs post dosageThis test is specific for monitoring patientson UFH, and is not recommended for use withother Anti-Xa medications. Performed By: #### 3 274-8, 67240-3 ####[facility] ([id number])[address] [address] [place] [address] ANTI XA UFH 0.14 IU/mL Low 0.30-0.70 [facility] Comment on above: Result Comment: Opti mal time for testing is 6 hrs post dosageThis test is specific for monitoring patientson UFH, and is not recommended for use withother Anti-Xa medications. Performed By: #### 3 274-8 ####[facility] [facility] ([id number])0 [address].[facility] [address] [place] [address] ANTI XA UFH 0.26 IU/mL Low 0.30-0.70 [facility] Comment on above: Result Comment: Opti mal time for testing is 6 hrs post dosageThis test is specific for monitoring patientson UFH, and is not recommended for use withother Anti-Xa medications. Performed By: #### 3 274-8 ####[facility] ([id number])0 [address].[facility] [address] [place] [address] MAGNESIUMon 01-06-2025 Magnesium [Mass/Vol] 2.1 mg/dL Normal 1.8-2.6 [facility] Comment on above: Performed By: #### 3 274-8, ####[facility] ([id number])[address], [address], [place] [address] Magnesium [Mass/Vol] 1.7 mg/dL Low 1.8-2.6 [facility] Comment on above: Performed By: #### C BC, BMP, ####[facility] ([id number])[address], [address], [place] [address] BASIC METABOLIC PANLon 07-17 Anion gap [Moles/Vol] 10 mmol/L Normal 5-15 [facility] Comment on above: Performed By: #### C BC, PINR, 08694-9, BMP, ####[facility] ([id number])[address], [address], [place] [address] Calcium [Mass/Vol] 8.7 mg/dL Normal 8.5-10.5 [facility] Comment on above: Performed By: #### C BC, PINR, 04506-4, BMP, ####[facility] ([id number])[address], [address], [place] [address] Chloride [Moles/Vol] 104 mmol/L Normal 98-109 [facility] Comment on above: Performed By: #### C BC, PINR, 63006-6, BMP, ####[facility] ([id number])[address], [address], [place] [address] CO2 [Moles/Vol] 21 mmol/L Low 22-32 [facility] Comment on above: Performed By: #### C BC, PINR, 08476-7, BMP, ####[facility] ([id number])[address], [address], [place] [address] Creatinine [Mass/Vol] 1.67 mg/dL High 0.60-1.30 [facility] Comment on above: Result Comment: METH OD TRACEABLE TO IDMS STANDARD Performed By: #### C BC, PINR, 80347-3, BMP, ####[facility] ([id number])[address] [address] GFR/1.73 sq M.predicted among non-blacks MDRD (S/P/Bld) [Vol rate/Area] 44 mL/min/{1.73_m2} Low >59 [facility] Comment on above: Result Comment: Repo rted eGFR is based on theCKD-EPI 2020 equation that doesnot use a race coefficient. Performed By: #### C BC, PINR, 53760-7, BMP, ####[facility] ([id number])[address] [address] Glucose [Mass/Vol] 249 mg/dL High 65-99 [facility] Comment on above: Performed By: #### C BC, PINR, 88381-3, BMP, ####[facility] ([id number])[address] [address] Potassium [Moles/Vol] 4.5 mmol/L Normal 3.5-5.0 [facility] Comment on above: Performed By: #### C BC, PINR, 22084-8, BMP, ####[facility] ([id number])[address] [address] Sodium [Moles/Vol] 135 mmol/L Normal 134-146 [facility] Comment on above: Performed By: #### C BC, PINR, 96548-0, BMP, ####[facility] ([id number])[address] [place] [address] Urea nitrogen [Mass/Vol] 32 mg/dL High 5-27 [facility] Comment on above: Performed By: #### C BC, PINR, 23945-0, BMP, ####[facility] ([id number])[address], [address] [place] [address] COMPLETE BLOOD COUNTon 07-17 Erythrocyte distribution width (RBC) [Ratio] 14.4 % Normal 11.5-15.0 [facility] Comment on above: Performed By: #### C MELVA, PINR, 39585-4, BMP, ####[facility] ([id number])[address], [address] [place] [address] Hematocrit (Bld) [Volume fraction] 35.1 % Low 39-49 [facility] Comment on above: Performed By: #### Elsie BC, PINR, 07625-3, BMP, ####[facility] ([id number])[address], [address], [place] [address] Hemoglobin (Bld) [Mass/Vol] 11.7 g/dL Low 13.0-17.0 [facility] Comment on above: Performed By: #### C BC, PINR, 15110-8, BMP, ####[facility] ([id number])[address], [address] [place] [address] MCH (RBC) [Entitic mass] 29.2 pg Normal 27-34 [facility] Comment on above: Performed By: #### C BC, PINR, 75101-9, BMP, ####[facility] ([id number])[address], [address] [place] [address] MCHC (RBC) [Mass/Vol] 33.3 g/dL Normal 32-36 [facility] Comment on above: Performed By: #### C BC, PINR, 71561-2, BMP, ####[facility] ([id number])[address], [address], [place] [address] MCV (RBC) [Entitic vol] 88 fL Normal 80-100 [facility] Comment on above: Performed By: #### C BC, PINR, 52395-1, BMP, ####[facility] ([id number])[address], [address], [place] [address] Platelet mean volume (Bld) [Entitic vol] 8.5 fL Normal 7-12 [facility] Comment on above: Performed By: #### C BC, PINR, 96084-1, BMP, ####[facility] ([id number])0 [address] [address] [place] [address] Platelets (Bld) [#/Vol] 236 10*3/uL Normal 150-450 [facility] Comment on above: Performed By: #### C BC, PINR, 30167-0, BMP, ####[facility] ([id number])0 [address] [address] [place] [address] RBC COUNT 4.01 X10E12/L Low 4.10-5.70 [facility] Comment on above: Performed By: #### C BC, PINR, 69626-4, BMP, ####[facility] ([id number])[address] [address] [place] [address] WBC (Bld) [#/Vol] 10.0 10*3/uL Normal 4.0-11.0 [facility] Comment on above: Performed By: #### C BC, PINR, 04082-5, BMP, ####[facility] ([id number])[address] [address], [place] [address] Heparin unfractionated Chrom ogenic method Qn (PPP)on 07-17-2024 ANTI XA UFH 0.16 IU/mL Low 0.30-0.70 [facility] Comment on above: Result Comment: Opti mal time for testing is 6 hrs post dosageThis test is specific for monitoring patientson UFH, and is not recommended for use withother Anti-Xa medications. Performed By: #### 3 274-8 ####[facility] ([id number])[address], [address] [place] [address] ANTI XA UFH 0.05 IU/mL Low 0.30-0.70 [facility] Comment on above: Result Comment: Opti mal time for testing is 6 hrs post dosageThis test is specific for monitoring patientson UFH, and is not recommended for use withother Anti-Xa medications. Performed By: #### 3 274-8 ####[facility] ([id number])[address], [address] [place] [address] MAGNESIUMon 07-17-2024 Magnesium [Mass/Vol] 1.6 mg/dL Low 1.8-2.6 [facility] Comment on above: Performed By: #### Elise FRYE PINR, 37066-0, BMP, 60259-0 ####[facility] ([id number])[address], [address] [place] [address] PROTIME AND INRon 07-17-2024 INR Coag (PPP) [Relative time] 1.1 {INR} Normal 0.8-1.1 [facility] Comment on above: Performed By: #### C MELVA, PINR, 70334-5, BMP, 69518-6 ####[facility] ([id number])[address], [address] [place] [address] PT Coag (PPP) [Time] 12.4 s Normal 9.8-13.2 [facility] Comment on above: Performed By: #### Elise FRYE, PINR, 53337-0, BMP, 28089-6 ####[facility] ([id number])[address] [facility], [address], [place] [address] aPTT Coag (PPP) [Time]on aPTT Coag (Bld) [Time] 37 s Normal 26-37 Pr [facility] Comment on above: Performed By: #### C BC, PINR, 58278-4, BMP, 64543-2 ####[facility] ([id number])[address] [facility], [address] [place] [address] CBC AND AUTO DIFFon 07-16-19 25 ABSOLUTE BASOPHIL 0.1 X10E9/L Normal 0.0-0.2 [facility] Comment on above: Performed By: #### C BCA, CMP, #### [facility] ([id number]) [address] [place] [address] ABSOLUTE NEUTROPHIL 7.4 X10E9/L High 1.5-6.6 [facility] Comment on above: Performed By: #### C BCA, CMP, #### [facility] ([id number]) [address] [place] [address] Basophils/100 WBC (Bld) 0.6 % Normal P [facility] Comment on above: Performed By: #### C BCA, CMP, #### [facility] ([id number]) [address] [place] [address] Eosinophils (Bld) [#/Vol] 0.2 10*3/uL Normal 0.0-0.4 [facility] Comment on above: Performed By: #### C BCA, CMP, #### [facility] ([id number]) [address] [place] [address] Eosinophils/100 WBC (Bld) 1.9 % Normal [facility] Comment on above: Performed By: #### C BCA, CMP, #### [facility] ([id number]) [address] [place] [address] Erythrocyte distribution width (RBC) [Ratio] 14.7 % Normal 11.5-15.0 [facility] Comment on above: Performed By: #### Elise [facility], #### [facility] ([id number]) [address] [place] [address] Hematocrit (Bld) [Volume fraction] 38.9 % Low 39-49 [facility] Comment on above: Performed By: #### Elise [facility], #### [facility] ([id number]) [address] [place] [address] Hemoglobin (Bld) [Mass/Vol] 13.1 g/dL Normal 13.0-17.0 [facility] Comment on above: Performed By: #### Elise [facility], #### [facility] ([id number]) [address] [place] [address] Lymphocytes (Bld) [#/Vol] 2.0 10*3/uL Normal 1.0-3.5 [facility] Comment on above: Performed By: #### Elise [facility], #### [facility] ([id number]) [address] [place] [address] Lymphocytes/100 WBC (Bld) 17.9 % Normal [facility] Comment on above: Performed By: #### Elise [facility], 56534-5 #### [facility] ([id number]) [address] [place] [address]68 MCH (RBC) [Entitic mass] 29.2 pg Normal 27-34 [facility] Comment on above: Performed By: #### Elise [facility], #### [facility] ([id number]) [address] [place] [address] MCHC (RBC) [Mass/Vol] 33.6 g/dL Normal 32-36 [facility] Comment on above: Performed By: #### Elise GUTHRIE CMP, 27583-4 #### [facility] ([id number]) [address] [place] [address] MCV (RBC) [Entitic vol] 87 fL Normal 80-100 [facility] Comment on above: Performed By: #### Elise GUTHRIE CMP, #### [facility] ([id number]) [address] [place] [address]30 Monocytes (Bld) [#/Vol] 1.3 10*3/uL High 0-0.9 [facility] Comment on above: Performed By: #### Elise GUTHRIE CMP, #### [facility] ([id number]) [address] [place] [address] 16189 Monocytes/100 WBC (Bld) 12.0 % Normal [facility] Comment on above: Performed By: #### Elise [facility], 08748-3 #### [facility] ([id number]) [address] [place] [address] 50013 Neutrophils/100 WBC (Bld) 67.6 % Normal [facility] Comment on above: Performed By: #### Elise GUTHRIE CMP, 85893-8 #### [facility] ([id number]) [address] [place] [address] 19221 Platelet mean volume (Bld) [Entitic vol] 8.2 fL Normal 7-12 [facility] Comment on above: Performed By: #### Elise GUTHRIE CMP, 49337-4 #### [facility] ([id number]) [address] [place] [address] 39367 Platelets (Bld) [#/Vol] 290 10*3/uL Normal 150-450 [facility] Comment on above: Performed By: #### C BCA, CMP, 66666-4 #### [facility] ([id number]) [address] [place] [address] 51554 RBC COUNT 4.47 X10E12/L Normal 4.10-5.70 [facility] Comment on above: Performed By: #### C BCA, CMP, 27277-9 #### [facility] ([id number]) [address] [place] [address]802 WBC (Bld) [#/Vol] 11.0 10*3/uL Normal 4.0-11.0 [facility] Comment on above: Performed By: #### C BCA, CMP, 89220-8 #### [facility] ([id number]) [address] [place] [address]687 COMPREHENSIVE METABOLIC PANE [place] 07-16-2024 Albumin [Mass/Vol] 3.6 g/dL Normal 3.2-5.3 [facility] Comment on above: Performed By: #### C BCA, CMP, 78178-1 #### [facility] ([id number]) [address] [place] [address]23 ALP [Catalytic activity/Vol] 101 U/L Normal 39-130 [facility] Comment on above: Performed By: #### C BCA, CMP, 05495-0 #### [facility] ([id number]) [address] [place] [address] 78969 ALT [Catalytic activity/Vol] 14 U/L Normal 0-40 [facility] Comment on above: Performed By: #### C BCA, CMP, 03959-2 #### [facility] ([id number]) [address] [place] [address]1483 Anion gap [Moles/Vol] 11 mmol/L Normal 5-15 [facility] Comment on above: Performed By: #### C BCA, CMP, #### [facility] ([id number]) [address] [place] [address] 35443 AST [Catalytic activity/Vol] 15 U/L Normal 0-41 [facility] Comment on above: Performed By: #### C BCA, CMP, #### [facility] ([id number]) [address] [place] [address]2946 Bilirubin [Mass/Vol] 0.7 mg/dL Normal 0.3-1.2 [facility] Comment on above: Performed By: #### C BCA, CMP, #### [facility] ([id number]) [address] [place] [address]36 Calcium [Mass/Vol] 9.4 mg/dL Normal 8.5-10.5 [facility] Comment on above: Performed By: #### C BCA, CMP, #### [facility] ([id number]) [address] [place] [address]23 Chloride [Moles/Vol] 103 mmol/L Normal 98-109 [facility] Comment on above: Performed By: #### C BCA, CMP, 69592-6 #### [facility] ([id number]) [address] [place] [address]14 CO2 [Moles/Vol] 19 mmol/L Low 22-32 [facility] Comment on above: Performed By: #### C BCA, CMP, 50506-9 #### [facility] ([id number]) [address] [place] [address]2353 Creatinine [Mass/Vol] 1.83 mg/dL High 0.70-1.20 [facility] Comment on above: Result Comment: METH OD TRACEABLE TO IDMS STANDARD Performed By: #### C BCA, CMP, #### [facility] ([id number]) [address] [place] [address]4578 GFR/1.73 sq M.predicted among non-blacks MDRD (S/P/Bld) [Vol rate/Area] 39 mL/min/{1.73_m2} Low >59 [facility] Comment on above: Result Comment: Reported eGFR is based on the CKD-EPI 2020 equation that does not use a race coefficient. Performed By: #### C GARETH GUTHRIE, 20821-4 #### [facility] ([id number]) [address] [place] [address]1392 Glucose [Mass/Vol] 244 mg/dL High 65-99 [facility] Comment on above: Performed By: #### Elise GUTHRIE CMP, 56933-1 #### [facility] ([id number]) [address] [place] [address] 18541 Potassium [Moles/Vol] 4.8 mmol/L Normal 3.5-5.0 [facility] Comment on above: Performed By: #### [facility]ise [facility], 55396-9 #### [facility] ([id number]) [address] [place] [address] 43650 Protein [Mass/Vol] 7.9 g/dL Normal 6.0-8.0 [facility] Comment on above: Performed By: #### Elise [facility], 29136-2 #### [facility] ([id number]) [address] [place] [address] 64034 Sodium [Moles/Vol] 133 mmol/L Low 134-146 [facility] Comment on above: Performed By: #### Elise GUTHRIE CMP, #### [facility] ([id number]) [address] [place] [address] 96943 Urea nitrogen [Mass/Vol] 35 mg/dL High 5-27 [facility] Comment on above: Performed By: #### Elise GUTHRIE CMP, #### [facility] ([id number]) [address] [place] [address], [place] [address] CT CTA ABD AORTA W RUNOFFon 07-16-2024 CT CTA ABD AORTA W RUNOFF CT CTA ABD AORTA W RUNOFF CT ANGIOGRAM ABDOMEN / PELVIS WITH RUNOFF TO THE LOWER EXTREMITIES DATED 07/16/2024 History: Claudication or leg ischemia Comparison: CT abdomen pelvis 07/03/2014 Procedure: CT angiogram of the abdomen and pelvis with runoff to the lower extremities was performed following the administration of intravenous contrast. 3D reformats were performed on an independent workstation and reviewed. Findings: CT ANGIOGRAM: Aorta: Nonaneurysmal; no evidence of aortic dissection. Celiac axis: Classical anatomy, patent. SMA: Severe atheromatous narrowing at the origin. Right renal artery: Single, patent. Severe atheromatous disease at the origin. Left renal artery: Single, patent. MATT: Patent. Right side runoff: Common iliac artery: Multifocal severe atheromatous narrowing. Internal iliac artery: Moderate atheromatous narrowing. Patent. External iliac artery: Multifocal severe atheromatous narrowing. Common femoral artery: Multifocal severe atheromatous narrowing. Superficial femoral artery: Multifocal severe atheromatous narrowing. Profunda: Patent Popliteal artery: Multifocal severe atheromatous narrowing Anterior tibial artery: Likely patent but limited by severe diffuse atheromatous disease. Tibioperoneal trunk: Likely patent but limited by severe diffuse atheromatous disease. Peroneal artery: Likely patent but limited by severe diffuse atheromatous disease. Posterior tibial artery: Likely patent but limited by severe diffuse atheromatous disease. Dorsalis pedis: Severe atheromatous disease, nondiagnostic for patency. Left side runoff: Common iliac artery: Patent. Internal iliac artery: Moderate multifocal atheromatous narrowing. Patent External iliac artery: Patent Common femoral artery: Patent Superficial femoral artery: Patent. Profunda: Patent. Popliteal artery: Moderate to severe multifocal atheromatous narrowing. Anterior tibial artery: Likely patent but limited by severe diffuse atheromatous disease. Tibioperoneal trunk: Likely patent but limited by severe diffuse atheromatous disease. Peroneal artery: Likely patent but limited by severe diffuse atheromatous disease. Posterior tibial artery: Likely patent but limited by severe diffuse atheromatous disease. Dorsalis pedis: Severe atheromatous disease, nondiagnostic for patency. Other findings include: None. ADDITIONAL FINDINGS: Mild atelectasis at the lung bases. The liver, spleen, adrenal glands, and pancreas are unremarkable. Cholelithiasis. No biliary dilatation. No renal collecting system dilatation or stones. Benign right bilateral renal cysts require no further follow-up. Bladder and pelvic organs are unremarkable. Sigmoid diverticulosis. No bowel obstruction or inflammatory changes. Normal colonic stool burden. Postsurgical changes of a right hemicolectomy. Ileocolic anastomosis is patent. Normal stomach. No small bowel distention. No free fluid or free air. No enlarged lymph nodes verified. Postsurgical changes in the midline lower abdomen. No aggressive osseous lesions. Degenerative changes in the sacroiliac joints. Mild to moderate degenerative changes in the spine. Vertebral body heights are maintained. IMPRESSION: 1. 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 Patency of the 3 vessel runoff below the knee is difficult to determine due to severe atheromatous changes. 2. Moderate to severe atheromatous disease in the left lower extremity runoff without high-grade atheromatous narrowing above the knee. Patency of the three-vessel runoff below the knee is difficult to determine due to severe atheromatous changes. 3. Severe atheromatous narrowing at the origin of the SMA and right renal artery. 4. Cholelithiasis. All CT scans at this facility use dose modulation, iterative reconstruction, and/or weight based dosing when appropriate to reduce radiation dose to as low as reasonably achievable. Finalized by Madhu Bowles MD on 07/16/2024 4:04 PM Normal [facility] Glucose Glucometer (BldC) [M ass/Vol]on 07-16-2024 Glucose [Mass/Vol] 247 mg/dL High 65-99 [facility] Heparin unfractionated Chrom ogenic method Qn (PPP)on 07-16-2024 ANTI XA UFH 0.75 IU/mL High 0.30-0.70 [facility] Comment on above: Result Comment: Opti mal time for testing is 6 hrs post dosage This test is specific for monitoring patients on UFH, and is not recommended for use with other Anti-Xa medications. Performed By: #### 3 274-8 #### [facility] ([id number]) [address] [place] [address] Lactate (P roro) [Moles/Vol]o n 07-16-2024 LACTATE W/REFLEX 1.8 mmol/L Normal 0.4-2.0 [facility] Comment on above: Result Comment: Result did not trigger repeat Lactate, re-order if needed. Performed By: #### 3 2133-1 #### [facility] ([id number]) [address] [place] [address] 14934 MAGNESIUMon 07-16-2024 Magnesium [Mass/Vol] 1.7 mg/dL Low 1.8-2.6 [facility] Comment on above: Performed By: #### C BCA, CMP, 58874-8 #### [facility] ([id number]) [address] [place] [address] 18400 PROTIME AND INRon 07-16-2024 INR Coag (PPP) [Relative time] 1.1 {INR} Normal 0.8-1.1 [facility] Comment on above: Performed By: #### P INR, 46762-5 #### [facility] ([id number]) [address] [place] [address] 67503 PT Coag (PPP) [Time] 13.2 s Normal 9.8-13.2 [facility] Comment on above: Result Comment: NEW REFERENCE RANGE Performed By: #### P INR, 11301-2 #### [facility] ([id number]) [address] [place] [address] 33794 aPTT Coag (PPP) [Time]on aPTT Coag (Bld) [Time] 39 s High 26-37 [facility] Comment on above: Result Comment: NEW REFERENCE RANGE Performed By: #### P INR, 14122-6 #### [facility] ([id number]) [address] [place] [address] 65352 XR HIP 2-3 VW W PELVIS LEFTo n 2024 XR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 [id number] 2.16.840.1.917213.3.579. 2.1285 1955 Unknown [id number] 2.16.840.1.608712.3.579. 2.1286 Social History Date Type Detail Facility Start: 12-25-2022 End: 09-13-2024 Tobacco smoking status PAIS Ex-smoker [facility] End: 09-09-2020 History of tobacco use Current smoker [facility] End: 09-09-2020 History of tobacco use Cigarette Smoker [facility] Start: 12-25-2022 End: 09-13-2024 Tobacco use and exposure Smokeless tobacco non-user [facility] Start: 11-24-2023 End: 08-04-2024 Alcoholic beverage intake Lifetime non-drinker (finding) [facility] Start: 08-23-2020 End: 12-25-2022 History of Social function [facility] Start: 08-23-2020 End: 12-25-2022 Humiliation, Afraid, Rape, and Kick questionnaire [HARK] [facility] Within the last year , have you been afraid of your partner or ex-partner? No [facility] Are you now , , , , never or living with a partner? [facility] How often to you hav e a drink containing alcohol? Never [facility] How many standard dr inks containing alcohol do you have on a typical day? Patient does not drink [facility] Do you feel stress - tense, restless, nervous, or anxious, or unable to sleep at night because your mind is troubled all the time - these days [OSQ] Not at all [facility] (I/We) worried wheth er (my/our) food would run out before (I/we) got money to buy more. Never true [facility] Start: 12-25-2022 Tobacco Comment >10 years sinc e last smoked [facility] Start: 10-16-2023 Alcohol Comment caffeine: 1 cu p a week [facility] Start: 1955 Sex assigned at Not on file [facility] Start: 2024 Alcoholic beverage intake Ex-drinker (finding) [facility] Start: 07-17-2024 End: 10-06-2024 Alcoholic beverage intake Current non-drinker of alcohol (finding) [facility] Start: 02-15-2015 Sex Male (finding) [facility] History of tobacco use Pipe Smoker [facility] History of tobacco use Cigar Smoker [facility] Start: 09-13-2024 Tobacco Comment Smoked as teen ager- quit at 18 [facility] Start: 09-13-2024 Alcohol Comment sober since age 36 [facility] Medical Equipment Procedure Code Equipment Code Equipment Origin al Text Equipment Identifier Dates USE DIRECTED ONCE DAILY [id number] Start: 11-29-2022 End: 03-15-2024 USE ONE STRIP TO TEST TWICE DAILY DIRECTED [id number] Start: 02-15-2024 Patch Vsc 8x.8cm Xenosure Bvn Pricrd Tiss Strl Rpl [id number] - [id number] FDA Start: 07-29-2024 Comment on above: Description: RIGHT F EMORAL ARTERY Stent 7fr 135cm Vbx Ba Ppm Expandable Cath Hep Vbhn Eprsth 8 Rpl [id number] - [id number] - [id number] FDA Start: 07-29-2024 Comment on above: Description: RIGHT I LIAC Stent Vsc Innova 8mm 100mm 130cm 6fr Dlv Sys Rdpq Slf Xpd - [id number] FDA Start: 07-29-2024 Comment on above: Description: RIGHT I LIAC Graft Cv 60cm 7m m Thor [address] Str - [id number] - [id number] Start: 09-13-2024 Goals Date Patient Goal Desired Activity /State Personal health goal Comment on above: Formatting of this n ote might be different from the original. Evaluation of progress towards goal: safe transition home self care with spouse and family support. Personal health goal Comment on above: Formatting of this n ote might be different from the original. Evaluation of progress towards goal: Safe dc transition from hospital to home with family support. Personal health goal Comment on above: Formatting of this n ote might be different from the original. Evaluation of progress towards goal: safe discharge Functional Status Date Assessment Result Facility [facility] Work Phone: [facility] Mental Status Date Assessment Result Facility [facility] Clinical Notes 08-10-2023 to 11-24-2024 Elyssa Murray MD - 11/24/2024 10:00 AM EDTDischarge Planning Note - ROBERT Beckwith - 09/17/2024 10:31 AM ESTDischarge Planning Note - Janice Hayes, BEE RAISER - 09/17/2024 10:31 AM ESTAttachments Note Date & Type Note Facility 11-24-2024 History of Present illness Narrative Images from the original note were not included. To: SEAN MICHELLE, FLATWARE MAKER-HEAD SULFIDE OPERATOR HPI: Poncho Valente Rebeca Samuel. is a 69 y.o. male with Continue aspirin cilostazol and Xarelto. Continue wound care. Will get PVR. Follow-up in about a month. 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 He is high risk of bypass he has heavily calcified vessels. The wound has healed significantly there is small open area and he is getting wound care. No recent testing.. Review of Systems: Review of Systems Constitutional: Negative. HENT: Negative. Respiratory: Negative. Cardiovascular: Negative. Gastrointestinal: Negative. Endocrine: Negative. Genitourinary: Negative. Musculoskeletal: Negative. Skin: Negative. Neurological: Negative. Hematological: Negative. Medications: Current Outpatient Medications on File Prior to Visit Medication Sig Dispense Refill acetaminophen (TYLENOL) 325 mg tablet Take 2 tablets (650 mg total) by mouth as needed for pain. aspirin 81 mg Take 1 tablet (81 mg total) by mouth in the morning. 90 tablet 6 carvediloL (COREG) 6.25 mg tablet Take 1 tablet (6.25 mg total) by mouth 2 (two) times a day with meals. 180 tablet 2 cilostazoL (PLETAL) 100 mg tablet Take 1 tablet (100 mg total) by mouth in the morning and 1 tablet (100 mg total) before bedtime. 180 tablet 3 dapagliflozin (FARXIGA) 10 mg tablet Take 1 tablet (10 mg total) by mouth in the morning. Indications: type 2 diabetes mellitus. famotidine (PEPCID) 20 mg tablet Take 1 tablet (20 mg total) by mouth in the morning and 1 tablet (20 mg total) before bedtime. glimepiride (AMARYL) 4 mg tablet Take 1 tablet (4 mg total) by mouth in the morning and 1 tablet (4 mg total) before bedtime. INSULIN GLARGINE,HUM.REC.ANLOG (LANTUS SOLOSTAR SUBQ) Inject 60 Unit under the skin nightly. memantine (NAMENDA) 5 mg tablet Take 1 tablet (5 mg total) by mouth in the morning and 1 tablet (5 mg total) before bedtime. oxyCODONE (OXY-IR) 5 mg capsule Take 1 capsule (5 mg total) by mouth every 6 (six) hours as needed for pain. pioglitazone (ACTOS) 30 mg tablet Take 1 tablet (30 mg total) by mouth in the morning. rivaroxaban (XARELTO) 2.5 mg tablet Take 1 tablet (2.5 mg total) by mouth in the morning and 1 tablet (2.5 mg total) before bedtime. 180 tablet 3 rosuvastatin (CRESTOR) 10 mg tablet Take 1 tablet (10 mg total) by mouth in the morning. No current facility-administered medications on file prior to visit. Past Medical History: Past Medical History: Diagnosis Date Allergies Arthritis Back pain CAD (coronary artery disease) Chest pain Colon [place] Diabetes mellitus type 2, controlled ([facility]) GERD (gastroesophageal reflux disease) Hearing loss Hemorrhoids Hyperlipidemia Hypertension Ischemic cardiomyopathy Myocardial infarction ([facility]) Obesity PAD (peripheral artery disease) ([facility]) 09/13/2024 Rash big toe, heal Testicular cancer ([facility] Past Surgical History: Past Surgical History: Procedure Laterality Date AMPUTATION RIGHT GREAT TOE Right 09/15/2024 Performed by Elyssa Murray MD at [facility] ANGIOGRAM EXTREMITY LOWER- EXTERNAL ILIAC, AND SUPERFICIAL FEMORAL Right 07/29/2024 Performed by Elyssa Murray MD at [facility] PROC APPENDECTOMY 2015 BYPASS ARTERY FEMORAL POPLITEAL Right 09/13/2024 Performed by Elyssa Murray MD at [facility] CARDIAC SURGERY COLON SURGERY 07/26/2014 Dr. Pritchard COLONOSCOPY 08/08/2016 Dr. Pritchard COLONOSCOPY 07/20/2015 Dr. Pritchard COLONOSCOPY 07/03/2014 Dr. Pritchard COLONOSCOPY 03/04/2013 Dr. Pritchard COLONOSCOPY 05/03/2010 Dr. Pritchard COLONOSCOPY 06/15/2006 Dr. Oneil COLONOSCOPY N/A 08/19/2019 Performed by Leonid Pritchard MD at [facility] COLONOSCOPY BIOPSY N/A 07/22/2024 Performed by Shae Olson DO at [facility] CORONARY ARTERY BYPASS GRAFT 2015 ENDARTERECTOMY FEMORAL WITH PATCH ANGIOPLOASTY Right 07/29/2024 Performed by Elyssa Murray MD at [facility] PROC ESOPHAGOGASTRODUODENOSCOPY 03/04/2013 Dr. 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 08/12/2024 Performed by Elyssa Murray MD at [facility] CARDIAC CATH LABS SHOCKWAVE LITHOTRIPSY RIGHT ILIAC ARTERY, STENT ANGIOPLASTY X2 Right 07/29/2024 Performed by Elyssa Murray MD at [facility] PROC VASECTOMY 1980 Social and Family History: Social History Socioeconomic History Marital status: Spouse name: Not on file Number of children: Not on file Years of education: Not on file Highest education level: Not on file Occupational History Not on file Tobacco Use Smoking status: Former Types: Cigarettes, Cigars, Pipe Smokeless tobacco: Never Tobacco comments: Smoked as teenager- quit at 18 Vaping Use Vaping status: Never Used Substance and Sexual Activity Alcohol use: 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36 Drug use: Yes Comment: gummies-THC Sexual activity: Defer Other Topics Concern Caffeine Use Yes Social History Narrative Not on file Social Drivers of Health Financial Resource Strain: Low Risk (12/25/2022) Received from [facility] Overall Financial Resource Strain (CARDIA) Difficulty of Paying Living Expenses: Not hard at all Food Insecurity: No Food Insecurity (11/24/2024) Hunger Screening Food Insecurity - Worry: Never True Food Insecurity - Inability: Never True Transportation Needs: No Transportation Needs (09/13/2024) PRAPARE - Transportation Lack of Transportation (Medical): No Lack of Transportation (Non-Medical): No Physical Activity: Sufficiently Active (12/25/2022) Received from [facility] Exercise Vital Sign Days of Exercise per Week: 5 days Minutes of Exercise per Session: 60 min Stress: No Stress Concern Present (12/25/2022) Received from [facility] [employer] - Occupational Stress Questionnaire Feeling of Stress : Not at all Social Connections: Moderately Isolated (12/25/2022) Received from [facility] Social Connection and Isolation Panel [NHANES] Frequency of Communication with Friends and Family: More than three times a week Frequency of Social Gatherings with Friends and Family: More than three times a week Attends Muslim Services: Never Active Member of Clubs or Organizations: No Attends Club or Organization Meetings: Never Marital Status: Interpersonal Safety: Not At Risk (09/13/2024) Humiliation, Afraid, Rape, and Kick questionnaire Fear of Current or Ex-Partner: No Emotionally Abused: No Physically Abused: No Sexually Abused: No Housing Instability: Low Risk (09/13/2024) Housing Instability Housing Instability: No Family History Problem Relation Age of Onset Diabetes Mother Cancer Mother Breast cancer Mother Colon cancer Mother Kidney disease Mother No Known Problems Father Early Brother No Known Problems Maternal Grandmother No Known Problems Maternal Grandfather No Known Problems Paternal Grandmother No Known Problems Paternal Grandfather Anesthesia problems Neg Hx Recent Labs: Recent and relative labs were reviewed and interpreted and contributed to the assessment and plan below. Vitals: BP 134/76 (BP Site: Left Arm, BP Postition: Sitting, BP CUFF SIZE: M (9-13 inches)) Pulse 104 Temp 36.6 C (97.9 F) (Temporal) Resp 20 Ht 175.3 cm (5' 9.02 ) Wt 98.9 kg (218 lb) SpO2 98% BMI 32.18 kg/m Body mass index is 32.18 kg/m . Physical Exam: Physical Exam Constitutional: Appearance: Normal appearance. HENT: Head: Normocephalic and atraumatic. Mouth/Throat: Mouth: Mucous membranes are moist. Eyes: Extraocular Movements: Extraocular movements intact. Pupils: Pupils are equal, round, and reactive to light. Cardiovascular: Rate and Rhythm: Normal rate and regular rhythm. Pulmonary: Effort: Pulmonary effort is normal. Breath sounds: Normal breath sounds. Abdominal: General: Abdomen is flat. Bowel sounds are normal. Palpations: Abdomen is soft. Musculoskeletal: General: Normal range of motion. Cervical back: Normal range of motion. Skin: General: Skin is warm and dry. Neurological: General: No focal deficit present. Mental Status: He is alert and oriented to person, place, and time. Mental status is at baseline. Psychiatric: Mood and Affect: Mood normal. Behavior: Behavior normal. Thought Content: Thought content normal. Judgment: Judgment normal. 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 While intending to generate a timely document that accurately reflects the content of the visit, no guarantee can be provided that every grammatical or spelling mistake has been or will be identified or corrected. Thank you for your understanding. documented in this encounter [facility] 09-17-2024 Progress note Formatting of t his note might be different from the original. DISCHARGE PLANNING NOTE CRF sent to [id number] Feldman 09/17/24 10:31 AM [facility] 09-17-2024 Miscellaneous Notes DISCHARGE PLANNING NOTE CRF sent to ROBERT Aguilar 09/17/24 10:31 AM Occupational Therapy Evaluation Discharge Recommendations OT Recommendations : Home Home Recommendations: 24 hour caregiver support for: (ADLs and IADLs prn) Post Discharge Therapy Recommendations: Home Occupational Therapy 6 Clicks: Daily Activity Putting on and taking off regular lower body clothing?: A lot Bathing (including washing, rinsing, drying)?: A little Toileting, which includes using toilet, bedpan or urinal?: A little Putting on and taking off regular upper body clothing?: A little Taking care of personal grooming such as brushing teeth?: None Eating meals?: None Scoring Daily Activity Raw Score: 19 CMS G Code Modifier: CK Therapy Plan Need for skilled Occupational Therapy to address deficits in ADL independence and functional mobility due to a status decline resulting from hospitalization for PAD. Pt is 69 year old male with pmh: CKD3, CAD, PAD, R great toe and R heel wounds with increased pain Admitted 3/4 s/p R SFA to proximal pop bypass 3/6 s/p R great toe amp Per Vascular R heel touch WB in ortho wedge shoe Pt seen this date for Occupational Therapy evaluation; additional information re: pt past medical history and current occupational profile can be found within report below. Past Medical History: Diagnosis Date Allergies Arthritis Back pain CAD (coronary artery disease) Chest pain Colon [place] Diabetes mellitus type 2, controlled ([facility]) GERD (gastroesophageal reflux disease) Hearing loss Hemorrhoids Hyperlipidemia Hypertension Ischemic cardiomyopathy Myocardial infarction [place]) Obesity PAD (peripheral artery disease) ([facility]) 09/13/2024 Rash big toe, heal Testicular cancer ([facility] Past Surgical History: Procedure Laterality Date AMPUTATION RIGHT GREAT TOE Right 09/15/2024 Performed by Elyssa Murray MD at [facility] ANGIOGRAM EXTREMITY LOWER- EXTERNAL ILIAC, AND SUPERFICIAL FEMORAL Right 07/29/2024 Performed by Elyssa Murray MD at [facility] PROC APPENDECTOMY 2015 BYPASS ARTERY FEMORAL POPLITEAL Right 09/13/2024 Performed by Elyssa Murray MD at [facility] CARDIAC SURGERY COLON SURGERY 07/26/2014 Dr. Pritchard COLONOSCOPY 08/08/2016 Dr. Pritchard COLONOSCOPY 07/20/2015 Dr. Pritchard COLONOSCOPY 07/03/2014 Dr. Pritchard COLONOSCOPY 03/04/2013 Dr. Pritchard COLONOSCOPY 05/03/2010 Dr. Pritchard COLONOSCOPY 06/15/2006 Dr. Oneil COLONOSCOPY N/A 08/19/2019 Performed by Leonid Pritchard MD at [facility] COLONOSCOPY BIOPSY N/A 07/22/2024 Performed by Shae Olson DO at [facility] CORONARY ARTERY BYPASS GRAFT 2015 ENDARTERECTOMY FEMORAL WITH PATCH ANGIOPLOASTY Right 07/29/2024 Performed by Elyssa Murray MD at [facility] PROC ESOPHAGOGASTRODUODENOSCOPY 03/04/2013 Dr. 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 08/12/2024 Performed by Elyssa Murray MD at [facility] CATH LABS SHOCKWAVE LITHOTRIPSY RIGHT ILIAC ARTERY, STENT ANGIOPLASTY X2 Right 07/29/2024 Performed by Elyssa Murray MD at [facility] PROC VASECTOMY 1980 OT Treatment/Interventions: ADL retraining, Functional transfer training, UE strengthening/ROM, Endurance training, Patient/family training, Equipment eval/education, Balance, Bed mobility, Compensatory technique education, Functional activities OT Frequency: 5-6days/week OT Duration: LOS Assessment Patient Assessment Therapy Problem List: Decreased ADL status, Decreased balance, Decreased endurance, Decreased high-level ADLs, Decreased mobility, Decreased safe judgement during ADL, Decreased self-care trans Patient Response to Treatment: Tolerated evaluation without adverse reaction Mood/Affect: Appropriate for circumstances Rehab Prognosis: Good, With continued OT status post acute discharge Visit RN Communication: Yes Medical Record Reviewed: Yes OT Type of Visit: Evaluation Precautions Activity: early mobility - pass; okay to see per RN Equipment: RW, gait belt, offloading shoe Weight Bearing Status: R Heel touch WB ortho wedge shoe Telemetry/Movie Projectionist: Yes Oxygen Used: room air Other: fall risk, s/p R SFA bypass and R great toe amp Subjective Occupational Therapy Comments: It's not too bad right now. Pain Assessment Pain Assessment: 0-10 Pain Score: 2 Pain Location: Toe (Comment which one) (great / amp site) Pain Orientation: Right Pain Intervention(s): Repositioned, Ambulation/increased activity Home Living Type of Home: House (Ranch with walk-out basement) Home Layout: Two level (Bed and bath main floor, Family room and full bath in basement. 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 Denies recent falls. 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 Pt is provided with ordered ortho wedge shoe and educated on its use. Assistance to don own sock / shoe in addition to R ortho wedge shoe while seated EOB. Pt completes toileting with CGA for toilet transfer, is modified ind with LE management. Scores listed above that were not directly observed are based on clinical judgment and assessment of pt person factors and performance skills. Home Management - IADL Other: Pt is supine in bed upon arrival. Pt is provided with ordered ortho wedge shoe and educated on its use. Assistance to don own sock / shoe in addition to R ortho wedge shoe while seated EOB. Pt completes toileting with CGA for toilet transfer, is modified ind with LE management. Scores listed above that were not directly observed are based on clinical judgment and assessment of pt person factors and performance skills. Hearing / Speech / Vision Hearing: Hard of hearing/hearing concerns, Other (Comment) (deaf L ear) Speech: Within Functional Limits Current Vision: Wears glasses only for reading Cognition Overall Cognitive Status: Within Functional Limits (cues for safety and WB restrictions) Sensation Overall Sensation Status: Consistent with premorbid status (neuropathy B feet) Bed Mobility Supine to Sit: Stand by assist Sit to Supine: Unable to assess (up in chair at end of tx with call light in hand, tray table in reach and all needs met. RN in room changing dressing.) Other: HOB elevated, use of bedrail. Pt denies light headed or dizziness. Transfers Sit to Stand: Contact guard assist Stand to Sit: Contact guard assist Toilet Transfers: Contact guard assist (standard toilet, L grab bar) Other: Completed with RW, cues for hand placement and safety, reminders for WB restrictions. Gait Other: Pt completes functional ambulation in room this date with use of RW and CGA for safety. Pt requires cues for sequencing and proper use of ortho wedge shoe, cues for slowing down. No overt LoB noted. Completes approx 10 feet + 15 this + 20 date. Balance Sitting Balance: Static: Good Sitting Balance: Dynamic: Good Standing Balance: Static: Good Standing Balance: Dynamic: Fair Other: UE support on RW during ambulation RUE Assessment: Within Functional Limits LUE Assessment: Within Functional Limits RLE Assessment: (see PT eval) LLE Assessment: (see PT eval) Activity Tolerance Endurance: Tolerates <30 minutes activity WITHOUT vital sign changes Other: Rest breaks prn. Plan Occupational Therapy Care Plan Occupational Therapy Care Plan (Active) Template: OT - Occupational Therapy Problem: Activity Tolerance Dates: Start: 09/16/24 Disciplines: OT Goal: Tolerate > 30 minutes of activity WITH rest breaks Dates: Start: 09/16/24 Expected End: 09/23/24 Description: Goal Description: Disciplines: OT Problem: Bed Mobility Dates: Start: 09/16/24 Disciplines: OT Goal: Patient will perform bed mobility with Modified Turner Dates: Start: 09/16/24 Expected End: 09/23/24 Description: Goal Description: Disciplines: OT Problem: Functional Mobility Dates: Start: 09/16/24 Disciplines: OT Goal: Patient will perform functional mobility with Modified Turner Dates: Start: 09/16/24 Expected End: 09/23/24 Description: Goal Description: Disciplines: OT Problem: Other (Customize) Dates: Start: 09/16/24 Disciplines: OT Goal: Improve Dates: Start: 09/16/24 Expected End: 09/23/24 Description: Goal Description: Pt will complete ADLs with modified independence while demonstrating increased safety awareness and with DME/AD use as needed. Disciplines: OT Problem: Sitting Balance Dates: Start: 09/16/24 Disciplines: OT Goal: Improve balance to normal Dates: Start: 09/16/24 Expected End: 09/23/24 Description: Static Dynamic Disciplines: OT Problem: Standing Balance Dates: Start: 09/16/24 Disciplines: OT Goal: Improve balance to good Dates: Start: 09/16/24 Expected End: 09/23/24 Description: Static Dynamic Disciplines: OT Problem: Transfers Dates: Start: 09/16/24 Disciplines: OT Goal: Patient will perform transfers with Modified Turner Dates: Start: 09/16/24 Expected End: 09/23/24 Description: Goal Description: Disciplines: OT Occupational Therapy Care Plan (Resolved) There are no resolved problems. Principal Problem: PAD (peripheral artery disease) ([facility] Active Problems: Atherosclerosis of [place] artery of right lower extremity with ulceration ([facility]) Encounter for therapeutic drug monitoring Physical Therapy Discharge Recommendations PT Recommendations: Home Home Recommendations: 24 hour caregiver support for: (safety with ADL/IADLS as needed) Post Discharge Therapy Recommendations: Home Physical Therapy Therapy Plan Need for skilled Physical Therapy to address deficits in functional mobility due to a status decline resulting from hospital admission 09/13/24 for R superficial femoral to proximal popliteal artery bypass and amputation of R great toe. Pt to wear ortho wedge shoe when up and ambulating. DX: PAD Past Medical History: Diagnosis Date Allergies Arthritis Back pain CAD (coronary artery disease) Chest pain Colon cancer ([facility]) Diabetes mellitus type 2, controlled ([facility]) GERD (gastroesophageal reflux disease) Hearing loss Hemorrhoids Hyperlipidemia Hypertension Ischemic cardiomyopathy Myocardial infarction ([facility]) Obesity PAD (peripheral artery disease) ([facility]) 09/13/2024 Rash big toe, heal Testicular cancer ([facility]) Past Surgical History: Procedure Laterality Date AMPUTATION RIGHT GREAT TOE Right 09/15/2024 Performed by Elyssa Murray MD at [facility] ANGIOGRAM EXTREMITY LOWER- EXTERNAL ILIAC, AND SUPERFICIAL FEMORAL Right 07/29/2024 Performed by Elyssa Murray MD at [facility] PROC APPENDECTOMY 2015 BYPASS ARTERY FEMORAL POPLITEAL Right 09/13/2024 Performed by Elyssa Murray MD at [facility] CARDIAC SURGERY COLON SURGERY 07/26/2014 Dr. Pritchard COLONOSCOPY 08/08/2016 Dr. Pritchard COLONOSCOPY 07/20/2015 Dr. Pritchard COLONOSCOPY 07/03/2014 Dr. Pritchard COLONOSCOPY 03/04/2013 Dr. Pritchard COLONOSCOPY 05/03/2010 Dr. Pritchard COLONOSCOPY 06/15/2006 Dr. Oneil COLONOSCOPY N/A 08/19/2019 Performed by Leonid Pritchard MD at [facility] COLONOSCOPY BIOPSY N/A 07/22/2024 Performed by Shae Olson DO at [facility] CORONARY ARTERY BYPASS GRAFT 2015 ENDARTERECTOMY FEMORAL WITH PATCH ANGIOPLOASTY Right 07/29/2024 Performed by Elyssa Murray MD at [facility] PROC ESOPHAGOGASTRODUODENOSCOPY 03/04/2013 Dr. 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 w/c or bedside chair)?: A little To walk in hospital room?: A little Climbing 3-5 steps with a railing?: A lot Scoring 6 Clicks: Basic Mobility Raw Score: 19 CMS G Code Modifier: CJ PT Treatment/Interventions: Functional transfer training, Endurance training, Patient/family training, Equipment eval/education, Balance, Gait training PT Frequency: 4-5days/week PT Duration: LOS Patient Response to Treatment: Tolerated evaluation without adverse reaction, Slow progress, decreased activity tolerance Assessment Patient Assessment Therapy Problem List: Decreased balance, Decreased endurance, Decreased mobility Patient Response to Treatment: Tolerated evaluation without adverse reaction, Slow progress, decreased activity tolerance Mood/Affect: Appropriate for circumstances Rehab Prognosis: Good, With continued PT status post acute discharge Visit RN Communication: Yes Medical Record Reviewed: Yes OT Type of Visit: Evaluation Precautions Activity: early mobility - pass; okay to see per RN Equipment: RW, gait belt, offloading shoe, ROOKE boot Weight Bearing Status: ortho wedge shoe R foot Telemetry/Movie Projectionist: Yes Oxygen Used: room air Other: (S) fall risk, s/p R great toe amp and R SFA bypass, pt must wear ortho wedge shoe when up and ambulating Pain Assessment Pain Assessment: 0-10 Pain Score: 2 Pain Location: Toe (Comment which one) (R great toe amp site) Pain Orientation: Right Pain Intervention(s): Repositioned, Ambulation/increased activity Response to Interventions: Quiet Home Living Type of Home: House Home Layout: One level, Able to live on main level with bedroom/bathroom (walk in basement, pt has living quarters on this level that includes full bath and is able to sleep in lift chair on this level as well.) Stairs to Enter: 0 thru basement walk in Stairs in Home: 4 steps to main floor of home Hand Rails in Home: Bilateral Bathroom Shower/Tub: (walk in tub with cut out) Bathroom Toilet: Raised Bathroom Equipment: Grab bars in shower, Built-in shower seat, Hand-held shower Home Equipment: 4 Wheeled walker, Cane, Wheelchair-manual, Lift chair, Electric scooter Other : pt denied needing DME for mobility prior to admission, pt used scooter for community distances Prior Function Lives With: Spouse (home 02/02) Receives Help From: Family (local daughter) Level of Mobility: Needs assistance with ADLs or functional transfers or gait (spouse assists with socks/shoes and supervision with bathing) Homemaking Assistance: (spouse addresses household tasks) 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 Jane ELLIOTT present and working on dressing change for R foot.) Other: HOB elevated, use of bedrail. Pt denies light headed or dizziness. Once pt was seated at EOB, ortho wedge shoe was placed on R foot and sock and shoe on L foot. Transfers Sit to Stand: Contact guard assist Stand to Sit: Contact guard assist Toilet Transfers: Contact guard assist (with use of L grab bar) Other: Verbal cues for safety as pt attempted to stand before safely appropriate. Gait Base of Support: Within Functional Limits Pattern: Decreased ligia, Forward trunk Gait Assistance: Contact guard assist Assistive Device: Rolling walker Gait Distance: 15ftx1, 20ftx1 Limiting Factors to Gait: (dressing R foot blood-soaked and required change) Other: Max verbal cues for upright posture as well as verbal cues for proper gait technique with use of ortho wedge shoe. Pt tends to attempt heel/toe ambulation on R and required continuous cues for only heel contact on R. Balance Sitting Balance: Static: Good Sitting Balance: Dynamic: Good Standing Balance: Static: Good ((-)) Standing Balance: Dynamic: Fair ((+)) Other: Pt able to sit EOB and toilet unsupported but does require BUE support on RW while ambulating. RUE Assessment: (see OT eval) LUE Assessment: (see OT eval) RLE Assessment: (grossly 4/5, ankle NT due to recent toe amp) LLE Assessment: Within Functional Limits Activity Tolerance Endurance: Tolerates <30 minutes activity WITHOUT vital sign changes Other: pt HU but recovers well with rest breaks Plan Physical Therapy Care Plan Physical Therapy Care Plan (Active) Template: PT - Physical Therapy Problem: Activity Tolerance Dates: Start: 09/16/24 Disciplines: PT Goal: Tolerate > 30 minutes of activity WITH rest breaks Dates: Start: 09/16/24 Expected End: 10/10/24 Description: To improve overall strength and endurance for functional mobility. Disciplines: PT Problem: Gait Dates: Start: 09/16/24 Disciplines: PT Goal: Patient will perform gait with Stand By Assist Dates: Start: 09/16/24 Expected End: 10/10/24 Description: With_RW and ortho wedge shoe R foot___,_50___feet for safe access to restroom with nursing staff Goal Description: Disciplines: PT Problem: Standing Balance Dates: Start: 09/16/24 Disciplines: PT Goal: Improve balance to good Dates: Start: 09/16/24 Expected End: 10/10/24 Description: With use of AD to reduce fall risk during ambulation Disciplines: PT Problem: Transfers Dates: Start: 09/16/24 Disciplines: PT Goal: Patient will perform transfers with Modified Turner Dates: Start: 09/16/24 Expected End: 10/10/24 Description: Goal Description: Disciplines: PT Physical Therapy Care Plan (Resolved) There are no resolved problems. 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 Barriers to discharge include vascular's final plan Discharge Plan remains: Home with Home Care. Referral sent to [facility]. Await acceptance. CN will continue to follow and is available should any further needs arise. - Lynn Arcos RN 09/16/24 11:11 AM Med [facility] Care confirms acceptance for home care. Informed of possible discharge today. - Lynn Arcos RN 09/16/24 12:37 PM CRF sent via [facility] to Med 1 - Lynn Arcos RN 09/16/24 4:12 PM Problem: Safety Goal: Patient will be injury free during hospitalization Description: INTERVENTIONS: 1. Assess patient's risk for falls and implement fall prevention plan of care per policy 2. Provide and maintain a safe environment 3. Proper use of double Identifiers 4. Medication administration using the 5 rights 5. Hand hygiene 6. Specimens are labeled at the bedside 7. Instruct patient/ patient fuels sales representative about use of safety devices 8. Include patient/ patient fuels sales representative in decisions related to safety Outcome: Progressing Note: Evaluation of progress towards goal: pt free from falls this shift Problem: Infection Goal: Absence of infection during hospitalization Description: INTERVENTIONS 1. Assess and monitor for signs and symptoms of infection. 2. Monitor lab/diagnostic results. 3. Monitor all insertion sites i.e., indwelling lines, tubes and drains. 4. Monitor endotracheal (as able) and nasal secretions for changes in amount and color. 5. Administer medications as ordered. 6. Instruct and encourage patient and family to use good hand hygiene technique. 7. Identify and instruct patient/patient fuels sales representative in use of appropriate isolation precautions for identified infection/symptoms. 8. Provide and discuss with patient/patient fuels sales representative on educational MDRO sheet. 9. Encourage and monitor nutritional status daily and consult produce weigher if indicated. 10. Implement neutropenic guidelines as needed. Outcome: Progressing Note: Evaluation of progress towards goal: pt afebrile-cont to monitor Problem: Knowledge Deficit Goal: Patient/patient fuels sales representative demonstrates understanding of disease process, treatment plan, medications, and discharge instructions Description: INTERVENTIONS 1. Complete learning assessment and assess knowledge base 2. Provide teaching at level of understanding 3. Provide teaching via preferred learning method(s) Outcome: Progressing Note: Evaluation of progress towards goal: pt updated on poc Problem: Discharge Planning Goal: Discharge to post-acute care, other facility, or home with appropriate resources Description: Patient's goal is: INTERVENTIONS 1. Conduct assessment to determine patient/family and health care team treatment goals, and need for post-acute services based on payer coverage, community resources, and patient preferences, and barriers to discharge 2. Coordinate with Social work, Care Navigation, and Utilization Review to arrange appropriate level of services according to patient's needs based on patient preference and payer coverage in collaboration with the physician and health care team 3. Address psychosocial, clinical, and financial barriers to discharge as identified in assessment in conjunction with the patient/family and health care team 4. Consult appropriate ancillary services (i.e.. PT/OT/ST, etc) as needed 5. Communicate with and update the patient/family, physician, and health care team regarding progress on the discharge plan 6. Identify discharge learning needs (meds, wound care, etc). 7. Arrange for needed discharge transportation as appropriate Outcome: Progressing Note: Evaluation of progress towards goal: pt will go home at discharge DISCHARGE PLANNING NOTE Referral to [address] (P# ; F# Problem: Pain Goal: Patient goal is pain score less than 4, able to rest, and participant in treatment plan as appropriate Description: INTERVENTIONS: 1. Encourage patient or legal fuels sales representative to report early pain and ask for pain medicine when needed 2. Assess pain using appropriate pain scale and include the scale used when documenting 3. Administer analgesics based on type and severity of pain and evaluate response within appropriate time frame 4. Implement non-pharmacological measures as appropriate and evaluate response 5. Consider cultural and social influences on pain and pain management 6. Notify LIP if interventions ineffective or patient reports new pain 7. Monitor vital signs including pulse ox, end-tidal CO2 based on pain intervention 8. Reassess pain per policy 9. Teach patient or legal fuels sales representative interventions for comforting Outcome: Progressing Note: Evaluation of progress towards goal: Pt utilizes pain scale appropriately, current pain regimen adequately managing pain Problem: Safety Goal: Patient will be injury free during hospitalization Description: INTERVENTIONS: 1. Assess patient's risk for falls and implement fall prevention plan of care per policy 2. Provide and maintain a safe environment 3. Proper use of double Identifiers 4. Medication administration using the 5 rights 5. Hand hygiene 6. Specimens are labeled at the bedside 7. Instruct patient/ patient fuels sales representative about use of safety devices 8. Include patient/ patient fuels sales representative in decisions related to safety Outcome: Progressing Note: Evaluation of progress towards goal: Pt remains free from injury at this time, safety precautions in place Problem: Knowledge Deficit Goal: Patient/patient fuels sales representative demonstrates understanding of disease process, treatment plan, medications, and discharge instructions Description: INTERVENTIONS 1. Complete learning assessment and assess knowledge base 2. Provide teaching at level of understanding 3. Provide teaching via preferred learning method(s) Outcome: Progressing Note: Evaluation of progress towards goal: Pt receptive to education regarding disease process, treatment plan, and medications Images from the original note were not included. DISCHARGE PLANNING NOTE Door Attendant met with patient, introduced self, and explained role. Patient educated on safe discharge plan. 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 Discharge Barriers per Daily Transition Rounds: surgical intervention, Heparin gtt, AC plan Past Medical History: Diagnosis Date Allergies Arthritis Back pain CAD (coronary artery disease) Chest pain Colon cancer ([facility]) Diabetes mellitus type 2, controlled ([facility]) GERD (gastroesophageal reflux disease) Hearing loss Hemorrhoids Hyperlipidemia Hypertension Ischemic cardiomyopathy Myocardial infarction ([facility]) Obesity PAD (peripheral artery disease) ([facility]) 09/13/2024 Rash big toe, heal Testicular cancer ([facility]) Prior to admission patient was living with spouse and self care. Medical equipment patient used prior to admission includes: Cane, Type: Single Point Cane, Walkers, Type: Rolling Walker, and Hygiene Aides, Type: Tub Seat/Chair . Patient denies need for transportation/ food/ prescription medication assistance resources. Patient was fairly independent at home with [facility] and family support. Wishes to return home with same. Tasked [facility] to send referral for resumption of home care to [address] PCP: ABBE WONG PCP and pharmacy confirmed with patient. CN offered to assist with follow up appointment arrangements; patient declines . ABBE WONG added to Follow Up Providers for Summary of Care communication. The patient receives support from his and children. Drug use: denies Smoking: denies ETOH Use: denies Current discharge plan: Services Requested: Services Requested Patient expects to be discharged to:: would like to go home, patient request wound care instructions on CRF so nurse can help with wound care. Discharge Disposition: Home with home health services Facility/Service Name: [address] Facility/Service Does the patient need discharge transportation arranged?: No DC Planning Complete Discharge Milestones: Yes Patient Goals: Goals: Goals <enter goal here> (pt-stated) Evaluation of progress towards goal: safe discharge Safe Discharge (pt-stated) Evaluation of progress towards goal: safe transition home self care with spouse and family support. Will continue to follow as plan of care develops. CN discussed benefits of C w/ patient, importance of medication compliance and follow ups. Please feel free to reach out for any discharge planning questions. - Lynn Arcos RN 09/15/24 3:25 PM Problem: Pain Goal: Patient goal is pain score less than 4, able to rest, and participant in treatment plan as appropriate Description: INTERVENTIONS: 1. Encourage patient or legal fuels sales representative to report early pain and ask for pain medicine when needed 2. Assess pain using appropriate pain scale and include the scale used when documenting 3. Administer analgesics based on type and severity of pain and evaluate response within appropriate time frame 4. Implement non-pharmacological measures as appropriate and evaluate response 5. Consider cultural and social influences on pain and pain management 6. Notify LIP if interventions ineffective or patient reports new pain 7. Monitor vital signs including pulse ox, end-tidal CO2 based on pain intervention 8. Reassess pain per policy 9. Teach patient or legal fuels sales representative interventions for comforting Outcome: Progressing Note: Evaluation of progress towards goal: pt says pain is being controled with po pain meds Problem: Safety Goal: Patient will be injury free during hospitalization Description: INTERVENTIONS: 1. Assess patient's risk for falls and implement fall prevention plan of care per policy 2. Provide and maintain a safe environment 3. Proper use of double Identifiers 4. Medication administration using the 5 rights 5. Hand hygiene 6. Specimens are labeled at the bedside 7. Instruct patient/ patient fuels sales representative about use of safety devices 8. Include patient/ patient fuels sales representative in decisions related to safety Outcome: Progressing Note: Evaluation of progress towards goal: pt free from falls this shift Problem: Infection Goal: Absence of infection during hospitalization Description: INTERVENTIONS 1. Assess and monitor for signs and symptoms of infection. 2. Monitor lab/diagnostic results. 3. Monitor all insertion sites i.e., indwelling lines, tubes and drains. 4. Monitor endotracheal (as able) and nasal secretions for changes in amount and color. 5. Administer medications as ordered. 6. Instruct and encourage patient and family to use good hand hygiene technique. 7. Identify and instruct patient/patient fuels sales representative in use of appropriate isolation precautions for identified infection/symptoms. 8. Provide and discuss with patient/patient fuels sales representative on educational MDRO sheet. 9. Encourage and monitor nutritional status daily and consult produce weigher if indicated. 10. Implement neutropenic guidelines as needed. Outcome: Progressing Note: Evaluation of progress towards goal: pt afebrile-cont to monitor Problem: Knowledge Deficit Goal: Patient/patient fuels sales representative demonstrates understanding of disease process, treatment plan, medications, and discharge instructions Description: INTERVENTIONS 1. Complete learning assessment and assess knowledge base 2. Provide teaching at level of understanding 3. Provide teaching via preferred learning method(s) Outcome: Progressing Note: Evaluation of progress towards goal: pt updated on poc Patient Name: Poncho Jose Jr. Medical Record: [id number] Date of Operation: 09/15/2024 Preoperative Diagnosis: Right great toe gangrene Postoperative Diagnosis: Same Procedure: Right great toe amputation Surgeon: Elyssa Murray MD Anesthesia: General anesthesia Estimated Blood Loss: Minimal Complications: None; patient tolerated the procedure well. Implants: None Specimens: Right great toe and metatarsal head were sent as permanent pathology sample. Proximal and of the metatarsal bone edge was sent for microbiology. Disposition: PACU - hemodynamically stable. Condition: stable Findings: Unremarkable operative course. The toe was gangrenous. It was dry gangrene. It was removed together with the distal metatarsal bone and metatarsal head. The wound was closed using interrupted Prolene sutures History: This is a pleasant gentleman with right lower extremity critical limb ischemia status post revascularization. He is here for right toe gangrene amputation. Of note the dorsum of the foot by the great toe was also necrotic. Operative Details: The patient was taken back to the operating room placed in the supine position appropriate cardiopulmonary monitors were set. Anesthesia was induced. The right leg was prepped and draped in usual sterile surgical fashion. After time-out and safety pause and antibiotics were given knife was used to cut the skin subcutaneous tissue down to the bone. Bovie was used to continue the dissection. The whole toe and the metatarsal head and naproxen and distal metatarsal bone was transected using a bone cutter. Hemostasis was achieved. The wound was then closed after hemostasis and after washing with Betadine with her with the saline using vertical mattress 2-0 Prolene sutures. 4-0 Monocryl suture was used to approximate any edges. Dressing was placed patient tolerated the procedure very well no complications. Elyssa Murray MD, MELITA, RPVI, FSVS, FACS [facility] Vascular Surgery Query Response Note CDI QUERY TEXT: Anemia Type [id number] Disclaimer: By submitting this query, we are merely seeking further clarification of documentation to accurately reflect all conditions that you are monitoring, evaluating, treating or that extend the hospitalization or utilize additional resources of care. Please utilize your independent clinical judgment when addressing the question(s) below. Please clarify the type of anemia: -Due to/in/with chronic kidney disease -Other Labs: H/H: 9.2/28.0 (3/4) 8.3/25.0 (3/5) POD 1 right SFA to proximal pop bypass with EBL 100 mL. The patient's Clinical Indicators include: As above Thank you, Sary Olivo RN, RADHA [email or web address] CDI RESPONSE TEXT: Other, expected post-operative Query created by: Sary Olivo on 09/14/2024 7:00 AM Electronically signed by: Rita Alexander DO 09/15/2024 5:09 AM Problem: Pain Goal: Patient goal is pain score less than 4, able to rest, and participant in treatment plan as appropriate Description: INTERVENTIONS: 1. Encourage patient or legal fuels sales representative to report early pain and ask for pain medicine when needed 2. Assess pain using appropriate pain scale and include the scale used when documenting 3. Administer analgesics based on type and severity of pain and evaluate response within appropriate time frame 4. Implement non-pharmacological measures as appropriate and evaluate response 5. Consider cultural and social influences on pain and pain management 6. Notify LIP if interventions ineffective or patient reports new pain 7. Monitor vital signs including pulse ox, end-tidal CO2 based on pain intervention 8. Reassess pain per policy 9. Teach patient or legal fuels sales representative interventions for comforting Outcome: Progressing Note: Evaluation of progress towards goal: Patient currently denies pain. Patient encouraged to communicate with staff if pain occurs. Will continue to monitor for changes. Problem: Safety Goal: Patient will be injury free during hospitalization Description: INTERVENTIONS: 1. Assess patient's risk for falls and implement fall prevention plan of care per policy 2. Provide and maintain a safe environment 3. Proper use of double Identifiers 4. Medication administration using the 5 rights 5. Hand hygiene 6. Specimens are labeled at the bedside 7. Instruct patient/ patient fuels sales representative about use of safety devices 8. Include patient/ patient fuels sales representative in decisions related to safety Outcome: Progressing Note: Evaluation of progress towards goal: Patient safety maintained, call light in reach, area clear of hazards, hourly rounding continued, bed locked in lowest position, alarm on as applicable, non skid socks on, safety educated completed with patient/family, no injuries noted at this time. Problem: Knowledge Deficit Goal: Patient/patient fuels sales representative demonstrates understanding of disease process, treatment plan, medications, and discharge instructions Description: INTERVENTIONS 1. Complete learning assessment and assess knowledge base 2. Provide teaching at level of understanding 3. Provide teaching via preferred learning method(s) Outcome: Progressing Note: Evaluation of progress towards goal: Care plan discussed & goals for shift set with patient input appreciated. All questions answered. Problem: Discharge Planning Goal: Discharge to post-acute care, other facility, or home with appropriate resources Description: Patient's goal is: INTERVENTIONS 1. Conduct assessment to determine patient/family and health care team treatment goals, and need for post-acute services based on payer coverage, community resources, and patient preferences, and barriers to discharge 2. Coordinate with Social work, Care Navigation, and Utilization Review to arrange appropriate level of services according to patient's needs based on patient preference and payer coverage in collaboration with the physician and health care team 3. Address psychosocial, clinical, and financial barriers to discharge as identified in assessment in conjunction with the patient/family and health care team 4. Consult appropriate ancillary services (i.e.. PT/OT/ST, etc) as needed 5. Communicate with and update the patient/family, physician, and health care team regarding progress on the discharge plan 6. Identify discharge learning needs (meds, wound care, etc). 7. Arrange for needed discharge transportation as appropriate Outcome: Progressing Note: Evaluation of progress towards goal: Care plan discussed & goals for shift set with patient input appreciated. All questions answered. Problem: Moderate - High Risk Fall Score Description: Decker Fall Score of =/> 25 or indicated by [facility] Assessment Goal: Patient should be free from fall Description: Interventions: 1. [place] to environment 2. Hourly rounds addressing the 4 P's (Pain, Positioning, Possessions, Potty) 3. Clear area of hazards (spills, clutter, electrical cords, unnecessary equipment) 4. Place equipment (bed & TV controls, call light, phone, urinal) within reach 5. Encourage patient to wear glasses and hearing aides as appropriate 6. Maintain bed in lowest position 7. Lock wheels on bed/wheelchair 8. Provide adequate lighting, including night light 9. Assess need for additional bedding, food/fluids, pain med's prior to sleep/routinely 10. Provide gripper slippers or personal non-skid footwear 11. Teach patient and patient fuels sales representative to maintain environment for safety and engage in all aspects of fall prevention program 12. Remind patient to call for help before getting out of bed 13. Initiate bed/chair/exit alarms supportive devices as appropriate, (chair wedge, no-skid floor mat, raised edge mattress, hip protectors) 14. Locate patient bed assignment for optimal visualization 15. Evaluate and identify Safe Patient Handling Equipment needs 16. Provide supervision when out of bed or chair 17. Utilize gait belt as needed to assist with ambulation 18. Place adaptive equipment (cane, walker) within reach 19. Request patient fuels sales representative bring adaptive equipment/mobility aids from home or obtain and provide as needed 20. Consult pharmacy regarding effects of med's affecting mobility, cognition, and alternatives 21. Obtain physician order for PT if risk factors associated with mobility are present 22. Obtain physician order for OT as appropriate 23. Utilize diversional activities 24. Educate patient and patient fuels sales representative how to maintain a safe environment during visitation times (notify nurse prior to leaving bedside) 25. Consider appropriateness of medical or non-medical artist 26. Set up voiding schedule as appropriate (every 2 hours) Outcome: Progressing Note: Evaluation of progress towards goal: Fall risk assessment preformed and safety measures in place. Education given to family/patient. Will continue to monitor. Problem: Potential for Compromised Skin Integrity Goal: Skin integrity is maintained or improved Description: Patient's goal is: INTERVENTIONS 1. Perform initial skin assessment on admission and as needed 2. Turn patient every 2 hours and PRN 3. Relieve pressure to bony prominences 4. Avoid shearing 5. Keep skin clean and dry 6. Alternate a full bath with partial baths for elderly 7. Apply lotion/moisturizer on skin 8. Monitor patient's hygiene practices 9. Float heels 10. Collaborate with interdisciplinary team and initiate plans and interventions as needed Outcome: Progressing Note: Evaluation of progress towards goal: wound care per orders right lower ext Problem: Pain Goal: Patient goal is pain score less than 4, able to rest, and participant in treatment plan as appropriate Description: INTERVENTIONS: 1. Encourage patient or legal fuels sales representative to report early pain and ask for pain medicine when needed 2. Assess pain using appropriate pain scale and include the scale used when documenting 3. Administer analgesics based on type and severity of pain and evaluate response within appropriate time frame 4. Implement non-pharmacological measures as appropriate and evaluate response 5. Consider cultural and social influences on pain and pain management 6. Notify LIP if interventions ineffective or patient reports new pain 7. Monitor vital signs including pulse ox, end-tidal CO2 based on pain intervention 8. Reassess pain per policy 9. Teach patient or legal fuels sales representative interventions for comforting Outcome: Progressing Note: Evaluation of progress towards goal: Patient tolerating pain. Pain medication available. Reginald denies pain at this time. He is able to verbalize pain using a 0-10 verbal scale appropriately. Problem: Pain Goal: Patient goal is pain score less than 4, able to rest, and participant in treatment plan as appropriate Description: INTERVENTIONS: 1. Encourage patient or legal fuels sales representative to report early pain and ask for pain medicine when needed 2. Assess pain using appropriate pain scale and include the scale used when documenting 3. Administer analgesics based on type and severity of pain and evaluate response within appropriate time frame 4. Implement non-pharmacological measures as appropriate and evaluate response 5. Consider cultural and social influences on pain and pain management 6. Notify LIP if interventions ineffective or patient reports new pain 7. Monitor vital signs including pulse ox, end-tidal CO2 based on pain intervention 8. Reassess pain per policy 9. Teach patient or legal fuels sales representative interventions for comforting Outcome: Progressing Note: Evaluation of progress towards goal: Patient rates pain as tolerable this shift. Patient encouraged to report need for pain medications as needed. Patient assessed for pain using appropriate pain scale. Problem: Infection Goal: Absence of infection during hospitalization Description: INTERVENTIONS 1. Assess and monitor for signs and symptoms of infection. 2. Monitor lab/diagnostic results. 3. Monitor all insertion sites i.e., indwelling lines, tubes and drains. 4. Monitor endotracheal (as able) and nasal secretions for changes in amount and color. 5. Administer medications as ordered. 6. Instruct and encourage patient and family to use good hand hygiene technique. 7. Identify and instruct patient/patient fuels sales representative in use of appropriate isolation precautions for identified infection/symptoms. 8. Provide and discuss with patient/patient fuels sales representative on educational MDRO sheet. 9. Encourage and monitor nutritional status daily and consult produce weigher if indicated. 10. Implement neutropenic guidelines as needed. Outcome: Progressing Note: Evaluation of progress towards goal: Patient evaluated for s/s of infection. Patient's vital signs, labs, and diagnostic results are being monitored each shift. Problem: Discharge Planning Goal: Discharge to post-acute care, other facility, or home with appropriate resources Description: Patient's goal is: INTERVENTIONS 1. Conduct assessment to determine patient/family and health care team treatment goals, and need for post-acute services based on payer coverage, community resources, and patient preferences, and barriers to discharge 2. Coordinate with Social work, Care Navigation, and Utilization Review to arrange appropriate level of services according to patient's needs based on patient preference and payer coverage in collaboration with the physician and health care team 3. Address psychosocial, clinical, and financial barriers to discharge as identified in assessment in conjunction with the patient/family and health care team 4. Consult appropriate ancillary services (i.e.. PT/OT/ST, etc) as needed 5. Communicate with and update the patient/family, physician, and health care team regarding progress on the discharge plan 6. Identify discharge learning needs (meds, wound care, etc). 7. Arrange for needed discharge transportation as appropriate Outcome: Progressing Note: Evaluation of progress towards goal: Discharge planning is in progress at this time. Images from the original note were not included. [facility] Operative Note DATE OF PROCEDURE: 09/13/2024 PATIENT NAME: Poncho Jose Jr. SURGEON: Surgeons and Role: * Elyssa Murray MD - Primary ASSISTANTS: RITA ALEXANDER DO Vascular Surgery Fellow STAFF: Head Stock Transfer Clerk Primary: Dino Erickson RN Scrub Relief: Asher Pool RN Scrub Person: Mari Hidalgo CST Fellow: Rita Alexander DO Nurse Count Only: Asher Pool RN PRE-OP DIAGNOSIS: Superfical femoral artery occlusive disease POST-OP DIAGNOSIS: same PROCEDURE: Right superficial femoral to proximal popliteal artery bypass using 7 mm x 60 cm Dacron ANESTHESIA: general EBL: 100 cc FLUIDS: please see anesthesia documentation COMPLICATIONS: None. CONDITION: stable WOUND CLASS: 1 ADDITIONS (Drains, Specimens, Implants): Drains: Urinary Catheter 09/13/24 Single lumen (Active) Catheter Status Patent 09/13/24 1356 Site Assessment Clean 09/13/24 135 Collection Container Standard drainage bag/container 09/13/241355 Tamper Evident Seal Intact Yes 09/13/24 135 Reason for Continuing Physician order 09/13/24 1356 Urine Color Yellow/straw 09/13/241355 Urine Appearance Clear 09/13/241355 Bladder Instillation? No 09/13/241355 Specimens: * No specimens in log * Implants: Implant Name Type Inv. Item Serial No. Termite Control Servicer Lot No. LRB No. Used Action GRAFT CV 60CM 7MM THOR 2 [address]ASS [address] [facility] [address] [facility] STR - [id number] - [id number] Graft GRAFT CV 60CM 7MM THOR 2 PASS SW [facility] [address] [facility] VLR CLGN STR [id number] [email or web address] [id number] Right 1 Implanted HISTORY: The patient is a 69 y.o. male with history of PAD. Patient was agreeable and elected to pursue intervention. Risks, benefits, and alternatives were discussed prior to the procedure including, but not limited to, the risks of infection, blood loss, damage to nearby tissues/ nerve injury, cardiac / pulmonary complications, and even . All questions/concerns were addressed and informed consent was obtained, witnessed, and placed on the patient's chart. PROCEDURE: Patient was brought back to the operative suite and placed in the supine position. A time out was completed confirming identification of proper patient, position, and procedure to be preformed. General anesthesia was induced. Bilateral groins were clipped and a tineo catheter was placed. The patient was prepped and draped in normal sterile fashion. Preoperative antibiotic of ancef was administered. Ultrasound was performed and identified a great saphenous vein in the right lower extremity and seemed adequate for harvesting for a bypass The right groin evaluated and incision planned using a skin marker. The inncision created with a scalpel followed by electrosurgical pencil. The femoral artery was then identified after dissection in the groin was aided by pulsation. Lymphatic branches were isolated and ligated as they were encountered. The superficial femoral artery was identified, proximal and distal control was obtained with vessel loops. Attention was turned distally to the proximal popliteal artery. A 8 cm longitudinal skin incision was performed on the medial aspect of the thigh along the anticipated anterior border of the sartorius muscle via scalpel. Incision was deepened through subcutaneous tissue via electrosurgical pencil. The adductor tendon was exposed anteriorly and the sartorius muscle posteriorly. The fascia between these two muscles was incised and the popliteal space was entered. A self-retaining retractor was placed deeper into the wound. The popliteal artery was identified and was further exposed. A 2cm segment of popliteal A was sharply dissected circumferentially. Care was taken to separate adjacent popliteal vein from artery. Small venous branches were ligated as they were encountered. Popliteal artery was palpated and noted to be partially calcified. Distal and proximal control of the popliteal artery was obtained via vessel loops. A tunnel was created from the incision of the medial knee to the groin incision using [employer] tunnel device. Distal tunnel was initiated in subsartorial space with proximal tunnel ending subfascially within the groin incision. The Graft was then pulled through the electric range assembler being careful to avoid any twist or kinks. The patient was given systemic heparin that was allowed to circulate systemically for >3 minutes prior to arterial occlusion. A longitudinal arteriotomy was created along the superficial femoral artery with #11 blade scalpel and extended to 1.5 cm with Bocanegra scissors. The 7 mm by 60 cm dacron graft was spatulated to fit the SFA arterotomy. 5-0 Prolene Suture was used to create a end to side anastomosis in the standard fashion. The popliteal artery was then occluded distally and proximally with vessel loops. An arteriotomy was created along the anterior surface of the popliteal artery using #11 blade scalpel. The arteriotomy extended distally and proximally with Bocanegra scissors for total length of approximately 1cm. The conduit was approximated to arteriotomy and appropriate length was noted to be adequate. The conduit was trimmed to size and spatulated to match the arteriotomy. The arteriotomy was irrigated with heparinized saline. The popliteal artery was flushed distally and proximally with heparinized saline. Distal anastomosis was created between the conduit and above knee popliteal artery in end-to-side fashion using, 5-0 prolene suture in running fashion. Prior to completion, the suture line vessels were allowed to forward/back bleed. The suture line was completed and repair sutures were placed as needed to obtain full hemostasis. Flow distal to the bypass was confirmed with Doppler signal. The foot was evaluated and found to have multiphasic DP and PT Doppler signal. All suture lines were again inspected and found to be hemostatic. Hemostasis of subcutaneous tissues was ensured with electrocautery. Wounds closed in multi-layer fashion with 2-0 vicryl inverted inturrupted in the deep fascial layer as well as deep subcutaneous layer. Skin was closed with 2-0 prolene vertical mattress sutures. All sponge and instrument counts were correct at the end of the procedure. The patient tolerated the procedure well, was awakened from anesthesia and transported to SICU in stable condition. Dr. Murray was present for the entire procedure. Post-Op: Asa/Plavix Daily betadine paint to dry gangrene foot wounds Multiphasic Right DP and PT Doppler signal Cosigned by Elyssa Murray MD at 09/14/2024 6:59 PM EST Associated attestation - Elyssa Murray MD - 09/14/2024 6:59 PM EST I was present and performed all the critical portions of the procedure, performed structured guidance at appropriate times, and was always immediately available. Elyssa Murray MD, MELITA Vascular Surgery documented in this encounter [facility] 09-16-2024 Progress note Formatting of t his note is different from the original. Occupational Therapy Evaluation Discharge Recommendations OT Recommendations : Home Home Recommendations: 24 hour caregiver support for: (ADLs and IADLs prn) Post Discharge Therapy Recommendations: Home Occupational Therapy 6 Clicks: Daily Activity Putting on and taking off regular lower body clothing?: A lot Bathing (including washing, rinsing, drying)?: A little Toileting, which includes using toilet, bedpan or urinal?: A little Putting on and taking off regular upper body clothing?: A little Taking care of personal grooming such as brushing teeth?: None Eating meals?: None Scoring Daily Activity Raw Score: 19 CMS G Code Modifier: CK Therapy Plan Need for skilled Occupational Therapy to address deficits in ADL independence and functional mobility due to a status decline resulting from hospitalization for PAD. Pt is 69 year old male with pmh: CKD3, CAD, PAD, R great toe and R heel wounds with increased pain Admitted 09/13 s/p R SFA to proximal pop bypass 09/15 s/p R great toe amp Per Vascular R heel touch WB in ortho wedge shoe Pt seen this date for Occupational Therapy evaluation; additional information re: pt past medical history and current occupational profile can be found within report below. Past Medical History: Diagnosis Date Allergies Arthritis Back pain CAD (coronary artery disease) Chest pain Colon [place] Diabetes mellitus type 2, controlled [place] GERD (gastroesophageal reflux disease) Hearing loss Hemorrhoids Hyperlipidemia Hypertension Ischemic cardiomyopathy Myocardial infarction [place]) Obesity PAD (peripheral artery disease) ([facility] 09/13/2024 Rash big toe, heal Testicular cancer ([facility] Past Surgical History: Procedure Laterality Date AMPUTATION RIGHT GREAT TOE Right 09/15/2024 Performed by Elyssa Murray MD at [facility] ANGIOGRAM EXTREMITY LOWER- EXTERNAL ILIAC, AND SUPERFICIAL FEMORAL Right 07/29/2024 Performed by Elyssa Murray MD at [facility] PROC APPENDECTOMY 2015 BYPASS ARTERY FEMORAL POPLITEAL Right 09/13/2024 Performed by Elyssa Murray MD at [facility] CARDIAC SURGERY COLON SURGERY 07/26/2014 Dr. Pritchard COLONOSCOPY 08/08/2016 Dr. Pritchard COLONOSCOPY 07/20/2015 Dr. Pritchard COLONOSCOPY 07/03/2014 Dr. Pritchard COLONOSCOPY 03/04/2013 Dr. Pritchard COLONOSCOPY 05/03/2010 Dr. Pritchard COLONOSCOPY 06/15/2006 Dr. Oneil COLONOSCOPY N/A 08/19/2019 Performed by Leonid Pritchard MD at [facility] COLONOSCOPY BIOPSY N/A 07/22/2024 Performed by Shae Olson DO at [facility] CORONARY ARTERY BYPASS GRAFT 2015 ENDARTERECTOMY FEMORAL WITH PATCH ANGIOPLOASTY Right 07/29/2024 Performed by Elyssa Murray MD at [facility] PROC ESOPHAGOGASTRODUODENOSCOPY 03/04/2013 Dr. 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 08/12/2024 Performed by Elyssa Murray MD at [facility] CATH LABS SHOCKWAVE LITHOTRIPSY RIGHT ILIAC ARTERY, STENT ANGIOPLASTY X2 Right 07/29/2024 Performed by Elyssa Murray MD at [facility] PROC VASECTOMY 1980 OT Treatment/Interventions: ADL retraining, Functional transfer training, UE strengthening/ROM, Endurance training, Patient/family training, Equipment eval/education, Balance, Bed mobility, Compensatory technique education, Functional activities OT Frequency: 5-6days/week OT Duration: LOS Assessment Patient Assessment Therapy Problem List: Decreased ADL status, Decreased balance, Decreased endurance, Decreased high-level ADLs, Decreased mobility, Decreased safe judgement during ADL, Decreased self-care trans Patient Response to Treatment: Tolerated evaluation without adverse reaction Mood/Affect: Appropriate for circumstances Rehab Prognosis: Good, With continued OT status post acute discharge Visit RN Communication: Yes Medical Record Reviewed: Yes OT Type of Visit: Evaluation Precautions Activity: early mobility - pass; okay to see per RN Equipment: RW, gait belt, offloading shoe Weight Bearing Status: R Heel touch WB ortho wedge shoe Telemetry/Movie Projectionist: Yes Oxygen Used: room air Other: fall risk, s/p R SFA bypass and R great toe amp Subjective Occupational Therapy Comments: It's not too bad right now. Pain Assessment Pain Assessment: 0-10 Pain Score: 2 Pain Location: Toe (Comment which one) (great / amp site) Pain Orientation: Right Pain Intervention(s): Repositioned, Ambulation/increased activity Home Living Type of Home: House ([place] with walk-out basement) Home Layout: Two level (Bed and bath main floor, Family room and full bath in basement. 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 Denies recent falls. 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 Pt is provided with ordered ortho wedge shoe and educated on its use. Assistance to don own sock / shoe in addition to R ortho wedge shoe while seated EOB. Pt completes toileting with CGA for toilet transfer, is modified ind with LE management. Scores listed above that were not directly observed are based on clinical judgment and assessment of pt person factors and performance skills. Home Management - IADL Other: Pt is supine in bed upon arrival. Pt is provided with ordered ortho wedge shoe and educated on its use. Assistance to don own sock / shoe in addition to R ortho wedge shoe while seated EOB. Pt completes toileting with CGA for toilet transfer, is modified ind with LE management. Scores listed above that were not directly observed are based on clinical judgment and assessment of pt person factors and performance skills. Hearing / Speech / Vision Hearing: Hard of hearing/hearing concerns, Other (Comment) (deaf L ear) Speech: Within Functional Limits Current Vision: Wears glasses only for reading Cognition Overall Cognitive Status: Within Functional Limits (cues for safety and WB restrictions) Sensation Overall Sensation Status: Consistent with premorbid status (neuropathy B feet) Bed Mobility Supine to Sit: Stand by assist Sit to Supine: Unable to assess (up in chair at end of tx with call light in hand, tray table in reach and all needs met. RN in room changing dressing.) Other: HOB elevated, use of bedrail. Pt denies light headed or dizziness. Transfers Sit to Stand: Contact guard assist Stand to Sit: Contact guard assist Toilet Transfers: Contact guard assist (standard toilet, L grab bar) Other: Completed with RW, cues for hand placement and safety, reminders for WB restrictions. Gait Other: Pt completes functional ambulation in room this date with use of RW and CGA for safety. Pt requires cues for sequencing and proper use of ortho wedge shoe, cues for slowing down. No overt LoB noted. Completes approx 10 feet + 15 this + 20 date. Balance Sitting Balance: Static: Good Sitting Balance: Dynamic: Good Standing Balance: Static: Good Standing Balance: Dynamic: Fair Other: UE support on RW during ambulation RUE Assessment: Within Functional Limits LUE Assessment: Within Functional Limits RLE Assessment: (see PT eval) LLE Assessment: (see PT eval) Activity Tolerance Endurance: Tolerates <30 minutes activity WITHOUT vital sign changes Other: Rest breaks prn. Plan Occupational Therapy Care Plan Occupational Therapy Care Plan (Active) Template: OT - Occupational Therapy Problem: Activity Tolerance Dates: Start: 09/16/24 Disciplines: OT Goal: Tolerate > 30 minutes of activity WITH rest breaks Dates: Start: 09/16/24 Expected End: 09/23/24 Description: Goal Description: Disciplines: OT Problem: Bed Mobility Dates: Start: 09/16/24 Disciplines: OT Goal: Patient will perform bed mobility with Modified Turner Dates: Start: 09/16/24 Expected End: 09/23/24 Description: Goal Description: Disciplines: OT Problem: Functional Mobility Dates: Start: 09/16/24 Disciplines: OT Goal: Patient will perform functional mobility with Modified Turner Dates: Start: 09/16/24 Expected End: 09/23/24 Description: Goal Description: Disciplines: OT Problem: Other (Customize) Dates: Start: 09/16/24 Disciplines: OT Goal: Improve Dates: Start: 09/16/24 Expected End: 09/23/24 Description: Goal Description: Pt will complete ADLs with modified independence while demonstrating increased safety awareness and with DME/AD use as needed. Disciplines: OT Problem: Sitting Balance Dates: Start: 09/16/24 Disciplines: OT Goal: Improve balance to normal Dates: Start: 09/16/24 Expected End: 09/23/24 Description: Static Dynamic Disciplines: OT Problem: Standing Balance Dates: Start: 09/16/24 Disciplines: OT Goal: Improve balance to good Dates: Start: 09/16/24 Expected End: 09/23/24 Description: Static Dynamic Disciplines: OT Problem: Transfers Dates: Start: 09/16/24 Disciplines: OT Goal: Patient will perform transfers with Modified Turner Dates: Start: 09/16/24 Expected End: 09/23/24 Description: Goal Description: Disciplines: OT Occupational Therapy Care Plan (Resolved) There are no resolved problems. Principal Problem: PAD (peripheral artery disease) ([facility] Active Problems: Atherosclerosis of [place] artery of right lower extremity with ulceration ([facility] Encounter for therapeutic drug monitoring [facility] [id number] [facility] 09-16-2024 Progress note Formatting of t his note is different from the original. Physical Therapy Discharge Recommendations PT Recommendations: Home Home Recommendations: 24 hour caregiver support for: (safety with ADL/IADLS as needed) Post Discharge Therapy Recommendations: Home Physical Therapy Therapy Plan Need for skilled Physical Therapy to address deficits in functional mobility due to a status decline resulting from hospital admission 09/13/24 for R superficial femoral to proximal popliteal artery bypass and amputation of R great toe. Pt to wear ortho wedge shoe when up and ambulating. DX: PAD Past Medical History: Diagnosis Date Allergies Arthritis Back pain CAD (coronary artery disease) Chest pain Colon cancer [place] Diabetes mellitus type 2, controlled [place] GERD (gastroesophageal reflux disease) Hearing loss Hemorrhoids Hyperlipidemia Hypertension Ischemic cardiomyopathy Myocardial infarction [place]) Obesity PAD (peripheral artery disease) ([facility] 09/13/2024 Rash big toe, heal Testicular cancer ([facility] Past Surgical History: Procedure Laterality Date AMPUTATION RIGHT GREAT TOE Right 09/15/2024 Performed by Elyssa Murray MD at [facility] ANGIOGRAM EXTREMITY LOWER- EXTERNAL ILIAC, AND SUPERFICIAL FEMORAL Right 07/29/2024 Performed by Elyssa Murray MD at [facility] PROC APPENDECTOMY 2015 BYPASS ARTERY FEMORAL POPLITEAL Right 09/13/2024 Performed by Elyssa Murray MD at [facility] CARDIAC SURGERY COLON SURGERY 07/26/2014 Dr. Pritchard COLONOSCOPY 08/08/2016 Dr. Pritchard COLONOSCOPY 07/20/2015 Dr. Pritchard COLONOSCOPY 07/03/2014 Dr. Pritchard COLONOSCOPY 03/04/2013 Dr. Pritchard COLONOSCOPY 05/03/2010 Dr. Pritchard COLONOSCOPY 06/15/2006 Dr. Oneli COLONOSCOPY N/A 08/19/2019 Performed by Leonid Pritchard MD at [facility] COLONOSCOPY BIOPSY N/A 07/22/2024 Performed by Shae Olson DO at [facility] CORONARY ARTERY BYPASS GRAFT 2015 ENDARTERECTOMY FEMORAL WITH PATCH ANGIOPLOASTY Right 07/29/2024 Performed by Elyssa Murray MD at [facility] PROC ESOPHAGOGASTRODUODENOSCOPY 03/04/2013 Dr. 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 w/c or bedside chair)?: A little To walk in hospital room?: A little Climbing 3-5 steps with a railing?: A lot Scoring 6 Clicks: Basic Mobility Raw Score: 19 CMS G Code Modifier: CJ PT Treatment/Interventions: Functional transfer training, Endurance training, Patient/family training, Equipment eval/education, Balance, Gait training PT Frequency: 4-5days/week PT Duration: LOS Patient Response to Treatment: Tolerated evaluation without adverse reaction, Slow progress, decreased activity tolerance Assessment Patient Assessment Therapy Problem List: Decreased balance, Decreased endurance, Decreased mobility Patient Response to Treatment: Tolerated evaluation without adverse reaction, Slow progress, decreased activity tolerance Mood/Affect: Appropriate for circumstances Rehab Prognosis: Good, With continued PT status post acute discharge Visit RN Communication: Yes Medical Record Reviewed: Yes OT Type of Visit: Evaluation Precautions Activity: early mobility - pass; okay to see per RN Equipment: RW, gait belt, offloading shoe, ROOKE boot Weight Bearing Status: ortho wedge shoe R foot Telemetry/Movie Projectionist: Yes Oxygen Used: room air Other: (S) fall risk, s/p R great toe amp and R SFA bypass, pt must wear ortho wedge shoe when up and ambulating Pain Assessment Pain Assessment: 0-10 Pain Score: 2 Pain Location: Toe (Comment which one) (R great toe amp site) Pain Orientation: Right Pain Intervention(s): Repositioned, Ambulation/increased activity Response to Interventions: Quiet Home Living Type of Home: House Home Layout: One level, Able to live on main level with bedroom/bathroom (walk in basement, pt has living quarters on this level that includes full bath and is able to sleep in lift chair on this level as well.) Stairs to Enter: 0 thru basement walk in Stairs in Home: 4 steps to main floor of home Hand Rails in Home: Bilateral Bathroom Shower/Tub: (walk in tub with cut out) Bathroom Toilet: Raised Bathroom Equipment: Grab bars in shower, Built-in shower seat, Hand-held shower Home Equipment: 4 Wheeled walker, Cane, Wheelchair-manual, Lift chair, Electric scooter Other : pt denied needing DME for mobility prior to admission, pt used scooter for community distances Prior Function Lives With: Spouse (home 02/02) Receives Help From: Family (local daughter) Level of Mobility: Needs assistance with ADLs or functional transfers or gait (spouse assists with socks/shoes and supervision with bathing) Homemaking Assistance: (spouse addresses household tasks) 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 Jane RN present and working on dressing change for R foot.) Other: HOB elevated, use of bedrail. Pt denies light headed or dizziness. Once pt was seated at EOB, ortho wedge shoe was placed on R foot and sock and shoe on L foot. Transfers Sit to Stand: Contact guard assist Stand to Sit: Contact guard assist Toilet Transfers: Contact guard assist (with use of L grab bar) Other: Verbal cues for safety as pt attempted to stand before safely appropriate. Gait Base of Support: Within Functional Limits Pattern: Decreased ligia, Forward trunk Gait Assistance: Contact guard assist Assistive Device: Rolling walker Gait Distance: 15ftx1, 20ftx1 Limiting Factors to Gait: (dressing R foot blood-soaked and required change) Other: Max verbal cues for upright posture as well as verbal cues for proper gait technique with use of ortho wedge shoe. Pt tends to attempt heel/toe ambulation on R and required continuous cues for only heel contact on R. Balance Sitting Balance: Static: Good Sitting Balance: Dynamic: Good Standing Balance: Static: Good ((-)) Standing Balance: Dynamic: Fair ((+)) Other: Pt able to sit EOB and toilet unsupported but does require BUE support on RW while ambulating. RUE Assessment: (see OT eval) LUE Assessment: (see OT eval) RLE Assessment: (grossly 4/5, ankle NT due to recent toe amp) LLE Assessment: Within Functional Limits Activity Tolerance Endurance: Tolerates <30 minutes activity WITHOUT vital sign changes Other: pt HU but recovers well with rest breaks Plan Physical Therapy Care Plan Physical Therapy Care Plan (Active) Template: PT - Physical Therapy Problem: Activity Tolerance Dates: Start: 09/16/24 Disciplines: PT Goal: Tolerate > 30 minutes of activity WITH rest breaks Dates: Start: 09/16/24 Expected End: 10/10/24 Description: To improve overall strength and endurance for functional mobility. Disciplines: PT Problem: Gait Dates: Start: 09/16/24 Disciplines: PT Goal: Patient will perform gait with Stand By Assist Dates: Start: 09/16/24 Expected End: 10/10/24 Description: With_RW and ortho wedge shoe R foot___,_50___feet for safe access to restroom with nursing staff Goal Description: Disciplines: PT Problem: Standing Balance Dates: Start: 09/16/24 Disciplines: PT Goal: Improve balance to good Dates: Start: 09/16/24 Expected End: 10/10/24 Description: With use of AD to reduce fall risk during ambulation Disciplines: PT Problem: Transfers Dates: Start: 09/16/24 Disciplines: PT Goal: Patient will perform transfers with Modified Turner Dates: Start: 09/16/24 Expected End: 10/10/24 Description: Goal Description: Disciplines: PT Physical Therapy Care Plan (Resolved) There are no resolved problems. Principal Problem: PAD (peripheral artery disease) ([facility]) Active Problems: Atherosclerosis of [place] artery of right lower extremity with ulceration ([facility]) Encounter for therapeutic drug monitoring [facility] 09-16-2024 Hospital course Narrative Images from the original note were not included. Vascular Discharge Summary PATIENT NAME: Poncho Jose Jr. BIRTHDATE: 1955 DATE: 09/16/2024 PRIMARY CARE PHYSICIAN: ABBE WONG ADMITTING DIAGNOSIS: 1. Postoperative state DISCHARGE DIAGNOSIS: Patient Active Problem List Diagnosis Ischemic cardiomyopathy Chest pain CAD (coronary artery disease) Benign essential hypertension Hyperlipidemia History of colon cancer Hx of adenomatous colonic polyps Adenomatous polyp of descending colon Diverticulosis large intestine w/o perforation or abscess w/o bleeding Stage 3 chronic kidney disease ([facility]) Hypomagnesemia Transient neurological symptoms Dizziness Left carotid artery stenosis Critical lower limb ischemia ([facility]) Diarrhea 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 [place] Atherosclerosis of [place] artery of right lower extremity with ulceration ([facility] Encounter for therapeutic drug monitoring PAD (peripheral artery disease) ([facility]) DISCHARGE DATE: 09/16/2024 HOSPITAL COURSE: Poncho Jose Jr. is a 69 y.o. male who was admitted on 09/13/2024 with peripheral arterial disease. He has past medical history significant for hypertension, hyperlipidemia, VT, obesity, CAD, type 2 diabetes mellitus, GERD, and VT. patient had right lower extremity ulceration secondary to peripheral arterial disease and diabetes. He underwent right femoral endarterectomy and right common iliac and external iliac stent angioplasty on 07/19/2024. He has a wound on his right great toe and right heel. He was admitted for a scheduled right femoral popliteal artery bypass on 09/13/[address] Murray and subsequently underwent right great toe amputation on 09/15/[address] Murray. Patient progressed well throughout hospitalization. His incision from the bypass and right great toe amputation site incision was assess today and it looks clean with no signs of infection. His incision is closed with sutures and he was educated on wound dressing changes and incisional care. He will be discharging on low-dose aspirin, PAD Xarelto 2.5 mg b.i.d., Plavix and Crestor. Patient is cleared to discharge home with home health care today. Surgery/procedure performed: Right femoral to popliteal artery bypass on 09/13 and right great toe amputation on 09/15/[address] Murray. Labs and imaging were followed routinely and plan of care was adjusted accordingly. Patient progressed well throughout their hospitalization and eventually discharge to Home with home care DISCHARGE INSTRUCTIONS: WOUND CARE: Leave sutures in place until office visit . RESUME ACTIVITY: BATHING: Ok to shower. -No bath tubs, soaks, hot tubs, or swimming until cleared at post-operative office visit. DRIVING: No driving for while on narcotic pain medication WALKING: Yes LIFTING: No heavy lifting, pushing, pulling,or strenuous exercise until cleared at post-operative office visit. Do not lift over 10 pounds. DIET: Ok to resume regular diet. Discharge Medications: Your medication list START taking these medications Instructions Last Dose Given Next Dose Due oxyCODONE 5 mg immediate release tablet Commonly known as: ROXICODONE Take 1 tablet (5 mg total) by mouth every 8 (eight) hours as needed for pain for up to 5 days. Max Daily Amount: 15 mg rivaroxaban 2.5 mg tablet Commonly known as: XARELTO Take 1 tablet (2.5 mg total) by mouth in the morning and 1 tablet (2.5 mg total) before bedtime. CONTINUE taking these medications Instructions Last Dose Given Next Dose Due acetaminophen 325 mg tablet Commonly known as: TYLENOL aspirin 81 mg carvediloL 6.25 mg tablet Commonly known as: COREG Take 1 tablet (6.25 mg total) by mouth 2 (two) times a day with meals. clopidogreL 75 mg tablet Commonly known as: PLAVIX Take 1 tablet (75 mg total) by mouth in the morning for 60 days. dapagliflozin propanediol 10 mg tablet Commonly known as: FARXIGA famotidine 20 mg tablet Commonly known as: PEPCID glimepiride 4 mg tablet Commonly known as: AMARYL LANTUS SOLOSTAR SUBQ memantine 5 mg tablet Commonly known as: NAMENDA pioglitazone 30 mg tablet Commonly known as: ACTOS rosuvastatin 10 mg tablet Commonly known as: CRESTOR STOP taking these medications lisinopriL 10 mg tablet Commonly known as: PRINIVIL,ZESTRIL metFORMIN 1000 mg tablet Commonly known as: GLUCOPHAGE nitroglycerin 0.4 MG SL tablet Commonly known as: NITROSTAT Where to Get Your Medications These medications were sent to [facility]/pharmacy #[id number] - [place], [place] - [address] [facility] [address] [facility] [id number] oxyCODONE 5 mg immediate release tablet These medications were sent to [facility] - [facility] [address] [facility] [address] [facility] [id number] rivaroxaban 2.5 mg tablet Follow-up: Future Appointments Date Time Provider Department Center 10/06/2024 10:40 AM Elyssa Murray [facility] Dougie Be Follow-up Information SEAN MICHELLE, FLATWARE MAKER-HEAD SULFIDE OPERATOR . Specialty: Family Medicine Contact information: [address] [facility] [id number] Scheduled Appointments Oct 06, 2024 10:40 AM (Arrive by 10:25 AM) POST OPERATION VISIT with Elyssa Murray MD [facility] ([facility]) [address] [place] [phone] At the time of your visit please be aware of the following COVID-19 information: If you develop a new cough, fever, or shortness of breath, please call before your appointment. Please plan to arrive at least 15 minutes earlier than your appointment time as screening and registration may take longer than anticipated. Please consider the [facility] eCheck-in to pre-register and make your co-payment before your visit. This will reduce your registration time. Please be aware that the [facility] facility you are visiting may require you to wear a mask. It will not be unusual if you find that masking is required in some locations and not required in other locations. The determination is made based on the amount of COVID transmission and infection rate in the community where the facility is located. Please be prepared to wear a mask if the facility you are visiting requires masking. Masks are available upon entry into the facility; however, it is best to bring your own mask and put it on before entering the facility. If wearing a mask is not possible due to an underlying health condition, please work with your care team on an alternate plan before your scheduled appointment. ABBE Haider/ [facility] [place] ABBE Haider 09/16/24 1342 Cosigned by Thelma Patrick MD at 09/16/2024 3:16 PM EST documented in this encounter [facility] 09-16-2024 Progress note Formatting of t his note might be different from the original. DISCHARGE PLANNING NOTE Case discussed in daily transition rounds and chart reviewed by CN. Barriers to discharge include vascular's final plan Discharge Plan remains: Home with Home Care. Referral sent to Med. Await acceptance. CN will continue to follow and is available should any further needs arise. - Lynn Arcos RN 09/16/24 11:11 AM [facility] confirms acceptance for home care. Informed of possible discharge today. - Lynn Arcos RN 09/16/24 12:37 PM CRF sent via Careport to Med 1 - Lynn Arcos RN 09/16/24 4:12 PM [facility] 09-16-2024 Plan of care note Problem: Safety Goal: Patient will be injury free during hospitalization Description: INTERVENTIONS: 1. Assess patient's risk for falls and implement fall prevention plan of care per policy 2. Provide and maintain a safe environment 3. Proper use of double Identifiers 4. Medication administration using the 5 rights 5. Hand hygiene 6. Specimens are labeled at the bedside 7. Instruct patient/ patient fuels sales representative about use of safety devices 8. Include patient/ patient fuels sales representative in decisions related to safety Outcome: Progressing Note: Evaluation of progress towards goal: pt free from falls this shift Problem: Infection Goal: Absence of infection during hospitalization Description: INTERVENTIONS 1. Assess and monitor for signs and symptoms of infection. 2. Monitor lab/diagnostic results. 3. Monitor all insertion sites i.e., indwelling lines, tubes and drains. 4. Monitor endotracheal (as able) and nasal secretions for changes in amount and color. 5. Administer medications as ordered. 6. Instruct and encourage patient and family to use good hand hygiene technique. 7. Identify and instruct patient/patient fuels sales representative in use of appropriate isolation precautions for identified infection/symptoms. 8. Provide and discuss with patient/patient fuels sales representative on educational MDRO sheet. 9. Encourage and monitor nutritional status daily and consult produce weigher if indicated. 10. Implement neutropenic guidelines as needed. Outcome: Progressing Note: Evaluation of progress towards goal: pt afebrile-cont to monitor Problem: Knowledge Deficit Goal: Patient/patient fuels sales representative demonstrates understanding of disease process, treatment plan, medications, and discharge instructions Description: INTERVENTIONS 1. Complete learning assessment and assess knowledge base 2. Provide teaching at level of understanding 3. Provide teaching via preferred learning method(s) Outcome: Progressing Note: Evaluation of progress towards goal: pt updated on poc Problem: Discharge Planning Goal: Discharge to post-acute care, other facility, or home with appropriate resources Description: Patient's goal is: INTERVENTIONS 1. Conduct assessment to determine patient/family and health care team treatment goals, and need for post-acute services based on payer coverage, community resources, and patient preferences, and barriers to discharge 2. Coordinate with Social work, Care Navigation, and Utilization Review to arrange appropriate level of services according to patient's needs based on patient preference and payer coverage in collaboration with the physician and health care team 3. Address psychosocial, clinical, and financial barriers to discharge as identified in assessment in conjunction with the patient/family and health care team 4. Consult appropriate ancillary services (i.e.. PT/OT/ST, etc) as needed 5. Communicate with and update the patient/family, physician, and health care team regarding progress on the discharge plan 6. Identify discharge learning needs (meds, wound care, etc). 7. Arrange for needed discharge transportation as appropriate Outcome: Progressing Note: Evaluation of progress towards goal: pt will go home at discharge [facility] 09-16-2024 Progress note Formatting of t his note might be different from the original. DISCHARGE PLANNING NOTE Referral to [address] (P# ; F# [facility] 09-16-2024 Plan of care note Problem: Pain Goal: Patient goal is pain score less than 4, able to rest, and participant in treatment plan as appropriate Description: INTERVENTIONS: 1. Encourage patient or legal fuels sales representative to report early pain and ask for pain medicine when needed 2. Assess pain using appropriate pain scale and include the scale used when documenting 3. Administer analgesics based on type and severity of pain and evaluate response within appropriate time frame 4. Implement non-pharmacological measures as appropriate and evaluate response 5. Consider cultural and social influences on pain and pain management 6. Notify LIP if interventions ineffective or patient reports new pain 7. Monitor vital signs including pulse ox, end-tidal CO2 based on pain intervention 8. Reassess pain per policy 9. Teach patient or legal fuels sales representative interventions for comforting Outcome: Progressing Note: Evaluation of progress towards goal: Pt utilizes pain scale appropriately, current pain regimen adequately managing pain Problem: Safety Goal: Patient will be injury free during hospitalization Description: INTERVENTIONS: 1. Assess patient's risk for falls and implement fall prevention plan of care per policy 2. Provide and maintain a safe environment 3. Proper use of double Identifiers 4. Medication administration using the 5 rights 5. Hand hygiene 6. Specimens are labeled at the bedside 7. Instruct patient/ patient fuels sales representative about use of safety devices 8. Include patient/ patient fuels sales representative in decisions related to safety Outcome: Progressing Note: Evaluation of progress towards goal: Pt remains free from injury at this time, safety precautions in place Problem: Knowledge Deficit Goal: Patient/patient fuels sales representative demonstrates understanding of disease process, treatment plan, medications, and discharge instructions Description: INTERVENTIONS 1. Complete learning assessment and assess knowledge base 2. Provide teaching at level of understanding 3. Provide teaching via preferred learning method(s) Outcome: Progressing Note: Evaluation of progress towards goal: Pt receptive to education regarding disease process, treatment plan, and medications [facility] 09-15-2024 History of Present illness Narrative Images from the original note were not included. FOLLOW-UP: Post-Intensive Care Rounding Note Patient: Poncho Jose Jr. : 1955 Age: 69 y.o. Length of Stay: 2 days Admission Diagnosis: Atherosclerosis of [place] artery of right lower extremity with ulceration, unspecified ulceration site ([facility]) [I70.239] Encounter for therapeutic drug monitoring [Z51.81] PAD (peripheral artery disease) ([facility]) [I73.9] Reviewing patient due to his recent transfer out from Intensive Care. Recorded vital signs are stable and the patient is not noted to be in any apparent distress. Telemetry and monitoring noted. Staff may call with any issues or concerns regarding his clinical presentation or stability. Thank you, Joleen Canela RN Rapid Response: [facility] Images from the original note were not included. FOLLOW-UP: Post-Intensive Care Rounding Note Patient: Poncho Jose Jr. : 1955 Age: 69 y.o. Length of Stay: 2 days Admission Diagnosis: Atherosclerosis of [place] artery of right lower extremity with ulceration, unspecified ulceration site ([facility]) [I70.239] Encounter for therapeutic drug monitoring [Z51.81] PAD (peripheral artery disease) ([facility]) [I73.9] Reviewing patient due to his recent transfer out from Intensive Care. Recorded vital signs are stable and the patient is not noted to be in any apparent distress. Telemetry and monitoring noted. Staff may call with any issues or concerns regarding his clinical presentation or stability. Thank you, AMARIS MOORE RN Rapid Response: [facility] Images from the original note were not included. [facility] [place] [facility] Progress Note Patient ID: Poncho Jose Jr., 69 y.o. male Date of Admission: 09/13/2024 10:10 AM Referring Physician: Elyssa Murray MD PCP: SEAN MICHELLE, FLATWARE MAKER-HEAD SULFIDE OPERATOR SUBJECTIVE/INTERVAL HISTORY: Patient was seen and examined at bedside. Patient denied acute events overnight. Patient denies nausea, vomiting, constipation, diarrhea, shortness of breath, cough, chest pain, fevers, chills, lightheadedness or dizziness. Patient states pain is well-controlled with current pain regimen. Patient understands and agrees to plan for right great toe amputation today. OBJECTIVE: Vital signs: Vitals: 09/14/24 2017 09/15/24 0041 09/15/24 0500 09/15/24 0526 BP: 112/48 113/60 130/55 Pulse: 81 74 74 Resp: 24 16 19 Temp: 36.4 C (97.5 F) 36.6 C (97.9 F) 36.4 C (97.5 F) TempSrc: Oral Oral Oral SpO2: 95% 95% 96% Weight: 105.2 kg (231 lb 14.8 oz) Height: Temperature Range Last 24 Hours : Temp: 36.4 C (97.5 F) Temp Av.4 C (97.6 F) Min: 36.3 C (97.3 F) Max: 36.7 C (98 F) Respiratory Source: O2 Device: Nasal cannula I/O's: Intake/Output Summary (Last 24 hours) at 09/15/2024 0620 Last data filed at 09/15/2024 0500 Gross per 24 hour Intake 240 ml Output 1150 ml Net -910 ml PHYSICAL EXAMINATION: General: Resting supine in bed. NAD. Neuro: AO x 3. CN grossly intact. Normal speech per baseline. Negative for focal deficit including weakness or loss of sensation. HEENT: No tenderness to neck Respiratory: Non-labored breathing on room air. Abdomen/GI: Soft, non-distended, and non-tender to palpation. MSK: - Upper extremities: Grossly intact - no deformities or skin discoloration. Arms and hands warm and dry. No clubbing, cyanosis, or edema of digits. Normal capillary refill. - Lower extremities: Grossly intact - no deformities or skin discoloration. Feet and toes warm and dry. Normal capillary refill. Right dry gangrene changes to the toes. Incisions on the right thigh have dressings which are clean/dry/intact. Skin: Warm, dry, and otherwise grossly intact. VASCULAR EXAM: FEMORAL POPLITEAL PT DP R 2+ Multiphasic ASSESSMENT / PLAN / RECOMMENDATIONS Patient is a 69 y.o. male who is status post right SFA to proximal pop bypass using 7 mm Dacron on 09/13/2024 - OR for right great toe amputation today, 09/15 - Continue medical management, supportive care - Analgesia: Multimodal - Diet: NPO - Antibiotics: None - Antiplatelets: Aspirin/Plavix - Anticoagulation: Heparin infusion - Continue to encourage ambulation, activity, and IS use - Wound care: Incisional dressings down on 09/15/2024. Betadine paint to dry gangrene areas of foot. Danay Cortez MD Vascular Surgery Resident PGY-1 09/15/24 6:20 AM Cosigned by Elyssa Murray MD at 09/15/2024 7:56 AM EST Associated attestation - Elyssa Murray MD - 09/15/2024 7:56 AM EST I saw and evaluated the patient on the date of service, and reviewed the relevant investigations and tests. I agree with the findings and the plan of care as documented in the Resident Physician s note Images from the original note were not included. FOLLOW-UP: Post-Intensive Care Rounding Note Patient: Poncho Jose . : 1955 Age: 69 y.o. Length of Stay: 1 days Admission Diagnosis: Atherosclerosis of [place] artery of right lower extremity with ulceration, unspecified ulceration site ([facility]) [I70.239] Encounter for therapeutic drug monitoring [Z51.81] PAD (peripheral artery disease) ([facility]) [I73.9] Reviewing patient due to his recent transfer out from Intensive Care. Recorded vital signs are stable and the patient is not noted to be in any apparent distress. Telemetry and monitoring noted. Staff may call with any issues or concerns regarding his clinical presentation or stability. Thank you, Joleen Canela RN Rapid Response: [facility] Images from the original note were not included. [facility] [place] [facility] Progress Note Patient ID: Poncho Jose Jr., 69 y.o. male Date of Admission: 09/13/2024 10:10 AM Referring Physician: Elyssa Murray MD PCP: SEAN MICHELLE APRN-HEAD SULFIDE OPERATOR SUBJECTIVE/INTERVAL HISTORY: Patient was seen and examined at bedside. Patient denied acute events overnight. Patient denies nausea, vomiting, constipation, diarrhea, shortness of breath, cough, chest pain, fevers, chills, lightheadedness or dizziness. Patient states pain is well-controlled with current pain regimen. Patient states they are tolerating diet. OBJECTIVE: Vital signs: Vitals: 09/14/24 0300 09/14/24 0400 09/14/24 0500 09/14/24 0600 BP: Pulse: 64 60 65 62 Resp: Temp: 36.2 C (97.1 F) TempSrc: Axillary SpO2: 97% 99% 98% 97% Weight: Height: Temperature Range Last 24 Hours : Temp: 36.2 C (97.1 F) Temp Av.3 C (97.3 F) Min: 36.1 C (96.9 F) Max: 36.5 C (97.7 F) Respiratory Source: O2 Device: Nasal cannula I/O's: Intake/Output Summary (Last 24 hours) at 09/14/2024 0620 Last data filed at 09/14/2024 0400 Gross per 24 hour Intake 100 ml Output 1070 ml Net -970 ml PHYSICAL EXAMINATION: General: Resting supine in bed. NAD. Neuro: AO x 3. CN grossly intact. Normal speech per baseline. Negative for focal deficit including weakness or loss of sensation. HEENT: No tenderness to neck Respiratory: Non-labored breathing on room air. Abdomen/GI: Soft, non-distended, and non-tender to palpation. Renal/: Deferred. MSK: - Upper extremities: Grossly intact - no deformities or skin discoloration. Arms and hands warm and dry. No clubbing, cyanosis, or edema of digits. Normal capillary refill. - Lower extremities: Grossly intact - no deformities or skin discoloration. Feet and toes warm and dry. Normal capillary refill. Negative for venous stasis, hyperpigmentation, atrophie elizabeth. Negative for lipodermatosclerosis. Negative for edema and ulcers. With the exception of on the right dry gangrene changes to the toes, heel, and a small aspect of the dorsum of the foot. Incisions on the right thigh have dressings which are clean/dry/intact. Skin: Warm, dry, and otherwise grossly intact. VASCULAR EXAM: FEMORAL POPLITEAL PT DP R 2+ Multiphasic ASSESSMENT / PLAN / RECOMMENDATIONS Patient is a 69 y.o. male who is status post right SFA to proximal pop bypass using 7 mm Dacron on 09/13/2024 - okay for transfer to floor, ESAU Tineo, ESAU A-line, DC IV fluids. - Continue medical management, supportive care - Analgesia: Multimodal - Diet: Regular/diabetic - IVF: DC - Antibiotics: None - Antiplatelets: Aspirin/Plavix - Anticoagulation: None - Continue to encourage ambulation, activity, and IS use - DVT/VTE prophylaxis: SubQ heparin - GI prophylaxis: Diet - Wound care: Incisional dressings down on 09/15/2024. Betadine paint to dry gangrene areas of foot. Rita Alexander DO MA Vascular Surgery Fellow 09/14/24 6:20 AM Cosigned by Elyssa Murray MD at 09/14/2024 7:01 PM EST Associated attestation - Tom, Elyssa Robledo MD - 09/14/2024 7:01 PM EST I saw and evaluated the patient on the date of service, and reviewed the relevant investigations and tests. I agree with the findings and the plan of care as documented in the Resident Physician s note documented in this encounter [facility] 09-15-2024 Progress note Formatting of t his note is different from the original. Images from the original note were not included. DISCHARGE PLANNING NOTE Door Attendant met with patient, introduced self, and explained role. Patient educated on safe discharge plan. 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 Discharge Barriers per Daily Transition Rounds: surgical intervention, Heparin gtt, AC plan Past Medical History: Diagnosis Date Allergies Arthritis Back pain CAD (coronary artery disease) Chest pain Colon cancer ([facility]) Diabetes mellitus type 2, controlled ([facility]) GERD (gastroesophageal reflux disease) Hearing loss Hemorrhoids Hyperlipidemia Hypertension Ischemic cardiomyopathy Myocardial infarction ([facility]) Obesity PAD (peripheral artery disease) ([facility]) 09/13/2024 Rash big toe, heal Testicular cancer ([facility]) Prior to admission patient was living with spouse and self care. Medical equipment patient used prior to admission includes: Cane, Type: Single Point Cane, Walkers, Type: Rolling Walker, and Hygiene Aides, Type: Tub Seat/Chair . Patient denies need for transportation/ food/ prescription medication assistance resources. Patient was fairly independent at home with [facility] and family support. Wishes to return home with same. Tasked [facility] to send referral for resumption of home care to [facility] PCP: ABBE WONG PCP and pharmacy confirmed with patient. CN offered to assist with follow up appointment arrangements; patient declines . ABBE WONG added to Follow Up Providers for Summary of Care communication. The patient receives support from his and children. Drug use: denies Smoking: denies ETOH Use: denies Current discharge plan: Services Requested: Services Requested Patient expects to be discharged to:: would like to go home, patient request wound care instructions on CRF so nurse can help with wound care. Discharge Disposition: Home with home health services Facility/Service Name: [address] Facility/Service Does the patient need discharge transportation arranged?: No DC Planning Complete Discharge Milestones: Yes Patient Goals: Goals: Goals (pt-stated) Evaluation of progress towards goal: safe discharge Safe Discharge (pt-stated) Evaluation of progress towards goal: safe transition home self care with spouse and family support. Will continue to follow as plan of care develops. CN discussed benefits of HHC w/ patient, importance of medication compliance and follow ups. Please feel free to reach out for any discharge planning questions. - Lynn Arcos RN 09/15/24 3:25 PM [facility] 09-15-2024 Plan of care note Problem: Pain Goal: Patient goal is pain score less than 4, able to rest, and participant in treatment plan as appropriate Description: INTERVENTIONS: 1. Encourage patient or legal fuels sales representative to report early pain and ask for pain medicine when needed 2. Assess pain using appropriate pain scale and include the scale used when documenting 3. Administer analgesics based on type and severity of pain and evaluate response within appropriate time frame 4. Implement non-pharmacological measures as appropriate and evaluate response 5. Consider cultural and social influences on pain and pain management 6. Notify LIP if interventions ineffective or patient reports new pain 7. Monitor vital signs including pulse ox, end-tidal CO2 based on pain intervention 8. Reassess pain per policy 9. Teach patient or legal fuels sales representative interventions for comforting Outcome: Progressing Note: Evaluation of progress towards goal: pt says pain is being controled with po pain meds Problem: Safety Goal: Patient will be injury free during hospitalization Description: INTERVENTIONS: 1. Assess patient's risk for falls and implement fall prevention plan of care per policy 2. Provide and maintain a safe environment 3. Proper use of double Identifiers 4. Medication administration using the 5 rights 5. Hand hygiene 6. Specimens are labeled at the bedside 7. Instruct patient/ patient fuels sales representative about use of safety devices 8. Include patient/ patient fuels sales representative in decisions related to safety Outcome: Progressing Note: Evaluation of progress towards goal: pt free from falls this shift Problem: Infection Goal: Absence of infection during hospitalization Description: INTERVENTIONS 1. Assess and monitor for signs and symptoms of infection. 2. Monitor lab/diagnostic results. 3. Monitor all insertion sites i.e., indwelling lines, tubes and drains. 4. Monitor endotracheal (as able) and nasal secretions for changes in amount and color. 5. Administer medications as ordered. 6. Instruct and encourage patient and family to use good hand hygiene technique. 7. Identify and instruct patient/patient fuels sales representative in use of appropriate isolation precautions for identified infection/symptoms. 8. Provide and discuss with patient/patient fuels sales representative on educational MDRO sheet. 9. Encourage and monitor nutritional status daily and consult produce weigher if indicated. 10. Implement neutropenic guidelines as needed. Outcome: Progressing Note: Evaluation of progress towards goal: pt afebrile-cont to monitor Problem: Knowledge Deficit Goal: Patient/patient fuels sales representative demonstrates understanding of disease process, treatment plan, medications, and discharge instructions Description: INTERVENTIONS 1. Complete learning assessment and assess knowledge base 2. Provide teaching at level of understanding 3. Provide teaching via preferred learning method(s) Outcome: Progressing Note: Evaluation of progress towards goal: pt updated on poc [facility] [place] 09-15-2024 Procedure note Patient Name: Poncho Jose Jr. Medical Record: [id number] Date of Operation: 09/15/2024 Preoperative Diagnosis: Right great toe gangrene Postoperative Diagnosis: Same Procedure: Right great toe amputation Surgeon: Elyssa Murray MD Anesthesia: General anesthesia Estimated Blood Loss: Minimal Complications: None; patient tolerated the procedure well. Implants: None Specimens: Right great toe and metatarsal head were sent as permanent pathology sample. Proximal and of the metatarsal bone edge was sent for microbiology. Disposition: PACU - hemodynamically stable. Condition: stable Findings: Unremarkable operative course. The toe was gangrenous. It was dry gangrene. It was removed together with the distal metatarsal bone and metatarsal head. The wound was closed using interrupted Prolene sutures History: This is a pleasant gentleman with right lower extremity critical limb ischemia status post revascularization. He is here for right toe gangrene amputation. Of note the dorsum of the foot by the great toe was also necrotic. Operative Details: The patient was taken back to the operating room placed in the supine position appropriate cardiopulmonary monitors were set. Anesthesia was induced. The right leg was prepped and draped in usual sterile surgical fashion. After time-out and safety pause and antibiotics were given knife was used to cut the skin subcutaneous tissue down to the bone. Bovie was used to continue the dissection. The whole toe and the metatarsal head and naproxen and distal metatarsal bone was transected using a bone cutter. Hemostasis was achieved. The wound was then closed after hemostasis and after washing with Betadine with her with the saline using vertical mattress 2-0 Prolene sutures. 4-0 Monocryl suture was used to approximate any edges. Dressing was placed patient tolerated the procedure very well no complications. Elyssa Murray MD, MELITA, RPVI, FSVS, FACS JOBST Vascular Surgery [facility] [place] 09-15-2024 Progress note Formatting of t his note is different from the original. Query Response Note CDI QUERY TEXT: Anemia Type [id number] Disclaimer: By submitting this query, we are merely seeking further clarification of documentation to accurately reflect all conditions that you are monitoring, evaluating, treating or that extend the hospitalization or utilize additional resources of care. Please utilize your independent clinical judgment when addressing the question(s) below. Please clarify the type of anemia: -Due to/in/with chronic kidney disease -Other Labs: H/H: 9.2/28.0 (3/4) 8.3/25.0 (3/5) POD 1 right SFA to proximal pop bypass with EBL 100 mL. The patient's Clinical Indicators include: As above Thank you, Sary Olivo RN, RADHA [email or web address] RESPONSE TEXT: Other, expected post-operative Query created by: Sary Olivo on 09/14/2024 7:00 AM Electronically signed by: Rita Alexander DO 09/15/2024 5:09 AM [facility] 09-15-2024 Plan of care note Problem: Pain Goal: Patient goal is pain score less than 4, able to rest, and participant in treatment plan as appropriate Description: INTERVENTIONS: 1. Encourage patient or legal fuels sales representative to report early pain and ask for pain medicine when needed 2. Assess pain using appropriate pain scale and include the scale used when documenting 3. Administer analgesics based on type and severity of pain and evaluate response within appropriate time frame 4. Implement non-pharmacological measures as appropriate and evaluate response 5. Consider cultural and social influences on pain and pain management 6. Notify LIP if interventions ineffective or patient reports new pain 7. Monitor vital signs including pulse ox, end-tidal CO2 based on pain intervention 8. Reassess pain per policy 9. Teach patient or legal fuels sales representative interventions for comforting Outcome: Progressing Note: Evaluation of progress towards goal: Patient currently denies pain. Patient encouraged to communicate with staff if pain occurs. Will continue to monitor for changes. Problem: Safety Goal: Patient will be injury free during hospitalization Description: INTERVENTIONS: 1. Assess patient's risk for falls and implement fall prevention plan of care per policy 2. Provide and maintain a safe environment 3. Proper use of double Identifiers 4. Medication administration using the 5 rights 5. Hand hygiene 6. Specimens are labeled at the bedside 7. Instruct patient/ patient fuels sales representative about use of safety devices 8. Include patient/ patient fuels sales representative in decisions related to safety Outcome: Progressing Note: Evaluation of progress towards goal: Patient safety maintained, call light in reach, area clear of hazards, hourly rounding continued, bed locked in lowest position, alarm on as applicable, non skid socks on, safety educated completed with patient/family, no injuries noted at this time. Problem: Knowledge Deficit Goal: Patient/patient fuels sales representative demonstrates understanding of disease process, treatment plan, medications, and discharge instructions Description: INTERVENTIONS 1. Complete learning assessment and assess knowledge base 2. Provide teaching at level of understanding 3. Provide teaching via preferred learning method(s) Outcome: Progressing Note: Evaluation of progress towards goal: Care plan discussed & goals for shift set with patient input appreciated. All questions answered. Problem: Discharge Planning Goal: Discharge to post-acute care, other facility, or home with appropriate resources Description: Patient's goal is: INTERVENTIONS 1. Conduct assessment to determine patient/family and health care team treatment goals, and need for post-acute services based on payer coverage, community resources, and patient preferences, and barriers to discharge 2. Coordinate with Social work, Care Navigation, and Utilization Review to arrange appropriate level of services according to patient's needs based on patient preference and payer coverage in collaboration with the physician and health care team 3. Address psychosocial, clinical, and financial barriers to discharge as identified in assessment in conjunction with the patient/family and health care team 4. Consult appropriate ancillary services (i.e.. PT/OT/ST, etc) as needed 5. Communicate with and update the patient/family, physician, and health care team regarding progress on the discharge plan 6. Identify discharge learning needs (meds, wound care, etc). 7. Arrange for needed discharge transportation as appropriate Outcome: Progressing Note: Evaluation of progress towards goal: Care plan discussed & goals for shift set with patient input appreciated. All questions answered. Problem: Moderate - High Risk Fall Score Description: Decker Fall Score of =/> 25 or indicated by [facility] Assessment Goal: Patient should be free from fall Description: Interventions: 1. [place] to environment 2. Hourly rounds addressing the 4 P's (Pain, Positioning, Possessions, Potty) 3. Clear area of hazards (spills, clutter, electrical cords, unnecessary equipment) 4. Place equipment (bed & TV controls, call light, phone, urinal) within reach 5. Encourage patient to wear glasses and hearing aides as appropriate 6. Maintain bed in lowest position 7. Lock wheels on bed/wheelchair 8. Provide adequate lighting, including night light 9. Assess need for additional bedding, food/fluids, pain med's prior to sleep/routinely 10. Provide gripper slippers or personal non-skid footwear 11. Teach patient and patient fuels sales representative to maintain environment for safety and engage in all aspects of fall prevention program 12. Remind patient to call for help before getting out of bed 13. Initiate bed/chair/exit alarms supportive devices as appropriate, (chair wedge, no-skid floor mat, raised edge mattress, hip protectors) 14. Locate patient bed assignment for optimal visualization 15. Evaluate and identify Safe Patient Handling Equipment needs 16. Provide supervision when out of bed or chair 17. Utilize gait belt as needed to assist with ambulation 18. Place adaptive equipment (cane, walker) within reach 19. Request patient fuels sales representative bring adaptive equipment/mobility aids from home or obtain and provide as needed 20. Consult pharmacy regarding effects of med's affecting mobility, cognition, and alternatives 21. Obtain physician order for PT if risk factors associated with mobility are present 22. Obtain physician order for OT as appropriate 23. Utilize diversional activities 24. Educate patient and patient fuels sales representative how to maintain a safe environment during visitation times (notify nurse prior to leaving bedside) 25. Consider appropriateness of medical or non-medical artist 26. Set up voiding schedule as appropriate (every 2 hours) Outcome: Progressing Note: Evaluation of progress towards goal: Fall risk assessment preformed and safety measures in place. Education given to family/patient. Will continue to monitor. Problem: Potential for Compromised Skin Integrity Goal: Skin integrity is maintained or improved Description: Patient's goal is: INTERVENTIONS 1. Perform initial skin assessment on admission and as needed 2. Turn patient every 2 hours and PRN 3. Relieve pressure to bony prominences 4. Avoid shearing 5. Keep skin clean and dry 6. Alternate a full bath with partial baths for elderly 7. Apply lotion/moisturizer on skin 8. Monitor patient's hygiene practices 9. Float heels 10. Collaborate with interdisciplinary team and initiate plans and interventions as needed Outcome: Progressing Note: Evaluation of progress towards goal: wound care per orders right lower ext [facility] 09-14-2024 Plan of care note Problem: Pain Goal: Patient goal is pain score less than 4, able to rest, and participant in treatment plan as appropriate Description: INTERVENTIONS: 1. Encourage patient or legal fuels sales representative to report early pain and ask for pain medicine when needed 2. Assess pain using appropriate pain scale and include the scale used when documenting 3. Administer analgesics based on type and severity of pain and evaluate response within appropriate time frame 4. Implement non-pharmacological measures as appropriate and evaluate response 5. Consider cultural and social influences on pain and pain management 6. Notify LIP if interventions ineffective or patient reports new pain 7. Monitor vital signs including pulse ox, end-tidal CO2 based on pain intervention 8. Reassess pain per policy 9. Teach patient or legal fuels sales representative interventions for comforting Outcome: Progressing Note: Evaluation of progress towards goal: Patient tolerating pain. Pain medication available. Reginald denies pain at this time. He is able to verbalize pain using a 0-10 verbal scale appropriately. [facility] 09-13-2024 Plan of care note Problem: Pain Goal: Patient goal is pain score less than 4, able to rest, and participant in treatment plan as appropriate Description: INTERVENTIONS: 1. Encourage patient or legal fuels sales representative to report early pain and ask for pain medicine when needed 2. Assess pain using appropriate pain scale and include the scale used when documenting 3. Administer analgesics based on type and severity of pain and evaluate response within appropriate time frame 4. Implement non-pharmacological measures as appropriate and evaluate response 5. Consider cultural and social influences on pain and pain management 6. Notify LIP if interventions ineffective or patient reports new pain 7. Monitor vital signs including pulse ox, end-tidal CO2 based on pain intervention 8. Reassess pain per policy 9. Teach patient or legal fuels sales representative interventions for comforting Outcome: Progressing Note: Evaluation of progress towards goal: Patient rates pain as tolerable this shift. Patient encouraged to report need for pain medications as needed. Patient assessed for pain using appropriate pain scale. Problem: Infection Goal: Absence of infection during hospitalization Description: INTERVENTIONS 1. Assess and monitor for signs and symptoms of infection. 2. Monitor lab/diagnostic results. 3. Monitor all insertion sites i.e., indwelling lines, tubes and drains. 4. Monitor endotracheal (as able) and nasal secretions for changes in amount and color. 5. Administer medications as ordered. 6. Instruct and encourage patient and family to use good hand hygiene technique. 7. Identify and instruct patient/patient fuels sales representative in use of appropriate isolation precautions for identified infection/symptoms. 8. Provide and discuss with patient/patient fuels sales representative on educational MDRO sheet. 9. Encourage and monitor nutritional status daily and consult produce weigher if indicated. 10. Implement neutropenic guidelines as needed. Outcome: Progressing Note: Evaluation of progress towards goal: Patient evaluated for s/s of infection. Patient's vital signs, labs, and diagnostic results are being monitored each shift. Problem: Discharge Planning Goal: Discharge to post-acute care, other facility, or home with appropriate resources Description: Patient's goal is: INTERVENTIONS 1. Conduct assessment to determine patient/family and health care team treatment goals, and need for post-acute services based on payer coverage, community resources, and patient preferences, and barriers to discharge 2. Coordinate with Social work, Care Navigation, and Utilization Review to arrange appropriate level of services according to patient's needs based on patient preference and payer coverage in collaboration with the physician and health care team 3. Address psychosocial, clinical, and financial barriers to discharge as identified in assessment in conjunction with the patient/family and health care team 4. Consult appropriate ancillary services (i.e.. PT/OT/ST, etc) as needed 5. Communicate with and update the patient/family, physician, and health care team regarding progress on the discharge plan 6. Identify discharge learning needs (meds, wound care, etc). 7. Arrange for needed discharge transportation as appropriate Outcome: Progressing Note: Evaluation of progress towards goal: Discharge planning is in progress at this time. [facility] 09-13-2024 Procedure note Images from the original note were not included. [facility] Operative Note DATE OF PROCEDURE: 09/13/2024 PATIENT NAME: Poncho Jose Jr. SURGEON: Surgeons and Role: * Elyssa Murray MD - Primary ASSISTANTS: RITA ALEXANDER DO Vascular Surgery Fellow STAFF: Head Stock Transfer Clerk Primary: Dino Erickson RN Scrub Relief: Asher Pool RN Scrub Person: aMri Hidalgo CST Fellow: Rita Alexander DO Nurse Count Only: Asher Pool RN PRE-OP DIAGNOSIS: Superfical femoral artery occlusive disease POST-OP DIAGNOSIS: same PROCEDURE: Right superficial femoral to proximal popliteal artery bypass using 7 mm x 60 cm Dacron ANESTHESIA: general EBL: 100 cc FLUIDS: please see anesthesia documentation COMPLICATIONS: None. CONDITION: stable WOUND CLASS: 1 ADDITIONS (Drains, Specimens, Implants): Drains: Urinary Catheter 09/13/24 Single lumen (Active) Catheter Status Patent 09/13/24 1356 Site Assessment Clean 09/13/24 1356 Collection Container Standard drainage bag/container 09/13/24 1356 Tamper Evident Seal Intact Yes 09/13/24 1356 Reason for Continuing Physician order 09/13/24 1356 Urine Color Yellow/straw 09/13/24 1356 Urine Appearance Clear 09/13/24 1356 Bladder Instillation? No 09/13/24 135 Specimens: * No specimens in log * Implants: Implant Name Type Inv. Item Serial No. Termite Control Servicer Lot No. LRB No. Used Action GRAFT CV 60CM 7MM THOR 2 [address] [facility] [address] 2 VLR CLGN STR - [id number] - [id number] Graft GRAFT CV 60CM 7MM THOR [address] 2 VLR CLGN STR [id number] [email or web address] [id number] 1 Implanted HISTORY: The patient is a 69 y.o. male with history of PAD. Patient was agreeable and elected to pursue intervention. Risks, benefits, and alternatives were discussed prior to the procedure including, but not limited to, the risks of infection, blood loss, damage to nearby tissues/ nerve injury, cardiac / pulmonary complications, and even . All questions/concerns were addressed and informed consent was obtained, witnessed, and placed on the patient's chart. PROCEDURE: Patient was brought back to the operative suite and placed in the supine position. A time out was completed confirming identification of proper patient, position, and procedure to be preformed. General anesthesia was induced. Bilateral groins were clipped and a tineo catheter was placed. The patient was prepped and draped in normal sterile fashion. Preoperative antibiotic of ancef was administered. Ultrasound was performed and identified a great saphenous vein in the right lower extremity and seemed adequate for harvesting for a bypass The right groin evaluated and incision planned using a skin marker. The inncision created with a scalpel followed by electrosurgical pencil. The femoral artery was then identified after dissection in the groin was aided by pulsation. Lymphatic branches were isolated and ligated as they were encountered. The superficial femoral artery was identified, proximal and distal control was obtained with vessel loops. Attention was turned distally to the proximal popliteal artery. A 8 cm longitudinal skin incision was performed on the medial aspect of the thigh along the anticipated anterior border of the sartorius muscle via scalpel. Incision was deepened through subcutaneous tissue via electrosurgical pencil. The adductor tendon was exposed anteriorly and the sartorius muscle posteriorly. The fascia between these two muscles was incised and the popliteal space was entered. A self-retaining retractor was placed deeper into the wound. The popliteal artery was identified and was further exposed. A 2cm segment of popliteal A was sharply dissected circumferentially. Care was taken to separate adjacent popliteal vein from artery. Small venous branches were ligated as they were encountered. Popliteal artery was palpated and noted to be partially calcified. Distal and proximal control of the popliteal artery was obtained via vessel loops. A tunnel was created from the incision of the medial knee to the groin incision using GORE tunnel device. Distal tunnel was initiated in subsartorial space with proximal tunnel ending subfascially within the groin incision. The Graft was then pulled through the electric range assembler being careful to avoid any twist or kinks. The patient was given systemic heparin that was allowed to circulate systemically for >3 minutes prior to arterial occlusion. A longitudinal arteriotomy was created along the superficial femoral artery with #11 blade scalpel and extended to 1.5 cm with Bocanegra scissors. The 7 mm by 60 cm dacron graft was spatulated to fit the SFA arterotomy. 5-0 Prolene Suture was used to create a end to side anastomosis in the standard fashion. The popliteal artery was then occluded distally and proximally with vessel loops. An arteriotomy was created along the anterior surface of the popliteal artery using #11 blade scalpel. The arteriotomy extended distally and proximally with Bocanegra scissors for total length of approximately 1cm. The conduit was approximated to arteriotomy and appropriate length was noted to be adequate. The conduit was trimmed to size and spatulated to match the arteriotomy. The arteriotomy was irrigated with heparinized saline. The popliteal artery was flushed distally and proximally with heparinized saline. Distal anastomosis was created between the conduit and above knee popliteal artery in end-to-side fashion using, 5-0 prolene suture in running fashion. Prior to completion, the suture line vessels were allowed to forward/back bleed. The suture line was completed and repair sutures were placed as needed to obtain full hemostasis. Flow distal to the bypass was confirmed with Doppler signal. The foot was evaluated and found to have multiphasic DP and PT Doppler signal. All suture lines were again inspected and found to be hemostatic. Hemostasis of subcutaneous tissues was ensured with electrocautery. Wounds closed in multi-layer fashion with 2-0 vicryl inverted inturrupted in the deep fascial layer as well as deep subcutaneous layer. Skin was closed with 2-0 prolene vertical mattress sutures. All sponge and instrument counts were correct at the end of the procedure. The patient tolerated the procedure well, was awakened from anesthesia and transported to SICU in stable condition. Dr. Murray was present for the entire procedure. Post-Op: Asa/Plavix Daily betadine paint to dry gangrene foot wounds Multiphasic Right DP and PT Doppler signal Cosigned by Elyssa Murray MD at 09/14/2024 6:59 PM EST Associated attestation - Elyssa Murray MD - 09/14/2024 6:59 PM EST I was present and performed all the critical portions of the procedure, performed structured guidance at appropriate times, and was always immediately available. Elyssa Murray MD, MELITA Vascular Surgery [facility] 09-13-2024 Attending History and physical note HISTORY AND PHYSICAL INTERVAL NOTE: Poncho Jose JrEarl [id number] H&P reviewed. The patient was examined and there are no changes to the H&P. Elyssa Murray MD Source Note - Elyssa Murray MD - 09/01/2024 10:40 AM EST Images from the original note were not included. To: UABLDO CARPIO MD HPI: Poncho Jose JrEarl is a 69 y.o. male with Right lower extremity critical limb ischemia with tissue loss. He had an inflow procedure. He had an angiogram and attempt to recanalize the SFA. I discussed with him doing fem to above-knee pop bypass. Procedure risks benefits and alternatives were explained and informed consent was obtained.. Review of Systems: Review of Systems Constitutional: Negative. HENT: Negative. Respiratory: Negative. Cardiovascular: Negative. Gastrointestinal: Negative. Endocrine: Negative. Genitourinary: Negative. Musculoskeletal: Negative. Skin: Negative. Neurological: Negative. Hematological: Negative. Medications: Current Outpatient Medications on File Prior to Visit Medication Sig Dispense Refill acetaminophen (TYLENOL) 325 mg tablet Take 2 tablets (650 mg total) by mouth as needed for pain. aspirin 81 mg Take 1 tablet (81 mg total) by mouth in the morning. 30 tablet 11 benzonatate (TESSALON PERLES) 100 mg capsule Take 1 capsule (100 mg total) by mouth every 8 (eight) hours. 21 capsule 0 carvediloL (COREG) 6.25 mg tablet Take 1 tablet (6.25 mg total) by mouth 2 (two) times a day with meals. 180 tablet 2 clindamycin-benzoyl peroxide (BENZACLIN) gel clopidogreL (PLAVIX) 75 mg tablet Take 1 tablet (75 mg total) by mouth in the morning for 60 days. 30 tablet 1 dapagliflozin (FARXIGA) 10 mg tablet Take 1 tablet (10 mg total) by mouth in the morning. famotidine (PEPCID) 20 mg tablet Take 1 tablet (20 mg total) by mouth in the morning and 1 tablet (20 mg total) before bedtime. glimepiride (AMARYL) 4 mg tablet Take 1 tablet (4 mg total) by mouth in the morning and 1 tablet (4 mg total) before bedtime. INSULIN GLARGINE,HUM.REC.ANLOG (LANTUS SOLOSTAR SUBQ) Inject 60 Unit under the skin nightly. magnesium oxide (MAG-OX) 400 mg tablet Take 1 tablet (400 mg total) by mouth daily. 30 tablet 0 memantine (NAMENDA) 5 mg tablet Take 1 tablet (5 mg total) by mouth in the morning and 1 tablet (5 mg total) before bedtime. pioglitazone (ACTOS) 30 mg tablet Take 1 tablet (30 mg total) by mouth in the morning. rosuvastatin (CRESTOR) 10 mg tablet Take 1 tablet (10 mg total) by mouth in the morning. lisinopriL (PRINIVIL,ZESTRIL) 10 mg tablet Take 1 tablet (10 mg total) by mouth daily. (Patient not taking: Reported on 09/01/2024) 90 tablet 3 metFORMIN (GLUCOPHAGE) 1000 mg tablet Take 1 tablet (1,000 mg total) by mouth in the morning and 1 tablet (1,000 mg total) in the evening. Take with meals. (Patient not taking: Reported on 09/01/2024) nitroglycerin (NITROSTAT) 0.[address] 1 tablet (0.4 mg total) under the tongue every 5 (five) minutes as needed for chest pain. (Patient not taking: Reported on 09/01/2024) No current facility-administered medications on file prior to visit. Past Medical History: Past Medical History: Diagnosis Date Allergies Arthritis Back pain CAD (coronary artery disease) Chest pain Colon cancer ([facility]) Diabetes mellitus type 2, controlled [place] GERD (gastroesophageal reflux disease) Hearing loss Hemorrhoids Hyperlipidemia Hypertension Ischemic cardiomyopathy Myocardial infarction ([facility]) Obesity Testicular cancer [place] Past Surgical History: Past Surgical History: Procedure Laterality Date ANGIOGRAM EXTREMITY LOWER- EXTERNAL ILIAC, AND SUPERFICIAL FEMORAL Right 07/29/2024 Performed by Elyssa Murray MD at [facility] PROC APPENDECTOMY 2014 CARDIAC SURGERY COLON SURGERY 07/26/2014 Dr. Pritchard COLONOSCOPY 08/08/2016 Dr. Pritchard COLONOSCOPY 07/20/2015 Dr. Pritchard COLONOSCOPY 07/03/2014 Dr. Pritchard COLONOSCOPY 03/04/2013 Dr. Pritchard COLONOSCOPY 05/03/2010 Dr. Pritchard COLONOSCOPY 06/15/2006 Dr. Oneil COLONOSCOPY N/A 08/19/2019 Performed by Leonid Pritchard MD at [facility] COLONOSCOPY BIOPSY N/A 07/22/2024 Performed by Shae Olson DO at [facility] CORONARY ARTERY BYPASS GRAFT 2015 ENDARTERECTOMY FEMORAL WITH PATCH ANGIOPLOASTY Right 07/29/2024 Performed by Elyssa Murray MD at [facility] PROC ESOPHAGOGASTRODUODENOSCOPY 03/04/2013 Dr. 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 08/12/2024 Performed by Elyssa Murray MD at [facility] CARDIAC CATH LABS SHOCKWAVE LITHOTRIPSY RIGHT ILIAC ARTERY, STENT ANGIOPLASTY X2 Right 07/29/2024 Performed by Elyssa Murray MD at [facility] PROC VASECTOMY 1980 Social and Family History: Social History Socioeconomic History Marital status: Spouse name: Not on file Number of children: Not on file Years of education: Not on file Highest education level: Not on file Occupational History Not on file Tobacco Use Smoking status: Former Smokeless tobacco: Never Vaping Use Vaping status: Never Used Substance and Sexual Activity Alcohol use: No Drug use: No Sexual activity: Defer Other Topics Concern Caffeine Use Yes Social History Narrative Not on file Social Drivers of Health Financial Resource Strain: Low Risk (12/25/2022) Received from [facility] Overall Financial Resource Strain (CARDIA) Difficulty of Paying Living Expenses: Not hard at all Food Insecurity: No Food Insecurity (08/04/2024) Hunger Screening Food Insecurity - Worry: Never True Food Insecurity - Inability: Never True Transportation Needs: No Transportation Needs (07/17/2024) PRAPARE - Transportation Lack of Transportation (Medical): No Lack of Transportation (Non-Medical): No Physical Activity: Sufficiently Active (12/25/2022) Received from [facility] Exercise Vital Sign Days of Exercise per Week: 5 days Minutes of Exercise per Session: 60 min Stress: No Stress Concern Present (12/25/2022) Received from [facility] [place] of Occupational Health - Occupational Stress Questionnaire Feeling of Stress : Not at all Social Connections: Moderately Isolated (12/25/2022) Received from [facility] Social Connection and Isolation Panel [NHANES] Frequency of Communication with Friends and Family: More than three times a week Frequency of Social Gatherings with Friends and Family: More than three times a week Attends Muslim Services: Never Active Member of Clubs or Organizations: No Attends Club or Organization Meetings: Never Marital Status: Interpersonal Safety: Not At Risk (07/17/2024) Humiliation, Afraid, Rape, and Kick questionnaire Fear of Current or Ex-Partner: No Emotionally Abused: No Physically Abused: No Sexually Abused: No Housing Instability: Low Risk (07/17/2024) Housing Instability Housing Instability: No Family History Problem Relation Age of Onset Diabetes Mother Cancer Mother Breast cancer Mother Colon cancer Mother Kidney disease Mother No Known Problems Father Early Brother No Known Problems Maternal Grandmother No Known Problems Maternal Grandfather No Known Problems Paternal Grandmother No Known Problems Paternal Grandfather Recent Labs: Recent and relative labs were reviewed and interpreted and contributed to the assessment and plan below. Vitals: BP 107/69 (BP Site: Left Arm, BP Postition: Sitting, BP CUFF SIZE: M (9-13 inches)) Pulse 96 Temp 36.6 C (97.8 F) (Temporal) Resp 18 Ht 175.3 cm (5' 9.02 ) Wt 98.9 kg (218 lb 0.6 oz) SpO2 100% BMI 32.18 kg/m Body mass index is 32.18 kg/m . Physical Exam: Physical Exam Constitutional: Appearance: Normal appearance. HENT: Head: Normocephalic and atraumatic. Mouth/Throat: Mouth: Mucous membranes are moist. Eyes: Extraocular Movements: Extraocular movements intact. Pupils: Pupils are equal, round, and reactive to light. Cardiovascular: Rate and Rhythm: Normal rate and regular rhythm. Pulmonary: Effort: Pulmonary effort is normal. Breath sounds: Normal breath sounds. Abdominal: General: Abdomen is flat. Bowel sounds are normal. Palpations: Abdomen is soft. Musculoskeletal: General: Normal range of motion. Cervical back: Normal range of motion. Skin: General: Skin is warm and dry. Neurological: General: No focal deficit present. Mental Status: He is alert and oriented to person, place, and time. Mental status is at baseline. Psychiatric: Mood and Affect: Mood normal. Behavior: Behavior normal. Thought Content: Thought content normal. Judgment: Judgment normal. 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 I discussed with him SFA to above-knee pop bypass. Discussed risks benefits and alternatives. Informed consent was obtained. Poncho was seen today for right fem endart with angioplasty 07/29. 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 While intending to generate a timely document that accurately reflects the content of the visit, no guarantee can be provided that every grammatical or spelling mistake has been or will be identified or corrected. Thank you for your understanding. [facility] 09-13-2024 History and physical note HISTORY AND PHYSICAL INTERVAL NOTE: Poncho Jose Jr. [id number] H&P reviewed. The patient was examined and there are no changes to the H&P. Elyssa Murray MD Source Note - Elyssa Murray MD - 09/01/2024 10:40 AM EST Images from the original note were not included. To: UBALDO CARPIO MD HPI: Poncho Jose Jr. is a 69 y.o. male with Right lower extremity critical limb ischemia with tissue loss. He had an inflow procedure. He had an angiogram and attempt to recanalize the SFA. I discussed with him doing fem to above-knee pop bypass. Procedure risks benefits and alternatives were explained and informed consent was obtained.. Review of Systems: Review of Systems Constitutional: Negative. HENT: Negative. Respiratory: Negative. Cardiovascular: Negative. Gastrointestinal: Negative. Endocrine: Negative. Genitourinary: Negative. Musculoskeletal: Negative. Skin: Negative. Neurological: Negative. Hematological: Negative. Medications: Current Outpatient Medications on File Prior to Visit Medication Sig Dispense Refill acetaminophen (TYLENOL) 325 mg tablet Take 2 tablets (650 mg total) by mouth as needed for pain. aspirin 81 mg Take 1 tablet (81 mg total) by mouth in the morning. 30 tablet 11 benzonatate (TESSALON PERLES) 100 mg capsule Take 1 capsule (100 mg total) by mouth every 8 (eight) hours. 21 capsule 0 carvediloL (COREG) 6.25 mg tablet Take 1 tablet (6.25 mg total) by mouth 2 (two) times a day with meals. 180 tablet 2 clindamycin-benzoyl peroxide (BENZACLIN) gel clopidogreL (PLAVIX) 75 mg tablet Take 1 tablet (75 mg total) by mouth in the morning for 60 days. 30 tablet 1 dapagliflozin (FARXIGA) 10 mg tablet Take 1 tablet (10 mg total) by mouth in the morning. famotidine (PEPCID) 20 mg tablet Take 1 tablet (20 mg total) by mouth in the morning and 1 tablet (20 mg total) before bedtime. glimepiride (AMARYL) 4 mg tablet Take 1 tablet (4 mg total) by mouth in the morning and 1 tablet (4 mg total) before bedtime. INSULIN GLARGINE,HUM.REC.ANLOG (LANTUS SOLOSTAR SUBQ) Inject 60 Unit under the skin nightly. magnesium oxide (MAG-OX) 400 mg tablet Take 1 tablet (400 mg total) by mouth daily. 30 tablet 0 memantine (NAMENDA) 5 mg tablet Take 1 tablet (5 mg total) by mouth in the morning and 1 tablet (5 mg total) before bedtime. pioglitazone (ACTOS) 30 mg tablet Take 1 tablet (30 mg total) by mouth in the morning. rosuvastatin (CRESTOR) 10 mg tablet Take 1 tablet (10 mg total) by mouth in the morning. lisinopriL (PRINIVIL,ZESTRIL) 10 mg tablet Take 1 tablet (10 mg total) by mouth daily. (Patient not taking: Reported on 09/01/2024) 90 tablet 3 metFORMIN (GLUCOPHAGE) 1000 mg tablet Take 1 tablet (1,000 mg total) by mouth in the morning and 1 tablet (1,000 mg total) in the evening. Take with meals. (Patient not taking: Reported on 09/01/2024) nitroglycerin (NITROSTAT) 0.[address] 1 tablet (0.4 mg total) under the tongue every 5 (five) minutes as needed for chest pain. (Patient not taking: Reported on 09/01/2024) No current facility-administered medications on file prior to visit. Past Medical History: Past Medical History: Diagnosis Date Allergies Arthritis Back pain CAD (coronary artery disease) Chest pain Colon cancer ([facility]) Diabetes mellitus type 2, controlled ([facility]) GERD (gastroesophageal reflux disease) Hearing loss Hemorrhoids Hyperlipidemia Hypertension Ischemic cardiomyopathy Myocardial infarction ([facility]) Obesity Testicular cancer ([facility]) Past Surgical History: Past Surgical History: Procedure Laterality Date ANGIOGRAM EXTREMITY LOWER- EXTERNAL ILIAC, AND SUPERFICIAL FEMORAL Right 07/29/2024 Performed by Elyssa Murray MD at [facility] PROC APPENDECTOMY 2015 CARDIAC SURGERY COLON SURGERY 07/26/2014 Dr. Pritchard COLONOSCOPY 08/08/2016 Dr. Pritchard COLONOSCOPY 07/20/2015 Dr. Pritchard COLONOSCOPY 07/03/2014 Dr. Pritchard COLONOSCOPY 03/04/2013 Dr. Pritchard COLONOSCOPY 05/03/2010 Dr. Pritchard COLONOSCOPY 06/15/2006 Dr. Oneil COLONOSCOPY N/A 08/19/2019 Performed by Leonid Pritchard MD at [facility] COLONOSCOPY BIOPSY N/A 07/22/2024 Performed by Shae Olson DO at [facility] CORONARY ARTERY BYPASS GRAFT 2015 ENDARTERECTOMY FEMORAL WITH PATCH ANGIOPLOASTY Right 07/29/2024 Performed by Elyssa Murray MD at [facility] PROC ESOPHAGOGASTRODUODENOSCOPY 03/04/2013 Dr. 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 08/12/2024 Performed by Elyssa Murray MD at [facility] CARDIAC CATH LABS SHOCKWAVE LITHOTRIPSY RIGHT ILIAC ARTERY, STENT ANGIOPLASTY X2 Right 07/29/2024 Performed by Elyssa Murray MD at [facility] PROC VASECTOMY 1980 Social and Family History: Social History Socioeconomic History Marital status: Spouse name: Not on file Number of children: Not on file Years of education: Not on file Highest education level: Not on file Occupational History Not on file Tobacco Use Smoking status: Former Smokeless tobacco: Never Vaping Use Vaping status: Never Used Substance and Sexual Activity Alcohol use: No Drug use: No Sexual activity: Defer Other Topics Concern Caffeine Use Yes Social History Narrative Not on file Social Drivers of Health Financial Resource Strain: Low Risk (12/25/2022) Received from [facility] Overall Financial Resource Strain (CARDIA) Difficulty of Paying Living Expenses: Not hard at all Food Insecurity: No Food Insecurity (08/04/2024) Hunger Screening Food Insecurity - Worry: Never True Food Insecurity - Inability: Never True Transportation Needs: No Transportation Needs (07/17/2024) PRAPARE - Transportation Lack of Transportation (Medical): No Lack of Transportation (Non-Medical): No Physical Activity: Sufficiently Active (12/25/2022) [facility] Exercise Vital Sign Days of Exercise per Week: 5 days Minutes of Exercise per Session: 60 min Stress: No Stress Concern Present (12/25/2022) Received from [facility] [place] of Occupational Health - Occupational Stress Questionnaire Feeling of Stress : Not at all Social Connections: Moderately Isolated (12/25/2022) Received from [facility] Social Connection and Isolation Panel [NHANES] Frequency of Communication with Friends and Family: More than three times a week Frequency of Social Gatherings with Friends and Family: More than three times a week Attends Muslim Services: Never Active Member of Clubs or Organizations: No Attends Club or Organization Meetings: Never Marital Status: Interpersonal Safety: Not At Risk (07/17/2024) Humiliation, Afraid, Rape, and Kick questionnaire Fear of Current or Ex-Partner: No Emotionally Abused: No Physically Abused: No Sexually Abused: No Housing Instability: Low Risk (07/17/2024) Housing Instability Housing Instability: No Family History Problem Relation Age of Onset Diabetes Mother Cancer Mother Breast cancer Mother Colon cancer Mother Kidney disease Mother No Known Problems Father Early Brother No Known Problems Maternal Grandmother No Known Problems Maternal Grandfather No Known Problems Paternal Grandmother No Known Problems Paternal Grandfather Recent Labs: Recent and relative labs were reviewed and interpreted and contributed to the assessment and plan below. Vitals: BP 107/69 (BP Site: Left Arm, BP Postition: Sitting, BP CUFF SIZE: M (9-13 inches)) Pulse 96 Temp 36.6 C (97.8 F) (Temporal) Resp 18 Ht 175.3 cm (5' 9.02 ) Wt 98.9 kg (218 lb 0.6 oz) SpO2 100% BMI 32.18 kg/m Body mass index is 32.18 kg/m . Physical Exam: Physical Exam Constitutional: Appearance: Normal appearance. HENT: Head: Normocephalic and atraumatic. Mouth/Throat: Mouth: Mucous membranes are moist. Eyes: Extraocular Movements: Extraocular movements intact. Pupils: Pupils are equal, round, and reactive to light. Cardiovascular: Rate and Rhythm: Normal rate and regular rhythm. Pulmonary: Effort: Pulmonary effort is normal. Breath sounds: Normal breath sounds. Abdominal: General: Abdomen is flat. Bowel sounds are normal. Palpations: Abdomen is soft. Musculoskeletal: General: Normal range of motion. Cervical back: Normal range of motion. Skin: General: Skin is warm and dry. Neurological: General: No focal deficit present. Mental Status: He is alert and oriented to person, place, and time. Mental status is at baseline. Psychiatric: Mood and Affect: Mood normal. Behavior: Behavior normal. Thought Content: Thought content normal. Judgment: Judgment normal. 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 I discussed with him SFA to above-knee pop bypass. Discussed risks benefits and alternatives. Informed consent was obtained. Poncho was seen today for right fem endart with angioplasty 07/29. 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 While intending to generate a timely document that accurately reflects the content of the visit, no guarantee can be provided that every grammatical or spelling mistake has been or will be identified or corrected. Thank you for your understanding. documented in this encounter [facility] 09-13-2024 Hospital Discharge instructions Jody Schmidt RN - 09/13/2024 11:32 AM EST Scopolamine Transderm Patch Patient Education Uses: This skin patch is used to prevent postoperative nausea and vomiting, vomiting and dizziness from motion sickness. How to use: Place one patch behind ear at least 4 hours before the effect is required. While wearing the patch, it slowly releases the medication into your system over a period of time. The patch is effective up to three days. Your patch has been applied to reduce post-operative nausea and vomiting. This side effect relating to anesthesia usually subsides within one day following your surgery. If symptom free (nausea/vomiting) we recommend removal of the patch within 24 to 72 hours. Remove patch within 24 to 72 hours after your surgery or if any side effects as listed below are noted. Fold used patch in half with sticky side together and dispose of in trash out of reach of children or pets. Wash hands immediately after touching patch to prevent drug contact with eyes. Side Effects: This drug may cause drowsiness, headache or dry mouth. These effects should subside as your body adjusts to the medication. If they persist or worsen, inform you doctor. Temporary blurring of vision and dilation (widening) of the pupils may occur, especially if the drug on your hands comes in contact with the eyes. On infrequent occasions disorientation, memory disturbances, dizziness, restlessness, hallucinations, confusion, dry itchy or reddened whites of the eyes and eye pain have been reported. If these effects occur remove the patch and call your doctor. Precautions: Elderly, wide-angle glaucoma, history of seizures or psychosis, impaired hepatic/renal function, intestinal obstruction, pyloric or bladder neck obstruction, overactive thyroid, hypertension, allergies to adhesives. Consult doctor if or breast feeding. It isn't known if it appears in breast milk. Since drowsiness, disorientation and confusion may occur, be careful driving, operating mindy dangerous machinery especially when you first start using the drug. Limit alcohol intake. It may intensify drug side effects. Children are very sensitive to this medication and is not recommended. [facility] History and physical note PRE-ADMISSION TESTING HISTORY AND PHYSICAL EXAM DATE: 09/09/24 PCP: SEAN MICHELLE, STEVE-HEAD SULFIDE OPERATOR CHIEF COMPLAINT: Atherosclerosis of [place] artery of right lower extremity with ulceration, unspecified ulceration site HISTORY OF PRESENT ILLNESS: Poncho Douglasmona Samuel., a 69 y.o. White or male, presents to [facility] for a pre-surgical H&P. The patient has been diagnosed with atherosclerosis of [place] artery of right lower extremity with ulceration, unspecified ulceration site. He reports that on 07/29/24 he underwent a right femoral endarterectomy and right common iliac and external iliac stent angioplasty. He currently has a wound to his right great toe and right heel with dressing changes every other day. He does endorse pain in his toe and heel that he describes as throbbing and currently rates at a 3/10. The pain can increase to a 9/10 at its worst. He does utilize a walking boot. He denies recent illness, no fevers, chills, N/V/D. Anesthesia problems: Pt denies. Bleeding/ clotting disorders: Pt denies. Recent hospitalizations: Pt denies. PAST MEDICAL HISTORY: Past Medical History: Diagnosis Date Allergies Arthritis Back pain CAD (coronary artery disease) Chest pain Colon cancer ([facility]) Diabetes mellitus type 2, controlled [place] GERD (gastroesophageal reflux disease) Hearing loss Hemorrhoids Hyperlipidemia Hypertension Ischemic cardiomyopathy Myocardial infarction ([facility]) Obesity Rash big toe, heal Testicular cancer [place] PAST SURGICAL HISTORY: Past Surgical History: Procedure Laterality Date ANGIOGRAM EXTREMITY LOWER- EXTERNAL ILIAC, AND SUPERFICIAL FEMORAL Right 07/29/2024 Performed by Elyssa Murray MD at [facility] PROC APPENDECTOMY 2014 CARDIAC SURGERY COLON SURGERY 07/26/2014 Dr. Pritchard COLONOSCOPY 08/08/2016 Dr. Pritchard COLONOSCOPY 07/20/2015 Dr. Pritchard COLONOSCOPY 07/03/2014 Dr. Pritchard COLONOSCOPY 03/04/2013 Dr. Pritchard COLONOSCOPY 05/03/2010 Dr. Pritchard COLONOSCOPY 06/15/2006 Dr. Oneil COLONOSCOPY N/A 08/19/2019 Performed by Leonid Pritchard MD at [facility] COLONOSCOPY BIOPSY N/A 07/22/2024 Performed by Shae Olson DO at [facility] CORONARY ARTERY BYPASS GRAFT 2015 ENDARTERECTOMY FEMORAL WITH PATCH ANGIOPLOASTY Right 07/29/2024 Performed by Elyssa Murray MD at [facility] PROC ESOPHAGOGASTRODUODENOSCOPY 03/04/2013 Dr. 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 08/12/2024 Performed by Elyssa Murray MD at [facility] CARDIAC CATH LABS SHOCKWAVE LITHOTRIPSY RIGHT ILIAC ARTERY, STENT ANGIOPLASTY X2 Right 07/29/2024 Performed by Elyssa Murray MD at [facility] PROC VASECTOMY 1980 FAMILY HISTORY: Family History Problem Relation Age of Onset Diabetes Mother Cancer Mother Breast cancer Mother Colon cancer Mother Kidney disease Mother No Known Problems Father Early Brother No Known Problems Maternal Grandmother No Known Problems Maternal Grandfather No Known Problems Paternal Grandmother No Known Problems Paternal Grandfather Anesthesia problems Neg Hx SOCIAL HISTORY: The patient reports no history of alcohol use. He reports that he quit smoking about 4 years ago. His smoking use included cigarettes, cigars, and pipe. He has never used smokeless tobacco. He reports current drug use. ALLERGIES: Allergies Allergen Reactions Warfarin Vomiting Zofran [Ondansetron Hcl] Nausea MEDICATIONS: Current Outpatient Medications: acetaminophen (TYLENOL) 325 mg tablet, Take 2 tablets (650 mg total) by mouth as needed for pain., Disp: , Rfl: aspirin 81 mg, Take 1 tablet (81 mg total) by mouth in the morning., Disp: 30 tablet, Rfl: 11 carvediloL (COREG) 6.25 mg tablet, Take 1 tablet (6.25 mg total) by mouth 2 (two) times a day with meals. (Patient taking differently: Take 1 tablet (6.25 mg total) by mouth in the morning and 1 tablet (6.25 mg total) in the evening. Take with meals. Indications: high blood pressure.), Disp: 180 tablet, Rfl: 2 clopidogreL (PLAVIX) 75 mg tablet, Take 1 tablet (75 mg total) by mouth in the morning for 60 days., Disp: 30 tablet, Rfl: 1 dapagliflozin (FARXIGA) 10 mg tablet, Take 1 tablet (10 mg total) by mouth in the morning. Indications: type 2 diabetes mellitus., Disp: , Rfl: famotidine (PEPCID) 20 mg tablet, Take 1 tablet (20 mg total) by mouth in the morning and 1 tablet (20 mg total) before bedtime., Disp: , Rfl: glimepiride (AMARYL) 4 mg tablet, Take 1 tablet (4 mg total) by mouth in the morning and 1 tablet (4 mg total) before bedtime., Disp: , Rfl: INSULIN GLARGINE,HUM.REC.ANLOG (LANTUS SOLOSTAR SUBQ), Inject 60 Unit under the skin nightly., Disp: , Rfl: memantine (NAMENDA) 5 mg tablet, Take 1 tablet (5 mg total) by mouth in the morning and 1 tablet (5 mg total) before bedtime., Disp: , Rfl: pioglitazone (ACTOS) 30 mg tablet, Take 1 tablet (30 mg total) by mouth in the morning., Disp: , Rfl: rosuvastatin (CRESTOR) 10 mg tablet, Take 1 tablet (10 mg total) by mouth in the morning., Disp: , Rfl: lisinopriL (PRINIVIL,ZESTRIL) 10 mg tablet, Take 1 tablet (10 mg total) by mouth daily. (Patient not taking: Reported on 09/01/2024), Disp: 90 tablet, Rfl: 3 metFORMIN (GLUCOPHAGE) 1000 mg tablet, Take 1 tablet (1,000 mg total) by mouth in the morning and 1 tablet (1,000 mg total) in the evening. Take with meals. (Patient not taking: Reported on 09/01/2024), Disp: , Rfl: nitroglycerin (NITROSTAT) 0.4 MG SL tablet, Place 1 tablet (0.4 mg total) under the tongue every 5 (five) minutes as needed for chest pain. (Patient not taking: Reported on 09/01/2024), Disp: , Rfl: REVIEW OF SYSTEMS: Review of Systems Constitutional: Positive for appetite change and fatigue. Negative for fever. HENT: Positive for hearing loss (deaf left ear) and postnasal drip. Negative for dental problem, ear pain, rhinorrhea and sore throat. Respiratory: Negative for apnea, cough, chest tightness and shortness of breath. Cardiovascular: Negative for chest pain and palpitations. Gastrointestinal: Negative for nausea, vomiting, abdominal pain, diarrhea and constipation. Genitourinary: Negative for dysuria, urgency, frequency, hematuria and difficulty urinating. Musculoskeletal: Positive for back pain, arthralgias and neck pain. Skin: Positive for wound (right foot - great toe and heel). Negative for rash. Neurological: Negative for dizziness, seizures and syncope. Psychiatric/Behavioral: Positive for sleep disturbance. The patient is not nervous/anxious. VITAL SIGNS: BP 111/44 Pulse 79 Temp 36.4 C (97.5 F) (Temporal) Resp 18 Ht 175.3 cm (5' 9 ) Wt 98.9 kg (218 lb) SpO2 100% BMI 32.19 kg/m PHYSICAL EXAM: Physical Exam Constitutional: General: He is not in acute distress. Appearance: Normal appearance. He is obese. HENT: Head: Normocephalic and atraumatic. Nose: Nose normal. Mouth/Throat: Mouth: Mucous membranes are moist. Eyes: Pupils: Pupils are equal, round, and reactive to light. Cardiovascular: Rate and Rhythm: Normal rate and regular rhythm. Pulses: Normal pulses. Heart sounds: Normal heart sounds. No murmur heard. Pulmonary: Effort: Pulmonary effort is normal. Breath sounds: Normal breath sounds. No wheezing. Abdominal: General: Abdomen is flat. Bowel sounds are normal. There is no distension. Palpations: Abdomen is soft. Tenderness: There is no abdominal tenderness. Musculoskeletal: General: Tenderness (generalized) present. Cervical back: Normal range of motion and neck supple. Comments: Utilizing wheelchair at today's visit Lymphadenopathy: Cervical: No cervical adenopathy. Skin: General: Skin is warm and dry. Findings: No rash. Comments: Right lower extremity with dressing clean, dry, and intact and walking boot. Neurological: General: No focal deficit present. Mental Status: He is alert and oriented to person, place, and time. Gait: Gait abnormal (difficulty with ambulation related to foot wound). Psychiatric: Mood and Affect: Mood normal. Behavior: Behavior normal. RECENT LABS: Lab Results Component Value Date WBC 8.9 09/09/2024 HGB 10.3 (L) 09/09/2024 HCT 31.6 (L) 09/09/2024 PLT 336 09/09/2024 INR 1.0 09/09/2024 PTT 33 09/09/2024 SODIUM 135 09/09/2024 K 4.9 09/09/2024 CL 99 09/09/2024 CO2 28 09/09/2024 CALCIUM 9.6 09/09/2024 ALKPHOS 64 08/01/2024 ALBUMIN 2.8 (L) 08/01/2024 GLU 169 (H) 09/09/2024 HGBA1C 9.3 (H) 07/19/2024 ALT 11 08/01/2024 AST 13 08/01/2024 CREATININE 1.64 (H) 09/09/2024 BUN 19 09/09/2024 EGFR 45 (L) 09/09/2024 *Please note that labs listed above are the most recent lab values available in [facility] at the time of the office visit and additional labs may have been drawn since that time. PT-INR/PTT, Type and Screen, UA drawn at [facility] - see [facility] for results ASSESSMENT / DIAGNOSIS: Atherosclerosis of [place] artery of right lower extremity with ulceration, unspecified ulceration site PLAN: Poncho Ambrosio Jose Jr. is scheduled for Bypass Artery Femoral Popliteal - Right . ABBE Fragoso 09/09/24 [id number] [facility] [place] Work Phone: 09-09-2024 History and physical note PRE-ADMISSION TESTING HISTORY AND PHYSICAL EXAM DATE: 09/09/24 PCP: SEAN A HACKENBURG, FLATWARE MAKER-HEAD SULFIDE OPERATOR CHIEF COMPLAINT: Atherosclerosis of [place] artery of right lower extremity with ulceration, unspecified ulceration site HISTORY OF PRESENT ILLNESS: Poncho Jose Jr., a 69 y.o. White or male, presents to [facility] for a pre-surgical H&P. The patient has been diagnosed with atherosclerosis of [place] artery of right lower extremity with ulceration, unspecified ulceration site. He reports that on 07/29/24 he underwent a right femoral endarterectomy and right common iliac and external iliac stent angioplasty. He currently has a wound to his right great toe and right heel with dressing changes every other day. He does endorse pain in his toe and heel that he describes as throbbing and currently rates at a 3/10. The pain can increase to a 9/10 at its worst. He does utilize a walking boot. He denies recent illness, no fevers, chills, N/V/D. Anesthesia problems: Pt denies. Bleeding/ clotting disorders: Pt denies. Recent hospitalizations: Pt denies. PAST MEDICAL HISTORY: Past Medical History: Diagnosis Date Allergies Arthritis Back pain CAD (coronary artery disease) Chest pain Colon cancer ([facility]) Diabetes mellitus type 2, controlled ([facility]) GERD (gastroesophageal reflux disease) Hearing loss Hemorrhoids Hyperlipidemia Hypertension Ischemic cardiomyopathy Myocardial infarction ([facility]) Obesity Rash big toe, heal Testicular cancer [place] PAST SURGICAL HISTORY: Past Surgical History: Procedure Laterality Date ANGIOGRAM EXTREMITY LOWER- EXTERNAL ILIAC, AND SUPERFICIAL FEMORAL Right 07/29/2024 Performed by Elyssa Murray MD at [facility] PROC APPENDECTOMY 2014 CARDIAC SURGERY COLON SURGERY 07/26/2014 Dr. Pritchard COLONOSCOPY 08/08/2016 Dr. Pritchard COLONOSCOPY 07/20/2015 Dr. Pritchard COLONOSCOPY 07/03/2014 Dr. Pritchadr COLONOSCOPY 03/04/2013 Dr. Pritchard COLONOSCOPY 05/03/2010 Dr. Pritchard COLONOSCOPY 06/15/2006 Dr. Oneil COLONOSCOPY N/A 08/19/2019 Performed by Leonid Pritchard MD at [facility] COLONOSCOPY BIOPSY N/A 07/22/2024 Performed by Shae Olson DO at [facility] CORONARY ARTERY BYPASS GRAFT 2015 ENDARTERECTOMY FEMORAL WITH PATCH ANGIOPLOASTY Right 07/29/2024 Performed by Elyssa Murray MD at [facility] PROC ESOPHAGOGASTRODUODENOSCOPY 03/04/2013 Dr. 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 08/12/2024 Performed by Elyssa Murray MD at [facility] CARDIAC CATH LABS SHOCKWAVE LITHOTRIPSY RIGHT ILIAC ARTERY, STENT ANGIOPLASTY X2 Right 07/29/2024 Performed by Elyssa Murray MD at [facility] PROC VASECTOMY 1980 FAMILY HISTORY: Family History Problem Relation Age of Onset Diabetes Mother Cancer Mother Breast cancer Mother Colon cancer Mother Kidney disease Mother No Known Problems Father Early Brother No Known Problems Maternal Grandmother No Known Problems Maternal Grandfather No Known Problems Paternal Grandmother No Known Problems Paternal Grandfather Anesthesia problems Neg Hx SOCIAL HISTORY: The patient reports no history of alcohol use. He reports that he quit smoking about 4 years ago. His smoking use included cigarettes, cigars, and pipe. He has never used smokeless tobacco. He reports current drug use. ALLERGIES: Allergies Allergen Reactions Warfarin Vomiting Zofran [Ondansetron Hcl] Nausea MEDICATIONS: Current Outpatient Medications: acetaminophen (TYLENOL) 325 mg tablet, Take 2 tablets (650 mg total) by mouth as needed for pain., Disp: , Rfl: aspirin 81 mg, Take 1 tablet (81 mg total) by mouth in the morning., Disp: 30 tablet, Rfl: 11 carvediloL (COREG) 6.25 mg tablet, Take 1 tablet (6.25 mg total) by mouth 2 (two) times a day with meals. (Patient taking differently: Take 1 tablet (6.25 mg total) by mouth in the morning and 1 tablet (6.25 mg total) in the evening. Take with meals. Indications: high blood pressure.), Disp: 180 tablet, Rfl: 2 clopidogreL (PLAVIX) 75 mg tablet, Take 1 tablet (75 mg total) by mouth in the morning for 60 days., Disp: 30 tablet, Rfl: 1 dapagliflozin (FARXIGA) 10 mg tablet, Take 1 tablet (10 mg total) by mouth in the morning. Indications: type 2 diabetes mellitus., Disp: , Rfl: famotidine (PEPCID) 20 mg tablet, Take 1 tablet (20 mg total) by mouth in the morning and 1 tablet (20 mg total) before bedtime., Disp: , Rfl: glimepiride (AMARYL) 4 mg tablet, Take 1 tablet (4 mg total) by mouth in the morning and 1 tablet (4 mg total) before bedtime., Disp: , Rfl: INSULIN GLARGINE,HUM.REC.ANLOG (LANTUS SOLOSTAR SUBQ), Inject 60 Unit under the skin nightly., Disp: , Rfl: memantine (NAMENDA) 5 mg tablet, Take 1 tablet (5 mg total) by mouth in the morning and 1 tablet (5 mg total) before bedtime., Disp: , Rfl: pioglitazone (ACTOS) 30 mg tablet, Take 1 tablet (30 mg total) by mouth in the morning., Disp: , Rfl: rosuvastatin (CRESTOR) 10 mg tablet, Take 1 tablet (10 mg total) by mouth in the morning., Disp: , Rfl: lisinopriL (PRINIVIL,ZESTRIL) 10 mg tablet, Take 1 tablet (10 mg total) by mouth daily. (Patient not taking: Reported on 09/01/2024), Disp: 90 tablet, Rfl: 3 metFORMIN (GLUCOPHAGE) 1000 mg tablet, Take 1 tablet (1,000 mg total) by mouth in the morning and 1 tablet (1,000 mg total) in the evening. Take with meals. (Patient not taking: Reported on 09/01/2024), Disp: , Rfl: nitroglycerin (NITROSTAT) 0.4 MG SL tablet, Place 1 tablet (0.4 mg total) under the tongue every 5 (five) minutes as needed for chest pain. (Patient not taking: Reported on 09/01/2024), Disp: , Rfl: REVIEW OF SYSTEMS: Review of Systems Constitutional: Positive for appetite change and fatigue. Negative for fever. HENT: Positive for hearing loss (deaf left ear) and postnasal drip. Negative for dental problem, ear pain, rhinorrhea and sore throat. Respiratory: Negative for apnea, cough, chest tightness and shortness of breath. Cardiovascular: Negative for chest pain and palpitations. Gastrointestinal: Negative for nausea, vomiting, abdominal pain, diarrhea and constipation. Genitourinary: Negative for dysuria, urgency, frequency, hematuria and difficulty urinating. Musculoskeletal: Positive for back pain, arthralgias and neck pain. Skin: Positive for wound (right foot - great toe and heel). Negative for rash. Neurological: Negative for dizziness, seizures and syncope. Psychiatric/Behavioral: Positive for sleep disturbance. The patient is not nervous/anxious. VITAL SIGNS: BP 111/44 Pulse 79 Temp 36.4 C (97.5 F) (Temporal) Resp 18 Ht 175.3 cm (5' 9 ) Wt 98.9 kg (218 lb) SpO2 100% BMI 32.19 kg/m PHYSICAL EXAM: Physical Exam Constitutional: General: He is not in acute distress. Appearance: Normal appearance. He is obese. HENT: Head: Normocephalic and atraumatic. Nose: Nose normal. Mouth/Throat: Mouth: Mucous membranes are moist. Eyes: Pupils: Pupils are equal, round, and reactive to light. Cardiovascular: Rate and Rhythm: Normal rate and regular rhythm. Pulses: Normal pulses. Heart sounds: Normal heart sounds. No murmur heard. Pulmonary: Effort: Pulmonary effort is normal. Breath sounds: Normal breath sounds. No wheezing. Abdominal: General: Abdomen is flat. Bowel sounds are normal. There is no distension. Palpations: Abdomen is soft. Tenderness: There is no abdominal tenderness. Musculoskeletal: General: Tenderness (generalized) present. Cervical back: Normal range of motion and neck supple. Comments: Utilizing wheelchair at today's visit Lymphadenopathy: Cervical: No cervical adenopathy. Skin: General: Skin is warm and dry. Findings: No rash. Comments: Right lower extremity with dressing clean, dry, and intact and walking boot. Neurological: General: No focal deficit present. Mental Status: He is alert and oriented to person, place, and time. Gait: Gait abnormal (difficulty with ambulation related to foot wound). Psychiatric: Mood and Affect: Mood normal. Behavior: Behavior normal. RECENT LABS: Lab Results Component Value Date WBC 8.9 09/09/2024 HGB 10.3 (L) 09/09/2024 HCT 31.6 (L) 09/09/2024 PLT 336 09/09/2024 INR 1.0 09/09/2024 PTT 33 09/09/2024 SODIUM 135 09/09/2024 K 4.9 09/09/2024 CL 99 09/09/2024 CO2 28 09/09/2024 CALCIUM 9.6 09/09/2024 ALKPHOS 64 08/01/2024 ALBUMIN 2.8 (L) 08/01/2024 GLU 169 (H) 09/09/2024 HGBA1C 9.3 (H) 07/19/2024 ALT 11 08/01/2024 AST 13 08/01/2024 CREATININE 1.64 (H) 09/09/2024 BUN 19 09/09/2024 EGFR 45 (L) 09/09/2024 *Please note that labs listed above are the most recent lab values available in [facility] at the time of the office visit and additional labs may have been drawn since that time. 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 ABBE Fragoso 09/09/24 [id number] documented in this encounter [facility] 09-09-2024 Instructions Maegan Doran RN - 09/09/2024 2:30 PM EST Your surgery/procedure is scheduled at [facility] on 09/13 at [address] [facility] Address: [address] [place] [address] [address] located on [facility]. Report to the Entrance B. Check in at the information desk the surgery. The waiting room located on the second floor. If you have any questions prior to surgery, please call Pre-Admission Clinic at [phone] between 7:30 am and 4:30 pm Thursday through Thursday. If you have questions the morning of surgery, please call the Pre-op Department at [phone]. Notify your SURGEON if you develop any illness such as a cold, cough, fever, sore throat, vomiting or are hospitalized between now and your surgery. Medication Instructions (Do not stop your medications without consulting the prescribing physician). Take the following medications the morning of surgery with a sip of water: per office Diabetic or Weight loss medications: HOLD fARXIGA. lAST DOSE 09/09 Take inhalers as prescribed the morning of surgery. Due to the risk associated with these medications. If these medications are not held per instruction below, your surgery is at an increased risk for cancellation. SGLT2 Medications- Hold 3 days prior to surgery: Jardiance, Empagliflozin, Farxiga, Dapagliflozin, Invokana, Canagliflozin, Trijardy, Synjardy GLP-1 Medications (Injection or Pill)- If taken daily hold day of surgery. If taken weekly, hold 1 week prior to surgery: Adlyxin, Byetta, Bydureon, Ozempic, Rybelsus,Trulicity, Victoza, Wegovy, Lixisenatide, Exenatide, Semaglutide, Dulaglutide, Liraglutide GIP/GLP-1(Injection or Pill)- If taken daily hold day of surgery. If taken weekly, hold 1 week prior to surgery: Mounjaro . Blood thinners: Please contact your prescribing physician regarding a stop/hold date for these medications. Medications such as Coumadin, Heparin, Aspirin, Plavix, Eliquis, Pradaxa Diabetics: If you take insulin, contact your prescribing doctor for instructions on how to manage this the night before and the morning of surgery. Non-steriodal Anti-Inflammatory Drugs (NSAIDS)- Hold 3 days prior to surgery unless otherwise directed by your surgeon. Vitamins/Herbal Products: You may continue to take your prescribed vitamins such as potassium, iron, vitamin B, vitamin C, or multivitamin unless specifically instructed by your surgeon to hold. STOP taking all herbal products/teas one week prior to your surgery. Marijuana: Stop marijuana 72 hours prior to surgery, stop CBD oil 48 hours prior to surgery. If you have been given bowel prep instructions by your surgeon, please call the surgeon's office with any questions about these instructions. What do I do the day of Surgery? Age 2 through adult - Stop all solids by midnight, You may have clear liquids up to 2 hours before surgery, unless otherwise instructed by your surgeon. Clear liquids are: water, sports drinks such as Gatorade or G2, or apple juice. You may NOT have: tube feedings, dairy products, alcoholic beverages, orange juice, or any liquids with solids or pulp in it. If applicable, shower again with CHG soap the morning of your surgery. If you received a green plastic bracelet, bring it with you the day of surgery and your nurse will put it on you. In order to help prevent infection post-operatively, you may be asked to use a CHG mouthwash when you arrive to the Pre-op area. Your nurse will provide instruction the morning of. What do I need to do to prepare for surgery? If you will be going home the same day as your surgery, arrange for an adult over [address] Riding in a bus or taxi by yourself is not permitted. You should not smoke or drink alcohol 24 hours before your surgery. Alcohol thins the blood and may cause bleeding problems during surgery. Smoking increases the risk of breathing problems after surgery. Do not use lotions, creams, powders, perfume, make up, cologne or after-shaves day of surgery. Remove ALL jewelry including wedding rings, body piercings (including dermal piercings ,hair extensions that contain metal, nail djiboutian, make-up, and contact lens. You may brush your teeth the morning of surgery, but do not swallow the water. Wear your dentures and partial plates to the hospital (no adhesive). Shower the night the before. If applicable, use the CHG (chlorhexidine gluconate) soap or wipes What should I bring to the hospital? If you received a green plastic bracelet, bring it with you the day of surgery and your nurse will put it on you. Eyeglass or contact lens case If you will be spending the night, please bring personal care items and leave them in the car until you are taken to your room after surgery. Leave ALL valuables at home. If any of these instructions conflict with those you received from the surgeon, please seek clarification from your surgeon's office. DEEP BREATHING EXERCISES This exercise helps promote good air exchange and helps to prevent pneumonia after surgery. Breathe in slowly and deeply through the nose. Hold your breath for a few seconds and then exhale slowly through the mouth. Repeat this three times and then cough.Coughing helps to clear your lungs. If you have had a surgery with an incision into your abdomen or chest, press gently against your incision with a pillow or a folded blanket when you cough. Please be aware - it may not be vences to cough following some types of surgeries involving the eyes, ears, sinuses and throat. Always follow your doctor's instructions. LEG EXERCISE These exercises help promote good circulation and help to prevent blood clots after surgery. Point your toes to the ceiling and then point them to the wall. Do this slowly about 15-20 times. You may also move your feet in circles. Do the exercise that is most comfortable for you. If you have had surgery involving your shoulder or arm, we recommend you move your fingers. PRACTICING We ask that you begin practicing these exercises before your surgery. After surgery try to do both exercises at least every 2 hours during the day and early evening. SURGICAL SITE INFECTION PREVENTION What is a Surgical Site Infection? Infection can happen to the area of the body where surgery is done. This is called a surgical site infection (SSI). A SSI does not happen very often. Can SSIs be treated? Antibiotics are used to treat SSI. Some patients may need another surgery to treat the infection. The doctor will discuss treatment options with you. What are some of the things that hospitals are doing to prevent SSIs? Soap and water or alcohol hand rub are used before and after caring for each patient. Special soap is used to clean surgery workers hands and arms just before the surgery. Masks, gowns, gloves and hair covers are worn during the surgery to keep the area clean. Hair in the surgery area may be removed with clippers (not razors). A special soap that kills germs is used to clean the skin at the surgery site. Antibiotics may be given before the surgery starts. What can you do to prevent SSIs? Before surgery: You may be asked to shower or bathe with a special soap that kills germs the night before and the day of surgery. Use the soap as you were told. If you smoke, stop or cut down. Ask your doctor about ways to quit. Do not shave near where you will have surgery. Shaving can irritate the skin and make it easier to get and infection. After surgery: Be sure that the doctors and nurses clean their hands before and after touching you. Be sure your family and friends clean their hands before and after visiting you. Do not be afraid to remind them. * Care for your wound at home as told by your doctor or nurse * Call your doctor right away if you have fever, redness, increased pain, or drainage at the surgery site. Further questions? Contact the doctor, nurse or the Infection Prevention and Control department if you have any questions. PATIENT RIGHTS AND RESPONSIBILITIES As a patient at [facility], you have the right to: Receive medical care and be informed of who is taking care of you Be treated with dignity and respect Have a family member/fuels sales representative of choice and your physician notified of your admission Receive information and actively participate in decisions about your care and treatment Refuse care, treatment and services Decide who may provide your support and speak for you Access episcopal and spiritual services Participate in ethical issues and questions about your care Receive private and confidential care Have appropriate assessment and management of your pain Know guest visitation restrictions or limitations Have an advance directive Access protective services Consent or refuse to participate in research studies or production or recordings, films or other images Have resolution of your complaints Receive information of hospital charges and payment methods Patient/patient fuels sales representative responsibilities are to: Provide information about health status to facilitate care, treatment and services Follow the treatment, plan, keep appointments and speak up when you do not understand the plan Respect the rights of other patients and healthcare personnel Follow organizational rules and regulations that support quality care and a safe environment Fulfill financial obligations as promptly as possible Bathing Before Surgery- Patients greater than 2 months of age You can help to lower your chance of infection at the site of your surgery by showering or bathing with a special soap called chlorhexidine gluconate (CHG). Germs live on your skin. This special soap will help lower the amount of germs so they do not get into your surgery site. Special points to know: Do not use this soap if you know that you are allergic to CHG. Shower or bathe with CHG the night before and the morning of surgery. Do not shave the area of your body where the surgery will be done within 7 days of surgery. The CHG may make your skin a little dry, but do not use lotion. Steps for Bathing: Wash your hair as usual with your normal shampoo. Rinse your hair and body well after you shampoo to get rid all of the shampoo. Wash gently with the CHG from the neck down, but do not scrub the skin to hard. Be sure to wash the area of your surgery very well. If showering, turn the water off while washing and then turn the water back onto rinse. Do not get CHG in the genital (private) area. Do not get CHG in the eyes, ears, nose or mouth. (If the soap gets into the eyes, flush them immediately with water). Do not wash with regular soap after CHG is used. Pat skin dry with a soft, clean towel. Patient should sleep in freshly laundered night clothes and report for surgery in clean clothes. 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 I discussed with him SFA to above-knee pop bypass. Discussed risks benefits and alternatives. Informed consent was obtained. 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 I discussed with him SFA to above-knee pop bypass. Discussed risks benefits and alternatives. Informed consent was obtained. documented in this encounter [facility] 09-01-2024 History of Present illness Narrative Images from the original note were not included. To: UBALDO CARPIO MD HPI: Poncho Douglasmona Samuel. is a 69 y.o. male with Right lower extremity critical limb ischemia with tissue loss. He had an inflow procedure. He had an angiogram and attempt to recanalize the SFA. I discussed with him doing fem to above-knee pop bypass. Procedure risks benefits and alternatives were explained and informed consent was obtained.. Review of Systems: Review of Systems Constitutional: Negative. HENT: Negative. Respiratory: Negative. Cardiovascular: Negative. Gastrointestinal: Negative. Endocrine: Negative. Genitourinary: Negative. Musculoskeletal: Negative. Skin: Negative. Neurological: Negative. Hematological: Negative. Medications: Current Outpatient Medications on File Prior to Visit Medication Sig Dispense Refill acetaminophen (TYLENOL) 325 mg tablet Take 2 tablets (650 mg total) by mouth as needed for pain. aspirin 81 mg Take 1 tablet (81 mg total) by mouth in the morning. 30 tablet 11 benzonatate (TESSALON PERLES) 100 mg capsule Take 1 capsule (100 mg total) by mouth every 8 (eight) hours. 21 capsule 0 carvediloL (COREG) 6.25 mg tablet Take 1 tablet (6.25 mg total) by mouth 2 (two) times a day with meals. 180 tablet 2 clindamycin-benzoyl peroxide (BENZACLIN) gel clopidogreL (PLAVIX) 75 mg tablet Take 1 tablet (75 mg total) by mouth in the morning for 60 days. 30 tablet 1 dapagliflozin (FARXIGA) 10 mg tablet Take 1 tablet (10 mg total) by mouth in the morning. famotidine (PEPCID) 20 mg tablet Take 1 tablet (20 mg total) by mouth in the morning and 1 tablet (20 mg total) before bedtime. glimepiride (AMARYL) 4 mg tablet Take 1 tablet (4 mg total) by mouth in the morning and 1 tablet (4 mg total) before bedtime. INSULIN GLARGINE,HUM.REC.ANLOG (LANTUS SOLOSTAR SUBQ) Inject 60 Unit under the skin nightly. magnesium oxide (MAG-OX) 400 mg tablet Take 1 tablet (400 mg total) by mouth daily. 30 tablet 0 memantine (NAMENDA) 5 mg tablet Take 1 tablet (5 mg total) by mouth in the morning and 1 tablet (5 mg total) before bedtime. pioglitazone (ACTOS) 30 mg tablet Take 1 tablet (30 mg total) by mouth in the morning. rosuvastatin (CRESTOR) 10 mg tablet Take 1 tablet (10 mg total) by mouth in the morning. lisinopriL (PRINIVIL,ZESTRIL) 10 mg tablet Take 1 tablet (10 mg total) by mouth daily. (Patient not taking: Reported on 09/01/2024) 90 tablet 3 metFORMIN (GLUCOPHAGE) 1000 mg tablet Take 1 tablet (1,000 mg total) by mouth in the morning and 1 tablet (1,000 mg total) in the evening. Take with meals. (Patient not taking: Reported on 09/01/2024) nitroglycerin (NITROSTAT) 0.[address] 1 tablet (0.4 mg total) under the tongue every 5 (five) minutes as needed for chest pain. (Patient not taking: Reported on 09/01/2024) No current facility-administered medications on file prior to visit. Past Medical History: Past Medical History: Diagnosis Date Allergies Arthritis Back pain CAD (coronary artery disease) Chest pain Colon cancer ([facility]) Diabetes mellitus type 2, controlled ([facility] GERD (gastroesophageal reflux disease) Hearing loss Hemorrhoids Hyperlipidemia Hypertension Ischemic cardiomyopathy Myocardial infarction ([facility]) Obesity Testicular cancer ([facility] Past Surgical History: Past Surgical History: Procedure Laterality Date ANGIOGRAM EXTREMITY LOWER- EXTERNAL ILIAC, AND SUPERFICIAL FEMORAL Right 07/29/2024 Performed by Elyssa Murray MD at [facility] PROC APPENDECTOMY 2014 CARDIAC SURGERY COLON SURGERY 07/26/2014 Dr. Pritchard COLONOSCOPY 08/08/2016 Dr. Pritchard COLONOSCOPY 07/20/2015 Dr. Pritchard COLONOSCOPY 07/03/2014 Dr. Pritchard COLONOSCOPY 03/04/2013 Dr. Pritchard COLONOSCOPY 05/03/2010 Dr. Pritchard COLONOSCOPY 06/15/2006 Dr. Oneil COLONOSCOPY N/A 08/19/2019 Performed by Leonid Pritchard MD at [facility] COLONOSCOPY BIOPSY N/A 07/22/2024 Performed by Shae Olson DO at [facility] CORONARY ARTERY BYPASS GRAFT 2015 ENDARTERECTOMY FEMORAL WITH PATCH ANGIOPLOASTY Right 07/29/2024 Performed by Elyssa Murray MD at [facility] PROC ESOPHAGOGASTRODUODENOSCOPY 03/04/2013 Dr. 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 08/12/2024 Performed by Elyssa Murray MD at [facility] CARDIAC CATH LABS SHOCKWAVE LITHOTRIPSY RIGHT ILIAC ARTERY, STENT ANGIOPLASTY X2 Right 07/29/2024 Performed by Elyssa Murray MD at [facility] PROC VASECTOMY 1980 Social and Family History: Social History Socioeconomic History Marital status: Spouse name: Not on file Number of children: Not on file Years of education: Not on file Highest education level: Not on file Occupational History Not on file Tobacco Use Smoking status: Former Smokeless tobacco: Never Vaping Use Vaping status: Never Used Substance and Sexual Activity Alcohol use: No Drug use: No Sexual activity: Defer Other Topics Concern Caffeine Use Yes Social History Narrative Not on file Social Drivers of Health Financial Resource Strain: Low Risk (12/25/2022) Received from [facility] Overall Financial Resource Strain (CARDIA) Difficulty of Paying Living Expenses: Not hard at all Food Insecurity: No Food Insecurity (08/04/2024) Hunger Screening Food Insecurity - Worry: Never True Food Insecurity - Inability: Never True Transportation Needs: No Transportation Needs (07/17/2024) PRAPARE - Transportation Lack of Transportation (Medical): No Lack of Transportation (Non-Medical): No Physical Activity: Sufficiently Active (12/25/2022) Received from [facility] Exercise Vital Sign Days of Exercise per Week: 5 days Minutes of Exercise per Session: 60 min Stress: No Stress Concern Present (12/25/2022) Received from [facility] of Occupational Health - Occupational Stress Questionnaire Feeling of Stress : Not at all Social Connections: Moderately Isolated (12/25/2022) Received from [facility] Social Connection and Isolation Panel [NHANES] Frequency of Communication with Friends and Family: More than three times a week Frequency of Social Gatherings with Friends and Family: More than three times a week Attends Muslim Services: Never Active Member of Clubs or Organizations: No Attends Club or Organization Meetings: Never Marital Status: Interpersonal Safety: Not At Risk (07/17/2024) Humiliation, Afraid, Rape, and Kick questionnaire Fear of Current or Ex-Partner: No Emotionally Abused: No Physically Abused: No Sexually Abused: No Housing Instability: Low Risk (07/17/2024) Housing Instability Housing Instability: No Family History Problem Relation Age of Onset Diabetes Mother Cancer Mother Breast cancer Mother Colon cancer Mother Kidney disease Mother No Known Problems Father Early Brother No Known Problems Maternal Grandmother No Known Problems Maternal Grandfather No Known Problems Paternal Grandmother No Known Problems Paternal Grandfather Recent Labs: Recent and relative labs were reviewed and interpreted and contributed to the assessment and plan below. Vitals: BP 107/69 (BP Site: Left Arm, BP Postition: Sitting, BP CUFF SIZE: M (9-13 inches)) Pulse 96 Temp 36.6 C (97.8 F) (Temporal) Resp 18 Ht 175.3 cm (5' 9.02 ) Wt 98.9 kg (218 lb 0.6 oz) SpO2 100% BMI 32.18 kg/m Body mass index is 32.18 kg/m . Physical Exam: Physical Exam Constitutional: Appearance: Normal appearance. HENT: Head: Normocephalic and atraumatic. Mouth/Throat: Mouth: Mucous membranes are moist. Eyes: Extraocular Movements: Extraocular movements intact. Pupils: Pupils are equal, round, and reactive to light. Cardiovascular: Rate and Rhythm: Normal rate and regular rhythm. Pulmonary: Effort: Pulmonary effort is normal. Breath sounds: Normal breath sounds. Abdominal: General: Abdomen is flat. Bowel sounds are normal. Palpations: Abdomen is soft. Musculoskeletal: General: Normal range of motion. Cervical back: Normal range of motion. Skin: General: Skin is warm and dry. Neurological: General: No focal deficit present. Mental Status: He is alert and oriented to person, place, and time. Mental status is at baseline. Psychiatric: Mood and Affect: Mood normal. Behavior: Behavior normal. Thought Content: Thought content normal. Judgment: Judgment normal. 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 I discussed with him SFA to above-knee pop bypass. Discussed risks benefits and alternatives. Informed consent was obtained. Poncho was seen today for right fem endart with angioplasty 07/29. 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 While intending to generate a timely document that accurately reflects the content of the visit, no guarantee can be provided that every grammatical or spelling mistake has been or will be identified or corrected. Thank you for your understanding. documented in this encounter [facility] [employer] [facility] 08-29-2024 Miscellaneous Notes ----- Message from EARL Soto sent at 08/22/2024 9:37 AM EST ----- Pt will have to come to [place] for hospital f/u. Nothing in [place]. Okay to double book Karyn the first week of September at the 1 o'clock spot FélixSary ----- Message ----- From: Leeann Peña Sent: 08/12/2024 2:47 PM EST To: Sary Kapoor RN LM to call office back to schedule HFU. documented in this encounter [facility] 08-29-2024 Telephone encounter Note ----- Message from EARL Soto sent at 08/22/2024 9:37 AM EST ----- Pt will have to come to [place] for hospital f/u. Nothing in [place]. Okay to double book Karyn the first week of September at the 1 o'clock spot Sary Heard ----- Message ----- From: Leeann Peña Sent: 08/12/2024 2:47 PM EST To: Sary Kapoor RN [facility] 08-29-2024 Telephone encounter Note LM to call office back to schedule HFU. [facility] 08-24-2024 Miscellaneous Notes ----- Message from EARL Soto sent at 08/22/2024 9:37 AM EST ----- Pt will have to come to [place] for hospital f/u. Nothing in [place]. Okay to double book Karyn the first week of September at the 1 o'clock spot Sary Heard ----- Message ----- From: Leeann Peña Sent: 08/12/2024 2:47 PM EST To: Sary Kapoor RN LM to call office back to schedule HFU. documented in this encounter [facility] 08-24-2024 Telephone encounter Note ----- Message from EARL Soto sent at 08/22/2024 9:37 AM EST ----- Pt will have to come to [facility] f/u. Nothing in [place]. Okay to double book Karyn the first week of September at the 1 o'clock spot Sary Heard ----- Message ----- From: Leeann Peña Sent: 08/12/2024 2:47 PM EST To: Sary Kapoor RN [facility] 08-24-2024 Telephone encounter Note LM to call office back to schedule HFU. [facility] 08-16-2024 History of Present illness Narrative Poncho Jose is a 69 y.o. male Ubaldo Carpio MD presents with chief complaint of Diabetes and Follow-up HPI: Interim History: 08/2024 Follow-up office visit 08/16/2024 A1C in the office 9.1; blood sugar 314, He is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 Pre-filled pens stable 28 days at room temperature. 0630 (SEP Hold - Provider: User Epic - Reason: Patient not available)1015 (SEP Unhold - Provider: User Epic)2024 (Given - Provider: Orlando Miles, EARL) 2223 (Given - Provider: Urbano Patricia RN) 2199 (Due) insulin lispro (HumaLOG) injection 2-10 Units 2-10 Units, subcutaneous, 3 times daily with meals, First dose on Thu09/13/24 at 1700, Daytime hyperglycemia dosing. For blood glucose 151-200 mg/dL, give 2 units. For blood glucose 201-250 mg/dL, give 4 units. For blood glucose 251-300 mg/dL, give 6 units. For blood glucose 301-350 mg/dL, give 8 units. For blood glucose 351-400 mg/dL, give 10 units. Give even if NPO or meals skipped. Do NOT give more often then every 4 hours when NPO. Notify prescriber if blood glucose greater than 400 mg/dL. Look-alike/sound-alike medication - verify indication for use. Prime with 2 units of insulin prior to administration. Prandial/supplemental Insulin. Pre-filled pens stable 28 days at room temperature. Insulin lispro should be administered within 15 minutes before or immediately after a meal. 0630 (SEP Hold - Provider: User Epic - Reason: Patient not available)0800 (Dose Auto Held - Provider: User Epic)1015 (SEP Unhold - Provider: User Epic)1200 (Hold - Provider: Jane Pringle RN - Reason: Order parameters not met)1726 (Given - Provider: Jane Pringle, EARL) 0901 (Given - Provider: Jane Pringle RN)1252 (Given - Provider: Jane Elmore, RN)1821 (Given - Provider: Jane Pringle RN) 0825 (Given - Provider: Catia Carter, RN)1328 (Given - Provider: Catia Carter RN)1700 (Due) magnesium oxide (MAGOX) tablet 800 mg (COMPLETED) 800 mg, oral, Once, On 09/17/24 at 0945, For 1 dose 1018 (Given - Provider: Catia Carter RN) methocarbamoL (ROBAXIN) tablet 750 mg () 750 mg, oral, 3 times daily, First dose on Thu09/13/24 at 1700, For 3 days 0600 (Hold - Provider: Maria Eugenia Romero RN - Reason: Other - Comment: pt off unit)0630 (MAR Hold - Provider: User Epic - Reason: Patient not available)1015 (SEP Unhold - Provider: User Epic)1333 (Given - Provider: Jane Pringle RN)202 (Given - Provider: Orlando Miles, EARL) 0501 (Given - Provider: Orlando Miles RN) oxyCODONE (ROXICODONE) immediate release tablet 5 mg (COMPLETED) 5 mg, oral, Once, On Bindu 09/15/24 at 0930, For 1 dose, PACU (only), Look-alike/sound-alike medication - verify indication for use. Immediate release. 0930 (Given - Provider: Caitlin Gallegos RN) pregabalin (LYRICA) capsule 50 mg (COMPLETED) 50 mg, oral, 2 times daily, First dose on Thu09/13/24 at 1600, For 3 days, Look-alike/sound-alike medication. Verify indication for use 0630 (SEP Hold - Provider: User Epic - Reason: Patient not available)0900 (Dose Auto Held - Provider: User Epic)1015 (SEP Unhold - Provider: User Epic)1039 (Given - Provider: Jane Pringle RN)202 (Given - Provider: Orlando Miles, EARL) 0859 (Given - Provider: Jane Pringle RN) rivaroxaban (XARELTO) tablet 2.5 mg 2.5 mg, oral, 2 times daily with meals, First dose (after last modification) on Thu09/16/24 at 0945, Take/Give with food., Indication: Chronic Coronary Artery Disease/Peripheral Artery Disease 1041 (Given - Provider: Jane Pringle, RN)1818 (Given - Provider: Jane Pringle, RN) 0823 (Given - Provider: Catia Carter, EARL)1700 (Due) rosuvastatin (CRESTOR) tablet 10 mg 10 mg, oral, Daily, First dose on Thu09/14/24 at 0900, Look-alike/sound-alike medication - verify indication for use. 0630 (MAR Hold - Provider: User Epic - Reason: Patient not available)0900 (Dose Auto Held - Provider: User Epic)1015 (MAR Unhold - Provider: User Epic)1038 (Given - Provider: Jane Pringle, EARL) 0858 (Given - Provider: Jane Pringle RN) 0823 (Given - Provider: Catia Carter, EARL) sodium hypochlorite (DAKIN'S 1/4 STRENGTH) 0.125 % external solution 1 Application 1 Application, topical, 2 times daily, First dose on Thu09/16/24 at 0945 0945 (Not Given - Provider: Jane Pringle RN - Reason: Other)2100 (Not Given - Provider: Urbano Patricia RN - Reason: Patient/family refused) 1300 (Not Given - Provider: Catia Carter RN - Reason: Other - Comment: dose change)2100 (Due) Continuous Medication Order 09/15/2024 09/16/2024 09/17/2024 heparin infusion 98533 units/500 mL in 0.45% NaCl (50 units/mL premix) (CANCELED) 800 Units/hr (16 mL/hr), intravenous, Continuous, Starting on Thu09/14/24 at 0745, Monitor for signs of bleeding. Look-alike/sound-alike medication - verify indication for use., Indication: Other, Other Indication: PAD, INITIAL Infusion Dose (Units/hr): 800 units/hr 0622 (Stop Bag - Provider: Maria Eugenia Romero RN - Comment: per iggy TANNER)0630 (MAR Hold - Provider: Automatic Transfer Provider - Reason: Patient not available)1015 (SEP Unhold - Provider: User Epic)1139 (Restarted - Provider: Jane Pringle RN)1918 (Handoff - Provider: Jane Pringle RN)2027 (New Bag - Provider: Orlando Miles, RN) 0710 (Handoff - Provider: Jane Pringle, RN)1043 (Stop Bag - Provider: Jane Pringle, RN) lactated ringers infusion 50 mL/hr, intravenous, Continuous, Starting on e 09/13/24 at 1600, For 2 days 0630 (SEP Hold - Provider: Automatic Transfer Provider - Reason: Patient not available)1015 (SEP Unhold - Provider: User Epic) lactated ringers infusion (CANCELED) 75 mL/hr, intravenous, Continuous, Starting on Bindu 09/15/24 at 0700, Pre-op, If fluid restriction is not indicated, infuse at a rate up to 5 mL/kg/hr not to exceed the total replacement volume (2 ml/kg/hr) from the time NPO status was initiated. 0758 (New Bag - Provider: Elizabeth Sam RN) sodium chloride 0.9 % infusion 3 mL/hr, intra-arterial, Continuous, Starting on Thu09/13/24 at 1645, For 96 hours 0630 (SEP Hold - Provider: Automatic Transfer Provider - Reason: Patient not available)1015 (SEP Unhold - Provider: User Epic) PRN Medication Order 09/15/2024 09/16/2024 09/17/2024 calcium gluconate 2,000 mg in sodium chloride 0.9 % 100 mL IVPB(Linked Group 1) 2,000 mg, intravenous, at 120 mL/hr, Administer over 60 Minutes, As needed, for ionized calcium level 3 to 3.4 mg/dL, Starting on Thu09/13/24 at 1304, Recheck ionized calcium 6 hours after infusion. Hold calcium replacement for phosphorus greater than 5.5 mg/dL. VESICANT (RED) 0630 (SEP Hold - Provider: User Epic - Reason: Patient not available)1015 (SEP Unhold - Provider: User Epic) calcium gluconate 3,000 mg in sodium chloride 0.9 % 100 mL IVPB(Linked Group 1) 3,000 mg, intravenous, at 130 mL/hr, Administer over 60 Minutes, As needed, for ionized calcium level less than 3 mg/dL, Starting on 09/13/24 at 1304, CALL PHYSICIAN if this dose is administered. Recheck ionized calcium 6 hours after infusion. Hold calcium replacement for phosphorus greater than 5.5 mg/dL. VESICANT (RED) 0630 ([facility] Hold - Provider: User Epic - Reason: Patient not available)1015 ([facility] Unhold - Provider: User Epic) calcium gluconate IVPB 1000 mg/50 mL (20 mg/mL premix)(Linked Group 1) 1,000 mg, intravenous, at 50 mL/hr, Administer over 60 Minutes, As needed, for ionized calcium level 3.5 to 4.4 mg/dL, Starting on Thu09/13/24 at 1304, Recheck ionized calcium 6 hours after infusion. Hold calcium replacement for phosphorus greater than 5.5 mg/dL. VESICANT (RED) 0630 ([facility] Hold - Provider: User Epic - Reason: Patient not available)1015 ([facility] Unhold - Provider: User Epic) dextrose (GLUTOSE) 40 % gel 15 g 15 g, oral, As needed, low blood sugar, blood glucose less than 70 mg/dL, Starting on Thu09/13/24 at 1304, If patient conscious and taking PO. If blood glucose is not greater than 70 mg/dL after initial treatment, repeat treatment. 0630 ([facility] Hold - Provider: User Epic - Reason: Patient not available)1015 ([facility] Unhold - Provider: User Epic) dextrose 50 % in water (D50W) 50% solution 25 mL 25 mL, intravenous, As needed, low blood sugar, blood glucose less than 70 mg/dL and unconscious or NPO with IV access, Starting on Thu09/13/24 at 1304, Push over 1-3 minutes STAT. If conscious and not NPO, immediately follow with meal tray or high protein (7 grams) snack if tray not available. If NPO, initiate 5% dextrose in water at 100 mL/hr and contact prescriber for additional orders. If blood glucose is not greater than 70 mg/dL after initial treatment, repeat treatment. VESICANT (RED) Warning: HYPERTONIC solution. 0630 ([facility] Hold - Provider: User Epic - Reason: Patient not available)1015 ([facility] Unhold - Provider: User Epic) glucagon HCL injection 1 mg 1 mg, intramuscular, As needed, low blood sugar, blood glucose less than 70 mg/dL and unconscious or NPO without IV access., Starting on Thu09/13/24 at 1304, If conscious and not NPO, immediately follow with meal tray or high protein (7Grams) snack if tray not available. If NPO, initiate IV 5% Dextrose/Water at 100 mL/hr and contact prescriber for additional orders. If blood glucose is not greater than 70 mg/dL after initial treatment, repeat treatment. 0630 (MAR Hold - Provider: User Epic - Reason: Patient not available)1015 (SEP Unhold - Provider: User Epic) magnesium sulfate IVPB 2000 mg/50 mL in iso-osmotic water (40 mg/mL premix)(Linked Group 2) 2,000 mg, intravenous, at 25 mL/hr, Administer over 120 Minutes, As needed, for magnesium level 1.7 to 1.9 mg/dL or ionized magnesium level 0.45 to 0.5 mmol/L, Starting on Thu09/13/24 at 1304, Use premix solution. Default to ionized magnesium level in cases where patient has both magnesium and ionized magnesium results. If administered, check ionized magnesium (or total magnesium if ionized magnesium unavailable) level 4 hours after infusion. 0630 (SEP Hold - Provider: User Epic - Reason: Patient not available)1015 (MAR Unhold - Provider: User Epic) 1017 (New Bag - Provider: Jane Pringle, EARL)1217 (Stop Bag - Provider: Jane Pringle, ERAL) magnesium sulfate IVPB 4000 mg/100 mL in iso-osmotic water (40 mg/mL premix)(Linked Group 2) 4,000 mg, intravenous, at 25 mL/hr, Administer over 240 Minutes, As needed, for magnesium level 1.6 mg/mL or less, or ionized magnesium level 0.44 mmol/L or less, Starting on Thu09/13/24 at 1304, Use premix solution. Default to ionized magnesium level in cases where patient has both magnesium and ionized magnesium results. If administered, check ionized magnesium (or total magnesium if ionized magnesium unavailable) level 4 hours after infusion. 0630 (MAR Hold - Provider: User Epic - Reason: Patient not available)1015 (MAR Unhold - Provider: User Epic) 1017 (See Alternative - Provider: Jane Pringle, EARL)1217 (See Alternative - Provider: Jane Pringle, RN) midazolam (PF) (VERSED) injection 1 mg (CANCELED) 1 mg, intravenous, As needed, anxiety, Starting on Bindu 09/15/24 at 0649, For 2 doses, Pre-op, May repeat in 10 minutes, if needed, if original midazolam (VERSED) ineffective, Indication: Other, Indication: anxiety 0758 (Given - Provider: Elizabeth Sam, RN) morphine injection 4 mg (CANCELED) 4 mg, intravenous, Every 5 min PRN, Pain Scale 6-10 if pain not controlled by fentanyl, Starting on Bindu 09/15/24 at 0856, PACU (only), Up to a maximum dose of 12 mg Look-alike/sound-alike medication - verify indication for use. 0930 (Given - Provider: Caitlin Gallegos, EARL)0946 (Given - Provider: Caitlin Gallegos RN) oxyCODONE (ROXICODONE) immediate release tablet 5 mg (COMPLETED) 5 mg, oral, Every 6 hours PRN, severe pain - pain scale 7-10, Starting on e 09/13/24 at 1553, For 3 doses, Look-alike/sound-alike medication - verify indication for use. Immediate release. 0630 (SEP Hold - Provider: User [employer] - Reason: Patient not available)1015 (MAR Unhold - Provider: User [employer]) 1358 (Given - Provider: Jane Pringle RN) potassium chloride (K-TAB,KLOR-CON) CR tablet 20-50 mEq(Linked Group 3) 20-50 mEq, oral, As needed, for potassium replacement, Starting on e 09/13/24 at 1304, Progress to oral potassium replacement when patient tolerating oral intake. If dose administered, recheck potassium level 4 hours after last dose. For potassium level 3.4 to 3.8 mmol/L and Serum Creatinine 1.2 or less=30 mEq. For potassium level 3.1 to 3.3 mmol/L and Serum Creatinine 1.2 or less=40 mEq. For potassium level 3 mmol/L or less and Serum Creatinine 1.2 or less=50 mEq. For potassium level 3.4 to 3.8 mmol/L and Serum Creatinine greater than 1.2=20 mEq. For potassium level 3.1 to 3.3 mmol/L and Serum Creatinine greater than 1.2=30 mEq. For potassium level 3 mmol/L or less and Serum Creatinine greater than 1.2=40 mEq. Do not crush or chew. 0630 (SEP Hold - Provider: User [employer] - Reason: Patient not available)1015 ([facility] Unhold - Provider: User [employer]) potassium chloride (KAYCIEL) 20 mEq/15 mL solution 20-50 mEq(Linked Group 3) 20-50 mEq, oral, As needed, potassium replacement, Starting on Thu09/13/24 at 1304, Progress to oral potassium replacement when patient tolerating oral intake. If dose administered, recheck potassium level 4 hours after last dose. For potassium level 3.4 to 3.8 mmol/L and Serum Creatinine 1.2 or less=30 mEq (22.5mL). For potassium level 3.1 to 3.3 mmol/L and Serum Creatinine 1.2 or less=40 mEq (30mL). For potassium level 3 mmol/L or less and Serum Creatinine 1.2 or less=50 mEq (37.5mL). For potassium level 3.4 to 3.8 mmol/L and Serum Creatinine greater than 1.2=20 mEq (15mL). For potassium level 3.1 to 3.3 mmol/L and Serum Creatinine greater than 1.2=30 mEq (22.5mL). For potassium level 3 mmol/L or less and Serum Creatinine greater than 1.2=40 mEq (30mL). Must dilute before use - Mix in 3-8 ounces of water or juice before administration When administering in feeding tube, flush before and after per policy and monitor potassium levels 0630 ([facility] Hold - Provider: User [employer] - Reason: Patient not available)1015 ([facility] Unhold - Provider: User [employer]) potassium chloride IVPB 10 mEq/100 mL in water (0.1 mEq/mL premix)(Linked Group 4) 10 mEq, intravenous, at 100 mL/hr, Administer over 60 Minutes, As needed, for potassium replacement, Starting on Thu09/13/24 at 1304, Administer Potassium Chloride IVPB in 10 mEq increments. Maximum infusion rates: Central Line = 20 mEq/hour; Peripheral Line = 10 mEq/hour (10 mEq/100 mL). If dose administered, recheck potassium level 1 hour after infusion complete. For potassium level 3.4 to 3.8 mmol/L and Serum Creatinine 1.2 or less = 30 mEq For potassium level 3.1 to 3.3 mmol/L and Serum Creatinine 1.2 or less = 40 mEq For potassium level 3 mmol/L or less and Serum Creatinine 1.2 or less = 50 mEq For potassium level 3.4 to 3.8 mmol/L and Serum Creatinine greater than 1.2 = 20 mEq For potassium level 3.1 to 3.3 mmol/L and Serum Creatinine greater than 1.2 = 30 mEq For potassium level 3 mmol/L or less and Serum Creatinine greater than 1.2 = 40 mEq VESICANT (YELLOW) Infuse each 10 mEq over a minimum of 1 hour. 0630 (SEP Hold - Provider: User [employer] - Reason: Patient not available)1015 (SEP Unhold - Provider: User [employer]) potassium chloride IVPB 10 mEq/50 mL in water (0.2 mEq/mL premix)(Linked Group 4) 10 mEq, intravenous, at 50 mL/hr, Administer over 1 Hours, As needed, for potassium replacement, Starting on Thu09/13/24 at 1304, Administer Potassium Chloride IVPB in 10 mEq increments. Maximum infusion rates: Central Line = 20 mEq/hour. Administer via Central Line Only. If dose administered, recheck potassium level 1 hour after infusion complete. For potassium level 3.4 to 3.8 mmol/L and Serum Creatinine 1.2 or less = 30 mEq For potassium level 3.1 to 3.3 mmol/L and Serum Creatinine 1.2 or less = 40 mEq For potassium level 3 mmol/L or less and Serum Creatinine 1.2 or less = 50 mEq For potassium level 3.4 to 3.8 mmol/L and Serum Creatinine greater than 1.2 = 20 mEq For potassium level 3.1 to 3.3 mmol/L and Serum Creatinine greater than 1.2 = 30 mEq For potassium level 3 mmol/L or less and Serum Creatinine greater than 1.2 = 40 mEq VESICANT (YELLOW) 0630 (SEP Hold - Provider: User [employer] - Reason: Patient not available)1015 (SEP Unhold - Provider: User [employer]) sod phos di, mono-K phos mono (K-PHOS NEUTRAL) 250 mg tablet 2 tablet(Linked Group 5) 2 tablet, oral, As needed, for phosphorous level 2.3 mg/dL or less, Starting on Thu09/13/24 at 1304, If dose administered, recheck phosphorus level 4 hours after last dose. Look-alike/sound-alike medication - verify indication for use. Give with a full glass of water. 0630 (SEP Hold - Provider: User Epic - Reason: Patient not available)1015 (SEP Unhold - Provider: User Epic) sodium chloride 0.9% (NS) irrigation bottle (CANCELED) As needed, Starting on Bindu 09/15/24 at 0812, Intra-op 0812 (Given - Provider: Elyssa Murray MD - Comment: GIVEN TO THE STERILE FIELD) sodium phosphate 20 mmol in sodium chloride 0.9 % 100 mL IVPB(Linked Group 5) 20 mmol, intravenous, at 26.7 mL/hr, Administer over 4 Hours, As needed, for phosphorous level 2.3 mg/dL or less, Starting on Thu09/13/24 at 1304, Administer over 4 hours via dedicated line(central line). If administered, recheck phosphorus level 4 hours after infusion complete. Infuse using central line access. 0630 (SEP Hold - Provider: User Epic - Reason: Patient not available)1015 (SEP Unhold - Provider: User Epic) sodium phosphate 20 mmol in sodium chloride 0.9 % 250 mL IVPB(Linked Group 5) 20 mmol, intravenous, at 42.8 mL/hr, Administer over 6 Hours, As needed, for phosphorous level 2.3 mg/dL or less, Starting on Thu09/13/24 at 1304, Administer over 6 hours via dedicated line (peripheral line). If administered, recheck phosphorus level 4 hours after infusion complete. 0630 (SEP Hold - Provider: User Epic - Reason: Patient not available)1015 (SEP Unhold - Provider: User Epic) Linked Groups Order Group 1: calcium gluconate IVPB 1000 mg/50 mL (20 mg/mL premix)Jump to med 1,000 mg, intravenous, at 50 mL/hr, Administer over 60 Minutes, As needed, for ionized calcium level 3.5 to 4.4 mg/dL, Starting on Thu09/13/24 at 1304, Recheck ionized calcium 6 hours after infusion. Hold calcium replacement for phosphorus greater than 5.5 mg/dL. VESICANT (RED) Or calcium gluconate 2,000 mg in sodium chloride 0.9 % 100 mL IVPBJump to med 2,000 mg, intravenous, at 120 mL/hr, Administer over 60 Minutes, As needed, for ionized calcium level 3 to 3.4 mg/dL, Starting on Thu09/13/24 at 1304, Recheck ionized calcium 6 hours after infusion. Hold calcium replacement for phosphorus greater than 5.5 mg/dL. VESICANT (RED) Or calcium gluconate 3,000 mg in sodium chloride 0.9 % 100 mL IVPBJump to med 3,000 mg, intravenous, at 130 mL/hr, Administer over 60 Minutes, As needed, for ionized calcium level less than 3 mg/dL, Starting on Thu09/13/24 at 1304, CALL PHYSICIAN if this dose is administered. Recheck ionized calcium 6 hours after infusion. Hold calcium replacement for phosphorus greater than 5.5 mg/dL. VESICANT (RED) Group 2: magnesium sulfate IVPB 2000 mg/50 mL in iso-osmotic water (40 mg/mL premix)Jump to med 2,000 mg, intravenous, at 25 mL/hr, Administer over 120 Minutes, As needed, for magnesium level 1.7 to 1.9 mg/dL or ionized magnesium level 0.45 to 0.5 mmol/L, Starting on Thu09/13/24 at 1304, Use premix solution. Default to ionized magnesium level in cases where patient has both magnesium and ionized magnesium results. If administered, check ionized magnesium (or total magnesium if ionized magnesium unavailable) level 4 hours after infusion. Or magnesium sulfate IVPB 4000 mg/100 mL in iso-osmotic water (40 mg/mL premix)Jump to med 4,000 mg, intravenous, at 25 mL/hr, Administer over 240 Minutes, As needed, for magnesium level 1.6 mg/mL or less, or ionized magnesium level 0.44 mmol/L or less, Starting on Thu09/13/24 at 1304, Use premix solution. Default to ionized magnesium level in cases where patient has both magnesium and ionized magnesium results. If administered, check ionized magnesium (or total magnesium if ionized magnesium unavailable) level 4 hours after infusion. Group 3: potassium chloride (K-TAB,KLOR-CON) CR tablet 20-50 mEqJump to med 20-50 mEq, oral, As needed, for potassium replacement, Starting on Thu09/13/24 at 1304, Progress to oral potassium replacement when patient tolerating oral intake. If dose administered, recheck potassium level 4 hours after last dose. For potassium level 3.4 to 3.8 mmol/L and Serum Creatinine 1.2 or less=30 mEq. For potassium level 3.1 to 3.3 mmol/L and Serum Creatinine 1.2 or less=40 mEq. For potassium level 3 mmol/L or less and Serum Creatinine 1.2 or less=50 mEq. For potassium level 3.4 to 3.8 mmol/L and Serum Creatinine greater than 1.2=20 mEq. For potassium level 3.1 to 3.3 mmol/L and Serum Creatinine greater than 1.2=30 mEq. For potassium level 3 mmol/L or less and Serum Creatinine greater than 1.2=40 mEq. Do not crush or chew. Or potassium chloride (KAYCIEL) 20 mEq/15 mL solution 20-50 mEqJump to med 20-50 mEq, oral, As needed, potassium replacement, Starting on Thu09/13/24 at 1304, Progress to oral potassium replacement when patient tolerating oral intake. If dose administered, recheck potassium level 4 hours after last dose. For potassium level 3.4 to 3.8 mmol/L and Serum Creatinine 1.2 or less=30 mEq (22.5mL). For potassium level 3.1 to 3.3 mmol/L and Serum Creatinine 1.2 or less=40 mEq (30mL). For potassium level 3 mmol/L or less and Serum Creatinine 1.2 or less=50 mEq (37.5mL). For potassium level 3.4 to 3.8 mmol/L and Serum Creatinine greater than 1.2=20 mEq (15mL). For potassium level 3.1 to 3.3 mmol/L and Serum Creatinine greater than 1.2=30 mEq (22.5mL). For potassium level 3 mmol/L or less and Serum Creatinine greater than 1.2=40 mEq (30mL). Must dilute before use - Mix in 3-8 ounces of water or juice before administration When administering in feeding tube, flush before and after per policy and monitor potassium levels Group 4: potassium chloride IVPB 10 mEq/50 mL in water (0.2 mEq/mL premix)Jump to med 10 mEq, intravenous, at 50 mL/hr, Administer over 1 Hours, As needed, for potassium replacement, Starting on Thu09/13/24 at 1304, Administer Potassium Chloride IVPB in 10 mEq increments. Maximum infusion rates: Central Line = 20 mEq/hour. Administer via Central Line Only. If dose administered, recheck potassium level 1 hour after infusion complete. For potassium level 3.4 to 3.8 mmol/L and Serum Creatinine 1.2 or less = 30 mEq For potassium level 3.1 to 3.3 mmol/L and Serum Creatinine 1.2 or less = 40 mEq For potassium level 3 mmol/L or less and Serum Creatinine 1.2 or less = 50 mEq For potassium level 3.4 to 3.8 mmol/L and Serum Creatinine greater than 1.2 = 20 mEq For potassium level 3.1 to 3.3 mmol/L and Serum Creatinine greater than 1.2 = 30 mEq For potassium level 3 mmol/L or less and Serum Creatinine greater than 1.2 = 40 mEq VESICANT (YELLOW) Or potassium chloride IVPB 10 mEq/100 mL in water (0.1 mEq/mL premix)Jump to med 10 mEq, intravenous, at 100 mL/hr, Administer over 60 Minutes, As needed, for potassium replacement, Starting on Thu09/13/24 at 1304, Administer Potassium Chloride IVPB in 10 mEq increments. Maximum infusion rates: Central Line = 20 mEq/hour; Peripheral Line = 10 mEq/hour (10 mEq/100 mL). If dose administered, recheck potassium level 1 hour after infusion complete. For potassium level 3.4 to 3.8 mmol/L and Serum Creatinine 1.2 or less = 30 mEq For potassium level 3.1 to 3.3 mmol/L and Serum Creatinine 1.2 or less = 40 mEq For potassium level 3 mmol/L or less and Serum Creatinine 1.2 or less = 50 mEq For potassium level 3.4 to 3.8 mmol/L and Serum Creatinine greater than 1.2 = 20 mEq For potassium level 3.1 to 3.3 mmol/L and Serum Creatinine greater than 1.2 = 30 mEq For potassium level 3 mmol/L or less and Serum Creatinine greater than 1.2 = 40 mEq VESICANT (YELLOW) Infuse each 10 mEq over a minimum of 1 hour. Group 5: sodium phosphate 20 mmol in sodium chloride 0.9 % 250 mL IVPBJump to med 20 mmol, intravenous, at 42.8 mL/hr, Administer over 6 Hours, As needed, for phosphorous level 2.3 mg/dL or less, Starting on Thu09/13/24 at 1304, Administer over 6 hours via dedicated line (peripheral line). If administered, recheck phosphorus level 4 hours after infusion complete. Or sodium phosphate 20 mmol in sodium chloride 0.9 % 100 mL IVPBJump to med 20 mmol, intravenous, at 26.7 mL/hr, Administer over 4 Hours, As needed, for phosphorous level 2.3 mg/dL or less, Starting on Thu09/13/24 at 1304, Administer over 4 hours via dedicated line(central line). If administered, recheck phosphorus level 4 hours after infusion complete. Infuse using central line access. Or sod phos di, mono-K phos mono (K-PHOS NEUTRAL) 250 mg tablet 2 tabletJump to med 2 tablet, oral, As needed, for phosphorous level 2.3 mg/dL or less, Starting on Thu09/13/24 at 1304, If dose administered, recheck phosphorus level 4 hours after last dose. Look-alike/sound-alike medication - verify indication for use. Give with a full glass of water. FOR RECORDS PERTAINING TO PATIENTS WHO ARE OR HAVE BEEN ENROLLED IN A CHEMICAL DEPENDENCY/SUBSTANCEABUSE PROGRAM, SOME INFORMATION MAY BE OMITTED. This clinical summary was aggregated from multiple sources. Caution should be exercised in using it in the provision of clinical care. This summary normalizes information from multiple sources, and as a consequence, information in this document may materially change the coding, format and clinical context of patient data. In addition, data may be omitted in some cases. CLINICAL DECISIONS SHOULD BE BASED ON THE PRIMARY CLINICAL RECORDS. [employer]. provides no warranty or guarantee of the accuracy or completeness of information in this document.
== END 2024-11-30 13:42 | disposition home or self-care (01) ==
LOC: WC 13:43
PROVIDERS: Visit Provider Physician Assistant
DX: I70.235 Atherosclerosis of native arteries of right leg with ulceration of other part of foot (principal); L97.512 Non-pressure chronic ulcer of other part of right foot with fat layer exposed; I70.234 Atherosclerosis of native arteries of right leg with ulceration of heel and midfoot; L97.412 Non-pressure chronic ulcer of right heel and midfoot with fat layer exposed
CPT/HCPCS: G0463

== ENCOUNTER 2024-12-14 13:22 | Outpatient (OUT) | payer MEDICARE, OTHER, SELFPAY ==
--- OUTSIDE RECORDS SUMMARY | 2024-10-26 05:45 | XMS_ITS ---
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 Medications Medication SIG (Take, Route, [...] Location Date Provider Diagnosis [facility] [place] [address] [place] [address] 10/26/2024 Cheo Kenny Plan Of Treatment Next Appt Details Provider Name:Cheo Kenny, 12/19/2024 04:00:00 PM, [address] [place] [address], [phone], Progress Notes * Donny JOSEDOB:1955 (69 yo M)Acc No.[id number]:10/26/2024 Patient: Donny ARROYO :1955 A ge:69 Y S ex:Male Address:[address], [address] Subjective: * Chief Complaints: * N P [...] reconciled with the patient * Allergies: O burtonetronPhu[Allergies Verified] Objective: * Vitals: * Physical Examination: Assessment: Plan: * Treatment: * Procedure Codes: * true * Date: Generated for Bobbi edwards/Karla/Layo on: 0 12/14/2024 01:24 PM EDT
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
--- OUTSIDE RECORDS SUMMARY | 2024-12-14 13:24 | XMS_ITS | Encounter Summary ---
Author Organization [facility] Address [address] [place] [address] Care Team Providers Care Musical Performer Name Role Phone Neetu Calzada DO Unavailable [phone] Shikha Doherty MD Primary Care Provider [phone] Dorys Yan MARBLE MACHINE TENDER Unavailable [phone] Shihka Loja RN Unavailable [phone] Renetta Bales RN Unavailable [phone] Neetu Calzada DO Unavailable [phone] Reason for Visit * Reason Comments Med Refill Encounter Details Date Type Department Care Team (Late st Contact Info) Description 07/08/2024 Refill [facility] [address] [place] [address] Dorys Yan MARBLE MACHINE TENDER [address] [place], [place] [id number] Mixed hyperlipidemia (CMS/HCC) Social History Tobacco Use Types Packs/Day Years Used Date Smoking Tobacco: Former Cigarettes Q uit: 1973 Smokeless Tobacco: Never Comments:>10 years since las [...] week 12/25/2022 How often do you attend chur or amish services? Never 12/25/2022 Do you belong to any clubs o r organizations such as restorationism groups, unions, fraternal or athletic groups, or [...] Recorded Patient Health Questionnaire-2 Score 0 11/24/2023 [facility] Occupat ional Health - Occupational Stress [...] money to buy more. Never true 12/26/19 23 Within the past 12 months, t he [...] place to sleep or slept in a assisted (including now)? No 12/25/2022 Sex and Gender Information Value Date Recorded Sex Assigned at Not on file Legal Sex Male 7:34 PM EDT Gender Identity Not on file Sexual Orientation Not on file documented as of this encounter Miscellaneous Notes * Telephone Encounter - Shikha Rios MA - 07/15/2024 8:45 AM EST Letter sent in mail for pt to contact office * Telephone Encounter - Louise Galvan MA - 07/08/2024 11:31 AM EST Attempted to call patient and no answer. * Telephone Encounter - Diane Eller NP - 07/08/2024 8:11 AM EST Approving but needs labs for further refills. He is due for wellness, please schedule documented in this encounter Plan of Treatment Upcoming Encounters Date Type Department Care Team (Late st Contact Info) Description 04/04/2025 2:10 PM EDT Office Visit [facility] [address] [place] [address] Ubaldo Carpio MD [address] [place] [address] documented as of this encounter Visit Diagnoses Diagnosis Mixed hyperlipidemia (CMS/HCC) Mixed hyperlipidemia documented in this encounter Care Teams Musical Performer Relationship Specialty Start Date End Date Neetu Calzada DO [address] [facility] [address] [place] [id number] PCP - ACO Reach 12/04/22 08/18/24 Shikha Doherty MD [facility] [facility] [place] [place], [place] [id number] PCP - General Family Medicine 08/10/23 Neetu Calzada DO [address] [facility] [address] [place] [address] PCP - ACO Reach 08/26/24 10/13/24 Dorys Yan NP [address] [facility] [place] [address] Nurse Practitioner Family Medicine 08/10/23 Shikha Loja, EARL Registered Nurse Family Medicine 08/04/24 08/09/24 Renetta Bales RN [address] [place] [address] Registered Nurse Family Medicine 08/09/24 12/12/24 documented as of this encounter
--- OUTSIDE RECORDS SUMMARY | 2024-12-14 13:24 | XMS_ITS | Clinical Summary ---
Author Organization [facility] Address [address] [place] [address] Care Team Providers Care Swing Tender Name Role Phone Shikha Melendez MD Primary Care Pr ovider Allergies Active Allergy Reactions Criticality Noted Date Comments Ondansetron Nausea Only 2024 Social History Tobacco Use Types Packs/Day Years Used Date Smoking Tobacco: Former Cigarettes Smokeless Tobacco: Never Tobacco Cessation:Counseling Given: Not Answered Alcohol Use Standard Drinks/Week Comments Not Currently 0 (1 standard drink = 0.6 oz pur e alcohol) AUDIT-C Answer Date Recorded Q1: How often do you have a drink containing alc ohol? Never 2024 Average Number of Drinks Not on file 024 Frequency of Binge Drinking Not on file 06/13 Interpersonal Safety Domain Source: IP Abuse Scr eening Answer Date Recorded Physical abuse Denies 2024 Verbal abuse Denies 2024 Emotional abuse Denies 2024 Financial abuse Denies 2024 Sexual abuse Denies 2024 Sex and Gender Information Value Date Recorded Sex Assigned at Not on file Legal Sex Male 10:53 AM EST Gender Identity Not on file Sexual Orientation Not on file Last Filed Vital Signs Vital Sign Reading Time Taken Comments Blood Pressure 157/49 2024 5:57 PM EST Pulse 71 2024 5:57 PM EST Temperature 36.9 C (98.4 F) 2024 7:20 PM EST Respiratory Rate 14 2024 7:20 PM EST Oxygen Saturation 99% 2024 5:57 PM EST Inhaled Oxygen Concentration - - Weight 102.1 kg (225 lb) 2024 5:57 PM EST Height 175.3 cm (5' 9 ) 2024 5:57 PM EST Body Mass Index 33.23 2024 5:57 PM EST Plan of Treatment Health Maintenance Due Date Last Done Comments Depression Screen 1967 Hepatitis C screen 1973 DTaP/Tdap/Td vaccine (1 - Tdap) 1974 Diabetes screen 1990 Lipids 1995 Colonoscopy 2000 Colorectal Cancer Screen 2000 FIT/FOBT: Average risk 2000 Fecal-DNA (Cologuard): Average risk 2000 Sigmoidoscopy/CT colonography 2000 Shingles vaccine (1 of 2) 2005 AAA screen 2020 COVID-19 Vaccine (2 - season) 2024 05/14/2022 Annual Wellness Visit (Medicare) 2024 Flu vaccine (Season Ended) 02/10/202504/08, 03/18/2022, 05/14/2021, Additional history exists Respiratory Syncytial Virus (RSV) or age 60 yrs+ (1 - 1-dose 75+ series) 2030 Pneumococcal 50+ years Vaccine Completed 06/30/2023, 09/12/2021, 07/15/2016, Additional history exists Hepatitis A vaccine Aged Out No longe r eligible based on patient's age to complete this topic Hepatitis B vaccine Aged Out No longe r eligible based on patient's age to complete this topic Hib vaccine Aged Out No longer eligi ble based on patient's age to complete this topic Meningococcal (ACWY) vaccine Aged Out No longer eligible based on patient's age to complete this topic Meningococcal B vaccine Aged Out No l onger eligible based on patient's age to complete this topic Polio vaccine Aged Out No longer elig ible based on patient's age to complete this topic Insurance MEDICARE Member Subscriber Plan / Payer (Ef fective 2024-Present) Name:Donny Jose Relation to Subscriber:Self Name:Donny Jsoe Payer ID:Not on file Group ID:Not on file Type:Not on file Address: [address] [employer] [facility] Care Teams Swing Tender Relationship Specialty Start Date End Date Shikha Melendez MD [address] [place] [address] PCP - General Family Medicine 07/01/24
--- OUTSIDE RECORDS SUMMARY | 2024-12-14 13:24 | XMS_ITS | Encounter Summary ---
Author Organization [employer] Address [facility] [id number] [address] [place] [address] Care Team Providers Care Toilet And Laundry Soap Supervisor Name Role Phone MirelahersonDorys oliveira APRN-COMMISSARY ASSISTANT Primary Care Pro vider Reason for Visit * Reason Onset Date Comments cardiac clearance 07/17/2024 Encounter Details Date Type Department Care Team (Late st Contact Info) Description 07/17/2024 Telephone Rad Call Center [address] [place] [id number] Amna Pimentel cardiac clearance Social History Tobacco Use Types Packs/Day Years Used Date Smoking Tobacco: Former Smokeless Tobacco: Never Alcohol Use Standard Drinks/Week Comments No 0 (1 standard drink = 0.6 oz pur e alcohol) [facility] Utilities Answer Date Recorded In the past 12 months has e electric, gas, oil, or water company threatened to shut off services in your home? No 07/17/2024 PRAPARE - Transportation Answer Date Re corded In the past 12 months, has l ack of transportation kept you from medical appointments or from getting medications? No 11/2024 In the past 12 months, has l ack of transportation kept you from meetings, work, or from getting things needed for daily living? No 07/17/2024 Housing Instability Answer Date Recorde d Are you worried or concerned that in the next two months you may not have stable housing that you own, rent or stay in as a part of a household? No 07/17/2024 Childcare Answer Date Recorded Childcare Unknown 12/22/2018 Employment Answer Date Recorded Employment Unknown 12/22/2018 Hunger Screening Answer Date Recorded Within the past 12 months we worried whether our food would run out before we got money to buy more. Never True 07/17/2024 Within the past 12 months th e food we bought just didn't last and we didn't have money to get more. Never True 07/17/2024 Purpose - Life Answer Date Recorded Purpose and direction in life Unknown Sex and Gender Information Value Date Recorded Sex Assigned at Not on file Legal Sex Male 11:29 AM EDT Gender Identity Not on file Sexual Orientation Not on file documented as of this encounter Functional Status * Question Answer Date of Assessment Author Functional Status Independent 07/17/2024 11:12 AM Janice Moya RN * Intimate Partner Violence Question Answer Date of Assessment Author Within the last year, have y ou been humiliated or emotionally abused in other ways by your partner or ex-partner? No 07/17/2024 5:00 AM Kristy Watson RN Within the last year, have y ou been afraid of your partner or ex-partner? No 07/17/2024 5:00 AM Kristy Watson RN Within the last year, have y ou been raped or forced to have any kind of sexual activity by your partner or ex-partner? No 07/17/2024 5:00 AM Kristy Watson RN Within the last year, have y ou been kicked, hit, slapped, or otherwise physically hurt by your partner or ex-partner? No 07/17/2024 5:00 AM Kristy Watson RN documented as of this encounter Miscellaneous Notes * Telephone Encounter - Amna Pimentel - 07/17/2024 5:46 AM EST Contract: [id number] [phone] [facility] Kristy re cardiac clearance room B757 tx amna--I sent Maddie Dewey a secure chat message & I routed the consult documented in this encounter Plan of Treatment Upcoming Encounters Date Type Department Care Team (Late st Contact Info) Description 12/22/2024 10:10 AM EDT Office Visit [facility] [address] [place] [phone] Elyssa Santos MD [address], [address] [address] documented as of this encounter Goals Goal Patient Goal Type Associated Problems Recent Progress Patient-Stated? Author Safe Discharge General Yes Janice Gallagher, RN Note: Evaluation of progress towards goal: safe transition home self care with spouse and family support. documented as of this encounter Visit Diagnoses Not on filedocumented in this encounter Additional Health Concerns Infection Onset Date Last Indicated Resolved Time Enteric Rule-Out 07/19/2024 07/18/2024 07/19/2024 11:37 AM EST Assessment Noted Time A Body Mass Index follow-up plan has been documented for the patient 08/30/2019 10:09 AM EST documented as of this encounter Care Teams Toilet And Laundry Soap Supervisor Relationship Specialty Start Date End Date Dorys Yan APRN-COMMISSARY ASSISTANT [address] [place] [address] PCP - General Family Medicine 09/09/24 documented as of this encounter
--- OUTSIDE RECORDS SUMMARY | 2024-12-14 13:24 | XMS_ITS | Patient Health Record ---
Author Organization [facility] [place] Address [address] [place] [address] Care Team Providers Care Technical Sales Engineer Name Role Phone Dorys Yan CNP Primary Care Provider Jami LindsaychuchoCheo Unavailable [phone] Allergies Allergen (clinical drug ingredient) Drug/Non Drug Allergy documented on EMR Reaction Allergy Type Onset Date Status ondansetron Ondansetron Unknown Drug Allergy Act edna warfarin Warfarin Unknown Drug Allergy Active Results Component Value Reference Range Notes CBC AUTO DIFF (Not yet revie wed by provider) Interpretation: Performing Lab: Notes/Report: [facility] , White Blood Count 14.5 4.0-11.0 10 3/uL Red Blood Count 3.56 4.70-6.10 10 6/uL Hemoglobin 9.4 14.0-18.0 g/dL Hematocrit 30.2 42.0-54.0 % Mean Corpuscular Volume 84.8 80.0-94.0 fL Mean Corpuscular Hemoglobin 26.4 25.9-34.0 pg Mean Corpuscular HGB Conc 31.1 29.9-35.2 g/dL Red Cell Distribution Width 15.1 11.0-15.0 % Platelet Count 398 150-450 10 3/uL Mean Platelet Volume 9.1 9.5-13.5 fL Neutrophils Percent Auto 70.3 43.0-75.0 % Lymphocytes Percent Auto 17.8 20.5-60.0 % Monocytes Percent Auto 7.9 1.7-12.0 % Eosinophils Percent Auto 3.0 0.9-7.0 % Basophils Percent Auto 0.3 0.2-2.0 % Immature Granulocytes Pct Auto 0.7 0.0-0.5 % Neutrophils Absolute Auto 10.2 1.4-6.5 10 3/uL Lymphocytes Absolute Auto 2.6 1.2-3.8 10 3/uL Monocytes Absolute Auto 1.2 0.3-0.8 10 3/uL Eosinophils Absolute Auto 0.4 0.0-0.7 10 3/uL Basophils Absolute Auto 0.1 0.0-0.1 10 3/uL Immature Granulocytes Abs Auto 0.10 0.00-0.03 10 3/uL Performing Lab: see note ML - [facility] LB MICROALBUMIN WITH RATIO Reviewed date:12/12/2024 03:48:08 PM Interpretation: Performing Lab: Notes/Report: URINE CREATININE,RDM 111.87 MALB/CREAT RATIO 94.8 0.0-30.0 mg/g MICROALBUMIN, URINE 10.6 0.0-1.9 mg/dL PERFORMED AT [address] [place] [address] URINE PROTEIN ELECTROPHORESI S Reviewed date:12/12/2024 03:44:19 PM Interpretation: Performing Lab: Notes/Report: PERFORMED AT [address],[place] [address] URINE PROTEIN ELECTROPHORESIS INTERP See Pathology Report SERUM PROTEIN ELECTROPHORESI S Reviewed date:12/12/2024 03:48:05 PM Interpretation: Performing Lab: Notes/Report: Unremarkable protein distribution, no monoclonal bands 3.5 PERFORMED AT [address],[place] [address] TOTAL PROTEIN 6.9 6.0-8.0 g/dL ALPHA 1 GLOBULIN 0.3 0.1-0.4 g/dL ALPHA 2 GLOBULIN 0.9 0.4-1.1 g/dL BETA GLOBULIN 1.0 0.5-1.2 g/dL GAMMA GLOBULIN 1.2 0.5-1.6 g/dL PROTEIN ELECTROPHORESIS INTERP SEE RESULTS BELOW CLINICAL PATHOLOGY REVIEW Reviewed date:12/12/2024 02:26:42 PM Interpretation: Performing Lab:[facility]), [address] [place], [place] [address]., [address], [place]. [address] PH:[phone] Notes/Report: CLINICAL PATHOLOGY REVIEW SEE RESULTS BELOW [facility] - Lab PERFORMED AT 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 The copy-to physician of this order is DORYS Simmons Specimen: Urine Clinical Pathology Report Case: [id number] No monoclonal protein identified. LAB AP FINAL DIAGNOSIS: Authorizing Provider: Cheo Kenny MD Collected: 12/09/2024842 SPECIMEN SOURCE Urine Ordering Location: [facility] Received: 12/09/202443 at 1233 EDT URINALYSIS Reviewed date:12/12/2024 03:48:11 PM Interpretation: Performing Lab: Notes/Report: COLOR Yellow Yellow, Colorless TURBIDITY Clear Clear SPECIFIC GRAVITY 1.031 1.003-1.035 NA NITRITE Negative Negative PH,URINE 5.5 5.0-8.5 NA LEUKOCYTE ESTERASE Negative Negative High Conc entrations of Glucose May Decrease the Reactivity of the Dipstick Leukocyte Test Pad. PROTEIN Trace Negative KETONES (URINE) Negative Negative UROBILINOGEN <1.1 eu/dL <1.1 eu/dL BILIRUBIN (URINE) Negative Negative BLOOD/HGB Trace Negative HYALINE CASTS 3 0-2 NA MUCOUS Present None R.B.CELLS 10 0-5 NA W.B.CELLS 1 0-5 NA GLUCOSE (URINE) >1000 mg/dL Negative Urine received without preservative. Delays in transport may affect results. Interpret with caution. A clinical correlation is recommended. PERFORMED AT [address] [place] [address] URIC ACID Reviewed date:12/12/2024 03:48:22 PM Interpretation: Performing Lab: Notes/Report: URIC ACID 7.3 2.6-7.2 mg/dL PERFORMED AT [address] [place] [address] VITAMIN D 25 HYD TOT Reviewed date:12/12/2024 03:48:14 PM Interpretation: Performing Lab: Notes/Report: VITAMIN D 25 HYD TOT 15.9 30.0-100.0 ng/mL Insufficiency 20-29 ng/mL Vitamin D status 25 [place] Vitamin D PERFORMED AT [address] [place] [address] Toxicity >100 ng/mL Sufficiency 30-100 ng/mL Deficiency <20 ng/mL NOTE: A pediatric reference range has not been established by the boom storage of this kit. The [place] [employer] recommends a Vitamin D level of = or >20ng/mL in infants and children. ------ [facility] ([facility]) Reviewed date:12/12/2024 03:48:31 PM Interpretation: Performing Lab: Notes/Report: PTH INTACT 70 12-88 pg/[place] [address] PHOSPHORUS Reviewed date:12/12/2024 03:48:25 PM Interpretation: Performing Lab: Notes/Report: PHOSPHORUS 3.6 2.4-4.9 mg/dL PERFORMED AT [address] [address] MAGNESIUM Reviewed date:12/12/2024 03:48:28 PM Interpretation: Performing Lab: Notes/Report: MAGNESIUM 1.9 1.8-2.6 mg/dL PERFORMED AT [place] [id number] ALBUMIN Reviewed date:12/12/2024 03:48:16 PM Interpretation: Performing Lab: Notes/Report: ALBUMIN 3.7 3.2-5.3 g/dL PERFORMED AT [address] [address] CBC (COMPLETE BLOOD COUNT) * Reviewed date:12/12/2024 03:48:36 PM Interpretation: Performing Lab: Notes/Report: WBC 7.9 4-11 x10E9/L RBC COUNT 4.26 4.1-5.7 X10E12/L HEMOGLOBIN 10.7 13-17 g/dL HEMATOCRIT 33.7 39-50 % MCV 79 80-100 fL MCH 25.1 27-34 pg MCHC 31.7 32-36 g/dL RDW 18.5 11.5-15 % PLATELET COUNT 270 150-450 X10E9/L MPV 8.6 7-12 fL PERFORMED AT [facility] [address],[place] [address] BMP w/GFR Reviewed date:12/12/2024 03:48:19 PM Interpretation: Performing Lab: Notes/Report: SODIUM 140 134-146 mmol/L POTASSIUM 4.4 3.5-5.0 mmol/L CHLORIDE 99 98-109 mmol/L CARBON DIOXIDE 27 22-32 mmol/L ANION GAP 14 5-15 mmol/L BLOOD UREA NITROGEN 17 5-27 mg/dL CREATININE 1.69 0.60-1.30 mg/dL METHOD TRACE ABLE TO IDMS STANDARD GLUCOSE 276 65-99 mg/dL CALCIUM 9.1 8.5-10.5 mg/dL EGFR (CKD-EPI) NON-RACE DEPENDENT 43 >=60 ml/min/1.73sq.m not use a race coefficient. PERFORMED AT [facility] [address],[place] [address] Reported eGFR is based on the CKD-EPI 2020 equation that does PROF CHEM 8 (HUONG ROSAS) (Not yet reviewed by provider) Interpretation: Performing Lab: Notes/Report: [facility] , Sodium 135 136-145 mmol/L Potassium 4.4 3.5-5.1 mmol/L Chloride 99 98-107 mmol/L Carbon Dioxide 29.3 21.0-32.0 mmol/L Anion Gap 11.1 Glucose 160 74-106 mg/dL Blood Urea Nitrogen 21.0 7.0-18.0 mg/dL Creatinine 1.91 0.70-1.30 mg/dL Estimated GFR ( Dalila 43 >=60 mL/min/1.73m 2 Estimated GFR (Non- Su 35 >=60 mL/min/1.73m 2 BUN Creatinine Ratio 11.0 Calcium 9.0 8.5-10.1 mg/dL Performing Lab: see note ML - [facility] LB Reason For Referral No Information Medications Medication SIG (Take, Route, Frequency, Duration) Notes Start Date End Date Status Famotidine 20 MG 1 tablet at bedtime as needed Orally Once a day Active Clopidogrel Bisulfate 75 MG 1 tablet Orally Once a day Active Rivaroxaban 2.5 MG 1 tablet with food Orally Twice a day Active Cetirizine HCl 10 MG 1 tablet Orally Onc e a day Not-Taking Pioglitazone HCl 30 MG 1 tablet Orally O nce a day Active Carvedilol 6.25 MG 1 tablet with food Orally Twice a day Active Nitroglycerin 0.4 MG 1 tablet under the tongue and allow to dissolve as needed. Take every 5 minutes up to 3 times if chest pain persists Sublingual every 5 minutes of needed for chest pain As needed Not-Taking Aspirin 81 81 MG 1 tablet Orally Once a day Active metFORMIN HCl 1000 MG 1 tablet with a me al Orally BID Not-Taking Acetaminophen 325 MG 1 tablet as needed Orally Active Memantine HCl 5 MG 1 tablet Orally BID Active oxyCODONE HCl 5 MG 1 tablet as needed Orally every 6 hrs Active Magnesium Oxide 400 MG 1 tablet with jessica d Orally Once a day Not-Taking Dapagliflozin Propanediol 10 MG 1 tablet Orally Once a day Active Lisinopril 10 MG 1 tablet Orally Once a day Not-Taking Insulin Glargine 100 UNIT/ML as directed Subcutaneous Active Glimepiride 4 MG 1 tablet with breakf ast or the first main meal of the day Orally BID Active Farxiga 10 MG 1 tablet Orally Once a day Not-Taking Rosuvastatin Calcium 10 MG 1 tablet Orally Once a day Active Problems Problem Type SNOMED Code ICD Code Onset Dates Problem Status W/U Status Risk Notes Problem Foot ulcer due to type 2 diabetes mellitus (9580037966778) Type 2 diabetes mellitus with foot ulcer (E11.621) Active confirmed Problem Ischemic ulcer of right foot due to atherosclerotic disease (disorder) (66268857903408999 ) Atherosclerosis of iroquois arteries of right leg with ulceration of other part of foot (I70.235) Active confirmed Problem Anemia (574783751) Anemia (D64.9) Active confir med Problem Chronic ulcer of great toe of right foot with fat layer exposed (L97.512) Active confirmed Problem Chronic ulcer of foot (289107438) Non-pressure chronic ulcer of right heel and midfoot with fat layer exposed (L97.412) Active confirmed Problem Essential hypertension (71928924) Asymptomatic hypertension (I10) Active confirmed Problem Ischemic ulcer of right midfoot due to atherosclerotic disease (disorder) (81338455115027708 ) Atherosclerosis of iroquois artery of right lower extremity with ulceration of midfoot (I70.234) Active confirmed Problem Chronic kidney disease stage 3B (disorder) (442507315) Chronic kidney disease, stage 3b (N18.32) Active confirmed Vital Signs Blood pressure diastolic 72 mm Hg 11/07/2024 Height 5 ft 9in in 11/07/2024 Blood pressure systolic 112 mm Hg 11/07/2024 Weight 217.0 lbs 11/07/2024 BMI 32.04 kg/m2 11/07/2024 Encounters Encounter Location Date Provider Diagnosis [facility] [place] [address] 10/26/2024 Cheo Lindsaychucho [facility] [address] [place] [phone] 11/07/2024 Cheo Kenny Type 2 diabetes mellitus with foot ulcer E11.621 ; Chronic kidney disease, stage 3b N18.32 ; Asymptomatic hypertension I10 and Anemia D64.9 Assessments Encounter Date Diagnosis (ICD Code) Assessment Notes Treatment Notes Treatment Clinical Notes Section Notes 11/07/2024 Type 2 diabetes mellitus with foot ulcer (ICD-10 - E11.621) 11/07/2024 Chronic kidney disease, stage 3b (ICD-10 - N18.32) 69 yo M with DM with complications, ASPVD, CAD, htn, and apparent CKD likely due to his DM and ischemic nephropathy. No obstructive issues, stones, or masses seen on recent renal US BP today is controlled No edema noted on exam Check initial blood and urine studies for evaluation of CKD Check SPEP and UPEP for anemia and CKD evaluation Avoid all NSAID use Try to minimize IV contrast exposure Continue SGLT2i for DM control and prevtioenn of CKD progression 11/07/2024 Asymptomatic hypertension (ICD-10 - I10) 11/07/2024 Anemia (ICD-10 - D64.9) Plan Of Treatment Pending Test Test Name Order Date UA (URINALYSIS, COMPLETE) 11/07/2024 ALBUMIN, BLOOD 11/07/2024 MAGNESIUM 11/07/2024 CBC NO DIFF 11/07/2024 PROTEIN ELECTROPHORESIS, BLOOD (SEP) MICROALBUMIN with ALB/CREAT RATIO, URINE (MALB)) 11/07/2024 PHOSPHORUS 11/07/2024 PTH INTACT (PARATHYROID HORMONE) 025 PROTEIN ELECTROPHORESIS, URINE RANDOM (U EP) 11/07/2024 VITAMIN D, 25 LEVEL (TOTAL) 11/07/2024 BMP w/GFR 11/07/2024 URIC ACID 11/07/2024 CBC AUTO DIFF 10/19/2024 PROF CHEM 8 (BAS METB) 10/19/2024 Next Appt Details Provider Name:Cheo Kenny, 12/19/2024 04:00:00 PM, [address], [place], [address], Insurance Providers Payer Name Payer Address Payer Phone Subscriber Number Group Number Insured Name Patient Relationship to Insured Coverage Start Date Coverage End Date [place] [address] [place] [address] [id number] Donny Jose Self - patient is the insured FRON[employer]ATH [address] [place], [place] [id number] Donny Jose Self - patient is the insured Medical (General) History Medical History History ICD Code adenomatous polyp of descending colon chest pain coronary artery 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 critical ischemia of lower extremity current use of skilled nursing anticoagulation dementia without behavior disturbance DM with peripheral vascular disease diarrhea diverticulosis large intesti ne without perforation or abscess without bleeding dizziness follicular acne GERD with esophagitis with=out hemorrhag e H/O cardiac arrest H/O adenomatous polyp of colon H/O excision of intestinal structure H/O malignant neoplasm of large intestin e hypomagnesemia ischemic cardiomyopathy left carotid stenosis microalbuminuria mixed hyperlipidemia peripheral angiopathy due to type 2 DM primary HTN S/P CABG x2 S/P right hemicolectomy CKD 3a transient neurological sx type 2 DM with insulin
--- OUTSIDE RECORDS SUMMARY | 2024-12-14 13:25 | XMS_ITS | Encounter Summary ---
Author Organization [facility] Address [address] [place] [address] Care Team Providers Care Field Return Repairer Name Role Phone Shikha Doherty MD Primary Care Provider [phone] Dorys Yan IRON WORKER Unavailable [phone] Renetta Bales RN Unavailable [phone] Encounter Details Date Type Department Care Team (Late st Contact Info) Description 12/12/2024 Patient Outreach [facility] POPULATION [facility] [address] [place] [address] Renetta Bales, RN [address] [place] [address] Social History Tobacco Use Types Packs/Day Years [...] 12/25/2022 How often do you attend chur ch or adventism services? Never 12/25/2022 Do you belong to any clubs o r organizations such as denominational groups, unions, fraternal or athletic groups, or [...] Recorded Patient Health Questionnaire-2 Score 0 11/24/2023 [facility] - Occupational Stress [...] place to sleep or slept in a care home (including now)? No 12/25/2022 Sex and Gender Information Value Date Recorded Sex Assigned at Not on file Legal Sex Male 7:34 PM EDT Gender Identity Not on file Sexual Orientation Not on file documented as of this encounter Progress Notes * Renetta Bales RN - 12/12/2024 9:33 AM EDT Ccm had lm for pt last week, pt returned the call today. States his wound is healing, he has appts with wound clinic every two weeks, is changing the dressing at home every 3 days, pt denies anyconcerns. Pt had a visit with Dr Carpio, denies any med changes, states plan is to fu in 4 months,discussed scheduling mwv, pt denies, states he will call to schedule once he gets his wound healed,and after his has her fu for her bladder cancer. Pt had been a ccm bill no, as of October it switched to ccm bill yes. Discussed ccm services, pt does not feel that he needs monitor calls at this time. Instructed to call ccm if any needs or concerns arise, can then discuss re enrolling into ccm s ervices. Pt agreeable to this. documented in this encounter Plan of Treatment Upcoming Encounters Date Type Department Care Team (Late st Contact Info) Description 04/04/2025 2:10 PM EDT Office Visit [facility] [address] [place] [address] Ubaldo Carpio MD [address] [place] [address] documented as of this encounter Visit Diagnoses Diagnosis Diabetes mellitus with peripheral vascular disease (CMS/HCC)- Primary Primary hypertension (CMS/HCC) Unspecified essential hypertension documented in this encounter Care Teams Field Return Repairer Relationship Specialty Start Date End Date Shikha Doherty MD [address] [place], [place] [id number] PCP - General Family Medicine 08/10/23 Dorys Yan NP [address] [place], [place] [id number] Nurse Practitioner Family Medicine 08/10/23 Renetta Bales, EARL [address] [place], [place] [id number] Registered Nurse Family Medicine 08/09/24 12/12/24 documented as of this encounter
--- OUTSIDE RECORDS SUMMARY | 2024-12-14 13:25 | XMS_ITS | Encounter Summary ---
Author Organization [facility] Address [address] [place] [address] Care Team Providers Care Completion Supervisor Name Role Phone Neetu Calzada DO Unavailable [phone] Shikha Doherty MD Primary Care Provider [phone] Dorys Yan BEHAVIORAL HEALTH DIRECTOR Unavailable [phone] Shikha Loja RN Unavailable [phone] Renetta Bales RN Unavailable [phone] Zheng Neetu G DO Unavailable [phone] Encounter Details Date Type Department Care Team (Late st Contact Info) Description 11/23/2023 Abstract [facility] [address] [place] [address] Dorys Yan BEHAVIORAL HEALTH DIRECTOR [address] [place], [place] [id number] Social History Tobacco Use Types Packs/Day Years [...] often do you attend chur ch or voodoo services? Never 12/25/2022 Do you belong to [...] Recorded Patient Health Questionnaire-2 Score 0 11/24/2023 [facility] - Occupational Stress [...] place to sleep or slept in a fpc (including now)? No 12/25/2022 Sex and Gender Information Value Date Recorded Sex Assigned at Not on file Legal Sex Male 7:34 PM EDT Gender Identity Not on file Sexual Orientation Not on file documented as of this encounter Functional Status * Over the past 2 weeks, how often have you been bothered by any of the following problems? Question Answer Date of Assessment Author Little interest or pleasure in doing things Not at all 11/24/2023 2:11 PM EDT Sahara Le MA Feeling down, depressed, or hopeless Not at all 11/24/2023 2:11 PM EDT Sahara Le MA Patient Health Questionnaire -2 Score 0 11/24/2023 2:11 PM EDT Sahara Le MA documented as of this encounter Plan of Treatment Upcoming Encounters Date Type Department Care Team (Late st Contact Info) Description 04/04/2025 2:10 PM EDT Office Visit [facility] [address] [place] [address] Ubaldo Carpio MD [address] [place] [address] documented as of this encounter Visit Diagnoses Not on filedocumented in this encounter Care Teams Completion Supervisor Relationship Specialty Start Date End Date Neetu Calzada DO [address] [facility] [address] [facility] [place] [place] [phone] PCP - ACO Reach 12/04/22 08/18/24 Shikha Doherty MD [address] [facility] [address] [place], [place] [phone] PCP - General Family Medicine 08/10/23 Neetu Calzada DO [address] [facility] [address] [facility] [place] [phone] PCP - ACO Reach 08/26/24 10/13/24 Dorys Yan NP [address] [facility] [address] [place], [place] [phone] Nurse Practitioner Family Medicine 08/10/23 Shikha Loja, RN Registered Nurse Family Medicine 08/04/24 08/09/24 Renetta Bales, EARL [address] [place] [address] Registered Nurse Family Medicine 08/09/24 12/12/24 documented as of this encounter
--- OUTSIDE RECORDS SUMMARY | 2024-12-14 13:25 | XMS_ITS | Encounter Summary ---
Author Organization [facility] Address [address] [place] [address] Care Team Providers Care Cardiopulmonary Technician And Eeg Tech Name Role Phone Shikha Doherty MD Primary Care Provider [phone] Dorys Yan STONEWORKING SANDER Unavailable [phone] Renetta Bales RN Unavailable [phone] Reason for Visit * Reason Comments Med Refill Encounter Details Date Type Department Care Team (Late st Contact Info) Description 12/11/2024 Refill [facility] [address] [place] [phone] Ubaldo Carpio MD [address] [place] [address] Type 2 diabetes mellitus with other diabetic kidney complication Social History Tobacco Use Types Packs/Day Years [...] How often do you attend chur or islam services? Never 12/25/2022 Do you belong to any clubs o r organizations such as restoration groups, unions, fraternal or athletic groups, or [...] Patient Health Questionnaire-2 Score 0 11/24/2023 [facility] - [...] place to sleep or slept in a intermediate (including now)? No 12/25/2022 Sex and Gender Information Value Date Recorded Sex Assigned at Not on file Legal Sex Male 7:34 PM EDT Gender Identity Not on file Sexual Orientation Not on file documented as of this encounter Miscellaneous Notes * Telephone Encounter - Nadiya Jim LPN - 12/12/2024 8:44 AM EDT MEDICATION SENT TO PHARMACY. documented in this encounter Plan of Treatment Upcoming Encounters Date Type Department Care Team (Late st Contact Info) Description 04/04/2025 2:10 PM EDT Office Visit [facility] [address] [place] [address] Ubaldo Carpio MD [address] [place] [address] documented as of this encounter Visit Diagnoses Diagnosis Type 2 diabetes mellitus with other diabetic kidney complication documented in this encounter Care Teams Cardiopulmonary Technician And Eeg Tech Relationship Specialty Start Date End Date Shikha Doherty MD [address] [place], [place] [phone] PCP - General Family Medicine 08/10/23 Dorys Yan NP [address] [place] [address] Nurse Practitioner Family Medicine 08/10/23 Renetta Bales RN [address] [place] [address] Registered Nurse Family Medicine 08/09/24 12/12/24 documented as of this encounter
--- OUTSIDE RECORDS SUMMARY | 2024-12-14 13:25 | XMS_ITS | Encounter Summary ---
Author Organization [facility] tem Address [id number] [address] [place] [address] Care Team Providers Care Flower Pot Press Operator Name Role Phone Dorys Yan PUNCHER AND FASTENER-DRY HOUSE WORKER Primary Care Pro vider Encounter Details Date Type Department Care Team (Late Contact Info) Description 07/03/2021 Telephone [facility] - ICU [address] [place] [phone] Diane Slade RN Social History Tobacco Use Types Packs/Day Years Used Date Smoking Tobacco: Former Smokeless Tobacco: Never Alcohol Use Standard Drinks/Week Comments No 0 (1 standard drink = 0.6 oz pur e alcohol) Childcare Answer Date Recorded Childcare Unknown 12/22/2018 Employment Answer Date Recorded Employment Unknown 12/22/2018 Purpose - Life Answer Date Recorded Purpose and direction in life Unknown Sex and Gender Information Value Date Recorded Sex Assigned at Not on file Legal Sex Male 11:29 AM EDT Gender Identity Not on file Sexual Orientation Not on file COVID-19 Exposure Response Date Recorded In the last month, have you been in contact with someone who was confirmed or suspected to have Coronavirus / COVID-19? No / Unsure 07/04/2021 1:12 PM EST documented as of this encounter Plan of Treatment Upcoming Encounters Date Type Department Care Team (Late Contact Info) Description 12/22/2024 10:10 AM EDT [facility] [address] [place] [phone] Elyssa Santos MD [address], [address] [address] documented as of this encounter Visit Diagnoses Not on filedocumented in this encounter Additional Health Concerns Infection Onset Date Last Indicated Resolved Time COVID-19 Rule-Out 10/10/2023 10/10/2023 10/10/2023 7:20 AM EDT Enteric Rule-Out 07/19/2024 07/18/2024 07/19/2024 11:37 AM EST Assessment Noted Time A Body Mass Index follow-up plan has been documented for the patient 08/30/2019 10:09 AM EST documented as of this encounter Care Teams Flower Pot Press Operator Relationship Specialty Start Date End Date Dorys Yan APRN-DRY HOUSE WORKER [address] [place] [address] PCP - General Family Medicine 09/09/24 documented as of this encounter
--- OUTSIDE RECORDS SUMMARY | 2024-12-14 13:25 | XMS_ITS | Encounter Summary ---
Author Organization [employer] [facility] Address [id number] [address] [place] [address] Care Team Providers Care Corporate Responsibility Officer Name Role Phone Dorys Yan HEAD OF COMMISSION DEPARTMENT-MOVING WORKER Primary Care Pro vider Encounter Details Date Type Department Care Team (Late Contact Info) Description 02/14/2021 Orders Only [facility] [address] [facility] [address] [place] [phone] External, Scanning Provider Social History Tobacco Use Types Packs/Day Years [...] have Coronavirus / COVID-19? No / Unsure 02/12/2021 2:25 PM EDT documented as of this encounter Plan of Treatment Upcoming Encounters Date Type Department Care Team (Late st Contact Info) Description 12/22/2024 10:10 AM EDT Office Visit [facility] [address] [place] [phone] Elyssa Santos MD [address], [address] [address] documented as of this encounter Procedures Procedure Name Priority Date/Time Associated Diagnosis Comments MULTIPLE LABS Routine 11/01/2020 LIPID PROFILE Routine 11/01/2020 ECG 12-LEAD Routine 11/01/2020 ECG 12-LEAD Routine 11/01/2020 documented in this encounter Results * Lipid profile (11/01/2020) External Cholesterol 80 MANUALLY TRANSCRIBED RESULTS External Cholesterol:Hdl 4 MANUALLY TRANSCRIBED RESULTS External Hdl Cholesterol 22 MANUALLY TRANSCRIBED RESULTS External Ldl (Calc) 14 MANUALLY TRANSCRIBED RESULTS External Triglycerides 220 MANUALLY TRANSCRIBED RESULTS External Very Low Lipoprotein 44 MANUALLY TRANSCRIBED RESULTS us Scanning Provider External LAB BLOOD ORDERABLES Edited Result - Final Performing Organization Address [facility] de Phone Number MANUALLY TRANSCRIBED RESULTS * Multiple labs (11/01/2020) us Scanning Provider External DE IMAGING Final Result Performing Organization Address [facility] Co de Phone Number MANUALLY TRANSCRIBED RESULTS * ECG 12 lead (11/01/2020) us Scanning Provider External ECG ORDERABLES Final Result Performing Organization Address [facility] Co de Phone Number MANUALLY TRANSCRIBED RESULTS * ECG 12 lead (11/01/2020) us Scanning Provider External ECG ORDERABLES Final Result Performing Organization Address [facility] Co de Phone Number MANUALLY TRANSCRIBED RESULTS documented in this encounter Visit Diagnoses Not on filedocumented in this encounter Additional Health Concerns Infection Onset Date Last Indicated Resolved Time COVID-19 Rule-Out 10/10/2023 10/10/2023 10/10/2023 7:20 AM EDT Enteric Rule-Out 07/19/2024 07/18/2024 07/19/2024 11:37 AM EST Assessment Noted Time A Body Mass Index follow-up plan has been documented for the patient 08/30/2019 10:09 AM EST documented as of this encounter Care Teams Corporate Responsibility Officer Relationship Specialty Start Date End Date Dorys Yan APRN-MALLORIE [address] [place] [address] PCP - General Family Medicine 09/09/24 documented as of this encounter
--- OUTSIDE RECORDS SUMMARY | 2024-12-14 13:25 | XMS_ITS | Encounter Summary ---
Author Organization [facility] tem Address [id number] [address] [place] [address] Care Team Providers Care Rotating Field Assembler Name Role Phone SegundotrinhFroylania Yessica UX DEVELOPER-SUPPLY CHAIN BUYER Primary Care Pro vider Reason for Referral * Consultation (Routine) - Closed Specialty Diagnoses / Procedures Referred By Torsten dunn Referred To Contact Nephrology Diagnoses Stage 3 chronic kidney disease, unspecified whether stage 3a or 3b CKD ([facility]) Milvia Gil MD [address] [place] [address] Phone: tel: fax: Diogo Byrnes MD Phone: tel: fax: Referral ID Status Reason Start Date Expiration Date V isits Requested Visits Authorized [id number] Closed Specialty Services Required 02/21/2021 02/21/2022 1 1 Reason for Visit * Reason Onset Date Comments Med Refill 02/21/2021 Encounter Details Date Type Department Care Team (Late st Contact Info) Description 02/21/2021 Refill [facility] [address] [phone] Yola Coronel RN Med Refill Social History Tobacco Use Types Packs/Day Years [...] have Coronavirus / COVID-19? No / Unsure 02/19/2021 1:22 PM EDT documented as of this encounter Plan of Treatment Upcoming Encounters Date Type Department Care Team (Late st Contact Info) Description 12/22/2024 10:10 AM EDT Office Visit [facility] [address] [place] [phone] Elyssa Santos MD [address], [address] [address] Scheduled Referrals Name Type Priority Associated Diagnoses Order Schedule Ambulatory referral to Nephrology Outpatient Referral Routine Stage 3 Chronic Kidney Disease, Unspecified Whether Stage 3a Or 3b Ckd ([facility]-Hcc) 1 Occurrences starting 02/21/2021 until 08/24/2021 documented as of this encounter Visit Diagnoses Diagnosis Stage 3 chronic kidney disease, unspecified whether stage 3a or 3b CKD (CMS-HCC)- Primary documented in this encounter Additional Health Concerns Infection Onset Date Last Indicated Resolved Time COVID-19 Rule-Out 10/10/2023 10/10/2023 10/10/2023 7:20 AM EDT Enteric Rule-Out 07/19/2024 07/18/2024 07/19/2024 11:37 AM EST Assessment Noted Time A Body Mass Index follow-up plan has been documented for the patient 08/30/2019 10:09 AM EST documented as of this encounter Care Teams Rotating Field Assembler Relationship Specialty Start Date End Date Dorys Yan APRN-SUPPLY CHAIN BUYER [address] [place] [address] PCP - General Family Medicine 09/09/24 documented as of this encounter
--- OUTSIDE RECORDS SUMMARY | 2024-12-14 13:25 | XMS_ITS | Encounter Summary ---
Author Organization [facility] Address [id number] [address] [place] [address] Care Team Providers Care Swine Genetics Researcher Name Role Phone SegundoDorys tsang MECHANICAL SYSTEMS DESIGN ENGINEER-ENTRY LEVEL RECRUITER Primary Care Pro vider Encounter Details Date Type Department Care Team (Late st Contact Info) Description 08/11/2024 Orders Only [facility] [address] [place] [address] Elyssa Santos MD [address], [facility] [address] [place] [address] Social History Tobacco Use Types Packs/Day Years Used Date Smoking Tobacco: Former Smokeless Tobacco: Never Alcohol Use Standard Drinks/Week Comments No 0 (1 standard drink = 0.6 oz pur e alcohol) [facility] Utilities Answer Date Recorded In the past 12 months has [employer], gas, oil, or water [employer]Way threatened to shut off services in your [...] got money to buy more. Never True 08/04/2024 Within the past 12 months th e food we bought just didn't last and we didn't have money to get more. Never True 08/04/2024 Purpose - Life Answer Date Recorded Purpose and direction in life Unknown Sex and Gender Information Value Date Recorded Sex Assigned at Not on file Legal Sex Male 11:29 AM EDT Gender Identity Not on file Sexual Orientation Not on file documented as of this encounter Plan of Treatment Upcoming Encounters Date Type Department Care Team (Late st Contact Info) Description 12/22/2024 10:10 AM EDT Office Visit [facility] [address] [place] [phone] Elyssa Santos MD [address], [address] [address] documented as of this encounter Goals Goal Patient Goal Type Associated Problems Recent Progress Patient-Stated? Author Safe Discharge General Yes Janice Gallagher, RN Note: Evaluation of progress towards goal: safe transition home self care with spouse and family support. documented as of this encounter Procedures Procedure Name Priority Date/Time Associated Diagnosis Comments EXTERNAL LAB ORDERS / RESULTS Routine 08/08/2024 12:37 PM EST documented in this encounter Results * External Lab Orders / Results (08/08/2024 12:37 PM EST) us Elyssa Santos MD LAB ORDERABLES Final Result MANUALLY TRANSCRIBED RESULTS documented in this encounter Visit Diagnoses Not on filedocumented in this encounter Additional Health Concerns Assessment Noted Time A Body Mass Index follow-up plan has been documented for the patient 08/30/2019 10:09 AM EST documented as of this encounter Care Teams Swine Genetics Researcher Relationship Specialty Start Date End Date Dorys Yan MECHANICAL SYSTEMS DESIGN ENGINEER-ENTRY LEVEL RECRUITER [address] [place] [address] PCP - General Family Medicine 09/09/24 documented as of this encounter
--- OUTSIDE RECORDS SUMMARY | 2024-12-14 13:25 | XMS_ITS | Encounter Summary ---
Author Organization [facility] Address [id number] [address] [place] [address] Care Team Providers Care Exhibit Electrician Name Role Phone Segundotrinh Dorys A PACKAGE SEALER MACHINE-MONOMER PURIFICATION OPERATOR Primary Care Pro vider Encounter Details Date Type Department Care Team (Late st Contact Info) Description 08/02/2024 Telephone [facility] [address] [place] [address] Elyssa Santos MD [address], [facility] [address] [place] [address] Social History Tobacco Use Types Packs/Day Years Used Date Smoking Tobacco: Former Smokeless Tobacco: Never Alcohol Use Standard Drinks/Week Comments No 0 (1 standard drink = 0.6 oz pur e alcohol) [facility] Utilities Answer Date Recorded In the past 12 months has [employer], gas, oil, or water [employer] threatened to shut off services in your [...] encounter Miscellaneous Notes * Telephone Encounter - Gisela Le - 08/02/2024 2:09 PM EST Marion with [facility] is calling in regards to the patients toe surgery. Patients states there was no wound instructions other than putting iodine on it but the and the nurse are saying the toe looks terrible, worse than before surgery. [facility] nurse is asking if she can get further instruction on wound care. Marion with [facility] is also asking if is willing to follow for home health care. Marion can be reached at [phone] Thank you. * Telephone Encounter - Nikki Hartmann LPN - 08/02/2024 2:09 PM EST An appt has been made for patient to see tomorrow, can order treatment orders or testing ect.....[facility] has been notified documented in this encounter Plan of Treatment Upcoming Encounters Date Type Department Care Team (Late st Contact Info) Description 12/22/2024 10:10 AM EDT Office Visit [facility] [address] [place] [phone] Elyssa Santos MD [address], [address] [address] documented as of this encounter Goals Goal [...] documented as of this encounter Care Teams Exhibit Electrician Relationship Specialty Start Date End Date Dorys Yan APRN-MONOMER PURIFICATION OPERATOR [address] [place] [address] PCP - General Family Medicine 09/09/24 documented as of this encounter
--- OUTSIDE RECORDS SUMMARY | 2024-12-14 13:25 | XMS_ITS ---
Author Organization [facility] Address [address] [place] [address] Care Team Providers Care Mechanical Fitter Name Role Phone Shikha Doherty MD Primary Care Provider [phone] Dorys Yan PROP MAKING SUPERVISOR Unavailable [phone] Chronic Care Management (CCM) Status:Closed (Closed) Start date:08/04/2024 Enrollment date:08/04/2024 Enrollment reason:Referred by provider End date:12/12/2024 Close reason:No longer wishes to participate in care management Overview Please assess for Care Management needs. Continued Care and Services Coordination
--- OUTSIDE RECORDS SUMMARY | 2024-12-14 13:25 | XMS_ITS | Encounter Summary ---
Author Organization [facility] Address [address] [place] [address] Care Team Providers Care Upstairs Maid Name Role Phone Shikha Doherty MD Primary Care Provider [phone] Dorys Yan MANAGER BAKERY Unavailable [phone] Renetta Bales RN Unavailable [phone] Encounter Details Date Type Department Care Team (Late st Contact Info) Description 12/02/2024 Bamboo flowsheet [facility] [address] [place] [phone] Ubaldo Carpio MD [address] [place] [address] Social History Tobacco Use Types Packs/Day Years [...] often do you attend chur ch or christian services? Never 12/25/2022 Do you belong to any clubs o r organizations such as shinto groups, unions, fraternal or athletic groups, or [...] Recorded Patient Health Questionnaire-2 Score 0 11/24/2023 [facility] Questionnaire Answer Date Recorded [...] place to sleep or slept in a [place] health care facility (including now)? No 12/25/2022 Sex and Gender Information Value Date Recorded Sex Assigned at Not on file Legal Sex Male 7:34 PM EDT Gender Identity Not on file Sexual Orientation Not on file documented as of this encounter Plan of Treatment Upcoming Encounters Date Type Department Care Team (Late st Contact Info) Description 04/04/2025 2:10 PM EDT Office Visit [facility] [address] [place] [address] Ubaldo Carpio MD [address] [place] [address] documented as of this encounter Visit Diagnoses Not on filedocumented in this encounter Care Teams Upstairs Maid Relationship Specialty Start Date End Date Shikha Doherty MD [address] [facility] [place] [address] PCP - General Family Medicine 08/10/23 Dorys Yan NP [address] [facility] [place] [place] [phone] Nurse Practitioner Family Medicine 08/10/23 Renetta Bales, RN [address] [place] [address] Registered Nurse Family Medicine 08/09/24 12/12/24 documented as of this encounter
--- OUTSIDE RECORDS SUMMARY | 2024-12-14 13:25 | XMS_ITS | Encounter Summary ---
Author Organization [facility] Address [address] [place] [address] Care Team Providers Care Education Paraprofessional Name Role Phone Neetu Calzada DO Unavailable [phone] Shikha Doherty MD Primary Care Provider [phone] Dorys Yan CANAL TENDER Unavailable [phone] Shikha Loja RN Unavailable [phone] Renetta Bales RN Unavailable [phone] Neetu Calzada DO Unavailable [phone] Encounter Details Date Type Department Care Team (Late st Contact Info) Description 02/25/2024 Abstract [facility] [address] [place] [address] Shikha Doherty MD [address] [place] [address] Social History Tobacco Use Types [...] often do you attend chur ch or mandaeism services? Never 12/25/2022 Do you belong to any clubs o r organizations such as moravian groups, unions, fraternal or athletic groups, or [...] Recorded Patient Health Questionnaire-2 Score 0 11/24/2023 [facility] - [...] place to sleep or slept in a fci (including now)? No 12/25/2022 Sex and Gender Information Value Date Recorded Sex Assigned at Not on file Legal Sex Male 7:34 PM EDT Gender Identity Not on file Sexual Orientation Not on file documented as of this encounter Plan of Treatment Upcoming Encounters Date Type Department Care Team (Late st Contact Info) Description 04/04/2025 2:10 PM EDT Office Visit [facility] [address] [place] [phone] Ubaldo Carpio MD [address] [place] [address] documented as of this encounter Visit Diagnoses Not on filedocumented in this encounter Care Teams Education Paraprofessional Relationship Specialty Start Date End Date Neetu Calzada DO [address] [facility] [address] [place] [address] PCP - ACO Reach 12/04/22 08/18/24 Shikha Doherty MD [address] [facility] [address] [place], [place] [phone] PCP - General Family Medicine 08/10/23 Neetu Calzada DO [address] [facility] [address] [place] [phone] PCP - ACO Reach 08/26/24 10/13/24 Dorys Yan NP [address] [facility] [place] [address] Nurse Practitioner Family Medicine 08/10/23 Shikha Loja, EARL Registered Nurse Family Medicine 08/04/24 08/09/24 Renetta Bales, EARL [address] [facility] [place], [place] [phone] Registered Nurse Family Medicine 08/09/24 12/12/24 documented as of this encounter
--- OUTSIDE RECORDS SUMMARY | 2024-12-14 13:25 | XMS_ITS | Encounter Summary ---
Author Organization [facility] Address [address] [place] [address] Care Team Providers Care Service Desk Agent Name Role Phone ZhengNeetu segovia Unavailable [phone] Zheng Neetu Rutledge DO Primary Care Provider [phone] Shikha Doherty MD Primary Care Provider [phone] Dorys Yan CRIME SCENE EXAMINER Unavailable [phone] Shikha Loja RN Unavailable [phone] Renetta Bales RN Unavailable [phone] ZhengNeetu segovia DO Unavailable [phone] Encounter Details Date Type Department Care Team (Late st Contact Info) Description 06/11/2023 Abstract [facility] [address] [facility] [place] [address] Neetu Calzada, DO [address] [facility] [address] [place] [address] Social History Tobacco Use Types Packs/Day Years Used Date Smoking Tobacco: Former Cigarettes Q uit: 1973 Smokeless Tobacco: Never Comments:>10 years since las t smoked Alcohol Use Standard Drinks/Week Comments Never 0 (1 standard drink = 0.6 oz pur e alcohol) caffeine: 1-2 cups per day Humiliation, Afraid, Rape, and Kick questionnair e [...] How often do you attend chur or adventism services? Never 12/25/2022 Do you belong to any clubs o r organizations such as samaritan groups, unions, fraternal or athletic groups, or [...] Date Recorded Patient Health Questionnaire-2 Score 0 12/25/2022 [facility] Occupat ional Health - Occupational Stress [...] place to sleep or slept in a mcfp (including now)? No 12/25/2022 Sex and Gender Information Value Date Recorded Sex Assigned at Not on file Legal Sex Male 7:34 PM EDT Gender Identity Not on file Sexual Orientation Not on file documented as of this encounter Plan of Treatment Upcoming Encounters Date Type Department Care Team (Late st Contact Info) Description 04/04/2025 2:10 PM EDT Office Visit [facility] [address] [place] [address] Ubaldo Carpio MD [address] [place] [address] documented as of this encounter Visit Diagnoses Not on filedocumented in this encounter Care Teams Service Desk Agent Relationship Specialty Start Date End Date Neetu Calzada DO [address] [address] PCP - ACO Reach 12/04/22 08/18/24 Neetu Calzada DO [address] [facility] 200 [place] [address] PCP - General Family Medicine 12/25/22 08/09/23 Shikha Doherty MD [facility] [place], [place] [id number] PCP - General Family Medicine 08/10/23 Neetu Calzada DO [address] [facility] 200 [facility] [place] [address] PCP - ACO Reach 08/26/24 10/13/24 Dorys Yan NP [facility] [place], [place] [id number] Nurse Practitioner Family Medicine 08/10/23 Shikha Loja, EARL Registered Nurse Family Medicine 08/04/24 08/09/24 Renetta Bales, EARL [address] [place] [address] Registered Nurse Family Medicine 08/09/24 12/12/24 documented as of this encounter
--- OUTSIDE RECORDS SUMMARY | 2024-12-14 13:25 | XMS_ITS | Encounter Summary ---
Author Organization [employer] Address [id number] [address] [place] [address] Care Team Providers Care Emergency Technician Name Role Phone MirelahersonDorys oliveira APRN-BEAM DYER RECESSED VAT Primary Care Pro vider Encounter Details Date Type Department Care Team (Latest Contact Info) Description 12/06/2024 Travel Social History Tobacco Use Types Packs/Day Years Used Date Smoking Tobacco: Former Cigarettes Pipe Cigars Smokeless Tobacco: Never Comments:Smoked as teenager- quit at 18 Alcohol Use Standard Drinks/Week Comments No 0 (1 standard drink = 0.6 oz pur e alcohol) sober since age 36 [facility] Utilities Answer Date Recorded In the past 12 months has e electric, gas, oil, or water company threatened to shut off services in your home? No 09/13/2024 AUDIT-C Answer Date Recorded Q1: How often do you have a drink containing alcohol? Never 09/13/2024 Q2: How many drinks containi ng alcohol do you have on a typical day when you are drinking? Patient does not drink Q3: How often do you have si x or more drinks on one occasion? Never 09/13/2024 PHQ-2 Answer Date Recorded Total Score 4 09/13/2024 PRAPARE - Transportation Answer Date Re corded In the past 12 months, has l ack of transportation kept you from medical appointments or from getting medications? No 10/2024 In the past 12 months, has l ack of transportation kept you from meetings, work, or from getting things needed for daily living? No 09/13/2024 Housing Instability Answer Date Recorde d Are you worried or concerned that in the next two months you may not have stable housing that you own, rent or stay in as a part of a household? No 09/13/2024 Childcare Answer Date Recorded Childcare Unknown 12/22/2018 Employment Answer Date Recorded Employment Unknown 12/22/2018 Hunger Screening Answer Date Recorded Within the past 12 months we worried whether our food would run out before we got money to buy more. Never True 11/24/2024 Within the past 12 months th e food we bought just didn't last and we didn't have money to get more. Never True 11/24/2024 Purpose - Life Answer Date Recorded Purpose [...] Office Visit [facility] [address] [place] [phone] Elyssa Santos MD [address], [address] [address] documented as of this encounter Goals Goal Patient Goal Type Associated Problems Recent Progress Patient-Stated? Author Safe Discharge General Yes Janice Gallagher RN Note: Evaluation of progress towards goal: safe transition home self care with spouse and family support. <enter goal here> General Yes Lynn Arcos RN Note: Evaluation of progress towards goal: safe discharge documented as of this encounter Visit Diagnoses Not on filedocumented in this encounter Additional Health Concerns Assessment Noted Time PHQ-9 Depression Total Score: 4 09/14/19 25 6:44 PM EST A Body Mass Index follow-up plan has been documented for the patient 08/30/2019 10:09 AM EST documented as of this encounter Care Teams Emergency Technician Relationship Specialty Start Date End Date Dorys Yan APRN-BEAM DYER RECESSED VAT [address] [place] [address] PCP - General Family Medicine 09/09/24 documented as of this encounter
--- OUTSIDE RECORDS SUMMARY | 2024-12-14 13:25 | XMS_ITS | Clinical Summary ---
Author Organization [facility] Address [address] [place] [address] Care Team Providers Care Lodge Attendant Name Role Phone Shikha Doherty MD Primary Care Provider [phone] Dorys Yan FIBER ARTIST Unavailable [phone] Allergies Active Allergy Reactions Criticality Noted Date Comments Ondansetron Unknown 12/25/2022 Warfarin 02/14/2017 Vomiting Medications magnesium oxide (Mag-Ox) 400 MG tablet 1 (one) time each day at the same time Active acetaminophen (Tylenol) 325 MG tablet every 4 (four) hours Active aspirin 81 MG EC tablet Take 81 mg by mouth in the morning. Active insulin glargine (Lantus SoloStar) 100 UNIT/ML penIndications:Di abetes mellitus with peripheral vascular disease ([facility]) INJECT 60 UNIT UNDER THE SKIN ONCE DAILY 30 each 5 10/16/19 24 Active OneTouch Ultra test stripIndications: Diabetes mellitus with peripheral vascular disease ([facility]) USE ONE STRIP TO TEST TWICE DAILY DIRECTED 100 strip 9 02/15/20 24 Active insulin pen needle (BD Pen Needle Beth 2nd Gen) 32G x 4 mm miscIndications:T ype 2 diabetes mellitus with diabetic chronic kidney disease ([facility]) USE DIRECTED ONCE DAILY 100 each 3 03/15/20 24 Active rivaroxaban (Xarelto) 2.5 MG tablet Take by mouth in the morning and before bedtime. 08/01/19 25 Active carvedilol (Coreg) 6.25 MG tabletIndications :Atherosclerosis of coronary artery bypass graft(s), unspecified, with other forms of angina pectoris ([facility]) TAKE 1 TABLET BY MOUTH TWICE A DAY 180 tablet 1 08/05/19 25 Active pioglitazone (Actos) 45 MG tabletIndications :Type 2 diabetes mellitus with other diabetic kidney complication TAKE 1 TABLET BY MOUTH EVERY DAY 90 tablet 1 09/23/19 25 Active rosuvastatin (Crestor) 10 MG tabletIndications :Mixed hyperlipidemia (CMS/HCC) TAKE 1 TABLET BY MOUTH EVERY DAY 90 tablet 10/03/19 25 Active amoxicillin-clavu lanate (Augmentin) 875-125 MG tablet Take 875 mg by mouth in the morning and 875 mg before bedtime. 10/07/19 25 Active cilostazol (Pletal) 100 MG tablet Take 100 mg by mouth in the morning and 100 mg in the evening. 10/07/19 25 Active glimepiride (Amaryl) 4 MG tabletIndications :Type 2 diabetes mellitus with diabetic chronic kidney disease (CMS/HCC) TAKE 1 TABLET BY MOUTH TWICE A DAY WITH MEALS 180 tablet 1 10/27/19 25 Active cetirizine (ZyrTEC) 10 MG tabletIndications :Post-nasal drainage TAKE 1 TABLET (10 MG) BY MOUTH DAILY. 90 tablet 11/01/19 25 Active famotidine (Pepcid) 20 MG tabletIndications :Gastroesophageal reflux disease with esophagitis without hemorrhage TAKE 1 TABLET BY MOUTH TWICE A DAY NEEDED 180 tablet 1 11/25/19 25 Active memantine (Namenda) 5 MG tabletIndications :Dementia without behavioral disturbance (CMS/HCC) TAKE 1 TABLET BY MOUTH TWICE A DAY 180 tablet 1 11/25/19 25 Active oxyCODONE-acetami nophen (Percocet) 5-325 MG tablet 1 tablet Acti ve Farxiga 10 MGIndications:Typ e 2 diabetes mellitus with other diabetic kidney complication TAKE 1 TABLET (10 MG) BY MOUTH DAILY. 90 tablet 1 12/13/19 25 Active Farxiga 10 MG 10/09/19 23 025 Discontinued pioglitazone (Actos) 30 MG tablet 06/25/20 23 025 Discontinued memantine (Namenda) 5 MG tabletIndications :Dementia without behavioral disturbance (CMS/HCC) TAKE 1 TABLET (5 MG) BY MOUTH IN THE MORNING AND BEFORE BEDTIME 180 tablet 12/18/19 24 025 Discontinued famotidine (Pepcid) 20 MG tabletIndications :Gastroesophageal reflux disease with esophagitis without hemorrhage TAKE 1 TABLET (20 MG) BY MOUTH IN THE MORNING AND BEFORE BEDTIME 180 tablet 12/18/19 24 025 Discontinued pioglitazone (Actos) 30 MG tabletIndications :Type 2 diabetes mellitus with other diabetic kidney complication TAKE 1 TABLET BY MOUTH EVERY DAY 90 tablet 1 11/25/19 25 025 Discontinued(D ose adjustment) Active Problems Problem Noted Date Diagnosed Date Critical ischemia of lower extremity 07/17/2024 Diarrhea 07/16/2024 Chest pain 06/30/2023 Ischemic cardiomyopathy 06/30/2023 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 12/25/2022 Current use of correction anticoagulation 023 Dementia without behavioral disturbance 12/26/19 Diabetes mellitus with peripheral vascular disea se 12/25/2022 Follicular acne 12/25/2022 Former smoker, stopped smoking many years ago Gastroesophageal reflux dise ase with esophagitis without hemorrhage 12/25/2022 H/O cardiac arrest 12/25/2022 History of adenomatous polyp of colon 12/25/2022 History of malignant neoplasm of large intestine 12/25/2022 Hypomagnesemia 12/25/2022 USP current use of oral hypoglycemic drug 12/25/2022 Microalbuminuria 12/25/2022 Mixed hyperlipidemia 12/25/2022 BMI 29.0-29.9,adult 12/25/2022 Primary hypertension 12/25/2022 S/P CABG x 2 12/25/2022 S/P right hemicolectomy 12/25/2022 Stage 3a chronic kidney disease (HCC) 12/25/2022 Type 2 diabetes mellitus treated with insulin Dizziness 07/29/2021 Left carotid artery stenosis 07/29/2021 Transient neurological symptoms 07/29/2021 History of excision of intestinal structure 10/12 Adenomatous polyp of descending colon 08/30/2019 Diverticulosis large intesti ne w/o perforation or abscess w/o bleeding 08/30/2019 Peripheral angiopathy due to type 2 diabetes mary litus 07/15/2018 Encounters Date Type Department Care Team Description 12/12/2024 Patient Outreach [facility] [address] [place] [address] Renetta Bales, RN 12/11/2024 Refill [facility] [address] [place] [address] Ubaldo Carpio MD Type 2 diabetes mellitus with other diabetic kidney complication 12/02/2024 10:50 AM EDT Office Visit [facility] [address] [place] [address] Ubaldo Carpio MD Controlled type 2 diabetes mellitus with diabetic nephropathy, with long-term current use of insulin ([facility]) (Primary Dx); Vitamin D deficiency; Primary hypertension ([facility]/HCC); Insulin long-term use ([facility]/HCC); Hyperlipemia, mixed ([facility]); Encounter for dietary consultation; Stage 3b chronic kidney disease (HCC) ([facility]); Class 1 obesity due to excess calories with serious comorbidity and body mass index (BMI) of 33.0 to 33.9 in adult 12/02/2024 Bamboo flowsheet [facility] [address] [place] [address] Ubaldo Carpio MD 11/24/2024 Refill [facility] [address] [place] [address] Ubaldo Carpio MD Type 2 diabetes mellitus with other diabetic kidney complication; Gastroesophageal reflux disease with esophagitis without hemorrhage; Dementia without behavioral disturbance ([facility]) 11/08/2024 Patient Outreach [facility] [address] [place] [place] [address] Renetta Bales, EARL 11/01/2024 Patient Outreach [facility] [address] [place] [address] Shikha Loja, EARL 10/31/2024 Refill [facility] [address] [facility] [address] Dorys Yan NP Post-nasal drainage 10/26/2024 Patient Outreach [facility] [address] [place] [place] [address] Shikha Loja RN 10/26/2024 Refill [facility] [address] [place] [address] Ubaldo Carpio MD Type 2 diabetes mellitus with diabetic chronic kidney disease ([facility]) 10/17/2024 Patient Outreach [facility] [address] [place] [place] [address] Renetta Bales RN 10/02/2024 Refill [facility] [address] [place] [address] Diane Eller NP Mixed hyperlipidemia ([facility]) 09/29/2024 Patient Outreach [facility] [address] [place] [place] [address] Renetta Bales RN 09/22/2024 Refill [facility] [address] [place] [address] Ubaldo Carpio MD Type 2 diabetes mellitus with other diabetic kidney complication ([facility]) 09/21/2024 Patient Outreach [facility] [address] [place] [place] [address] Renetta Bales RN 09/14/2024 Patient Outreach [facility] [address] [place] [place] [address] Renetta Bales, EARL from Last 3 Months Immunizations Immunization Administration Dates Next Due Influenza, High-dose Seasona l, Quadrivalent, Preservative Free 04/08/2023,03/18/2022,05/14/2021 Influenza, injectable, quadrivalent 04/05/2020 Influenza, injectable, quadr ivalent, preservative free 06/23/2016 Influenza, seasonal, intrade rmal, preservative free 04/21/2019,04/06/2018,04/02/2017 Moderna SARS-CoV-2 50mcg/0.5mL Booster 2 Pneumococcal Conjugate PCV 13 06/30/2023, 017 Pneumococcal Polysaccharide PPSV23 09/12/2021, Family History Medical History Relation Name Comments accidental carbon monoxide Father i n home Cancer Maternal Grandmother Leukemia Maternal Grandmother Diabetes Mother Hypertension Mother Kidney failure Mother suicide Other uncle Relation Name Status Comments Brother Father Maternal Grandmother Mother Other uncle Social History Tobacco Use Types Packs/Day Years Used Date Smoking Tobacco: Former Cigarettes Q uit: 1973 Smokeless Tobacco: Never Tobacco Cessation:Counseling Given: Not Answered Comments:>10 years since last smoked Alcohol Use Standard Drinks/Week Comments Never [...] often do you attend chur ch or mosque services? Never 12/25/2022 Do you belong to any clubs o r organizations such as mormon groups, unions, fraternal or athletic groups, or [...] you are drinking? Patient does not drink 3 Q3: How often do you have si x or more drinks on one occasion? Never 12/25/2022 Overall Financial Resource Strain (CARDIA) Answe r Date Recorded How hard is it for you to pa y for the very basics like food, housing, medical care, and heating? Not hard at all 12/25/2022 PHQ-2 Answer Date Recorded Patient Health Questionnaire-2 Score 0 11/24/2023 [facility] Occupat ional Health - Occupational [...] place to sleep or slept in a detention (including now)? No 12/25/2022 Sex and Gender Information Value Date Recorded Sex Assigned at Not on file Legal Sex Male 7:34 PM EDT Gender Identity Not on file Sexual Orientation Not on file Last Filed Vital Signs Vital Sign Reading Time Taken Comments Blood Pressure 113/70 12/02/2024 10:53 AM EDT Pulse 99 12/02/2024 10:53 AM EDT Temperature 36.2 C (97.1 F) 11/24/2023 2:03 PM EDT Respiratory Rate 18 12/02/2024 10:53 AM EDT Oxygen Saturation 98% 12/02/2024 10:53 AM EDT Inhaled Oxygen Concentration - - Weight 102 kg (224 lb) 12/02/2024 10:53 AM EDT Height 175.3 cm (5' 9 ) 12/02/2024 10:53 AM EDT Body Mass Index 33.08 12/02/2024 10:53 AM EDT Plan of Treatment Upcoming Encounters Date Type Department Care Team (Late st Contact Info) Description 04/04/2025 2:10 PM EDT Office Visit [facility] [address] [place] [address] Ubaldo Carpio MD [address] [place] [address] Health Maintenance Due Date Last Done Comments Diabetes: Retinopathy Screening 04/05/2023 04/05/2021, 08/17/2018, 08/13/2017 Medicare Annual Wellness (AWV) 12/26/2023 0 12/25/2022, 12/19/2021, 12/19/2021 Diabetes: Hemoglobin A1C 03/04/2025 025, 08/16/2024, 07/19/2024, Additional history exists Influenza Vaccine (Season Ended) 2025 04/08/2023, 03/18/2022, 05/14/2021, Additional history exists Diabetes: Urine Protein Screening 12/06/2025 12/06/2024, 12/06/2024, 07/19/2024, Additional history exists Pneumococcal Vaccine: 65+ Years Completed 06/30/2023, 09/12/2021, 07/15/2016, Additional history exists Colonoscopy Discontinued 07/22/2024, 07/13, 08/19/2019, Additional history exists Colorectal Cancer Screening Discontinued CT Colonography Discontinued FIT-DNA Discontinued FIT Discontinued FOBT Discontinued Sigmoidoscopy Discontinued Procedures Procedure Name Priority Date/Time Associated Diagnosis Comments POCT GLYCOSYLATED HEMOGLOBIN (HGB A1C) Routine 12/02/2024 10:55 AM EDT Controlled type 2 diabetes mellitus with diabetic nephropathy, with long-term current use of insulin ([facility]) POCT GLUCOSE Routine 12/02/2024 10:55 AM EDT Controlled type 2 diabetes mellitus with diabetic nephropathy, with long-term current use of insulin ([facility]) MICROALBUMIN / CREATININE URINE RATIO Routine 12/19/2021 COLOR FUNDUS PHOTOGRAPHY - OU - BOTH EYES Routine 04/05/2021 12:00 PM EDT COLONOSCOPY Routine 08/19/2019 12:00 PM EST from Last 3 Months or Most Recently Relevant to Health Maintenance Results * POCT glycosylated hemoglobin (Hb A1C) [...] CARE TEST ENTER/EDIT ORDERABLES Final Result * Color Fundus Photography - OU - Both Eyes (04/05/2021 12:00 PM EDT) Anatomical Region Laterality Modality Head Fundus Photograp hy 04/05/2021 12:0 0 PM EDT Narrative 04/05/2021 12:00 PM EDT PERFORMED AT [facility] LOCATION:[id number] Procedure Note CONVERSION, GENERIC - 11/26/2022 PERFORMED AT [facility] LOCATION:[id number] Neetu Calzada DO OPHTH PHOTOGRAPHY Final Result * Colonoscopy (08/19/2019 12:00 PM EST) Anatomical Region Laterality Modality Endoscopy 08/19/2019 12:0 0 PM EST Narrative 08/19/2019 12:00 PM EST PERFORMED AT [facility] LOCATION:[id number] Procedure Note CONVERSION, GENERIC - 11/26/2022 PERFORMED AT [facility] LOCATION:[id number] Hua Mccullough ENDOSCOPY PROCEDURE ORDERABLES Final Result from Last 3 Months or Most Recently Relevant to Health Maintenance Insurance MEDICARE [facility] Care Teams Lodge Attendant Relationship Specialty Start Date End Date Shikha Doherty MD [address] [place] [address] PCP - General Family Medicine 08/10/23 Dorys Yan NP [address] [place], [place] [id number] Nurse Practitioner Family Medicine 08/10/23
--- OUTSIDE RECORDS SUMMARY | 2024-12-14 13:25 | XMS_ITS | Clinical Summary ---
Author Organization [employer] tem Address [facility] [id number] [address] [place] [address] Care Team Providers Care Paid Search Marketing Strategist Name Role Phone Dorys Yan [employer] EMERGENCY MANAGEMENT PROGRAM SPECIALIST-CHIEF OF HOSPITAL MEDICINE Primary Care Pro vider Allergies Active Allergy Reactions Criticality Noted Date Comments Warfarin 02/14/2017 Vomiting Ondansetron Hcl Nausea 08/09/2019 Medications INSULIN GLARGINE,HUM.RE C.ANLOG (LANTUS SOLOSTAR SUBQ) Inject 60 Unit under the skin nightly. Active glimepiride (AMARYL) 4 mg tablet Take 1 tablet (4 mg total) by mouth in the morning and 1 tablet (4 mg total) before bedtime. Active rosuvastatin (CRESTOR) 10 mg tablet Take 1 tablet (10 mg total) by mouth in the morning. Active famotidine (PEPCID) 20 mg tablet Take 1 tablet (20 mg total) by mouth in the morning and 1 tablet (20 mg total) before bedtime. Active memantine (NAMENDA) 5 mg tablet Take 1 tablet (5 mg total) by mouth in the morning and 1 tablet (5 mg total) before bedtime. Active acetaminophen (TYLENOL) 325 mg tablet Take 2 tablets (650 mg total) by mouth as needed for pain. Active carvediloL (COREG) 6.25 mg tablet Take 1 tablet (6.25 mg total) by mouth 2 (two) times a day with meals. 180 tablet 2 04/15/2021 Active dapagliflozin (FARXIGA) 10 mg tabletIndicatio ns:type 2 diabetes mellitus Take 1 tablet (10 mg total) by mouth in the morning. Indications: type 2 diabetes mellitus. Active pioglitazone (ACTOS) 30 mg tablet Take 1 tablet (30 mg total) by mouth in the morning. 06/25/2023 Active oxyCODONE (OXY-IR) 5 mg capsule Take 1 capsule (5 mg total) by mouth every 6 (six) hours as needed for pain. Active rivaroxaban (XARELTO) 2.5 mg tablet Take 1 tablet (2.5 mg total) by mouth in the morning and 1 tablet (2.5 mg total) before bedtime. 180 tablet 3 10/06/2024 Active aspirin 81 mg Take 1 tablet (81 mg total) by mouth in the morning. 90 tablet 6 10/06/2024 Active cilostazoL (PLETAL) 100 mg tablet Take 1 tablet (100 mg total) by mouth in the morning and 1 tablet (100 mg total) before bedtime. 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 I discussed with him SFA to above-knee pop bypass. Discussed risks benefits and alternatives. Informed consent was obtained. Assessment & Plan (08/04/2024 10:14 AM EST): Right lower extremity angiogram and intervention. This is a second stage of his revascularization strategy to hopefully save his foot. He will need amputation of his toes versus TMA as well. Critical lower limb ischemia 07/17/2024 Diarrhea 07/16/2024 Transient neurological symptoms 07/29/2021 Dizziness 07/29/2021 Left carotid artery stenosis 07/29/2021 Hypomagnesemia 2021 Stage 3 chronic kidney disease 02/12/2021 Adenomatous polyp of descending colon 08/30/2019 Diverticulosis large intesti ne w/o perforation or abscess w/o bleeding 08/30/2019 History of colon cancer 08/09/2019 Hx of adenomatous colonic polyps 08/09/2019 Benign essential hypertension 10/17/2014 Hyperlipidemia 10/17/2014 Ischemic cardiomyopathy Chest pain CAD (coronary artery disease) Resolved Problems Problem Noted Date Diagnosed Date Resolved Date Atherosclerosis of autologou s vein coronary artery bypass graft 08/11/2014 11/28/2022 Encounters Date Type Department Care Team Description 12/06/2024 Travel 11/28/2024 9:51 AM EDT - 11/28/2024 11:59 PM EDT Hospital Encounter [facility] - Vascular [address] [place] [address] Elyssa Santos MD 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) Discharge Disposition: Home 11/28/2024 Travel 11/24/2024 10:00 AM EDT Office Visit [facility] Vascular Surgery [address] [place] [phone] Elyssa Santos MD 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) 11/24/2024 Travel 10/06/2024 10:40 AM EDT Office Visit [facility] Vascular Surgery [address] [place] [phone] Elyssa Santos MD 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 [address] Elyssa Santos MD BYPASS ARTERY FEMORAL POPLITEAL 09/13/2024 10:10 AM EST - 09/17/2024 5:38 PM EST Hospital Encounter [facility] - [facility] [address] [place] [address] Elyssa Santos MD Postoperative state (Primary Dx) Discharge Disposition: Home Health 09/13/2024 Travel from Last 3 Months Immunizations Immunization Administration Dates Next Due Influenza Split Preservative Free ID 04/21/2019, 04/06/2018,04/02/2017 Influenza, High-dose, Quadrivalent 04/08/2023,,05/14/2021 Influenza, Injectable, Quadrivalent 04/05/2020 Influenza, Injectable, quadrivalent (PF) 016 Influenza, Recombinant, Quad rivalent, Injectable, Preserv 04/04/2020 Pneumococcal Conjugate 13-Valent 06/30/2023,09/2016 Pneumococcal Polysaccharide 09/12/2021, 4 Family History Medical History Relation Name Comments Early Brother No Known Problems Father No Known Problems Maternal Grandfather No Known Problems Maternal Grandmother Breast cancer Mother Cancer Mother Colon cancer Mother Diabetes Mother Kidney disease Mother No Known Problems Paternal Grandfather No Known Problems Paternal Grandmother Anesthesia problems Neg Hx Relation Name Status Comments Brother (Age 21) Father (Age 72) Maternal Grandfather Maternal Grandmother Mother (Age 74) Paternal Grandfather Paternal Grandmother Social History Tobacco Use Types Packs/Day Years Used Date Smoking Tobacco: Former Cigarettes Pipe Cigars Smokeless Tobacco: Never Tobacco Cessation:Counseling Given: Not Answered Comments:Smoked as teenager- quit at 18 Alcohol Use Standard Drinks/Week Comments No 0 (1 standard drink = 0.6 oz pur e alcohol) sober since age 36 [facility] Utilities Answer Date Recorded In the past 12 months has th e electric, gas, oil, or water company [...] Sign Reading Time Taken Comments Blood Pressure 134/76 11/24/2024 9:54 AM EDT Pulse 104 11/24/2024 9:54 AM EDT Temperature 36.6 C (97.9 F) 11/24/2024 9:54 AM EDT Respiratory Rate 20 11/24/2024 9:54 AM EDT Oxygen Saturation 98% 11/24/2024 9:54 AM EDT Inhaled Oxygen Concentration - - Weight 98.9 kg (218 lb) 11/24/2024 9:54 AM EDT Height 175.3 cm (5' 9.02 ) 11/24/2024 9:54 AM ED T Body Mass Index 32.18 11/24/2024 9:54 AM EDT Plan of Treatment Upcoming Encounters Date Type Department Care Team (Late st Contact Info) Description 12/22/2024 10:10 AM EDT Office Visit [facility] [address] [place] [phone] Elyssa Santos MD [address], [address] [address] Health Maintenance Due Date Last Done Comments Adult BMI Follow Up Plan 1973 DTaP,Tdap and Td Vaccines (1 - Tdap) 1974 Zoster (Shingles) Vaccine (1 of 2) 2005 Fall Risk Screening 2020 COVID-19 Vaccine (5 - 2023-2 5 season) 2024 05/14/2022, 05/22/2021, 11/16/2020, Additional history exists Influenza Vaccine 03/13/2025 04/08/2023, , 05/14/2021, Additional history exists Depression Screening 09/13/2025 09/13/2024 Tobacco Screening 10/06/2025 10/06/2024 Adult BMI Screening 11/24/2025 11/24/2024 Colonoscopy 07/22/2027 07/22/2024, 07/13, 08/19/2019, Additional history exists Abdominal Aortic Aneurysm (A AA) Screen Completed 07/19/2024, 08/03/2014 Goals Goal Patient Goal Type Associated Problems Recent Progress Patient-Stated? Author Safe Discharge General Yes Janice Gallagher, RN Note: Evaluation of progress towards goal: safe transition home self care with spouse and family support. <enter goal here> General Yes Lynn Arcos RN Note: Evaluation of progress towards goal: safe discharge Medical Devices Implanted Type Area Rn Unit Manager Device Identifier Shelf Expiration Date Model / Serial / Lot Patch Vsc 8x.8cm Xenosure Bvn Pricrd Tiss Strl Rpl [id number] - [id number] Implanted:Qty: 1 on 07/29/2024 by Elyssa Santos MD at [facility] Graft Right: Arterial [employer] [id number] 12/07/2029 [id number] / / [id number] Description:RIGHT FEMORAL AR VALE Graft Cv 60cm 7mm Thor [address] Wvn Hmsh Pl 2 Vlr Clgn Str - [id number] - [id number] Implanted:Qty: 1 on 09/13/2024 by Elyssa Santos MD at [facility] Graft Right: Arterial [employer] 03/12/2029 [id number] / [id number] Stent 7fr 135cm Vbx Ba Ppm Expandable Cath Hep Vbhn Eprsth 8 Rpl [id number] - [id number] - [id number] Implanted:Qty: 1 on 07/29/2024 by Elyssa Santos MD at [facility] Stent Right: Arterial Zalma [id number] 12/26/2026 [id number] / [id number] / Description:RIGHT ILIAC Stent Vsc Innova 8mm 100mm 130cm 6fr Dlv Sys Rdpq Slf Xpd - [id number] Implanted:Qty: 1 on 07/29/2024 by Elyssa Santos MD at [facility] Stent Right: Arterial [employer] [id number] 02/01/2025 [id number] / / [id number] Description:RIGHT ILIAC Procedures Procedure Name Priority Date/Time Associated Diagnosis Comments CLINICAL PATHOLOGY REVIEW Routine 12/09/2024 8:43 AM EDT Chronic kidney disease, stage 3b (CMS-HCC) PROTEIN ELECTROPHORESIS, URINE Routine 12/06/2024 11:49 AM EDT Chronic kidney disease, stage 3b (CMS-HCC) URINALYSIS Routine 12/06/2024 11:49 AM EDT Chronic kidney disease, stage 3b (CMS-HCC) MICROALBUMIN / CREATININE URINE RATIO Routine 12/06/2024 11:49 AM EDT Chronic kidney disease, stage 3b (CMS-HCC) PROTEIN ELECTROPHORESIS, SERUM Routine 12/06/2024 10:47 AM EDT Chronic kidney disease, stage 3b (CMS-HCC) URIC ACID Routine 12/06/2024 10:47 AM EDT Chronic kidney disease, stage 3b (CMS-HCC) BASIC METABOLIC PANEL Routine 12/06/2024 10:47 AM EDT Chronic kidney disease, stage 3b (CMS-HCC) CBC (NO DIFF) Routine 12/06/2024 10:47 AM EDT Chronic kidney disease, stage 3b (CMS-HCC) MAGNESIUM Routine 12/06/2024 10:47 AM EDT Chronic kidney disease, stage 3b (CMS-HCC) ALBUMIN Routine 12/06/2024 10:47 AM EDT Chronic kidney disease, stage 3b (CMS-HCC) VITAMIN D 25 HYDROXY Routine 12/06/2024 10:47 AM EDT Chronic kidney disease, stage 3b (CMS-HCC) PARATHYROID HORMOME, INTACT Routine 12/06/2024 10:47 AM EDT Chronic kidney disease, stage 3b (CMS-HCC) PHOSPHORUS Routine 12/06/2024 10:47 AM EDT Chronic kidney disease, stage 3b (CMS-HCC) VASC ARTERIAL DOPPLER LOWER BILATERAL MULTI LEVEL/PVR Routine 11/28/2024 10:35 AM EDT 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) BEDSIDE GLUCOSE Routine 09/17/2024 11:22 AM EST BEDSIDE GLUCOSE Routine 09/17/2024 7:30 AM EST PHOSPHORUS Routine 09/17/2024 5:11 AM EST MAGNESIUM Routine 09/17/2024 5:11 AM EST CBC (NO DIFF) Routine 09/17/2024 5:11 AM EST BASIC METABOLIC PANEL Routine 09/17/2024 5:11 AM EST BEDSIDE GLUCOSE Routine 09/16/2024 9:20 PM EST BEDSIDE GLUCOSE Routine 09/16/2024 5:57 PM EST BEDSIDE GLUCOSE Routine 09/16/2024 11:58 AM EST BEDSIDE GLUCOSE Routine 09/16/2024 8:02 AM EST PHOSPHORUS Routine 09/16/2024 4:36 AM EST MAGNESIUM Routine 09/16/2024 4:36 AM EST CBC (NO DIFF) Routine 09/16/2024 4:36 AM EST BASIC METABOLIC PANEL Routine 09/16/2024 4:36 AM EST BEDSIDE GLUCOSE Routine 09/15/2024 8:22 PM EST BEDSIDE GLUCOSE Routine 09/15/2024 5:05 PM EST BEDSIDE GLUCOSE Routine 09/15/2024 10:35 AM EST SURGICAL PATHOLOGY Routine 09/15/2024 10:29 AM EST OXYGEN THERAPY Routine 09/15/2024 8:56 AM EST TISSUE CULTURE Routine 09/15/2024 8:39 AM EST UT AN ELECTIVE ENDOTRACHEAL AIRWAY Routine 09/15/2024 8:17 AM EST AMPUTATION TOE 09/15/2024 8:04 AM EST GANGRENE PHOSPHORUS Routine 09/15/2024 3:51 AM EST MAGNESIUM Routine 09/15/2024 3:51 AM EST CBC (NO DIFF) Routine 09/15/2024 3:51 AM EST BASIC METABOLIC PANEL Routine 09/15/2024 3:51 AM EST BEDSIDE GLUCOSE Routine 09/14/2024 8:58 PM EST POTASSIUM Routine 09/14/2024 6:36 PM EST BEDSIDE GLUCOSE Routine 09/14/2024 4:14 PM EST BEDSIDE GLUCOSE Routine 09/14/2024 9:17 AM EST PROTIME & INR Routine 09/14/2024 8:10 AM EST APTT Routine 09/14/2024 8:10 AM EST PLATELET COUNT Routine 09/14/2024 8:10 AM EST HEMOGLOBIN Routine 09/14/2024 8:10 AM EST PHOSPHORUS Routine 09/14/2024 4:15 AM EST MAGNESIUM Routine 09/14/2024 4:15 AM EST CBC (NO DIFF) Routine 09/14/2024 4:15 AM EST BASIC METABOLIC PANEL Routine 09/14/2024 4:15 AM EST BEDSIDE GLUCOSE Routine 09/13/2024 10:19 PM EST RESP ARTERIAL LINE SETUP Routine 09/13/2024 4:39 PM EST RESP ARTERIAL LINE SETUP Routine 09/13/2024 4:39 PM EST RESP ARTERIAL LINE SETUP Routine 09/13/2024 4:39 PM EST CBC WITH AUTO DIFFERENTIAL Routine 09/13/2024 3:40 PM EST IONIZED MAGNESIUM Routine 09/13/2024 3:4 0 PM EST BASIC METABOLIC PANEL Routine 09/13/2024 3:40 PM EST BEDSIDE GLUCOSE Routine 09/13/2024 2:42 PM EST POCT ABG RAPID K GLU ICA HH Routine 09/13/2024 1:55 PM EST UT ANES ART LINE Routine 09/13/2024 1:29 PM EST UT AN ELECTIVE ENDOTRACHEAL AIRWAY Routine 09/13/2024 12:59 PM EST BYPASS ARTERY FEMORAL POPLITEAL 09/13/2024 12:55 PM EST Atherosclerosis of [place] artery of right lower extremity with ulceration, unspecified ulceration site ([facility]) Encounter for therapeutic drug monitoring Case Notes SREE 2.5 HOURS W.(EPIC TIME 160, GAVE 165W) BEDSIDE GLUCOSE Routine 09/13/2024 11:18 AM EST PROVATION COLONOSCOPY Routine 07/22/2024 1:22 PM EST US RETROPERITONEAL COMPLETE Routine 07/19/2024 11:51 PM EST from Last 3 Months or Most Recently Relevant to Health Maintenance Results * Clinical Pathology Review (12/09/2024 8:43 AM EDT) Case Report Clinical Pathology Report Case: [id number] Authorizing Provider: Cheo Kenny MD Collected: 12/09/2024 0843 Ordering Location: [facility] Received: 12/09/[address] [place] [address] - Lab Pathologist: Luis Gresham MD Specimen: Urine 12/11/2024 12:33 PM EDT [facility] Final Diagnosis 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 No monoclonal protein identified. 12/11/2024 12:33 PM EDT [facility] at 1233 EDT Urine / Unknown 12/09/2024 8 :43 AM EDT 12/09/2024 8:43 AM EDT us Cheo Kenny MD PATHOLOGY/CYTOLOGY ORDERABLES F inal Result [facility] [address] [place] [address], * (ABNORMAL) Microalbumin - Albumin: Creatinine Urine Ratio (12/06/2024 11:49 AM EDT) URINE CREATININE,RDM 111.87 mg/dL 12/07/2024 5:55 AM EDT [facility] MALB/CREAT RATIO 94.8(H) 0.0 - 30.0 mg/g 12/07/2024 5:55 AM EDT [facility] MICROALBUMIN, URINE 10.6(H) 0.0 - 1.9 mg/dL 12/07/2024 5:55 AM EDT [facility] Urine Urine specimen collection, clean catch / Unknown 12/06/2024 11:49 AM EDT 12/06/2024 11:49 AM EDT us Cheo Kenny MD URINE ORDERABLES Final Result Performing Organization Address City/[facility]/ZIP Co de Phone Number [facility] [address] [place] [address], [place] [phone] * Protein electrophoresis, urine (12/06/2024 11:49 AM EDT) Urine Protein Electrophoresis Interp See Pathology Report 12/12/2024 6:56 AM EDT [facility] Urine Urine specimen collection, clean catch / Unknown 12/06/2024 11:49 AM EDT 12/06/2024 11:49 AM EDT us Cheo Kenny MD URINE ORDERABLES Final Result [facility] [address] [place] [address], [place] [phone] * (ABNORMAL) Urinalysis (12/06/2024 11:49 AM EDT) COLOR Yellow Yellow, Colorless 12/06/2024 9:02 PM EDT [facility] TURBIDITY Clear Clear 12/06/2024 9:02 PM EDT [facility] SPECIFIC GRAVITY 1.031 1.003 - 1.035 12/06/2024 9:02 PM EDT [facility] NITRITE Negative Negative 12/06/2024 9:02 PM EDT [facility] PH,URINE 5.5 5.0 - 8.5 12/06/2024 9:02 PM EDT [facility] LEUKOCYTE ESTERASE Negative Negative 12/06/2024 9:02 PM EDT [facility] Comment:High Concentrations of Glucose May Decrease the Reactivity of the Dipstick Leukocyte Test Pad. PROTEIN Trace(A) Negative 12/06/2024 9:02 PM EDT [facility] KETONES (URINE) Negative Negative 9:02 PM EDT [facility] UROBILINOGEN <1.1 eu/dL <1.1 eu/dL 12/06/2024 9:02 PM EDT [facility] BILIRUBIN (URINE) Negative Negative 025 9:02 PM EDT [facility] BLOOD/HGB Trace(A) Negative 12/06/2024 9:02 PM EDT [facility] HYALINE CASTS 3(H) 0 - 2 12/06/2024 9:02 PM EDT [facility] MUCOUS Present(A) None 12/06/2024 9:02 PM EDT [facility] R.B.CELLS 10(H) 0 - 5 12/06/2024 9:02 PM EDT [facility] W.B.CELLS 1 0 - 5 12/06/2024 9:02 PM EDT [facility] GLUCOSE (URINE) >1000 mg/dL(A) Negative 12/06/2024 9:02 PM EDT [facility] Urine Urine specimen collection, clean catch / Unknown 12/06/2024 11:49 AM EDT 12/06/2024 11:49 AM EDT Narrative [facility] - 12/06/2024 9:02 PM EDT Urine received without preservative. Delays in transport may affect results. Interpret with caution. A clinical correlation is recommended. us Cheo Kenny MD URINE ORDERABLES Final Result Performing Organization Address City/[facility]/ZIP Co de Phone Number [facility] [address] [place] [address], [place] [phone] * Parathyroid Hormone, intact (12/06/2024 10:47 AM EDT) PTH INTACT 70 12 - 88 pg/mL 12/06/2024 2:23 PM EDT [facility] Blood Venous blood / Unknown Venipuncture / Unknown 12/06/2024 10:47 AM EDT 12/06/2024 10:47 AM EDT us Cheo Kenny MD LAB BLOOD ORDERABLES Final Resu lt [facility] [address] [place] [address], [place] [phone] * (ABNORMAL) Vitamin D 25 hydroxy (12/06/2024 10:47 AM EDT) VITAMIN D 25 HYD TOT 15.9(L) 30.0 - 100.0 ng/mL 12/06/2024 2:31 PM EDT [facility] Blood Venous blood / Unknown Venipuncture / Unknown 12/06/2024 10:47 AM EDT 12/06/2024 10:47 AM EDT Narrative [facility] - 12/06/2024 2:31 PM EDT Vitamin D status 25 [place] Vitamin D Deficiency <20 ng/mL Insufficiency 20-29 ng/mL Sufficiency 30-100 ng/mL Toxicity >100 ng/mL NOTE: A pediatric reference range has not been established by the women's lacrosse coach of this kit. The [place] [employer] recommends a Vitamin D level of = or >20ng/mL in infants and children. us Cheo Kenny MD LAB BLOOD ORDERABLES Final Resu lt [facility] [address] [place] [address], [place] [phone] * (ABNORMAL) CBC without diff (12/06/2024 10:47 AM EDT) Only the most recent of5 resultswithin the time period is included. WBC 7.9 4 - 11 x10E9/L 12/06/2024 1:39 PM EDT [facility] RBC Count 4.26 4.1 - 5.7 X10E12/L 12/06/2024 1:39 PM EDT [facility] Hemoglobin 10.7(L) 13 - 17 g/dL 12/06/2024 1:39 PM EDT [facility] Hematocrit 33.7(L) 39 - 50 % 12/06/2024 1:39 PM EDT [facility] MCV 79(L) 80 - 100 fL 12/06/2024 1:39 PM EDT [facility] MCH 25.1(L) 27 - 34 pg 12/06/2024 1:39 PM EDT [facility] MCHC 31.7(L) 32 - 36 g/dL 12/06/2024 1:39 PM EDT [facility] RDW 18.5(H) 11.5 - 15 % 12/06/2024 1:39 PM EDT [facility] Platelet Count 270 150 - 450 X10E9/L 12/06/2024 1:39 PM EDT [facility] MPV 8.6 7 - 12 fL 12/06/2024 1:39 PM EDT [facility] Blood Venous blood / Unknown Venipuncture / Unknown 12/06/2024 10:47 AM EDT 12/06/2024 10:47 AM EDT us Cheo Kenny MD LAB BLOOD ORDERABLES Final Resu lt [facility] [address] [place] [address], [place] [phone] * (ABNORMAL) Uric acid (12/06/2024 10:47 AM EDT) URIC ACID 7.3(H) 2.6 - 7.2 mg/dL 12/06/2024 2:27 PM EDT [facility] Blood Venous blood / Unknown Venipuncture / Unknown 12/06/2024 10:47 AM EDT 12/06/2024 10:47 AM EDT us Cheo Kenny MD LAB BLOOD ORDERABLES Final Resu lt [facility] [address] [place] [address], [place] [phone] * Protein electrophoresis, serum (12/06/2024 10:47 AM EDT) TOTAL PROTEIN 6.9 6.0 - 8.0 g/dL 12/07/2024 11:54 AM EDT [facility] ALPHA 1 GLOBULIN 0.3 0.1 - 0.4 g/dL 12/07/2024 11:54 AM EDT [facility] ALPHA 2 GLOBULIN 0.9 0.4 - 1.1 g/dL 12/07/2024 11:54 AM EDT [facility] BETA GLOBULIN 1.0 0.5 - 1.2 g/dL 12/07/2024 11:54 AM EDT [facility] GAMMA GLOBULIN 1.2 0.5 - 1.6 g/dL 12/07/2024 11:54 AM EDT [facility] Protein Electrophoresis Interp Unremarkable protein distribution, no monoclonal bands 12/07/2024 11:54 AM EDT [facility] Albumin 3.5 3.4 - 5.3 g/dL 12/07/2024 11:54 AM EDT [facility] Blood Venous blood / Unknown Venipuncture / Unknown 12/06/2024 10:47 AM EDT 12/06/2024 10:47 AM EDT us Cheo Kenny MD LAB BLOOD ORDERABLES Final Resu lt [facility] [address] [place] [address], * Phosphorus (12/06/2024 10:47 AM EDT) Only the most recent of5 resultswithin the time period is included. PHOSPHORUS 3.6 2.4 - 4.9 mg/dL 12/06/2024 2:27 PM EDT [facility] Blood Venous blood / Unknown Venipuncture / Unknown 12/06/2024 10:47 AM EDT 12/06/2024 10:47 AM EDT us Cheo Kenny MD LAB BLOOD ORDERABLES Final Resu lt [facility] [address] [place] [address], [place] [phone] * Magnesium (12/06/2024 10:47 AM EDT) Only the most recent of5 resultswithin the time period is included. MAGNESIUM 1.9 1.8 - 2.6 mg/dL 12/06/2024 2:27 PM EDT [facility] Blood Venous blood / Unknown Venipuncture / Unknown 12/06/2024 10:47 AM EDT 12/06/2024 10:47 AM EDT us Cheo Kenny MD LAB BLOOD ORDERABLES Final Resu lt Performing Organization Address City/[facility]/ZIP Co de Phone Number [facility] [address] [place] [address], * Albumin (12/06/2024 10:47 AM EDT) Pathologist [facility] ALBUMIN 3.7 3.2 - 5.3 g/dL 12/06/2024 2:27 PM EDT [facility] Blood Venous blood / Unknown Venipuncture / Unknown 12/06/2024 10:47 AM EDT 12/06/2024 10:47 AM EDT us Cheo Kenny MD LAB BLOOD ORDERABLES Final Resu lt Performing Organization Address City/[facility] Co de Phone Number [facility] [address] [place] [address], [place] [phone] * (ABNORMAL) Basic Metabolic Panel (12/06/2024 10:47 AM EDT) Only the most recent of6 resultswithin the time period is included. SODIUM 140 134 - 146 mmol/L 12/06/2024 2:27 PM EDT [facility] POTASSIUM 4.4 3.5 - 5.0 mmol/L 12/06/2024 2:27 PM EDT [facility] CHLORIDE 99 98 - 109 mmol/L 12/06/2024 2:27 PM EDT [facility] CARBON DIOXIDE 27 22 - 32 mmol/L 12/06/2024 2:27 PM EDT [facility] ANION GAP 14 5 - 15 mmol/L 12/06/2024 2:27 PM EDT [facility] BLOOD UREA NITROGEN 17 5 - 27 mg/dL 12/06/2024 2:27 PM EDT [facility] CREATININE 1.69(H) 0.60 - 1.30 mg/dL 12/06/2024 2:27 PM EDT [facility] Comment:METHOD TRACEABLE TO IDMS STANDARD GLUCOSE 276(H) 65 - 99 mg/dL 12/06/2024 2:27 PM EDT [facility] CALCIUM 9.1 8.5 - 10.5 mg/dL 12/06/2024 2:27 PM EDT [facility] EGFR Non-Race Dependent 43(L) >=60 ml/min/1.7 3sq.m 12/06/2024 2:27 PM EDT [facility] Comment: Reported eGFR is based on the CKD-EPI 2020 equation that does not use a race coefficient. Blood Venous blood / Unknown Venipuncture / Unknown 12/06/2024 10:47 AM EDT 12/06/2024 10:47 AM EDT us Cheo Kenny MD LAB BLOOD ORDERABLES Final Resu lt [facility] [address] [place] [address], [place] [phone] * Vas art doppler lwr bilat mult lev/PVR (11/28/2024 10:35 AM EDT) Anatomical Region Laterality Modality Vascular Bilateral Ultrasound 11/28/2024 11:1 7 AM EDT Narrative 11/30/2024 11:52 AM EDT Previous: History of right iliofemoral endarectomy, and femoropopliteal bypass graft performed on 09/15/2024. Right: Mildly abnormal PVR waveform contour at all cuff levels. Calf waveform augmentation noted. Audible PT and DP arterial Doppler signals despite occlusive cuff pressures exceeding >250mmHg. TBI is not available due to 1st toe amputation. Hyperemic common femoral, multiphasic with diastolic flow reversal popliteal, and Monophasic PT and DP CW Doppler waveforms. Left: Mildly abnormal thigh, and moderately abnormal calf and ankle level PVR waveform contour. No calf waveform augmentation noted. PT AMRITA is 0.96. Audible DP arterial Doppler signals despite occlusive cuff pressures exceeding >250mmHg. TBI is 0.23. Multiphasic with diastolic flow reversal common femoral, and Monophasic popliteal, PT and DP CW Doppler waveforms. Conclusions: RIGHT: Multilevel arterial disease (common femoral artery or above with femoropopliteal and/or tibioperoneal); Ankle pressures were non-compressible and great toe pressure was not available secondary to amputation. LEFT: Multilevel arterial disease (femoropopliteal and tibioperoneal); AMRITA is falsely elevated suggesting medial calcinosis; TBI consistent with severe arterial disease. Amend: This report has been amended to reflect changes not previously included in the original report. KANWAL 11/30/24 Procedure Note Thelma Patrick MD - 11/30/2024 Previous: History of right iliofemoral endarectomy, and femoropoplitealbypass graft performed on 09/15/2024. Right: Mildly abnormal PVR waveform contour at all cuff levels. Calfwaveform augmentation noted. Audible PT and DP arterial Doppler signalsdespite occlusive cuff pressures exceeding >250mmHg. TBI is not availabledue to 1st toe amputation. Hyperemic common femoral, multiphasic with diastolic flow reversal popliteal, andMonophasic PT and DP CW Doppler waveforms. Left: Mildly abnormal thigh, and moderately abnormal calf and ankle levelPVR waveform contour. No calf waveform augmentation noted. PT AMRITA is 0.96.Audible DP arterial Doppler signals despite occlusive cuff pressuresexceeding >250mmHg. TBI is 0.23. Multiphasic with diastolic flow reversal common femoral, and Monophasicpopliteal, PT and DP CW Doppler waveforms. Conclusions: RIGHT: Multilevel arterial disease (common femoral artery orabove with femoropopliteal and/or tibioperoneal); Ankle pressures werenon-compressible and great toe pressure was not available secondary toamputation. 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 Amend: This report has been amended to reflect changes not previouslyincluded in the original report. KANWAL 11/30/24 Elyssa Santos MD CV VASCULAR ORDERABLES Edited Result - Final * (ABNORMAL) Bedside Glucose *Place/Obtain serum glucose if >500 per glucometer. (09/17/2024 11:22AM EST) Only the most recent of15 resultswithin the time period is included. Bedside glucose 289(H) 65 - 99 mg/dL 09/17/2024 11:50 AM EST [facility] Blood / Unknown 09/17/2024 1 1:22 AM EST 09/17/2024 11:50 AM EST Elyssa Santos MD POINT OF CARE TEST ORDERABLES Final Result [facility] * Surgical Pathology (09/15/2024 10:29 AM EST) Tissue (Other) 09/15/2024 8: 37 AM EST Comment:Pre-op diagnosis: GANGRENE Tissue specimen (specimen) (Other) 09/15/2024 8:38 AM EST Comment:Pre-op diagnosis: GANGRENE Narrative COPATH - 09/26/2024 9:42 AM EDT [facility] [address] [place] [address] Surgical Pathology Consultation Patient Name:PONCHO JOSE JR.:1955 (Age: 69)Gender:MTaken:09/15/2024Reported:09/26/2024Physician(s):Elyssa Santos MD ( )Copy To: Rec. #:[id number]: #[id number] Final Pathologic Diagnosis 1. Right foot, great toe, amputation: Ulcer with gangrenous necrosis, extending to the surgical margin. 2. Right foot, great metatarsal, resection: Viable bone, no evidence of osteomyelitis. Report Electronically Signed Out rg/09/26/2024Carlitos Ochoa MD Interpretation performed at [facility], [address] [place] [address], License number: [id number]. Clinical History Gangrene. Gross Description 1. Received in formalin labeled MARY, right great toe is a dove and wrinkled digit disarticulated at the proximal margin, 8.3 x 2.9 cm. A brown-mike lesion is identified on 90% of the digit. The proximal margin is inked black. A player services representative cross-section of the lesion into the bone is submitted cassette A. Cassette A is submitted in RDO decalcification. A player services representative shave of the proximal skin margin is submitted cassette B. (2, , [id number],m5) DM. 2. Received in formalin labeled MARY, right great metatarsal is a pink-dove portion of bone, 3.8 x 2.7 x 1.5 cm. No skin is identified. The specimen is serially sectioned to reveal dove spongy cut surfaces. A player services representative cross-section of the proximal margin is submitted in RDO for decalcification. (1, ss, [id number],m5) DM. dm/09/15/2024NSK Specimen(s) Received 1: Right great toe 2: Right great metatarsal Fee Codes(s): 1; 87380, 23645 2; 04838, 79241 Elyssa Santos MD PATHOLOGY/CYTOLOGY ORDERABLES Final Result COPATH * (ABNORMAL) Tissue culture includes gram stain (09/15/2024 8:39 AM EST) Specimen Notes DIAGNOSIS OF GANGRENE 09/15/2024 10:00 AM [facility] Gram Stain Result 0 to 1 WHITE BLOOD CELLS/LPF 09/15/2024 12:19 PM [facility] Gram Stain Result 0 to 1 SQUAMOUS EPITHELIAL CELLS/LPF 09/15/2024 12:19 PM [facility] Gram Stain Result NO ORGANISMS SEEN 09/15/2024 12:19 PM [facility] Culture RARE STAPHYLOCOCCUS AUREUS(A) 09/18/2024 7:21 AM EDT [facility] Culture RARE STAPHYLOCOCCUS, COAGULASE NEGATIVE NOT S.LUGDUNENSIS(A) 09/18/2024 7:21 AM EDT [facility] Tissue (Other) 09/15/2024 8: 39 AM EST Comment:Pre-op diagnosis: GANGRENE Narrative Organism Antibiotic Method Susceptibility Staphylococcus Aureus Cefazolin NICKI METHOD Susceptible (deduced) Staphylococcus Aureus Clindamycin NICKI METHOD 0.25: Susceptible Comment:INDUCIBLE RE SISTANCE TO CLINDAMYCIN NOT DETECTED Staphylococcus Aureus Oxacillin NICKI METHOD 0.5: Susceptible Staphylococcus Aureus TRIMETH/SULFAMETHOXAZOLE NICKI MET HOD <=0.5/9.5: Susceptible Staphylococcus Aureus Vancomycin NICKI METHOD 1: Susceptible Staphylococcus Aureus Doxycycline NICKI METHOD <=0.5: Susceptible Comment:CLIA ID [id number] Elyssa Santos MD MICROBIOLOGY - GENERAL ORDERA BLES Final Result [facility] [address] [place] [address] * UT AN ELECTIVE ENDOTRACHEAL AIRWAY (09/15/2024 8:17 AM EST) Jihan Pena SRNA - 09/15/2024 8:17 AM EST NERISSA Pettit 09/15/2024 8:30 AM Airway Patient location during procedure: OR Urgency: Elective Date/Time: 09/15/2024 8:17 AM Airway not difficult IV In Situ: Peripheral General Information and Staff Service Provider: Kermit Garcia MD OUTSIDE REPAIRER SPECIAL: Wesley Pino APRN-OUTSIDE REPAIRER SPECIAL Student: NERISSA Pettit Placed by: NERISSA Pettit Patient Identified, IV Checked, Risks and Benefits Discussed, Surgical Consent, Monitors and Equipment Checked, Pre-op Evaluation and Timeout Performed Fire Risk Assessment Score: 0 Consent for Emergent Airway (if performed for an anesthetic, see related documentation for consents) Risks and benefits: risks, benefits and alternatives were discussed Indications and Patient Condition Sedation level: Deep Preoxygenated: yes Patient position: Supine MILS maintained throughout Mask difficulty assessment: Vent By Mask Indications for airway management: Anesthesia and Airway Protection Spontaneous Ventilation: absent Complications: No Complicating Factors: No Final Airway Details Final airway type: ETT Endotracheal airway: Cuffed, ETT - Single Lumen, Pre-Curved and Inflated Techniques used for successful ETT Placement: Direct Laryngoscopy and With Stylet Cormack-Lehane Classification: Grade II Endotracheal tube insertion site: Oral No Bite Block Placed Dentition Check Pre: See Pre-Evaluaton documentation Post Intubation Trauma? No Visibility: Cords Clear Blade: Gail Blade size: #4 Placement verified by: chest auscultation, capnography and symmetrical chest wall movement ETT size: 7.5 mm Cuff volume (mL): 8 Measured from: Lips Secured at (cm): 22 Number of other approaches attempted: 0 Number of attempts at approach: 1 us Kermit Garcia MD ANESTHESIA ORDERABLES Lena mcdonough Result * Potassium (09/14/2024 6:36 PM EST) Potassium, Bld 4.7 3.5 - 5.0 mmol/L 09/14/2024 7:43 PM EST [facility] PLASMA 09/14/2024 6:36 PM EST 09/14/2024 6:37 PM EST Michaela Mitchell EMERGENCY MANAGEMENT PROGRAM SPECIALIST-CHIEF OF HOSPITAL MEDICINE LAB BLOOD ORDERABLES Final Result Performing Organization Address [facility]/ZIP Co de Phone Number [facility] [address] [place] [id number] * APTT (09/14/2024 8:10 AM EST) aPTT 28 26 - 37 sec 09/14/2024 8:50 AM EST [facility] PLASMA 09/14/2024 8:10 AM EST 09/14/2024 8:27 AM EST us Negro Dvais EMERGENCY MANAGEMENT PROGRAM SPECIALIST-CHIEF OF HOSPITAL MEDICINE LAB BLOOD ORDERABLES Final Result Performing Organization Address [facility] Co de Phone Number [facility] [address] [place] [address], [address] [address] * Protime & INR (09/14/2024 8:10 AM EST) Protime 11.7 9.8 - 13.2 sec 09/14/2024 8:50 AM EST [facility] Inr 1.0 0.9 - 1.2 09/14/2024 8:50 AM [facility] PLASMA 09/14/2024 8:10 AM EST 09/14/2024 8:27 AM EST Negro Davis EMERGENCY MANAGEMENT PROGRAM SPECIALIST-CHIEF OF HOSPITAL MEDICINE LAB BLOOD ORDERABLES Final Result [facility] [address] [place] [id number] * Platelet count (09/14/2024 8:10 AM EST) Platelets 231 150 - 450 X10E9/L 09/14/2024 8:44 AM [facility] MPV 8.0 7 - 12 fL 09/14/2024 8:44 AM [facility] Blood / Unknown 09/14/2024 8 :10 AM EST 09/14/2024 8:27 AM EST Negro Davis EMERGENCY MANAGEMENT PROGRAM SPECIALIST-CHIEF OF HOSPITAL MEDICINE LAB BLOOD ORDERABLES Final Result [facility] [address] [place] [address], [address] [place], [place] [id number] * (ABNORMAL) Hemoglobin (09/14/2024 8:10 AM EST) Hemoglobin 8.2(L) 13.0 - 17.0 g/dL 09/14/2024 8:44 AM [facility] Blood / Unknown 09/14/2024 8 :10 AM EST 09/14/2024 8:27 AM EST Negro Davis EMERGENCY MANAGEMENT PROGRAM SPECIALIST-CHIEF OF HOSPITAL MEDICINE LAB BLOOD ORDERABLES Final Result Performing Organization Address City/[facility]/ZIP Co de Phone Number [facility] [address] [address], [address] [place] [address] * (ABNORMAL) Ionized magnesium (09/13/2024 3:40 PM EST) [facility] Magnesium, ionized 0.43(L) 0.45 - 0.74 mmol/L 09/13/2024 4:16 PM [facility] Comment:NEW REFERENCE RANGE PLASMA 09/13/2024 3:40 PM EST 09/13/2024 4:01 PM EST us Elyssa Santos MD LAB BLOOD ORDERABLES Final Re sult Performing Organization Address [facility]/ZIP Co de Phone Number [facility] [address] [address], [address] [place] [address] * (ABNORMAL) CBC auto differential (09/13/2024 3:40 PM EST) [facility] White Blood Cells 7.9 4.0 - 11.0 X10E9/L 09/13/2024 4:31 PM [facility] RBC count 3.28(L) 4.10 - 5.70 X10E12/L 09/13/2024 4:31 PM [facility] Hemoglobin 9.2(L) 13.0 - 17.0 g/dL 09/13/2024 4:31 PM [facility] Hematocrit 28.0(L) 39 - 49 % 09/13/2024 4:31 PM [facility] MCV 85 80 - 100 fL 09/13/2024 4:31 PM [facility] MCH 28.0 27 - 34 pg 09/13/2024 4:31 PM [facility] MCHC 32.8 32 - 36 g/dL 09/13/2024 4:31 PM [facility] RDW 16.1(H) 11.5 - 15.0 % 09/13/2024 4:31 PM [facility] Platelets 246 150 - 450 X10E9/L 09/13/2024 4:31 PM [facility] MPV 7.7 7 - 12 fL 09/13/2024 4:31 PM [facility] % neutrophils 74.1 % 09/13/2024 4:31 PM [facility] % lymphocytes 17.9 % 09/13/2024 4:31 PM [facility] % monocytes 5.1 % 09/13/2024 4:31 PM [facility] % eosinophils 2.5 % 09/13/2024 4:31 PM [facility] % Basophils 0.4 % 09/13/2024 4:31 PM [facility] Neutrophils Absolute (A) 5.9 1.5 - 6.6 X10E9/L 09/13/2024 4:31 PM [facility] Lymphocytes Absolute 1.4 1.0 - 3.5 X10E9/L 09/13/2024 4:31 PM [facility] Monocytes Absolute 0.4 0 - 0.9 X10E9/L 09/13/2024 4:31 PM [facility] Eosinophils Absolute 0.2 0.0 - 0.4 X10E9/L 09/13/2024 4:31 PM [facility] Basophils Absolute 0.0 0.0 - 0.2 X10E9/L 09/13/2024 4:31 PM [facility] Blood / Unknown 09/13/2024 3 :40 PM EST 09/13/2024 4:01 PM EST us Elyssa Santos MD LAB BLOOD ORDERABLES Final Re sult [facility] [address] [facility] [place] [address] * (ABNORMAL) POCT ABG Rapid K GLU ICA HH (09/13/2024 1:55 PM EST) Pathologist [facility] Potassium 4.2 3.5 - 5.0 mmol/L 09/13/2024 1:[address] [facility] Portable glucose 54(L) 65 - 99 mg/dL 09/13/2024 1:[address] [facility] Hemoglobin 8.7(L) 13.0 - 17.0 g/dL 09/13/2024 1:[address] [facility] Portable hematoct 27(L) 39 - 49 % 09/13/2024 1:[address] [facility] Ionized Calcium 4.5 4.5 - 5.3 mg/dL 09/13/2024 1:[address] [facility] Sample Type Arterial 09/13/2024 1:[address] [facility] Body Temp 37.0 37.0 C 09/13/2024 1:[address] [facility] pH 7.454(H) 7.350 - 7.450 09/13/2024 1:[address] [facility] PCO2 34.9(L) 35 - 45 MMHG 09/13/2024 1:[address] [facility] PO2 187(H) 80 - 100 MMHG 09/13/2024 1:[address] [facility] Base,Excess 0.6 0.0 - 2.0 MMOL/L 09/13/2024 1:[address] [facility] Portable HCO3 24.5 22 - 26 MMOL/L 09/13/2024 1:[address] [facility] % O2 Sat 100.4 >90 % 09/13/2024 1:[address] [facility] Diogo'S Test NA 09/13/2024 1:[address] [facility] Sample Site YULIA 09/13/2024 1:[address] [facility] Insp. O2 Conc. 100 % 09/13/2024 1:[address] [facility] Artrial Blood Specimen 09/13/2024 1:55 PM EST 09/13/2024 1:57 PM EST us Elyssa Santos MD POINT OF CARE TEST ORDERABLES Final Result [facility] [address] [place] [address] * UT ANES ART LINE (09/13/2024 1:29 PM EST) Lori Felix SRNA - 09/13/2024 1:29 PM EST NERISSA Marrero 09/13/2024 1:30 PM Art Line Performed by: NERISSA Marrero Authorized by: Otilio Tompkins MD Patient Location: OR Start Time: 09/13/2024 1:00 PM End Time: 09/13/2024 1:06 PM Service Provider: Otilio Tompkins MD OUTSIDE REPAIRER SPECIAL ( if not the service provider): SALLIE Youngblood Student (if Applicable): NERISSA Marrero Placed By: NERISSA Marrero Complete checklist: Patient Identified, IV Checked, Risks and Benefits Discussed, Surgical Consent, Monitors and Equipment Checked, Pre-op Evaluation and Timeout Performed Fire Risk Assessment Score: 0 Site Prep: Chlorhexidine Hand Hygiene Performed Prior to Insertion: Yes Site Prep Agent has Completely Dried Before Insertion: Yes Patient Prep Prior to AL Insertion: Sedated Size: 20 G Total Catheter Length (inches): 1 09/13 Location: Radial Orientation: Left Securement Method: Taped Placement Technique: Anatomical Landmarks and Guidewire Insertion Attempts: 1 Patient Tolerance: Tolerated Well no arterial injury us Otilio Tompkins MD UT ANESTHESIA Final Result * UT AN ELECTIVE ENDOTRACHEAL AIRWAY (09/13/2024 12:59 PM EST) Lori Felix SRNA - 09/13/2024 12:59 PM EST NERISSA Marrero 09/13/2024 1:23 PM Airway Patient location during procedure: OR Urgency: Elective Date/Time: 09/13/2024 12:59 PM Airway not difficult IV In Situ: Peripheral General Information and Staff Service Provider: Otilio Tompkins MD OUTSIDE REPAIRER SPECIAL: SALLIE Youngblood Student: NERISSA Marrero Placed by: NERISSA Marrero Patient Identified, IV Checked, Risks and Benefits Discussed, Surgical Consent, Monitors and Equipment Checked, Pre-op Evaluation and Timeout Performed Fire Risk Assessment Score: 0 Consent for Emergent Airway (if performed for an anesthetic, see related documentation for consents) Risks and benefits: risks, benefits and alternatives were discussed Indications and Patient Condition Sedation level: Deep Preoxygenated: yes Patient position: Supine and Sniffing Mask difficulty assessment: Not Attempted Indications for airway management: Anesthesia and Airway Protection Spontaneous Ventilation: absent Complications: No Complicating Factors: No Final Airway Details Final airway type: ETT Endotracheal airway: Cuffed and ETT - Single Lumen Techniques used for successful ETT Placement: Direct Laryngoscopy and With Stylet Cormack-Lehane Classification: Grade II Endotracheal tube insertion site: Oral Dentition Check Pre: See Pre-Evaluaton documentation Post Intubation Trauma? No Visibility: Cords Clear Blade: Ulbin Blade size: #2 Placement verified by: chest auscultation, capnography and symmetrical chest wall movement ETT size: 7.5 mm Number of attempts at approach: 1 us Otilio Tompkins MD ANESTHESIA ORDERABLES Final R esult * Colonoscopy Report (07/22/2024 1:22 PM EST) Narrative SYSTEMGENERATED, DOCUMENTATION - 07/22/2024 1:22 PM EST This order has been auto-finalized for image and report archival in PACs. *For full report details, please reach out to your physician. This image is visible to you in MyChart.* Tanvi MENA IMG OR IMG ORDERABLES Final R esult * Ultrasound retroperitoneal complete (07/19/2024 11:51 PM EST) Anatomical Region Laterality Modality Body Ultrasound 07/20/2024 12:3 1 AM EST Narrative 07/20/2024 12:34 AM EST History: Acute renal failure Exam/Technique: Ultrasound of the kidneys and urinary bladder Comparison: Ultrasound from 08/03/2014 Findings: There is no collecting system dilatation in either kidney. No focal renal lesions are displayed on either side, with body habitus compromising imaging detail. The right kidney measures 13.7 centimeters in length , and the left kidney 14.2 centimeters . The full urinary bladder measures 180 ml, and displays no gross focal abnormalities. The ureteral jets are none demonstrated. IMPRESSION: Negative ultrasound of the kidneys and urinary bladder. Finalized by Edenilson Gipson MD on 07/20/2024 12:34 AM Procedure Note Edenilson Gipson MD - 07/20/2024 History: Acute renal failure Exam/Technique: Ultrasound of the kidneys and urinary bladder Comparison: Ultrasound from 08/03/2014 Findings: There is no collecting system dilatation in either kidney. Nofocal renal lesions are displayed on either side, with body habituscompromising imaging detail. The right kidney measures 13.7 centimetersin length , and the left kidney 14.2 centimeters . The full urinary bladder measures 180 ml, and displays no gross focalabnormalities. The ureteral jets are none demonstrated. IMPRESSION: Negative ultrasound of the kidneys and urinary bladder. Finalized by Edenilson Gipson MD on 07/20/2024 12:34 AM us Elyssa Gomes MD [facility] US ORDERABLES Final Res ult from Last 3 Months or Most Recently Relevant to Health Maintenance Insurance [facility] MEDICARE MEDICARE [facility] Advance Directives * Full Code (Latest Code Status on File) Date Activated Date Inactivated Comments 09/13/2024 1:10 PM 09/17/2024 7:39 PM * Full Code Date Activated Date Inactivated Comments 07/17/2024 4:41 AM 08/01/2024 2:44 PM * Full Code Date Activated Date Inactivated Comments 07/02/2021 12:24 PM 07/03/2021 3:02 PM Care Teams Paid Search Marketing Strategist Relationship Specialty Start Date End Date Dorys Yan APRN-MALLORIE [address] [place] [address] PCP - General Family Medicine 09/09/24
== END 2024-12-14 13:23 | disposition home or self-care (01) ==
LOC: WC 13:22
PROVIDERS: Visit Provider Physician Assistant
DX: I70.235 Atherosclerosis of native arteries of right leg with ulceration of other part of foot (principal); L97.512 Non-pressure chronic ulcer of other part of right foot with fat layer exposed; I70.234 Atherosclerosis of native arteries of right leg with ulceration of heel and midfoot; L97.412 Non-pressure chronic ulcer of right heel and midfoot with fat layer exposed
CPT/HCPCS: 11043

== ENCOUNTER 2025-01-04 13:42 | Outpatient (OUT) | payer MEDICARE, OTHER, SELFPAY ==
--- OUTSIDE RECORDS SUMMARY | 2024-12-22 10:10 | XMS_ITS | Encounter Summary ---
Author Organization [facility] Sys tem Address [id number] [address] 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 Never True 12/22/2024 Within the past 12 months th e food we bought just didn't last and we didn't have money to get more. Never True 12/22/2024 Purpose - Life Answer Date Recorded Purpose and direction in life Unknown Sex and Gender Information Value Date Recorded Sex Assigned at Not on file Legal Sex Male 11:29 AM EDT Gender Identity Not on file Sexual Orientation Not on file documented as of this encounter Last Filed Vital Signs Vital Sign Reading Time Taken Comments Blood Pressure 122/68 12/22/2024 10:05 AM EDT Pulse 91 12/22/2024 10:05 AM EDT Temperature 36.5 C (97.7 F) 12/22/2024 10:05 AM EDT Respiratory Rate - - Oxygen Saturation 97% 12/22/2024 10:05 AM EDT Inhaled Oxygen Concentration - - Weight 101.6 kg (224 lb) 12/22/2024 10:05 AM EDT Height 175.3 cm (5' 9 ) 12/22/2024 10:05 AM EDT Body Mass Index 33.08 12/22/2024 10:05 AM EDT documented in this encounter Progress Notes * Elyssa Santos MD - 12/22/2024 10:10 AM EDT Images from the original note were not included. To: DORYS YAN, SHIPPING SPECIALIST-CONTINUOUS MINING OPERATOR HPI: Donny Jose Jr. is a 69 y.o. 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 She is doing very well.. Review of Systems: Review of Systems Constitutional: [...] by mouth in the morning and 1 tablet(100 mg total) before bedtime. 180 tablet 3 [...] mouth in the morning and 1 tablet (4mg total) before bedtime. INSULIN GLARGINE,HUM.REC.ANLOG (LANTUS SOLOSTAR [...] mg total) by mouth in the morning. oxyCODONE (OXY-IR) 5 mg capsule Take 1 capsule (5 mg total) by mouth every 6 (six) hours as needed for pain. (Patient not taking: Reported on 12/22/2024) No current facility-administered medications on file prior to visit. Past Medical History: Past Medical History: Diagnosis Date Allergies Arthritis Back pain CAD (coronary artery disease) Chest pain Colon cancer ([facility]) Diabetes mellitus type 2, controlled ([facility]) GERD (gastroesophageal reflux disease) Hearing loss Hemorrhoids Hyperlipidemia Hypertension Ischemic cardiomyopathy Myocardial infarction ([facility]) Obesity PAD (peripheral artery disease) 09/13/2024 Rash big toe, heal Testicular cancer ([facility]) Past Surgical History: Past Surgical History: Procedure Laterality Date AMPUTATION RIGHT GREAT TOE Right 09/15/2024 Performed by Elyssa Santos MD at [facility] ANGIOGRAM EXTREMITY LOWER- EXTERNAL ILIAC, AND SUPERFICIAL FEMORAL Right 07/29/2024 Performed by Elyssa Santos MD at [facility] SPECIAL PROC APPENDECTOMY 2015 BYPASS ARTERY FEMORAL POPLITEAL Right 09/13/2024 Performed by Elyssa Santos MD at [facility] CARDIAC SURGERY COLON SURGERY 07/26/2014 Dr. Pritchard COLONOSCOPY 08/08/2016 Dr. Pritchard COLONOSCOPY 07/20/2015 Dr. Pritchard COLONOSCOPY 07/03/2014 Dr. Pritchard COLONOSCOPY 03/04/2013 Dr. Pritchard COLONOSCOPY 05/03/2010 Dr. Pritchard COLONOSCOPY 06/15/2006 Dr. Oneil COLONOSCOPY N/A 08/19/2019 Performed by Leonid Pritchard MD at [facility] COLONOSCOPY BIOPSY N/A 07/22/2024 Performed by Yola Yañez DO at [facility] CORONARY ARTERY BYPASS GRAFT 2015 ENDARTERECTOMY FEMORAL WITH PATCH ANGIOPLOASTY Right 07/29/2024 Performed by Elyssa Santos MD at [facility] SPECIAL PROC ESOPHAGOGASTRODUODENOSCOPY 03/04/2013 Dr. 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 08/12/2024 Performed by Elyssa Santos MD at [facility] CARDIAC CATH LABS SHOCKWAVE LITHOTRIPSY RIGHT ILIAC ARTERY, STENT ANGIOPLASTY X2 Right 07/29/2024 Performed by Elyssa Santos MD at [facility] SPECIAL PROC VASECTOMY 1980 Social and Family [...] Resource Strain: Low Risk (12/25/2022) Received from [facility] Overall Financial Resource Strain (CARDIA) Difficulty of Paying Living Expenses: Not hard at all Food Insecurity: No Food Insecurity (12/22/2024) Hunger Screening Food Insecurity - Worry: Never True Food Insecurity - Inability: Never True Transportation Needs: No Transportation Needs (09/13/2024) PRAPARE - Transportation Lack of Transportation (Medical): No Lack of Transportation (Non-Medical): No Physical Activity: Sufficiently Active (12/25/2022) Received from [facility] Exercise Vital Sign Days of Exercise per Week: 5 days Minutes of Exercise per Session: 60 min Stress: No Stress Concern Present (12/25/2022) Received from [facility] [place] [facility] Occupational Health - Occupational Stress Questionnaire Feeling of Stress : Not at all Social Connections: Moderately Isolated (12/25/2022) Received from [facility] Social Connection and Isolation Panel [NHANES] Frequency of Communication with Friends and Family: More than three times a week Frequency of Social Gatherings with Friends and Family: More than three times a week Attends Mosque Services: Never Active Member of Clubs or [...] the assessment and plan below. Vitals: BP 122/68 (BP Site: Left Arm, BP Postition: Sitting, BP CUFF SIZE: M (9-13 inches)) Pulse 91 Temp 36.5 ??C (97.7 ??F) (Temporal) Ht 175.3 cm (5' 9 ) Wt 101.6 kg (224 lb) SpO2 97% BMI 33.08 kg/m?? Body mass index is 33.08 kg/m??. Physical Exam: Physical Exam Constitutional: Appearance: Normal [...] content normal. Judgment: Judgment normal. 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 There is a small little area with a scab that is healing well as well. We will get him partial foot prosthesis I will see him in about 3-month. Continue aspirin cilostazol and Xarelto. Donny was seen today for follow up after testing 11/28. 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 While intending to generate a timely document that accurately reflects the content of the visit, no guarantee can be provided that every grammatical or spelling mistake has been or will be identified or corrected. Thank you for your understanding. 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 There is a small little area with a scab that is healing well as well. We will get him partial foot prosthesis I will see him in about 3-month. Continue aspirin cilostazol and Xarelto. documented in this encounter Plan of Treatment Not on file documented as of this encounter Goals Goal Patient Goal Type Associated Problems Recent Progress Patient-Stated? Author Safe Discharge General Yes Janice Gallagher, EARL Note: Evaluation of progress towards goal: safe transition home self care with spouse and family support. 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
--- OUTSIDE RECORDS SUMMARY | 2025-01-04 13:45 | XMS_ITS | Encounter Summary ---
Author Organization [facility] tem Address [id number] [address] [place] [address] Care Team Providers Care Wave Soldering Machine Operator Name Role Phone SegundoDorys tsang Yessica SOLIZN-MARKETING COMPLIANCE MANAGER Primary Care Pro vider Encounter Details Date Type Department Care Team (Late st Contact Info) Description 07/03/2021 Telephone [facility] - ICU [address] [place] [phone] Diane Slade RN Social History Tobacco Use [...] as of this encounter Plan of Treatment Not on file documented as of this encounter Visit Diagnoses [...] documented as of this encounter Care Teams Wave Soldering Machine Operator Relationship Specialty Start Date End Date Dorys Yan APRN-MARKETING COMPLIANCE MANAGER [address] [place] [address] PCP - General Family Medicine 09/09/24 documented as of this encounter
--- OUTSIDE RECORDS SUMMARY | 2025-01-04 13:45 | XMS_ITS | Clinical Summary ---
Author Organization [facility] Address [address] [place] [address] Care Team Providers Care Car Groomer Name Role Phone Shikha Melendez MD Primary [...] 2024-Present) Name:Donny Jose Relation to Subscriber:Self Name:Donny Jose Payer ID:Not on file Group ID:Not on file Type:Not on file Address: [address] [email or web address] Care Teams Car Groomer Relationship Specialty Start Date End Date Shikha Melendez MD [address] [place] [address] PCP - General Family Medicine 07/01/24
--- OUTSIDE RECORDS SUMMARY | 2025-01-04 13:46 | XMS_ITS | Encounter Summary ---
Author Organization [facility] Address [address] [place] [address] Care Team Providers Care Hemstitcher Name Role Phone Neetu Calzada DO Unavailable [phone] Shikha Doherty MD Primary Care Provider [phone] Dorys Yan [facility] AUTHOR Unavailable [phone] Shikha Loja RN Unavailable [phone] Renetta Bales RN Unavailable [phone] Neetu Calzada DO Unavailable [phone] Encounter Details Date Type Department Care Team (Late st Contact Info) Description 02/25/2024 Abstract [facility] [address] [place] [address] Shikha Doherty MD [address] [place] [address] Social History Tobacco Use Types [...] often do you attend chur ch or adventist services? Never 12/25/2022 Do you belong to any clubs o r organizations such as sabianist groups, unions, fraternal or athletic groups, or [...] Patient Health Questionnaire-2 Score 0 11/24/2023 [facility] - Occupational [...] Visit [facility] [address] [place] [id number] Ubaldo Carpio MD [address] [place] [address] documented as of this encounter Visit Diagnoses Not on filedocumented in this encounter Care Teams Hemstitcher Relationship Specialty Start Date End Date Neetu Calzada DO [address] [facility] [address] [place] [address] PCP - ACO Reach 12/04/22 08/18/24 Shikha Doherty MD [address] [place] [address] PCP - General Family Medicine 08/10/23 Neetu Calzada DO [address] [facility] [address] [place] [id number] PCP - ACO Reach 08/26/24 10/13/24 Dorys Yan NP [address] [place] [address] Nurse Practitioner Family Medicine 08/10/23 Shikha Loja RN [address] [facility] [place] [address] Registered Nurse Family Medicine 08/04/24 08/09/24 Renetta Bales RN [address] [facility] [place] [address] Registered Nurse Family Medicine 08/09/24 12/12/24 documented as of this encounter
--- OUTSIDE RECORDS SUMMARY | 2025-01-04 13:46 | XMS_ITS | Encounter Summary ---
Author Organization [facility] Address [address] [place] [address] Care Team Providers Care Mammography Technician Name Role Phone ZhengNeetu segovia Unavailable [phone] Zheng Neetu Rutledge DO Primary Care Provider Shikha Doherty MD Primary Care Provider [phone] Dorys Yan SCHEDULING MANAGER Unavailable Shikha Loja RN Unavailable [phone] Renetta Bales RN Unavailable [phone] ZhengNeetu segovia DO Unavailable [phone] Encounter Details Date Type Department Care Team (Late st Contact Info) Description 06/11/2023 Abstract [facility] [address] [facility] [place] [address] Neetu Calzada, DO [address] [facility] [address] [place] [address] Social History Tobacco Use Types [...] How often do you attend chur or restorationism services? Never 12/25/2022 Do you belong to any clubs o r organizations such as christian groups, unions, fraternal or athletic groups, or [...] Recorded Patient Health Questionnaire-2 Score 0 12/25/2022 [facility] [place] of Occupat ional Health - Occupational Stress [...] place to sleep or slept in a residential (including now)? No 12/25/2022 Sex and Gender [...] Office Visit [facility] [address] [place] [address] Ubaldo Carpio MD [address] [place] [address] documented as of this encounter Visit Diagnoses Not on filedocumented in this encounter Care Teams Mammography Technician Relationship Specialty Start Date End Date Neetu Calzada DO [address] [address] PCP - ACO Reach 12/04/22 08/18/24 Neetu Calzada DO [address] [facility] [address] [place] [address] PCP - General Family Medicine 12/25/22 08/09/23 Shikha Doherty MD [address] [place] [address] PCP - General Family Medicine 08/10/23 Neetu Calzada DO [address] [facility] [address] [place] [address] PCP - ACO Reach 08/26/24 10/13/24 Dorys Yan NP [address] [place] [address] Nurse Practitioner Family Medicine 08/10/23 Shikha Loja RN [address] [place] [address] Registered Nurse Family Medicine 08/04/24 08/09/24 Renetta Bales RN [address] [facility] [place] [address] Registered Nurse Family Medicine 08/09/24 12/12/24 documented as of this encounter
--- OUTSIDE RECORDS SUMMARY | 2025-01-04 13:46 | XMS_ITS | Encounter Summary ---
Author Organization [facility] Address [id number] [address] [place] [address] Care Team Providers Care Director Employee Safety And Health Name Role Phone Segundotrinh Dorys A INSIGHT LEADER-AUTOMATION TESTER Primary Care Pro vider Encounter Details Date Type Department Care Team (Late st Contact Info) Description 08/02/2024 Telephone [facility] [address] [place] [address] Elyssa Santos MD [address], [facility] [address] [place] [address] Social History Tobacco Use Types Packs/Day Years Used Date Smoking Tobacco: Former Smokeless Tobacco: Never Alcohol Use Standard Drinks/Week Comments No 0 (1 standard drink = 0.6 oz pur e alcohol) [facility] Utilities Answer Date Recorded In the past 12 months has [employer], gas, oil, or water [employer] threatened to shut off services in your [...] health care. [place] can be reached at [phone] Thank you. * Telephone Encounter - Nikki [...] documented as of this encounter Care Teams Director Employee Safety And Health Relationship Specialty Start Date End Date Dorys Yan APRN-MALLORIE [address] [place] [address] PCP - General Family Medicine 09/09/24 documented as of this encounter
--- OUTSIDE RECORDS SUMMARY | 2025-01-04 13:46 | XMS_ITS | Clinical Summary ---
Author Organization [employer] tem Address [id number] [address] 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 There is a small little area with a scab that is healing well as well. We will get him partial foot prosthesis I will see him in about 3-month. Continue aspirin cilostazol and Xarelto. 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) Discharge Disposition: Home 11/28/2024 Travel 11/24/2024 10:00 AM EDT Office Visit [facility] Vascular Surgery [address] [place] [phone] Elyssa Santos MD 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) 11/24/2024 Travel 10/06/2024 10:40 AM EDT Office Visit [facility] [address] [place] [phone] Elyssa Santos MD 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) 10/06/2024 Travel from Last 3 Months Immunizations Immunization [...] pur e alcohol) sober since age 36 [facility] Utilities Answer Date Recorded In the past 12 months has [employer], [employer], oil, or water [employer] threatened to shut off services in your [...] F) 12/22/2024 10:05 AM EDT Respiratory Rate 20 11/24/2024 9:54 AM EDT Oxygen Saturation 97% 12/22/2024 10:05 AM EDT Inhaled Oxygen Concentration - - Weight 101.6 kg (224 lb) 12/22/2024 10:05 AM EDT Height 175.3 cm (5' 9 ) 12/22/2024 10:05 AM EDT Body Mass Index 33.08 12/22/2024 10:05 AM EDT Plan of Treatment Health Maintenance Due Date [...] Depression Screening 09/13/2025 09/13/2024 Tobacco Screening 10/06/2025 12/22/2024 Adult BMI Screening 11/24/2025 12/22/2024 Colonoscopy 07/22/2027 07/22/2024, 07/13, 08/19/2019, Additional history exists Abdominal Aortic Aneurysm (A AA) Screen Completed 07/19/2024, 08/03/2014 Goals Goal Patient Goal Type Associated Problems Recent Progress Patient-Stated? Author Safe Discharge General Yes Janice Gallagher, RN Note: Evaluation of progress towards goal: safe transition home self care with spouse and family support. <enter goal here> General Yes Lynn Arcos, EARL Note: Evaluation of progress towards goal: safe discharge Medical Devices Implanted Type Area Artist Color Separation Device Identifier Shelf Expiration Date Model / Serial / Lot Patch Vsc 8x.8cm Xenosure Bvn Pricrd Tiss Strl Rpl [id number] - [id number] Implanted:Qty: 1 on 07/29/2024 by Elyssa Santos MD at [facility] Graft Right: Arterial LeMaitre [id number] 12/07/2029 E0.8P8 / / [id number] Description:RIGHT FEMORAL AR VALE Graft Cv 60cm 7mm Thor 2 [address] Sw Wvn Hmsh Pl [address] Str - [id number] - [id number] Implanted:Qty: 1 on 09/13/2024 by Elyssa Santos MD at [facility] Graft Right: Arterial [employer] 03/12/2029 [id number] / [id number] Stent 7fr 135cm Vbx Ba Ppm Expandable Cath Hep Vbhn Eprsth 8 Rpl [id number] - [id number] - [id number] Implanted:Qty: 1 on 07/29/2024 by Elyssa Santos MD at [facility] Stent Right: Arterial [place] [id number] 12/26/2026 [id number] / [id number] / Description:RIGHT ILIAC Stent Vsc Innova 8mm 100mm 130cm 6fr Dlv Sys Rdpq Slf Xpd - [id number] Implanted:Qty: 1 on 07/29/2024 by Elyssa Santos MD at [facility] Stent Right: Arterial [employer] I [id number] 02/01/2025 [id number] / / [id number] Description:RIGHT ILIAC Procedures Procedure Name Priority Date/Time [...] of right lower extremity with gangrene (CMS-HCC) PROVATION COLONOSCOPY Routine 07/22/2024 1:22 PM EST US RETROPERITONEAL COMPLETE Routine 07/19/2024 11:51 PM EST from Last 3 Months or Most Recently Relevant to Health Maintenance Results * Clinical Pathology Review (12/09/2024 8:43 AM EDT) Case Report Clinical Pathology Report Case: [id number] Authorizing Provider: Cheo Kenny MD Collected: 12/09/2024 0843 Ordering Location: [facility] Received: 12/09/[address] [place] [address] - Lab Pathologist: Luis Gresham MD Specimen: Urine 12/11/2024 12:33 PM EDT [facility] Final Diagnosis 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 No monoclonal protein identified. 12/11/2024 12:33 PM EDT [facility] at 1233 EDT Urine / Unknown 12/09/2024 8 :43 AM EDT 12/09/2024 8:43 AM EDT us Cheo Kenny MD PATHOLOGY/CYTOLOGY ORDERABLES F inal Result Performing Organization Address City/[facility]/ZIP Co de Phone Number [facility] [address] [place] [address], [place] [phone] * (ABNORMAL) Microalbumin - Albumin: Creatinine Urine Ratio (12/06/2024 11:49 AM EDT) URINE CREATININE,RDM 111.87 mg/dL 12/07/2024 5:55 AM EDT [facility] MALB/CREAT RATIO 94.8(H) 0.0 - 30.0 mg/g 12/07/2024 5:55 AM EDT [facility] MICROALBUMIN, URINE 10.6(H) 0.0 - 1.9 mg/dL 12/07/2024 5:55 AM EDT [facility] Urine Urine specimen collection, clean catch / Unknown 12/06/2024 11:49 AM EDT 12/06/2024 11:49 AM EDT us Cheo Kenny MD URINE ORDERABLES Final Result Performing Organization Address [facility] Co de Phone Number [facility] [address] [place] [address], [place] [phone] * Protein electrophoresis, urine (12/06/2024 11:49 AM EDT) Urine Protein Electrophoresis Interp See Pathology Report 12/12/2024 6:56 AM EDT [facility] Urine Urine specimen collection, clean catch / Unknown 12/06/2024 11:49 AM EDT 12/06/2024 11:49 AM EDT us Cheo Kenny MD URINE ORDERABLES Final Result Performing Organization Address City/[facility]/ZIP Co de Phone Number [facility] [address] [place] [address], [place] [phone] * (ABNORMAL) Urinalysis (12/06/2024 11:49 AM EDT) COLOR Yellow Yellow, Colorless 12/06/2024 9:02 PM [facility] TURBIDITY Clear Clear 12/06/2024 9:02 PM [facility] SPECIFIC GRAVITY 1.031 1.003 - 1.035 12/06/2024 9:02 PM [facility] NITRITE Negative Negative 12/06/2024 9:02 PM [facility] PH,URINE 5.5 5.0 - 8.5 12/06/2024 9:02 PM [facility] LEUKOCYTE ESTERASE Negative Negative 12/06/2024 9:02 PM [facility] Comment:High Concentrations of Glucose May Decrease the Reactivity of the Dipstick Leukocyte Test Pad. PROTEIN Trace(A) Negative 12/06/2024 9:02 PM [facility] KETONES (URINE) Negative Negative 9:02 PM [facility] UROBILINOGEN <1.1 eu/dL <1.1 eu/dL 12/06/2024 9:02 PM [facility] BILIRUBIN (URINE) Negative Negative 025 9:02 PM [facility] BLOOD/HGB Trace(A) Negative 12/06/2024 9:02 PM [facility] HYALINE CASTS 3(H) 0 - 2 12/06/2024 9:02 PM [facility] MUCOUS Present(A) None 12/06/2024 9:02 PM [facility] R.B.CELLS 10(H) 0 - 5 12/06/2024 9:02 PM [facility] W.B.CELLS 1 0 - 5 12/06/2024 9:02 PM [facility] GLUCOSE (URINE) >1000 mg/dL(A) Negative 12/06/2024 9:02 PM [facility] Urine Urine specimen collection, clean catch / Unknown 12/06/2024 11:49 AM EDT 12/06/2024 11:49 AM EDT Narrative [facility] - 12/06/2024 9:02 PM EDT Urine received without preservative. Delays in transport may affect results. Interpret with caution. A clinical correlation is recommended. us Cheo Kenny MD URINE ORDERABLES Final Result [facility] [address] [place] [address], * Parathyroid Hormone, intact (12/06/2024 10:47 AM EDT) PTH INTACT 70 12 - 88 pg/mL 12/06/2024 2:23 PM EDT [facility] Blood Venous blood / Unknown Venipuncture / Unknown 12/06/2024 10:47 AM EDT 12/06/2024 10:47 AM EDT us Cheo Kenny MD LAB BLOOD ORDERABLES Final Resu lt [facility] [address] [place] [address], * (ABNORMAL) Vitamin D 25 hydroxy (12/06/2024 10:47 AM EDT) VITAMIN D 25 HYD TOT 15.9(L) 30.0 - 100.0 ng/mL 12/06/2024 2:31 PM EDT [facility] Blood Venous blood / Unknown Venipuncture / Unknown 12/06/2024 10:47 AM EDT 12/06/2024 10:47 AM EDT [facility] - 12/06/2024 2:31 PM EDT Vitamin D status 25 [place] Vitamin D Deficiency <20 ng/mL Insufficiency 20-29 ng/mL Sufficiency 30-100 ng/mL Toxicity >100 ng/mL NOTE: A pediatric reference range has not been established by the store operations associate of this kit. The [place] [employer] Pediatric[employer] recommends a Vitamin D level of = or >20ng/mL in infants and children. us Cheo Kenny MD LAB BLOOD ORDERABLES Final Resu lt [facility] [address] [place] [address], * (ABNORMAL) CBC without diff (12/06/2024 10:47 AM EDT) WBC 7.9 4 - 11 x10E9/L 12/06/2024 1:39 PM EDT [facility] RBC Count 4.26 4.1 - 5.7 X10E12/L 12/06/2024 1:39 PM EDT [facility] Hemoglobin 10.7(L) 13 - 17 g/dL 12/06/2024 1:39 PM EDT [facility] Hematocrit 33.7(L) 39 - 50 % 12/06/2024 1:39 PM EDT [facility] MCV 79(L) 80 - 100 fL 12/06/2024 1:39 PM EDT [facility] MCH 25.1(L) 27 - 34 pg 12/06/2024 1:39 PM EDT [facility] MCHC 31.7(L) 32 - 36 g/dL 12/06/2024 1:39 PM EDT [facility] RDW 18.5(H) 11.5 - 15 % 12/06/2024 1:39 PM EDT [facility] Platelet Count 270 150 - 450 X10E9/L 12/06/2024 1:39 PM EDT [facility] MPV 8.6 7 - 12 fL 12/06/2024 1:39 PM EDT [facility] Blood Venous blood / Unknown Venipuncture / Unknown 12/06/2024 10:47 AM EDT 12/06/2024 10:47 AM EDT us Cheo Kenny MD LAB BLOOD ORDERABLES Final Resu lt [facility] [address] [place] [address], [place] [phone] * (ABNORMAL) Uric acid (12/06/2024 10:47 AM EDT) URIC ACID 7.3(H) 2.6 - 7.2 mg/dL 12/06/2024 2:27 PM EDT [facility] Blood Venous blood / Unknown Venipuncture / Unknown 12/06/2024 10:47 AM EDT 12/06/2024 10:47 AM EDT us Cheo Kenny MD LAB BLOOD ORDERABLES Final Resu lt Performing Organization Address City/[facility]/ZIP Co de Phone Number [facility] [address] [place] [address], [place] [phone] * Protein electrophoresis, serum (12/06/2024 10:47 AM EDT) TOTAL PROTEIN 6.9 6.0 - 8.0 g/dL 12/07/2024 11:54 AM EDT [facility] ALPHA 1 GLOBULIN 0.3 0.1 - 0.4 g/dL 12/07/2024 11:54 AM EDT [facility] ALPHA 2 GLOBULIN 0.9 0.4 - 1.1 g/dL 12/07/2024 11:54 AM EDT [facility] BETA GLOBULIN 1.0 0.5 - 1.2 g/dL 12/07/2024 11:54 AM EDT [facility] GAMMA GLOBULIN 1.2 0.5 - 1.6 g/dL 12/07/2024 11:54 AM EDT [facility] Protein Electrophoresis Interp Unremarkable protein distribution, no monoclonal bands 12/07/2024 11:54 AM EDT [facility] Albumin 3.5 3.4 - 5.3 g/dL 12/07/2024 11:54 AM EDT [facility] Blood Venous blood / Unknown Venipuncture / Unknown 12/06/2024 10:47 AM EDT 12/06/2024 10:47 AM EDT us Cheo Kenny MD LAB BLOOD ORDERABLES Final Resu lt [facility] [address] [place] [address], [place] [phone] * Phosphorus (12/06/2024 10:47 AM EDT) PHOSPHORUS 3.6 2.4 - 4.9 mg/dL 12/06/2024 2:27 PM EDT [facility] Blood Venous blood / Unknown Venipuncture / Unknown 12/06/2024 10:47 AM EDT 12/06/2024 10:47 AM EDT us Cheo Kenny MD LAB BLOOD ORDERABLES Final Resu lt Performing Organization Address City/[facility]/ZIP Co de Phone Number [facility] [address] [place] [address], [place] [phone] * Magnesium (12/06/2024 10:47 AM EDT) MAGNESIUM 1.9 1.8 - 2.6 mg/dL 12/06/2024 2:27 PM EDT [facility] Blood Venous blood / Unknown Venipuncture / Unknown 12/06/2024 10:47 AM EDT 12/06/2024 10:47 AM EDT us Cheo Kenny MD LAB BLOOD ORDERABLES Final Resu lt [facility] [address] [place] [address], [place] [phone] * Albumin (12/06/2024 10:47 AM EDT) ALBUMIN 3.7 3.2 - 5.3 g/dL 12/06/2024 2:27 PM EDT [facility] Blood Venous blood / Unknown Venipuncture / Unknown 12/06/2024 10:47 AM EDT 12/06/2024 10:47 AM EDT us Cheo Kenny MD LAB BLOOD ORDERABLES Final Resu lt [facility] [address] [place] [address], [place] [phone] * (ABNORMAL) Basic Metabolic Panel (12/06/2024 10:47 AM EDT) SODIUM 140 134 - 146 mmol/L 12/06/2024 2:27 PM EDT [facility] POTASSIUM 4.4 3.5 - 5.0 mmol/L 12/06/2024 2:27 PM EDT [facility] CHLORIDE 99 98 - 109 mmol/L 12/06/2024 2:27 PM EDT [facility] CARBON DIOXIDE 27 22 - 32 mmol/L 12/06/2024 2:27 PM EDT [facility] ANION GAP 14 5 - 15 mmol/L 12/06/2024 2:27 PM EDT [facility] BLOOD UREA NITROGEN 17 5 - 27 mg/dL 12/06/2024 2:27 PM EDT [facility] CREATININE 1.69(H) 0.60 - 1.30 mg/dL 12/06/2024 2:27 PM EDT [facility] Comment:METHOD TRACEABLE TO IDMS STANDARD GLUCOSE 276(H) 65 - 99 mg/dL 12/06/2024 2:27 PM EDT [facility] CALCIUM 9.1 8.5 - 10.5 mg/dL 12/06/2024 2:27 PM EDT [facility] EGFR Non-Race Dependent 43(L) >=60 ml/min/1.7 3sq.m 12/06/2024 2:27 PM EDT [facility] Comment: Reported eGFR is based on the CKD-EPI 2020 equation that does not use a race coefficient. Blood Venous blood / Unknown Venipuncture / Unknown 12/06/2024 10:47 AM EDT 12/06/2024 10:47 AM EDT us Cheo Kenny MD LAB BLOOD ORDERABLES Final Resu lt [facility] [address] [place] [address], [place] [phone] * Vas art doppler lwr bilat mult [...] VASCULAR ORDERABLES Edited Result - Final * Colonoscopy Report (07/22/2024 1:22 PM EST) [...] 07/20/2024 12:34 AM us Elyssa Gomes MD IMG US ORDERABLES Final Res ult from Last 3 Months or Most Recently Relevant to Health Maintenance Insurance [employer] MEDICARE MEDICARE [facility] Advance Directives * Full Code (Latest Code Status on File) Date Activated Date Inactivated Comments 09/13/2024 1:10 PM 09/17/2024 7:39 PM * Full Code Date Activated Date Inactivated Comments 07/17/2024 4:41 AM 08/01/2024 2:44 PM * Full Code Date Activated Date Inactivated Comments 07/02/2021 12:24 PM 07/03/2021 3:02 PM Care Teams Lithograph Designer Relationship Specialty Start Date End Date Dorys Yan APRN-KITCHEN AND BATH DESIGNER [address] [place] [address] PCP - General Family Medicine 09/09/24
--- OUTSIDE RECORDS SUMMARY | 2025-01-04 13:46 | XMS_ITS | Encounter Summary ---
Author Organization [employer] [facility] tem Address [id number] [address] [place] [address] Care Team Providers Care Screen Printing Equipment Setter Name Role Phone SegundotrinhFroylania Yessica LEAD TINNER-SPECIALTY MOLDER Primary Care Pro vider Reason for Referral * Consultation (Routine) - Closed Specialty Diagnoses / Procedures Referred By Torsten dunn Referred To Contact Nephrology Diagnoses Stage 3 chronic kidney disease, unspecified whether stage 3a or 3b CKD ([facility]) Milvia Gil MD [address] [place] [address] Phone: tel: fax: Diogo Byrnes MD Phone: tel: fax: Referral ID Status Reason Start Date Expiration Date V isits Requested Visits Authorized [id number] Closed Specialty Services Required 02/21/2021 02/21/2022 1 1 Reason for Visit * Reason Onset Date Comments Med Refill 02/21/2021 Encounter Details Date Type Department Care Team (Late st Contact Info) Description 02/21/2021 Refill [facility] [address] [phone] Yola Coronel RN Med Refill Social History [...] as of this encounter Plan of Treatment Scheduled Referrals Name Type Priority Associated Diagnoses Order Schedule Ambulatory referral to Nephrology Outpatient Referral Routine Stage 3 Chronic Kidney Disease, Unspecified Whether Stage 3a Or 3b Ckd ([facility]) 1 Occurrences starting 02/21/2021 until 08/24/2021 documented as of this encounter Visit Diagnoses Diagnosis Stage 3 chronic kidney disease, unspecified whether stage 3a or 3b CKD ([facility] Primary documented in this encounter Additional Health Concerns Infection Onset Date Last Indicated Resolved Time COVID-19 Rule-Out 10/10/2023 10/10/2023 10/10/2023 7:20 AM EDT Enteric Rule-Out 07/19/2024 07/18/2024 07/19/2024 11:37 AM EST Assessment Noted Time A Body Mass Index follow-up plan has been documented for the patient 08/30/2019 10:09 AM EST documented as of this encounter Care Teams Screen Printing Equipment Setter Relationship Specialty Start Date End Date Dorys Yan APRN-SPECIALTY MOLDER [address] [place] [address] PCP - General Family Medicine 09/09/24 documented as of this encounter
--- OUTSIDE RECORDS SUMMARY | 2025-01-04 13:46 | XMS_ITS | Encounter Summary ---
Author Organization [facility] [employer] tem Address [id number] [address] [place] [address] Care Team Providers Care Review Engineer Name Role Phone Dorys Yan PLASTIC TUBING INSULATION SUPERVISOR-SORORITY SUPERVISOR Primary Care Pro vider Encounter Details Date Type Department Care Team (Late st Contact Info) Description 02/14/2021 Orders Only [facility] [address] [place] [phone] External, Scanning Provider Social History Tobacco Use [...] on file documented as of this encounter Procedures Procedure [...] Edited Result - Final Performing Organization Address [facility] de Phone Number MANUALLY TRANSCRIBED RESULTS * Multiple labs (11/01/2020) us Scanning Provider External AR IMAGING Final Result Performing Organization Address [facility] de Phone Number MANUALLY TRANSCRIBED RESULTS * ECG 12 lead (11/01/2020) us Scanning Provider External ECG ORDERABLES Final Result Performing Organization Address [facility] de Phone Number MANUALLY TRANSCRIBED RESULTS * ECG 12 lead (11/01/2020) us Scanning Provider External ECG ORDERABLES Final Result Performing Organization Address [facility] de Phone Number MANUALLY TRANSCRIBED RESULTS documented [...] documented as of this encounter Care Teams Review Engineer Relationship Specialty Start Date End Date Dorys Yan APRN-SORORITY SUPERVISOR [address] [place] [address] PCP - General Family Medicine 09/09/24 documented as of this encounter
--- OUTSIDE RECORDS SUMMARY | 2025-01-04 13:46 | XMS_ITS | Encounter Summary ---
Author Organization [facility] Address [address] [place] [address] Care Team Providers Care Electronic Resources Librarian Name Role Phone Shikha Doherty MD Primary Care Provider [phone] Dorys Yan GROUNDSKEEPER SUPERVISOR Unavailable [phone] Reason for Visit * Reason Comments Med Refill Encounter Details Date Type Department Care Team (Late st Contact Info) Description 12/28/2024 Refill [facility] [address] [place] [address] Shikha Doherty MD [address] [place], [place] [phone] Mixed hyperlipidemia Social History Tobacco Use Types Packs/Day Years [...] often do you attend chur ch or religion services? Never 12/25/2022 Do you belong to any clubs o r organizations such as restorationist groups, unions, fraternal or athletic groups, or [...] Recorded Patient Health Questionnaire-2 Score 0 [facility]2023 [facility] Answer Date [...] Visit [facility] [address] [place] [phone] Ubaldo Carpio MD [address] [place] [address] documented as of this encounter Visit Diagnoses Diagnosis Mixed hyperlipidemia Mixed hyperlipidemia documented in this encounter Care Teams Electronic Resources Librarian Relationship Specialty Start Date End Date Shikha Doherty MD [address] [place], [place] [phone] PCP - General Family Medicine 08/10/23 Dorys Yan NP [address] [place] [address] Nurse Practitioner Family Medicine 08/10/23 documented as of this encounter
--- OUTSIDE RECORDS SUMMARY | 2025-01-04 13:46 | XMS_ITS | Encounter Summary ---
Author Organization [facility] Address [id number] [address] [place] [address] Care Team Providers Care Sugar Trucker Name Role Phone SegundoDorys tsang BOILER REPAIRMAN-FOUNDATION STAGE TEACHER Primary Care Pro vider Encounter Details Date Type Department Care Team (Late st Contact Info) Description 08/11/2024 Orders Only [facility] [address] [place] [address] Elyssa Santos MD [address], [facility] [address] [place] [address] Social History Tobacco Use Types Packs/Day Years Used Date Smoking Tobacco: Former Smokeless Tobacco: Never Alcohol Use Standard Drinks/Week Comments No 0 (1 standard drink = 0.6 oz pur e alcohol) [facility] Utilities Answer Date Recorded In the past 12 months has [employer], gas, oil, or water [employer] threatened to shut off services in your [...] Orders / Results (08/08/2024 12:37 PM EST) Elyssa Santos MD LAB ORDERABLES Final Result MANUALLY TRANSCRIBED RESULTS documented in this encounter Visit Diagnoses Not on filedocumented in this encounter Additional Health Concerns Assessment Noted Time A Body Mass Index follow-up plan has been documented for the patient 08/30/2019 10:09 AM EST documented as of this encounter Care Teams Sugar Trucker Relationship Specialty Start Date End Date Dorys Yan APRN-[place]IE [address] [place] [address] PCP - General Family Medicine 09/09/24 documented as of this encounter
--- OUTSIDE RECORDS SUMMARY | 2025-01-04 13:46 | XMS_ITS | Encounter Summary ---
Author Organization [facility] Address [address] [place] [address] Care Team Providers Care Power Hammer Operator Name Role Phone Neetu Calzada DO Unavailable [phone] Shikha Doherty MD Primary Care Provider [phone] Dorys Yan BUSINESS RESILIENCY MANAGER Unavailable [phone] Shikha Loja RN Unavailable [phone] Renetta Bales RN Unavailable [phone] Neetu Calzada DO Unavailable [phone] Reason for Visit * Reason Comments Med Refill Encounter Details Date Type Department Care Team (Late st Contact Info) Description 07/08/2024 Refill [facility] [address] [place] [address] Dorys Yan NP [address] [place], [place] [id number] Mixed hyperlipidemia Social History Tobacco Use Types [...] How often do you attend chur or methodist services? Never 12/25/2022 Do you belong to any clubs o r organizations such as cheondoism groups, unions, fraternal or athletic groups, or [...] Patient Health Questionnaire-2 Score 0 11/24/2023 [facility] - Occupational Stress Questionnaire Answer Date [...] place to sleep or slept in a senior care (including now)? No 12/25/2022 Sex and Gender [...] [facility] [address] [place] [address] Ubaldo Carpio MD [address] [place] [address] documented as of this encounter Visit Diagnoses Diagnosis Mixed hyperlipidemia Mixed hyperlipidemia documented in this encounter Care Teams Power Hammer Operator Relationship Specialty Start Date End Date Neetu Calzada DO [address] [facility] [address] [place] [address] PCP - ACO Reach 12/04/22 08/18/24 Shikha Doherty MD [address] [place] [address] PCP - General Family Medicine 08/10/23 Neetu Calzada DO [address] [facility] [address] [place] [address] PCP - ACO Reach 08/26/24 10/13/24 Dorys Yan NP [address] [place] [address] Nurse Practitioner Family Medicine 08/10/23 Shikha Loja RN [address] [place] [address] Registered Nurse Family Medicine 08/04/24 08/09/24 Renetta Bales RN [address] [place] [address] Registered Nurse Family Medicine 08/09/24 12/12/24 documented as of this encounter
--- OUTSIDE RECORDS SUMMARY | 2025-01-04 13:46 | XMS_ITS | Encounter Summary ---
Author Organization [employer] Address [id number] [address] [place] [address] Care Team Providers Care Wastewater Supervisor Name Role Phone MirelahersonDorys oliveira APRN-[employer] AND FIELD COACH Primary Care Pro vider Reason for Visit * Reason Onset Date Comments cardiac clearance 07/17/2024 Encounter Details Date Type Department Care Team (Late st Contact Info) Description 07/17/2024 Telephone [facility] [address] [place] [phone] Amna Pimentel cardiac clearance Social History Tobacco Use Types Packs/Day Years Used Date Smoking Tobacco: Former Smokeless Tobacco: Never Alcohol Use Standard Drinks/Week Comments No 0 (1 standard drink = 0.6 oz pur e alcohol) [facility] Utilities Answer Date Recorded In the [...] documented as of this encounter Functional Status documented as of this encounter Miscellaneous Notes * Telephone Encounter - Amna Pimentel - 07/17/2024 5:46 AM EST Contract: [id number] [phone] [facility] cardiac clearance room B7 tx amna--I sent Maddie Dewey a secure [...] documented as of this encounter Care Teams Wastewater Supervisor Relationship Specialty Start Date End Date Dorys Yan APRN-[place] [address] [place] [address] PCP - General Family Medicine 09/09/24 documented as of this encounter
--- OUTSIDE RECORDS SUMMARY | 2025-01-04 13:46 | XMS_ITS | Encounter Summary ---
Author Organization [facility] Address [address] [place] [address] Care Team Providers Care Freight Car Repairer Name Role Phone Shikha Doherty MD Primary Care Provider [phone] Dorys Yan PEDIATRIC OPHTHALMOLOGIST Unavailable [phone] Reason for Visit * Reason Comments Med Refill Encounter Details Date Type Department Care Team (Late st Contact Info) Description 12/28/2024 Refill [facility] [address] [place] [phone] Ubaldo Carpio MD [address] [place] [address] Type 2 diabetes mellitus with other diabetic kidney complication (HCC) Social History Tobacco Use Types Packs/Day Years [...] often do you attend chur ch or roman catholic services? Never 12/25/2022 Do you belong to any clubs o r organizations such as adventist groups, unions, fraternal or athletic groups, or [...] Recorded Patient Health Questionnaire-2 Score 0 11/24/2023 [facility] - Occupational Stress Questionnaire Answer Date [...] the money to buy more. Never true 06/15/20 23 Within the past 12 months, t [...] place to sleep or slept in a penitentiary (including now)? No 12/25/2022 Sex and Gender Information Value Date Recorded Sex Assigned at Not on file Legal Sex Male 7:34 PM EDT Gender Identity Not on file Sexual Orientation Not on file documented as of this encounter Miscellaneous Notes * Telephone Encounter - Nadiya Jim LPN - 12/28/2024 11:33 AM EDT MEDICATION SENT TO PHARMACY. documented in this encounter Plan of Treatment Upcoming Encounters Date Type Department Care Team (Late st Contact Info) Description 04/04/2025 2:10 PM EDT Office Visit [facility] [address] [place] [address] Ubaldo Carpio MD [address] [place] [address] documented as of this encounter Visit Diagnoses Diagnosis Type 2 diabetes mellitus with other diabetic kidney complication (HCC) documented in this encounter Care Teams Freight Car Repairer Relationship Specialty Start Date End Date Shikha Doherty MD [address] [place], [place] [phone] PCP - General Family Medicine 08/10/23 Dorys Yan NP [address] [place], [place] [phone] Nurse Practitioner Family Medicine 08/10/23 documented as of this encounter
--- OUTSIDE RECORDS SUMMARY | 2025-01-04 13:46 | XMS_ITS | Encounter Summary ---
Author Organization [facility] Address [address] [place] [address] Care Team Providers Care Cardiac/Vascular Sonographer Name Role Phone Shikha Doherty MD Primary Care Provider [phone] Dorys Yan SHIFT SUPERVISOR FILM PROCESSING Unavailable [phone] Reason for Visit * Reason Comments Med Refill Encounter Details Date Type Department Care Team (Late st Contact Info) Description 12/28/2024 Refill [facility] [address] [place] [address] Dorys Yan NP [address] [place], [place] [phone] Post-nasal drainage Social History Tobacco Use Types Packs/Day Years [...] often do you attend chur ch or confucianist services? Never 12/25/2022 Do you belong to [...] Recorded Patient Health Questionnaire-2 Score 0 11/24/2023 [facility] Questionnaire Answer Date [...] PM EDT Office Visit [facility] [address] [place] [address] Ubaldo Carpio MD [address] [place] [address] documented as of this encounter Visit Diagnoses Diagnosis Post-nasal drainage Other diseases of nasal cavity and sinuses documented in this encounter Care Teams Cardiac/Vascular Sonographer Relationship Specialty Start Date End Date Shikha Doherty MD [address] [facility] [place] [address] PCP - General Family Medicine 08/10/23 Dorys Yan NP [address] [facility] [address] [place], [place] [phone] Nurse Practitioner Family Medicine 08/10/23 documented as of this encounter
--- OUTSIDE RECORDS SUMMARY | 2025-01-04 13:46 | XMS_ITS | Encounter Summary ---
Author Organization [facility] Address [address] [place] [address] Care Team Providers Care Wafer Machine Operator Name Role Phone Shikha Doherty MD Primary Care Provider [phone] Dorys Yan BIOMASS POWER PLANT MANAGER Unavailable [phone] Reason for Visit * Reason Comments Med Refill Encounter Details Date Type Department Care Team (Late st Contact Info) Description 12/27/2024 Refill [facility] [address] [place] [address] Dorys Yan NP [address] [place], [place] [phone] Diabetes mellitus with peripheral vascular disease (HCC) Social History Tobacco Use Types Packs/Day [...] often do you attend chur ch or gnosticist services? Never 12/25/2022 Do you belong to any clubs o r organizations such as yarsanism groups, unions, fraternal or athletic groups, or [...] Recorded Patient Health Questionnaire-2 Score 0 11/24/2023 [facility] Questionnaire Answer Date [...] place to sleep or slept in a jail (including now)? No 12/25/2022 Sex and Gender [...] Visit [facility] [address] [place] [address] Ubaldo Carpio MD [address] [place] [address] documented as of this encounter Visit Diagnoses Diagnosis Diabetes mellitus with peripheral vascular disease (HCC) documented in this encounter Care Teams Wafer Machine Operator Relationship Specialty Start Date End Date Shikha Doherty MD [address] [facility] [place] [address] PCP - General Family Medicine 08/10/23 Dorys Yan NP [address] [facility] [address] [place] [phone] Nurse Practitioner Family Medicine 08/10/23 documented as of this encounter
--- OUTSIDE RECORDS SUMMARY | 2025-01-04 13:46 | XMS_ITS | Encounter Summary ---
Author Organization [facility] Address [address] [place] [address] Care Team Providers Care Business Applications Specialist Name Role Phone Shikha Doherty MD Primary Care Provider [phone] Dorys Yan RELIEF SALESPERSON Unavailable [phone] Reason for Visit * Reason Comments Med Refill Encounter Details Date Type Department Care Team (Late st Contact Info) Description 12/28/2024 Refill [facility] [address] [place] [address] Diane Eller NP [address] [place], [place] [address] Essential (primary) hypertension ; Atherosclerosis of coronary artery bypass graft(s), unspecified, with other forms of angina pectoris Social History Tobacco Use Types Packs/Day Years [...] How often do you attend chur or latter-day services? Never 12/25/2022 Do you belong to any clubs o r organizations such as gnosticism groups, unions, fraternal or athletic groups, or [...] Recorded Patient Health Questionnaire-2 Score 0 11/24/2023 [facility] Questionnaire Answer Date [...] place to sleep or slept in a prison (including now)? No 12/25/2022 Sex and Gender Information Value Date Recorded Sex Assigned at Not on file Legal Sex Male 7:34 PM EDT Gender Identity Not on file Sexual Orientation Not on file documented as of this encounter Plan of Treatment Upcoming Encounters Date Type Department Care Team (Late st Contact Info) Description 04/04/2025 2:10 PM EDT Office Visit [facility] [address] [place] [address] Ubaldo Carpio MD [address] [place] [address] documented as of this encounter Visit Diagnoses Diagnosis Essential (primary) hypertension Unspecified essential hypertension Atherosclerosis of coronary artery bypass graft(s), unspecified, with other forms of angina pectoris documented in this encounter Care Teams Business Applications Specialist Relationship Specialty Start Date End Date Shikha Doherty MD [address] [place] [address] PCP - General Family Medicine 08/10/23 Dorys Yan NP [address] [facility] [place] [address] Nurse Practitioner Family Medicine 08/10/23 documented as of this encounter
--- OUTSIDE RECORDS SUMMARY | 2025-01-04 13:46 | XMS_ITS | Clinical Summary ---
Author Organization [facility] Address [address] [place] [address] Care Team Providers Care Front Window Cashier Name Role Phone Shikha Doherty MD Primary Care Provider Dorys Yan TRACTOR TRAILER OPERATOR Unavailable [phone] Allergies Active Allergy Reactions Criticality Noted Date Comments Ondansetron Unknown 12/25/2022 Warfarin 02/14/2017 Vomiting Medications magnesium oxide (Mag-Ox) 400 MG tablet 1 (one) time each day at the same time Active acetaminophen (Tylenol) 325 MG tablet every 4 (four) hours Active aspirin 81 MG EC tablet Take 81 mg by mouth in the morning. Active OneTouch Ultra test stripIndications:D iabetes mellitus with peripheral vascular disease (HCC) USE ONE STRIP TO TEST TWICE DAILY DIRECTED 100 strip 9 02/15/20 24 Active insulin pen needle (BD Pen Needle Beth 2nd Gen) 32G x 4 mm miscIndications:Ty pe 2 diabetes mellitus with diabetic chronic kidney disease (HCC) USE DIRECTED ONCE DAILY 100 each 3 03/15/20 24 Active rivaroxaban (Xarelto) 2.5 MG tablet Take by mouth in the morning and before bedtime. 08/01/19 25 Active amoxicillin-clavul anate (Augmentin) 875-125 MG tablet Take 875 mg by mouth in the morning and 875 mg before bedtime. 10/07/19 25 Active cilostazol (Pletal) 100 MG tablet Take 100 mg by mouth in the morning and 100 mg in the evening. 10/07/19 25 Active glimepiride (Amaryl) 4 MG tabletIndications: Type 2 diabetes mellitus with diabetic chronic kidney disease (HCC) TAKE 1 TABLET BY MOUTH TWICE A DAY WITH MEALS 180 tablet 1 10/27/19 25 Active famotidine (Pepcid) 20 MG tabletIndications: Gastroesophageal reflux disease with esophagitis without hemorrhage TAKE 1 TABLET BY MOUTH TWICE A DAY NEEDED 180 tablet 1 11/25/19 25 Active memantine (Namenda) 5 MG tabletIndications: Dementia without behavioral disturbance (HCC) TAKE 1 TABLET BY MOUTH TWICE A DAY 180 tablet 1 11/25/19 25 Active oxyCODONE-acetamin ophen (Percocet) 5-325 MG tablet 1 tablet Acti ve Farxiga 10 MGIndications:Type 2 diabetes mellitus with other diabetic kidney complication (HCC) TAKE 1 TABLET (10 MG) BY MOUTH DAILY. 90 tablet 1 12/13/19 25 Active insulin glargine (Lantus SoloStar) 100 UNIT/ML penIndications:Batool betes mellitus with peripheral vascular disease (HCC) INJECT 60 UNIT UNDER THE SKIN ONCE DAILY 54 mL 1 12/28/19 25 Active pioglitazone (Actos) 45 MG tabletIndications: Type 2 diabetes mellitus with other diabetic kidney complication (HCC) TAKE 1 TABLET BY MOUTH EVERY DAY 90 tablet 1 12/29/19 25 Active cetirizine (ZyrTEC) 10 MG tabletIndications: Post-nasal drainage TAKE 1 TABLET (10 MG) BY MOUTH DAILY. 90 tablet 12/30/19 25 Active carvedilol (Coreg) 6.25 MG tabletIndications: Atherosclerosis of coronary artery bypass graft(s), unspecified, with other forms of angina pectoris TAKE 1 TABLET BY MOUTH TWICE A DAY 180 tablet 1 12/30/19 25 Active rosuvastatin (Crestor) 10 MG tabletIndications: Mixed hyperlipidemia TAKE 1 TABLET BY MOUTH EVERY DAY 90 tablet 12/30/19 25 Active Farxiga 10 MG 10/09/19 23 025 Discontinued insulin glargine (Lantus SoloStar) 100 UNIT/ML penIndications:Batool betes mellitus with peripheral vascular disease (HCC) INJECT 60 UNIT UNDER THE SKIN ONCE DAILY 30 each 5 10/16/19 24 025 Discontinued carvedilol (Coreg) 6.25 MG tabletIndications: Atherosclerosis of coronary artery bypass graft(s), unspecified, with other forms of angina pectoris TAKE 1 TABLET BY MOUTH TWICE A DAY 180 tablet 1 08/05/19 25 025 Discontinued pioglitazone (Actos) 45 MG tabletIndications: Type 2 diabetes mellitus with other diabetic kidney complication (HCC) TAKE 1 TABLET BY MOUTH EVERY DAY 90 tablet 1 09/23/19 25 025 Discontinued rosuvastatin (Crestor) 10 MG tabletIndications: Mixed hyperlipidemia TAKE 1 TABLET BY MOUTH EVERY DAY 90 tablet 10/03/19 25 025 Discontinued cetirizine (ZyrTEC) 10 MG tabletIndications: Post-nasal drainage TAKE 1 TABLET (10 MG) BY MOUTH DAILY. 90 tablet 11/01/19 25 025 Discontinued Active Problems Problem Noted Date Diagnosed Date Critical ischemia of lower extremity 07/17/2024 Diarrhea 07/16/2024 Chest pain 06/30/2023 Ischemic cardiomyopathy 06/30/2023 Coronary artery disease of b ypass graft of [place] heart with stable angina pectoris 12/25/2022 Current use of chcf anticoagulation 023 Dementia without behavioral disturbance 12/26/19 Diabetes mellitus with peripheral vascular disea se 12/25/2022 Follicular acne 12/25/2022 Former smoker, stopped smoking many years ago Gastroesophageal reflux dise ase with esophagitis without hemorrhage 12/25/2022 H/O cardiac arrest 12/25/2022 History of adenomatous polyp of colon 12/25/2022 History of malignant neoplasm of large intestine 12/25/2022 Hypomagnesemia 12/25/2022 superintendent container terminal current use of oral hypoglycemic drug 12/25/2022 Microalbuminuria 12/25/2022 Mixed hyperlipidemia 12/25/2022 BMI 29.0-29.9,adult 12/25/2022 Primary hypertension 12/25/2022 S/P CABG x 2 12/25/2022 S/P right hemicolectomy 12/25/2022 Stage 3a chronic kidney disease 12/25/2022 Type 2 diabetes mellitus treated with insulin Dizziness 07/29/2021 Left carotid artery stenosis 07/29/2021 Transient neurological symptoms 07/29/2021 History of excision of intestinal structure 10/12 Adenomatous polyp of descending colon 08/30/2019 Diverticulosis large intesti ne w/o perforation or abscess w/o bleeding 08/30/2019 Peripheral angiopathy due to type 2 diabetes mary litus 07/15/2018 Encounters Date Type Department Care Team Description 12/28/2024 Refill [facility] [address] [facility] [place] [address] Shikha Doherty MD Mixed hyperlipidemia 12/28/2024 Refill [facility] [address] [facility] [address] Dorys Yan NP Post-nasal drainage 12/28/2024 Refill [facility] [address] [facility] [address] Diane Eller NP Essential (primary) hypertension ; Atherosclerosis of coronary artery bypass graft(s), unspecified, with other forms of angina pectoris 12/28/2024 Refill [facility] [address] [place] [address] Ubaldo Carpio MD Type 2 diabetes mellitus with other diabetic kidney complication (HCC) 12/27/2024 Refill [facility] [address] [facility] [place] [address] Dorys Yan NP Diabetes mellitus with peripheral vascular disease (HCC) 12/12/2024 Patient Outreach [facility] [address] [place] [address] Renetta Bales RN 12/11/2024 Refill [facility] [address] [place] [address] Ubaldo Carpio MD Type 2 diabetes mellitus with other diabetic kidney complication (HCC) 12/02/2024 10:50 AM EDT Office Visit [facility] [address] [place] [address] Ubaldo Carpio MD Controlled type 2 diabetes mellitus with diabetic nephropathy, with long-term current use of insulin (HCC) (Primary Dx); Vitamin D deficiency; Primary hypertension ; Insulin long-term use (HCC); Hyperlipemia, mixed ; Encounter for dietary consultation; Stage 3b chronic kidney disease ([facility]-HCC); Class 1 obesity due to excess calories with serious comorbidity and body mass index (BMI) of 33.0 to 33.9 in adult 12/02/2024 Bamboo flowsheet [facility] [address] [place] [address] Ubaldo Carpio MD 11/24/2024 [facility] [address] [place] [address] Ubaldo Carpio MD Type 2 diabetes mellitus with other diabetic kidney complication (HCC); Gastroesophageal reflux disease with esophagitis without hemorrhage; Dementia without behavioral disturbance (HCC) 11/08/2024 Patient Outreach [facility] [address] [place] [place] [address] Renetta Bales RN 11/01/2024 Patient Outreach [facility] [address] [place] [address] Shikha Loja RN 10/31/2024 Refill [facility] [address] [facility] [place] [address] Dorys Yan NP Post-nasal drainage 10/26/2024 Patient Outreach [facility] [address] [place] [address] Shikha Loja RN 10/26/2024 [facility]ill [facility] [address] [place] [address] Ubaldo Carpio MD Type 2 diabetes mellitus with diabetic chronic kidney disease (HCC) 10/17/2024 Patient Outreach [facility] [address] [place] [place] [address] Renetta Bales, RN from Last 3 Months Immunizations Immunization Administration [...] How often do you attend chur or cheondoism services? Never 12/25/2022 Do you belong to [...] Recorded Patient Health Questionnaire-2 Score 0 11/24/2023 [facility] - Occupational Stress [...] place to sleep or slept in a fdc (including now)? No 12/25/2022 Sex and Gender [...] 2:10 PM EDT Office Visit [facility] [address] [place] [address] Ubaldo Carpio MD [address] [place] [address] Health Maintenance Due Date Last Done Comments [...] nephropathy, with long-term current use of insulin (HCC) POCT GLUCOSE Routine 12/02/2024 10:55 AM EDT Controlled type 2 diabetes mellitus with diabetic nephropathy, with long-term current use of insulin (HCC) MICROALBUMIN / CREATININE URINE RATIO Routine 12/19/2021 [...] Narrative 04/05/2021 12:00 PM EDT PERFORMED AT [facility] LOCATION:[id number] Procedure Note CONVERSION, GENERIC - 11/26/2022 PERFORMED AT [facility] LOCATION:[id number] Neetu Calzada DO OPHTH PHOTOGRAPHY Final Result * Colonoscopy (08/19/2019 12:00 PM EST) Anatomical Region Laterality Modality Endoscopy 08/19/2019 12:0 0 PM EST Narrative 08/19/2019 12:00 PM EST PERFORMED AT [facility] LOCATION:[id number] Procedure Note CONVERSION, GENERIC - 11/26/2022 PERFORMED AT [facility] LOCATION:[id number] Hua Mccullough ENDOSCOPY PROCEDURE ORDERABLES Final Result from Last 3 Months or Most Recently Relevant to Health Maintenance Insurance MEDICARE [facility] Care Teams Front Window Cashier Relationship Specialty Start Date End Date Shikha Doherty MD [address] [place], [place] [phone] PCP - General Family Medicine 08/10/23 Dorys Yan NP [address] [place], [place] [address] Nurse Practitioner Family Medicine 08/10/23
--- OUTSIDE RECORDS SUMMARY | 2025-01-04 13:46 | XMS_ITS | Encounter Summary ---
Author Organization [employer] tem Address [id number] [address] [place] [address] Care Team Providers Care Picker Tender Name Role Phone MirelaethanDorys APRN-[place]IRPORT ELECTRICIAN Primary Care Pro vider Encounter Details Date Type Department Care Team (Latest Contact Info) Description 12/22/2024 Travel Social History Tobacco Use Types Packs/Day Years Used Date Smoking Tobacco: Former Cigarettes Pipe Cigars Smokeless Tobacco: Never Comments:Smoked as teenager- quit at 18 Alcohol Use Standard Drinks/Week Comments No 0 (1 standard drink = 0.6 oz pur e alcohol) sober since age 36 [facility] Utilities Answer Date Recorded In the [...] documented as of this encounter Care Teams Picker Tender Relationship Specialty Start Date End Date Dorys Yan APRN-[place]IE [address] [place] [address] PCP - General Family Medicine 09/09/24 documented as of this encounter
== END 2025-01-04 13:43 | disposition home or self-care (01) ==
LOC: WC 13:44
PROVIDERS: Visit Provider Physician Assistant
DX: I70.235 Atherosclerosis of native arteries of right leg with ulceration of other part of foot (principal); L97.512 Non-pressure chronic ulcer of other part of right foot with fat layer exposed; I70.234 Atherosclerosis of native arteries of right leg with ulceration of heel and midfoot; L97.412 Non-pressure chronic ulcer of right heel and midfoot with fat layer exposed
CPT/HCPCS: G0463

== ENCOUNTER 2025-01-25 13:52 | Outpatient (OUT) | payer MEDICARE, OTHER, SELFPAY ==
--- OUTSIDE RECORDS SUMMARY | 2025-01-25 13:55 | XMS_ITS | Encounter Summary ---
Author Organization [facility] Address [address] [facility] [place] [address] Care Team Providers Care Production Control Supervisor Name Role Phone Neetu Calzada DO Unavailable [phone] Shikha Doherty MD Primary Care Provider [phone] Dorys Yan DINKER Unavailable [phone] Shikha Loja RN Unavailable [phone] Renetta Bales RN Unavailable [phone] Neetu Calzada DO Unavailable [phone] Encounter Details Date Type Department Care Team (Late st Contact Info) Description 02/25/2024 [facility] [address] [place] [address] Shikha Doherty MD [address] [place] [address] Social History Tobacco Use Types [...] often do you attend chur ch or confucianism services? Never 12/25/2022 Do you belong to any clubs o r organizations such as spiritism groups, unions, fraternal or athletic groups, or [...] Recorded Patient Health Questionnaire-2 Score 0 11/24/2023 [facility] - Occupational Stress [...] Care Team (Late st Contact Info) Description 01/30/2025 3:30 PM EDT Office Visit [facility] [address] [place] [phone] Wesley Her, DPM [address] [place] [address] 02/24/2025 11:00 AM EDT Office Visit [facility] [address] [place] [phone] Shikha Doherty MD [address] [place], [place] [phone] 04/04/2025 2:10 PM EDT Office Visit [facility] [address] [place] [address] Ubaldo Carpio MD [address] [place] [address] documented as of this encounter Visit Diagnoses Not on filedocumented in this encounter Care Teams Production Control Supervisor Relationship Specialty Start Date End Date Neetu Calzada DO [address] [facility] [address] [facility] [place] [address] PCP - ACO Reach 12/04/22 08/18/24 Shikha Doherty MD [address] [place] [address] PCP - General Family Medicine 08/10/23 Neetu Calzada DO [address] [facility] [address] [place] [address] PCP - ACO Reach 08/26/24 10/13/24 Dorys Yan NP [address] [place] [address] Nurse Practitioner Family Medicine 08/10/23 Shikha Loja, EARL [address] [place] [address] Registered Nurse Family Medicine 08/04/24 08/09/24 Renetta Bales, RN [address] [place] [address] Registered Nurse Family Medicine 08/09/24 12/12/24 documented as of this encounter
--- OUTSIDE RECORDS SUMMARY | 2025-01-25 13:55 | XMS_ITS | Clinical Summary ---
Author Organization [employer] tem Address [id number] [address] 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) 12/22/2024 Travel 12/06/2024 Travel 11/28/2024 9:51 AM EDT - 11/28/2024 11:59 PM EDT Hospital Encounter [facility] [address] [place] [address] Elyssa Santos MD 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) Discharge Disposition: Home 11/28/2024 Travel 11/24/2024 10:00 AM EDT Office Visit [facility] [address] [place] [phone] Elyssa Santos MD 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) 11/24/2024 Travel from Last 3 Months Immunizations Immunization [...] pur e alcohol) sober since age 36 [facility] Utilities Answer Date Recorded In the past 12 months has [employer], gas, oil, or water [employer] threatened to shut off services in your [...] safe discharge Medical Devices Implanted Type Area Business Taxes Specialist Device Identifier Shelf Expiration Date Model / Serial / Lot Patch Vsc 8x.8cm Xenosure Bvn Pricrd Tiss Strl Rpl [id number] - [id number] Implanted:Qty: 1 on 07/29/2024 by Elyssa Santos MD at [facility] Graft Right: Arterial [employer] [id number] 12/07/2029 E0.8P8 / / [id number] Description:RIGHT FEMORAL AR VALE Graft Cv 60cm 7mm Thor [address] - [id number] - [id number] Implanted:Qty: 1 on 09/13/2024 by Elyssa Santos MD at [facility] Graft Right: Arterial GETINGE [employer] 03/12/2029 [id number] / [id number] Stent 7fr 135cm Vbx Ba Ppm Expandable Cath Hep Vbhn Eprsth 8 Rpl [id number] - [id number] - [id number] Implanted:Qty: 1 on 07/29/2024 by Elyssa Santos MD at [facility] Stent Right: Arterial [place] [id number] 12/26/2026 [id number] / [id number] / Description:RIGHT ILIAC Stent Vsc Innova 8mm 100mm 130cm 6fr Dlv Sys Rdpq Slf Xpd - [id number] Implanted:Qty: 1 on 07/29/2024 by Elyssa Santos MD at [facility] Stent Right: Arterial [employer] [id number] 02/01/2025 [id number] / / [id number] Description:RIGHT ILIAC Procedures Procedure Name Priority Date/Time [...] EDT) Case Report Clinical Pathology Report Case: [id number] Authorizing Provider: Cheo Kenny MD Collected: 12/09/2024 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 No monoclonal protein identified. 12/11/2024 12:33 PM EDT [facility] at 1233 EDT Urine / Unknown 12/09/2024 8 :43 AM EDT 12/09/2024 8:43 AM EDT us Cheo Kenny MD PATHOLOGY/CYTOLOGY ORDERABLES F inal Result [facility] [address] [place] [address], [place] [phone] * (ABNORMAL) Microalbumin - Albumin: Creatinine Urine Ratio (12/06/2024 11:49 AM EDT) URINE CREATININE,RDM 111.87 mg/dL 12/07/2024 5:55 AM EDT [facility] MALB/CREAT RATIO 94.8(H) 0.0 - 30.0 mg/g 12/07/2024 5:55 AM EDT [facility] MICROALBUMIN, URINE 10.6(H) 0.0 - 1.9 mg/dL 12/07/2024 5:55 AM EDT [facility] Urine Urine specimen collection, clean catch / Unknown 12/06/2024 11:49 AM EDT 12/06/2024 11:49 AM EDT us Cheo Kenny MD URINE ORDERABLES Final Result [facility] [address] [place] [address], [place] [phone] * Protein electrophoresis, urine (12/06/2024 11:49 AM EDT) Urine Protein Electrophoresis Interp See Pathology Report 12/12/2024 6:56 AM EDT [facility] Urine Urine specimen collection, clean catch / Unknown 12/06/2024 11:49 AM EDT 12/06/2024 11:49 AM EDT us Cheo Kenny MD URINE ORDERABLES Final Result [facility] [address] [place] [address], [place] [phone] * (ABNORMAL) Urinalysis (12/06/2024 11:49 AM EDT) COLOR Yellow Yellow, Colorless 12/06/2024 9:02 PM EDT [facility] TURBIDITY Clear Clear 12/06/2024 9:02 PM EDT [facility] SPECIFIC GRAVITY 1.031 1.003 - 1.035 12/06/2024 9:02 PM EDT [facility] NITRITE Negative Negative 12/06/2024 9:02 PM T [facility] PH,URINE 5.5 5.0 - 8.5 12/06/2024 9:02 PM EDT [facility] LEUKOCYTE ESTERASE Negative Negative 12/06/2024 9:02 PM T [facility] Comment:High Concentrations of Glucose May Decrease the Reactivity of the Dipstick Leukocyte Test Pad. PROTEIN Trace(A) Negative 12/06/2024 9:02 PM EDT [facility] KETONES (URINE) Negative Negative 9:02 PM T [facility] UROBILINOGEN <1.1 eu/dL <1.1 eu/dL 12/06/2024 9:02 PM EDT [facility] BILIRUBIN (URINE) Negative Negative 025 9:02 PM T [facility] BLOOD/HGB Trace(A) Negative 12/06/2024 9:02 PM T [facility] HYALINE CASTS 3(H) 0 - 2 12/06/2024 9:02 PM T [facility] MUCOUS Present(A) None 12/06/2024 9:02 PM T [facility] R.B.CELLS 10(H) 0 - 5 12/06/2024 9:02 PM T [facility] W.B.CELLS 1 0 - 5 12/06/2024 9:02 PM T [facility] GLUCOSE (URINE) >1000 mg/dL(A) Negative 12/06/2024 9:02 PM T [facility] Urine Urine specimen collection, clean catch / Unknown 12/06/2024 11:49 AM EDT 12/06/2024 11:49 AM EDT [facility] - 12/06/2024 9:02 PM EDT Urine received without preservative. Delays in transport may affect results. Interpret with caution. A clinical correlation is recommended. Cheo Kenny MD URINE ORDERABLES Final Result [facility] [address] [place] [address], * Parathyroid Hormone, intact (12/06/2024 10:47 AM EDT) PTH INTACT 70 12 - 88 pg/mL 12/06/2024 2:23 PM EDT [facility] Blood Venous blood / Unknown Venipuncture / Unknown 12/06/2024 10:47 AM EDT 12/06/2024 10:47 AM EDT us Cheo Kenny MD LAB BLOOD ORDERABLES Final Resu lt Performing Organization Address City/[facility]/ZIP Co de Phone Number [facility] [address] [place] [address], * (ABNORMAL) Vitamin D 25 hydroxy (12/06/2024 10:47 AM EDT) Pathologist [facility] VITAMIN D 25 HYD TOT 15.9(L) 30.0 - 100.0 ng/mL 12/06/2024 2:31 PM EDT [facility] Blood Venous blood / Unknown Venipuncture / Unknown 12/06/2024 10:47 AM EDT 12/06/2024 10:47 AM EDT Narrative [facility] - 12/06/2024 2:31 PM EDT Vitamin D status 25 [place] Vitamin D Deficiency <20 ng/mL Insufficiency 20-29 ng/mL Sufficiency 30-100 ng/mL Toxicity >100 ng/mL NOTE: A pediatric reference range has not been established by the music department chair of this kit. The [place] [employer] recommends a Vitamin D level of = or >20ng/mL in infants and children. us Cheo Kenny MD LAB BLOOD ORDERABLES Final Resu lt [facility] [address] [place] [address], [place] [phone] * (ABNORMAL) CBC without diff (12/06/2024 10:47 AM EDT) WBC 7.9 4 - 11 x10E9/L 12/06/2024 1:39 PM EDT [facility] RBC Count 4.26 4.1 - 5.7 X10E12/L 12/06/2024 1:39 PM EDT [facility] Hemoglobin 10.7(L) 13 - 17 g/dL 12/06/2024 1:39 PM EDT [facility] Hematocrit 33.7(L) 39 - 50 % 12/06/2024 1:39 PM EDT [facility] MCV 79(L) 80 - 100 fL 12/06/2024 1:39 PM EDT [facility] MCH 25.1(L) 27 - 34 pg 12/06/2024 1:39 PM EDT [facility] MCHC 31.7(L) 32 - 36 g/dL 12/06/2024 1:39 PM EDT [facility] RDW 18.5(H) 11.5 - 15 % 12/06/2024 1:39 PM EDT [facility] Platelet Count 270 150 - 450 X10E9/L 12/06/2024 1:39 PM EDT [facility] MPV 8.6 7 - 12 fL 12/06/2024 1:39 PM EDT [facility] Blood Venous blood / Unknown Venipuncture / Unknown 12/06/2024 10:47 AM EDT 12/06/2024 10:47 AM EDT Cheo Kenny MD LAB BLOOD ORDERABLES Final Resu lt [facility] [address] [place] [address], [place] [phone] * (ABNORMAL) Uric acid (12/06/2024 10:47 AM EDT) URIC ACID 7.3(H) 2.6 - 7.2 mg/dL 12/06/2024 2:27 PM EDT [facility] Blood Venous blood / Unknown Venipuncture / Unknown 12/06/2024 10:47 AM EDT 12/06/2024 10:47 AM EDT Cheo Kenny MD LAB BLOOD ORDERABLES Final Resu lt [facility] [address] [place] [address], [place] [phone] * Protein electrophoresis, serum (12/06/2024 10:47 AM EDT) TOTAL PROTEIN 6.9 6.0 - 8.0 g/dL 12/07/2024 11:54 AM EDT [facility] ALPHA 1 GLOBULIN 0.3 0.1 - 0.4 g/dL 12/07/2024 11:54 AM EDT [facility] ALPHA 2 GLOBULIN 0.9 0.4 - 1.1 g/dL 12/07/2024 11:54 AM EDT [facility] BETA GLOBULIN 1.0 0.5 - 1.2 g/dL 12/07/2024 11:54 AM EDT [facility] GAMMA GLOBULIN 1.2 0.5 - 1.6 g/dL 12/07/2024 11:54 AM EDT [facility] Protein Electrophoresis Interp Unremarkable protein distribution, no monoclonal bands 12/07/2024 11:54 AM EDT [facility] Albumin 3.5 3.4 - 5.3 g/dL 12/07/2024 11:54 AM EDT [facility] Blood Venous blood / Unknown Venipuncture / Unknown 12/06/2024 10:47 AM EDT 12/06/2024 10:47 AM EDT us Cheo Kenny MD LAB BLOOD ORDERABLES Final Resu lt Performing Organization Address City/[facility]/ZIP Co de Phone Number [facility] [address] [place] [address], [place] [phone] * Phosphorus (12/06/2024 10:47 AM EDT) PHOSPHORUS 3.6 2.4 - 4.9 mg/dL 12/06/2024 2:27 PM EDT [facility] Blood Venous blood / Unknown Venipuncture / Unknown 12/06/2024 10:47 AM EDT 12/06/2024 10:47 AM EDT us Cheo Kenny MD LAB BLOOD ORDERABLES Final Resu lt Performing Organization Address City/[facility]/ZIP Co de Phone Number [facility] [address] [place] [address], * Magnesium (12/06/2024 10:47 AM EDT) MAGNESIUM 1.9 1.8 - 2.6 mg/dL 12/06/2024 2:27 PM EDT [facility] Blood Venous blood / Unknown Venipuncture / Unknown 12/06/2024 10:47 AM EDT 12/06/2024 10:47 AM EDT us Cheo Kenny MD LAB BLOOD ORDERABLES Final Resu lt Performing Organization Address City/[facility]/ZIP Co de Phone Number [facility] [address] [place] [address], [place] [phone] * Albumin (12/06/2024 10:47 AM EDT) ALBUMIN 3.7 3.2 - 5.3 g/dL 12/06/2024 2:27 PM EDT [facility] Blood Venous blood / Unknown Venipuncture / Unknown 12/06/2024 10:47 AM EDT 12/06/2024 10:47 AM EDT us Cheo Kenny MD LAB BLOOD ORDERABLES Final Resu lt [facility] [address] [place] [address], [place] [phone] * (ABNORMAL) Basic Metabolic Panel (12/06/2024 10:47 AM EDT) SODIUM 140 134 - 146 mmol/L 12/06/2024 2:27 PM EDT [facility] POTASSIUM 4.4 3.5 - 5.0 mmol/L 12/06/2024 2:27 PM EDT [facility] CHLORIDE 99 98 - 109 mmol/L 12/06/2024 2:27 PM EDT [facility] CARBON DIOXIDE 27 22 - 32 mmol/L 12/06/2024 2:27 PM EDT [facility] ANION GAP 14 5 - 15 mmol/L 12/06/2024 2:27 PM EDT [facility] BLOOD UREA NITROGEN 17 5 - 27 mg/dL 12/06/2024 2:27 PM EDT [facility] CREATININE 1.69(H) 0.60 - 1.30 mg/dL 12/06/2024 2:27 PM EDT [facility] Comment:METHOD TRACEABLE TO IDMS STANDARD GLUCOSE 276(H) 65 - 99 mg/dL 12/06/2024 2:27 PM EDT [facility] CALCIUM 9.1 8.5 - 10.5 mg/dL 12/06/2024 2:27 PM EDT [facility] EGFR Non-Race Dependent 43(L) >=60 ml/min/1.7 3sq.m 12/06/2024 2:27 PM EDT [facility] Comment: Reported eGFR is based on the CKD-EPI 2020 equation that does not use a race coefficient. Blood Venous blood / Unknown Venipuncture / Unknown 12/06/2024 10:47 AM EDT 12/06/2024 10:47 AM EDT us Cheo Kenny MD LAB BLOOD ORDERABLES Final Resu lt [facility] [address] [place] [address], [place] [phone] * Vas art doppler lwr bilat mult [...] image is visible to you in MyChart.* us Tanvi MENA IMG OR IMG ORDERABLES Final [...] Edenilson Gipson MD on 07/20/2024 12:34 AM Elyssa Gomes MD [facility] [place] ORDERABLES Final Res ult from Last 3 Months or Most Recently Relevant to Health Maintenance Insurance [facility] MEDICARE MEDICARE [facility] Advance Directives * Full Code (Latest Code Status on File) Date Activated Date Inactivated Comments 09/13/2024 1:10 PM 09/17/2024 7:39 PM * Full Code Date Activated Date Inactivated Comments 07/17/2024 4:41 AM 08/01/2024 2:44 PM * Full Code Date Activated Date Inactivated Comments 07/02/2021 12:24 PM 07/03/2021 3:02 PM Care Teams Docking Pilot Relationship Specialty Start Date End Date Dorys Yan APRN-MALLORIE [address] [place] [address] PCP - General Family Medicine 09/09/24
--- OUTSIDE RECORDS SUMMARY | 2025-01-25 13:55 | XMS_ITS | Encounter Summary ---
Author Organization [facility] tem Address [id number] [address] [place] [address] Care Team Providers Care Busser Name Role Phone SegundoDorys tsang Yessica SOLIZN-LEATHER STRIPPING MACHINE OPERATOR Primary Care Pro vider Encounter Details Date Type Department Care Team (Late st Contact Info) Description 07/03/2021 Telephone [facility] - ICU [address] [place] [phone] Diane Slade RN Social History Tobacco Use [...] documented as of this encounter Care Teams Busser Relationship Specialty Start Date End Date Dorys Yan APRN-LEATHER STRIPPING MACHINE OPERATOR [address] [place] [address] PCP - General Family Medicine 09/09/24 documented as of this encounter
--- OUTSIDE RECORDS SUMMARY | 2025-01-25 13:55 | XMS_ITS | Encounter Summary ---
Author Organization [facility] Address [id number] [address] [place] [address] Care Team Providers Care Quality Review Trainer Name Role Phone SegundoDorys tsang GLEASON OPERATOR-FINISHER PLATE Primary Care Pro vider Encounter Details Date Type Department Care Team (Late st Contact Info) Description 08/11/2024 Orders Only [facility] [address] [place] [address] Elyssa Santos MD [address], [facility] [address] [place] [address] Social History Tobacco Use Types Packs/Day Years Used Date Smoking Tobacco: Former Smokeless Tobacco: Never Alcohol Use Standard Drinks/Week Comments No 0 (1 standard drink = 0.6 oz pur e alcohol) [facility] Utilities Answer Date Recorded In the past 12 months has [employer], gas, oil, or water [employer] threatened to shut off services in your [...] documented as of this encounter Care Teams Quality Review Trainer Relationship Specialty Start Date End Date Dorys Yan APRN-MALLORIE [address] [place] [address] PCP - General Family Medicine 09/09/24 documented as of this encounter
--- OUTSIDE RECORDS SUMMARY | 2025-01-25 13:55 | XMS_ITS | Encounter Summary ---
Author Organization [employer] [facility] tem Address [id number] [address] [place] [address] Care Team Providers Care High Lift Driver Name Role Phone SegundotrinhFroylania Yessica VETERINARY RADIOLOGIST-PMP CERTIFIED PROJECT MANAGER Primary Care Pro vider Reason for Referral * Consultation (Routine) - Closed Specialty Diagnoses / Procedures Referred By Torsten dunn Referred To Contact Nephrology Diagnoses Stage 3 chronic kidney disease, unspecified whether stage 3a or 3b CKD ([facility]) Milvia Gil MD [address] [place] [address] Phone: tel: fax: Diogo Byrnes MD Phone: tel: fax: Referral ID Status Reason Start Date Expiration Date V isits Requested Visits Authorized [id number] Closed Specialty Services Required 02/21/2021 02/21/2022 1 1 Reason for Visit * Reason Onset Date Comments Med Refill 02/21/2021 Encounter Details Date Type Department Care Team (Late st Contact Info) Description 02/21/2021 Refill [facility] [address] [phone] Yola Coronel RN Med Refill Social History [...] Unspecified Whether Stage 3a Or 3b Ckd ([facility]) 1 Occurrences starting 02/21/2021 until 08/24/2021 documented as of this encounter Visit Diagnoses Diagnosis Stage 3 chronic kidney disease, unspecified whether stage 3a or 3b CKD ([facility])- Primary documented in this encounter Additional Health Concerns Infection Onset Date Last Indicated Resolved Time COVID-19 Rule-Out 10/10/2023 10/10/2023 10/10/2023 7:20 AM EDT Enteric Rule-Out 07/19/2024 07/18/2024 07/19/2024 11:37 AM EST Assessment Noted Time A Body Mass Index follow-up plan has been documented for the patient 08/30/2019 10:09 AM EST documented as of this encounter Care Teams High Lift Driver Relationship Specialty Start Date End Date Dorys Yan APRN-PMP CERTIFIED PROJECT MANAGER [address] [place] [address] PCP - General Family Medicine 09/09/24 documented as of this encounter
--- OUTSIDE RECORDS SUMMARY | 2025-01-25 13:55 | XMS_ITS | Encounter Summary ---
Author Organization [facility] Address [id number] [address] [place] [address] Care Team Providers Care Electric Shovel Operator Name Role Phone Segundotrinh Dorys A LEAD NETWORK ENGINEER-GRAPHIC DESIGN ASSISTANT Primary Care Pro vider Encounter Details Date Type Department Care Team (Late st Contact Info) Description 08/02/2024 Telephone [facility] [address] [place] [address] Elyssa Santos MD [address], [facility] [address] [place] [address] Social History Tobacco Use Types Packs/Day Years Used Date Smoking Tobacco: Former Smokeless Tobacco: Never Alcohol Use Standard Drinks/Week Comments No 0 (1 standard drink = 0.6 oz pur e alcohol) [facility] Utilities Answer Date Recorded In the past 12 months has [employer], gas, oil, or water [employer] threatened to shut off services in your [...] health care. [place] can be reached at [phone] Thank you. * Telephone Encounter - Nikki [...] documented as of this encounter Care Teams Electric Shovel Operator Relationship Specialty Start Date End Date Dorys Yan APRN-MALLORIE [address] [place] [address] PCP - General Family Medicine 09/09/24 documented as of this encounter
--- OUTSIDE RECORDS SUMMARY | 2025-01-25 13:55 | XMS_ITS | Encounter Summary ---
Author Organization [facility] Address [address] [place] [address] Care Team Providers Care Director Federal Name Role Phone Zheng, Neetu Rutledge DO Unavailable [phone] Neetu Calzada DO Primary Care Provider Shikha Doherty MD Primary Care Provider [phone] Dorys Yan ORACLE SECURITY CONSULTANT Unavailable [phone] Shikha Loja RN Unavailable [phone] Renetta Bales RN Unavailable [phone] ZhengNeetu segovia Maty DO Unavailable [phone] Encounter Details Date Type Department Care Team (Late st Contact Info) Description 06/11/2023 Abstract [facility] [address] [place] [address] Zheng Neetu Maty DO [address] [facility] [place] [address] [place] [address] Social History Tobacco Use Types [...] How often do you attend chur or episcopalian services? Never 12/25/2022 Do you belong to any clubs o r organizations such as rastafarian groups, unions, fraternal or athletic groups, or [...] Recorded Patient Health Questionnaire-2 Score 0 12/25/2022 [facility] [place] of Occupat ional Health - Occupational Stress [...] 3:30 PM EDT Office Visit [facility] [address] [place] [address] Wesley Her, DPM [address] [facility] [address] 02/24/2025 11:00 AM EDT Office Visit [facility] [address] [place] [address] Shikha Doherty MD [address] [place], [place] [address] 04/04/2025 2:10 PM EDT Office Visit [facility] [address] [place] [id number] Ubaldo Carpio MD [address] [place] [address] documented as of this encounter Visit Diagnoses Not on filedocumented in this encounter Care Teams Director Federal Relationship Specialty Start Date End Date Neetu Calzada, DO [address] [facility] [place] [address] [place] [address] PCP - ACO Reach 12/04/22 08/18/24 Neetu Calzada DO [address] [facility] [place] [address] [place] [address] PCP - General Family Medicine 12/25/22 08/09/23 Shikha Doherty MD [address] [facility] [address] [place], [place] [address] PCP - General Family Medicine 08/10/23 Neetu Calzada DO [address] [facility] [place] [address] [place] [address] PCP - ACO Reach 08/26/24 10/13/24 Dorys Yan NP [address] [facility] [place] [address] Nurse Practitioner Family Medicine 08/10/23 Shikha oLja RN [address] [facility] [address] [place], [place] [address] Registered Nurse Family Medicine 08/04/24 08/09/24 Renetta Bales, EARL [address] [place] [address] Registered Nurse Family Medicine 08/09/24 12/12/24 documented as of this encounter
--- OUTSIDE RECORDS SUMMARY | 2025-01-25 13:55 | XMS_ITS | Encounter Summary ---
Author Organization [facility] Address [address] [place] [address] Care Team Providers Care Ladle Liner Helper Name Role Phone Zheng Neetu G DO Unavailable Shikha Doherty MD Primary Care Provider [phone] Dorys Yan SHOT HOLE SHOOTER Unavailable Shikha Loja RN Unavailable [phone] Renetta Bales RN Unavailable [phone] Zheng Neetu Rutledge DO Unavailable [phone] Reason for Visit * Reason Comments Med Refill Encounter Details Date Type Department Care Team (Late st Contact Info) Description 07/08/2024 Refill [facility] [address] [place] [address] Dorys Yan SHOT HOLE SHOOTER [address] [place] [phone] Mixed hyperlipidemia Social History Tobacco Use Types [...] often do you attend chur ch or tenriism services? Never 12/25/2022 Do you belong to any clubs o r organizations such as pentecostal groups, unions, fraternal or athletic groups, or [...] Recorded Patient Health Questionnaire-2 Score 0 11/24/2023 [facility] of Occupat ionms Health - Occupational Stress Questionnaire Answer Date [...] place to sleep or slept in a correction (including now)? No 12/25/2022 Sex and Gender [...] PM EDT Office Visit [facility] [address] [place] [address] Wesley Her, DPM [address] [place] [address] 02/24/2025 11:00 AM EDT Office Visit [facility] [address] [place] [address] Shikha Doherty MD [address] [place] [address] 04/04/2025 2:10 PM EDT Office Visit [facility] [address] [place] [address] Ubaldo Carpio MD [address] [place] [address] documented as of this encounter Visit Diagnoses Diagnosis Mixed hyperlipidemia Mixed hyperlipidemia documented in this encounter Care Teams Ladle Liner Helper Relationship Specialty Start Date End Date Neetu Calzada DO 1715 [facility] 200 [facility] [place] [address] PCP - ACO Reach 12/04/22 08/18/24 Shikha Doherty MD [facility] [place] [address] PCP - General Family Medicine 08/10/23 Neetu Calzada DO 1715 [facility] 200 [facility] [place] [address] PCP - ACO Reach 08/26/24 10/13/24 Dorys Yan NP [address] [place] [address] Nurse Practitioner Family Medicine 08/10/23 Shikha Loja RN [address] [place] [address] Registered Nurse Family Medicine 08/04/24 08/09/24 Renetta Bales, EARL [address] [place] [address] Registered Nurse Family Medicine 08/09/24 12/12/24 documented as of this encounter
--- OUTSIDE RECORDS SUMMARY | 2025-01-25 13:55 | XMS_ITS | Encounter Summary ---
Author Organization [facility] Address [address] [place] [address] Care Team Providers Care Veterinary Practice Manager Name Role Phone Neetu Calzada DO Unavailable [phone] Shikha Doherty MD Primary Care Provider [phone] Dorys Yan HAULPAK DRIVER Unavailable [phone] Shikha Loja RN Unavailable [phone] Renetta Bales RN Unavailable [phone] Neetu Calzada DO Unavailable [phone] Encounter Details Date Type Department Care Team (Late st Contact Info) Description 11/23/2023 Abstract [facility] [address] [place] [address] Dorys Yan HAULPAK DRIVER [address] [facility] 1 [place] [address] Social History Tobacco Use Types Packs/Day Years [...] often do you attend chur ch or buddhist services? Never 12/25/2022 Do you belong to any clubs o r organizations such as rastafari groups, unions, fraternal or athletic groups, or [...] Recorded Patient Health Questionnaire-2 Score 0 11/24/2023 [facility] of Occupat ional Health - [...] 3:30 PM EDT Office Visit [facility] [address] [place] [address] Wesley Her, DPSissy [address] [place], [place] [address] 02/24/2025 11:00 AM EDT Office Visit [facility] [address] [place] [address] Shikha Doherty MD [address] [place], [place] [address] 04/04/2025 2:10 PM EDT Office Visit [facility] [address] [place] [address] Ubaldo Carpio MD [address] [place] [address] documented as of this encounter Visit Diagnoses Not on filedocumented in this encounter Care Teams Veterinary Practice Manager Relationship Specialty Start Date End Date Neetu Calzada DO 1715 [facility] 200 [place] [address] PCP - ACO Reach 12/04/22 08/18/24 Shikha Doherty MD [facility]9 [place], [place] [phone] PCP - General Family Medicine 08/10/23 Neetu Calzada DO 1715 [facility] 200 [place] [address] PCP - ACO Reach 08/26/24 10/13/24 Dorys Yan NP [address] [place] [address] Nurse Practitioner Family Medicine 08/10/23 Shikha Loja, EARL [address] [place] [address] Registered Nurse Family Medicine 08/04/24 08/09/24 Renetta Bales, RN [address] [place] [address] Registered Nurse Family Medicine 08/09/24 12/12/24 documented as of this encounter
--- OUTSIDE RECORDS SUMMARY | 2025-01-25 13:55 | XMS_ITS | Encounter Summary ---
Author Organization [facility] [employer] Address [id number] [address] [place] [address] Care Team Providers Care Vendor Manager Name Role Phone Dorys Yan SUPERVISOR COLOR PASTE MIXING-BUSINESS RISK CONSULTANT Primary Care Pro vider Encounter Details Date Type Department Care Team (Late st Contact Info) Description 02/14/2021 Orders Only [facility] [address] [place] [address] External, Scanning Provider Social History Tobacco Use [...] Edited Result - Final Performing Organization Address [facility] de Phone Number MANUALLY TRANSCRIBED RESULTS * Multiple labs (11/01/2020) us Scanning Provider External [place] IMAGING Final Result Performing Organization Address [facility] de Phone Number MANUALLY TRANSCRIBED RESULTS * ECG 12 lead (11/01/2020) us Scanning Provider External ECG ORDERABLES Final Result Performing Organization Address [facility] de Phone Number MANUALLY TRANSCRIBED RESULTS * ECG 12 lead (11/01/2020) us Scanning Provider External ECG ORDERABLES Final Result Performing Organization Address [facility] de Phone Number MANUALLY TRANSCRIBED RESULTS documented [...] documented as of this encounter Care Teams Vendor Manager Relationship Specialty Start Date End Date Dorys Yan APRN-BUSINESS RISK CONSULTANT [address] [place] [address] PCP - General Family Medicine 09/09/24 documented as of this encounter
--- OUTSIDE RECORDS SUMMARY | 2025-01-25 13:55 | XMS_ITS | Clinical Summary ---
Author Organization [facility] Address [address] [place] [address] Care Team Providers Care Passenger Barge Master Name Role Phone Shikha Doherty MD Primary Care Provider [phone] Dorys Yan HOSPICE PATIENT CARE SECRETARY Unavailable [phone] Allergies Active Allergy Reactions Criticality Noted Date [...] TABLET BY MOUTH EVERY DAY 90 tablet 01/10/20 25 Active insulin glargine (Lantus SoloStar) 100 [...] DAILY. 90 tablet 11/01/19 25 025 Discontinued rosuvastatin (Crestor) 10 MG tabletIndications: Mixed hyperlipidemia TAKE 1 TABLET BY MOUTH EVERY DAY 90 tablet 12/30/19 25 025 Discontinued Active Problems Problem Noted Date Diagnosed Date Critical ischemia of lower extremity 07/17/2024 Diarrhea 07/16/2024 Chest pain 06/30/2023 Ischemic cardiomyopathy 06/30/2023 Coronary artery disease of b ypass graft of [place] heart with stable angina pectoris 12/25/2022 Current [...] neoplasm of large intestine 12/25/2022 Hypomagnesemia 12/25/2022 exterminator termite current use of oral hypoglycemic drug 12/25/2022 [...] Encounters Date Type Department Care Team Description 01/08/2025 Refill [facility] [address] [facility] [place] [address] Dorys Yan NP Mixed hyperlipidemia 12/28/2024 Refill [facility] [address] [facility] [place] [address] Shikha Doherty MD Mixed hyperlipidemia 12/28/2024 Refill [facility] [address] [place] [address] Dorys Yan NP Post-nasal drainage 12/28/2024 Refill [facility] [address] [place] [address] Diane Eller NP Essential (primary) hypertension ; Atherosclerosis of coronary artery bypass graft(s), unspecified, with other forms of angina pectoris 12/28/2024 Refill [facility] [address] [place] [address] Ubaldo Carpio MD Type 2 diabetes mellitus with other diabetic kidney complication (HCC) 12/27/2024 Refill [facility] [address] [facility] [place] [address] Dorys Yan NP Diabetes mellitus with peripheral vascular disease (HCC) 12/12/2024 Patient Outreach [facility] [address] [place] [address] Renetta Bales RN 12/11/2024 Refill [facility] [address] [place] [address] Ubaldo Carpio MD Type 2 diabetes mellitus with other diabetic kidney complication (HCC) 12/02/2024 10:50 AM EDT Office Visit [facility] [address] [place] [address] Ubaldo Carpio MD Controlled type 2 diabetes mellitus with diabetic nephropathy, with long-term current use of insulin (HCC) (Primary Dx); Vitamin D deficiency; Primary hypertension ; Insulin long-term use (HCC); Hyperlipemia, mixed ; Encounter for dietary consultation; Stage 3b chronic kidney disease ([facility]-HCC); Class 1 obesity due to excess calories with serious comorbidity and body mass index (BMI) of 33.0 to 33.9 in adult 12/02/2024 Bamboo flowsheet [facility] [address] [place] [address] Ubaldo Carpio MD 11/24/2024 Refill [facility] [address] [place] [address] Ubaldo Carpio MD Type 2 diabetes mellitus with other diabetic kidney complication (HCC); Gastroesophageal reflux disease with esophagitis without hemorrhage; Dementia without behavioral disturbance (HCC) 11/08/2024 Patient Outreach [facility] [address] [place] [address] Renetta Bales RN 11/01/2024 Patient Outreach [facility] [address] [place] [address] Shikha Loja, EARL 10/31/2024 Refill [facility] [address] [place] [address] Dorys Yan NP Post-nasal drainage 10/26/2024 Patient Outreach [facility] [address] [place] [address] Shikha Loja, EARL 10/26/2024 Refill [facility] [address] [place] [address] Ubaldo Carpio MD Type 2 diabetes mellitus with diabetic chronic kidney disease (HCC) from Last 3 Months Immunizations Immunization Administration [...] week 12/25/2022 How often do you attend [facility] or hindu services? Never 12/25/2022 Do you belong to any clubs o r organizations such as worship groups, unions, fraternal or athletic groups, or [...] Recorded Patient Health Questionnaire-2 Score 0 11/24/2023 [facility] of Occupat ional Health - [...] PM EDT Office Visit [facility] [address] [place] [address] Wesley Her, DPM [address] [place] [address] 02/24/2025 11:00 AM EDT Office Visit [facility] [address] [place] [address] Shikha Doherty MD [address] [place], [place] [address] 04/04/2025 2:10 PM EDT Office Visit [facility] [address] [place] [address] Ubaldo Carpio MD [address] [place] [address] Health Maintenance Due Date Last Done Comments Diabetes: Retinopathy Screening 04/05/2023 04/05/2021, 08/17/2018, 08/13/2017 Medicare Annual Wellness (AWV) 12/26/2023 0 12/25/2022, 12/19/2021, 12/19/2021 Diabetes: Hemoglobin A1C 03/04/2025 025, 08/16/2024, 07/19/2024, Additional history exists Influenza Vaccine (#1) 2025 3, 03/18/2022, 05/14/2021, Additional history exists Diabetes: Urine [...] Narrative 04/05/2021 12:00 PM EDT PERFORMED AT [facility] LOCATION:[id number] Procedure Note CONVERSION, GENERIC - 11/26/2022 PERFORMED AT [facility] LOCATION:[id number] Neetu Calzada DO OPHTH PHOTOGRAPHY Final Result * Colonoscopy (08/19/2019 12:00 PM EST) Anatomical Region Laterality Modality Endoscopy 08/19/2019 12:0 0 PM EST Narrative 08/19/2019 12:00 PM EST PERFORMED AT [facility] LOCATION:[id number] Procedure Note CONVERSION, GENERIC - 11/26/2022 PERFORMED AT [facility] LOCATION:[id number] Hua Mccullough ENDOSCOPY PROCEDURE ORDERABLES Final Result from Last 3 Months or Most Recently Relevant to Health Maintenance Insurance MEDICARE [facility] Care Teams Passenger Barge Master Relationship Specialty Start Date End Date Shikha Doherty MD [address] [place] [address] PCP - General Family Medicine 08/10/23 Dorys Yan NP [address] [place] [address] Nurse Practitioner Family Medicine 08/10/23
--- OUTSIDE RECORDS SUMMARY | 2025-01-25 13:56 | XMS_ITS | Encounter Summary ---
Author Organization [employer] Address [id number] [address] [place] [address] Care Team Providers Care Senior Backup Administrator Name Role Phone MirelahersonDorys oliveira APRN-ROUTE DELIVERY SERVICE DRIVER Primary Care Pro vider Reason for Visit * Reason Onset Date Comments cardiac clearance 07/17/2024 Encounter Details Date Type Department Care Team (Late st Contact Info) Description 07/17/2024 Telephone [facility] [address] [place] [phone] Amna Pimentel cardiac clearance Social History Tobacco Use Types Packs/Day Years Used Date Smoking Tobacco: Former Smokeless Tobacco: Never Alcohol Use Standard Drinks/Week Comments No 0 (1 standard drink = 0.6 oz pur e alcohol) [facility] Utilities Answer Date Recorded In the [...] - 07/17/2024 5:46 AM EST Contract: [id number] [phone] [facility] cardiac clearance room B7 tx amna--I [...] documented as of this encounter Care Teams Senior Backup Administrator Relationship Specialty Start Date End Date Dorys Yan APRN-[place]IE [address] [place] [address] PCP - General Family Medicine 09/09/24 documented as of this encounter
== END 2025-01-25 13:53 | disposition home or self-care (01) ==
LOC: WC 13:52
PROVIDERS: Visit Provider Physician Assistant
DX: I70.235 Atherosclerosis of native arteries of right leg with ulceration of other part of foot (principal); L97.512 Non-pressure chronic ulcer of other part of right foot with fat layer exposed
CPT/HCPCS: G0463

== ENCOUNTER 2025-02-09 13:20 | Outpatient (OUT) | payer MEDICARE, OTHER, SELFPAY ==
--- OUTSIDE RECORDS SUMMARY | 2024-10-26 05:45 | XMS_ITS ---
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 Medications Medication SIG (Take, Route, Frequency, Duration) Notes Start Date End Date Status Rosuvastatin Calcium 10 MG 1 tablet Oral ly Once a day Active Rivaroxaban 2.5 MG 1 tablet with food O rally Twice a day Active Carvedilol 6.25 MG 1 tablet with food O rally Twice a day Active Acetaminophen 325 MG 1 tablet as needed Orally Active Aspirin 81 81 MG 1 tablet Orally Once a day Active Famotidine 20 MG 1 tablet at bedtime as needed Orally Once a day Active Clopidogrel Bisulfate 75 MG 1 tablet Ora lly Once a day Active Glimepiride 4 MG 1 tablet with breakf ast or the first main meal of the day Orally BID Active Farxiga 10 MG 1 tablet Orally Once a day Active Cetirizine HCl 10 MG 1 tablet Orally Onc e a day Active Lisinopril 10 MG 1 tablet Orally Once a day Active Insulin Glargine 100 UNIT/ML as directed Subcutaneous Act edna Magnesium Oxide 400 MG 1 tablet with jessica d Orally Once a day Active metFORMIN HCl 1000 MG 1 tablet with a me al Orally BID Active Memantine HCl 5 MG 1 tablet Orally BID Active Pioglitazone HCl 30 MG 1 tablet Orally O nce a day Active Nitroglycerin 0.4 MG 1 tablet under the tongue and allow to dissolve as needed. Take every 5 minutes up to 3 times if chest pain persists Sublingual every 5 minutes of needed for chest pain As needed Active Encounters Encounter Location Date Provider Diagnosis [facility] [place] [address] [place] [address] 10/26/2024 Cheo Kenny Plan Of Treatment Next Appt Details Provider Name:Cheo Kenny, 04/24/2025 12:00:00 PM, [address] [place] [address], [phone], Progress Notes * Donny JOSEDOB:1955 (69 yo M)Acc No.[id number]:10/26/2024 Patient: Donny ARROYO :1955 A ge:69 Y S ex:Male Address:[address], [address] Subjective: * Chief Complaints: * N P chart prep * Medical History: * Surgical History: * Hospitalization/Major Diagno stic Procedure: * Medications: T akingAcetaminophen 325 MG Tablet 1 tablet as needed Orally Aspirin 81(Aspirin) 81 MG Tablet Delayed Release 1 tablet Orally Once a day Carvedilol 6.25 MG Tablet 1 tablet with food Orally Twice a day Cetirizine HCl 10 MG Tablet 1 tablet Orally Once a day Clopidogrel Bisulfate 75 MG Tablet 1 tablet Orally Once a day Famotidine 20 MG Tablet 1 tablet at bedtime as needed Orally Once a day Farxiga(Dapagliflozin Propanediol) 10 MG Tablet 1 tablet Orally Once a day Glimepiride 4 MG Tablet 1 tablet with breakfast or the first main meal of the day Orally BID Insulin Glargine 100 UNIT/ML Solution as directed Subcutaneous Lisinopril 10 MG Tablet 1 tablet Orally Once a day Magnesium Oxide 400 MG Tablet 1 tablet with food Orally Once a day Memantine HCl 5 MG Tablet 1 tablet Orally BID metFORMIN HCl 1000 MG Tablet 1 tablet with a meal Orally BID Nitroglycerin 0.4 MG Tablet Sublingual 1 tablet under the tongue and allow to dissolve as needed. Take every 5 minutes up to 3 times if chest pain persists Sublingual every 5 minutes of needed for chest pain As neededPioglitazone HCl 30 MG Tablet 1 tablet Orally Once a day Rivaroxaban 2.5 MG Tablet 1 tablet with food Orally Twice a day Rosuvastatin Calcium 10 MG Tablet 1 tablet Orally Once a day Medication List reviewed and reconciled with the patientTaking Acetaminophen 325 MG Tablet 1 tablet as needed Orally Taking Aspirin 81(Aspirin) 81 MG Tablet Delayed Release 1 tablet Orally Once a day Taking Carvedilol 6.25 MG Tablet 1 tablet with food Orally Twice a day Taking Cetirizine HCl 10 MG Tablet 1 tablet Orally Once a day Taking Clopidogrel Bisulfate 75 MG Tablet 1 tablet Orally Once a day Taking Famotidine 20 MG Tablet 1 tablet at bedtime as needed Orally Once a day Taking Farxiga(Dapagliflozin Propanediol) 10 MG Tablet 1 tablet Orally Once a day Taking Glimepiride 4 MG Tablet 1 tablet with breakfast or the first main meal of the day Orally BID Taking Insulin Glargine 100 UNIT/ML Solution as directed Subcutaneous Taking Lisinopril 10 MG Tablet 1 tablet Orally Once a day Taking Magnesium Oxide 400 MG Tablet 1 tablet with food Orally Once a day Taking Memantine HCl 5 MG Tablet 1 tablet Orally BID Taking metFORMIN HCl 1000 MG Tablet 1 tablet with a meal Orally BID Taking Nitroglycerin 0.4 MG Tablet Sublingual 1 tablet under the tongue and allow to dissolve as needed. Take every 5 minutes up to 3 times if chest pain persists Sublingual every 5 minutes of needed for chest pain As neededTaking Pioglitazone HCl 30 MG Tablet 1 tablet Orally Once a day Taking Rivaroxaban 2.5 MG Tablet 1 tablet with food Orally Twice a day Taking Rosuvastatin Calcium 10 MG Tablet 1 tablet Orally Once a day Medication List reviewed and reconciled with the patient * Allergies: O Leonides[Allergies Verified] Objective: * Vitals: * Physical Examination: Assessment: Plan: * Treatment: * Procedure Codes: * true * Date: Generated for Bobbi edwarsd/Karla/Layo on: 02/09/2025 01:23 PM EDT
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
--- OUTSIDE RECORDS SUMMARY | 2025-02-09 13:23 | XMS_ITS | Encounter Summary ---
Author Organization [facility] tem Address [id number] [address] [place] [address] Care Team Providers Care Tomato Paste Maker Name Role Phone SegundoDorys tsang Yessica SOLIZN-WINDOWS SYSTEMS ENGINEER Primary Care Pro vider Encounter Details Date Type Department Care Team (Late st Contact Info) Description 07/03/2021 Telephone [facility] - ICU [address] [place] [phone] Diane Slade RN Social History Tobacco Use [...] documented as of this encounter Care Teams Tomato Paste Maker Relationship Specialty Start Date End Date Dorys Yan APRN-WINDOWS SYSTEMS ENGINEER [address] [place] [address] PCP - General Family Medicine 09/09/24 documented as of this encounter
--- OUTSIDE RECORDS SUMMARY | 2025-02-09 13:23 | XMS_ITS | Encounter Summary ---
Author Organization [facility] Address [address] [place] [address] Care Team Providers Care Concrete Mixer Truck Driver Name Role Phone Shikha Doherty MD Primary Care Provider [phone] Dorys Yan LINE INSTALLATION SUPERVISOR Unavailable [phone] Encounter Details Date Type Department Care Team (Latest Contact Info) Description 01/26/2025 Travel Social History Tobacco Use Types Packs/Day [...] week 12/25/2022 How often do you attend [facility] or [facility] services? Never 12/25/2022 Do you belong to any clubs o r organizations such as oriental orthodox groups, unions, fraternal or athletic groups, or [...] Recorded Patient Health Questionnaire-2 Score 0 11/24/2023 [facility] - Occupational [...] place to sleep or slept in a custodial (including now)? No 12/25/2022 Sex and Gender Information Value Date Recorded Sex Assigned at Not on file Legal Sex Male 7:34 PM EDT Gender Identity Not on file Sexual Orientation Not on file documented as of this encounter Plan of Treatment Upcoming Encounters Date Type Department Care Team (Late st Contact Info) Description 02/14/2025 9:30 AM EDT Office Visit [facility] [address] [place] [address] Wesley Her DPM [address] [facility] [place] [address] 02/24/2025 11:00 AM EDT Office Visit [facility] [address] [place] [address] Shikha Doherty MD [address] [place] [address] 04/04/2025 2:10 PM EDT Office Visit [facility] [address] [place] [address] Ubaldo Carpio MD [address] [place] [address] 05/02/2025 2:00 PM EDT Procedure Visit [facility] [address] [facility] [address] Wesley Her DPM [address] [place], [place] [phone] documented as of this encounter Visit Diagnoses Not on filedocumented in this encounter Care Teams Concrete Mixer Truck Driver Relationship Specialty Start Date End Date Shikha Doherty MD [address] [place] [address] PCP - General Family Medicine 08/10/23 01/29/25 Dorys Yan NP [address] [place] [address] Nurse Practitioner Family Medicine 08/10/23 documented as of this encounter
--- OUTSIDE RECORDS SUMMARY | 2025-02-09 13:23 | XMS_ITS | Encounter Summary ---
Author Organization [facility] Address [address] [place] [address] Care Team Providers Care Aviation Consultant Name Role Phone Shikha Doherty MD Primary Care Provider [phone] Sean Yan EDGER AUTOMATIC Unavailable [phone] Renetta Bales RN Unavailable [phone] Shikha Doherty MD Primary Care Provider [phone] Encounter Details Date Type Department Care Team (Late st Contact Info) Description 12/09/2024 External Result Encounter [facility] External Department Unsolicited Sean Yan EDGER AUTOMATIC [address] [facility] [address] [place] [phone] Social History Tobacco Use Types Packs/Day Years [...] often do you attend chur ch or judaism services? Never 12/25/2022 Do you belong to any clubs o r organizations such as mosque groups, unions, fraternal or athletic groups, or [...] Recorded Patient Health Questionnaire-2 Score 0 11/24/2023 [facility] Answer Date [...] place to sleep or slept in a long-term (including now)? No 12/25/2022 Sex and Gender Information Value Date Recorded Sex Assigned at Not on file Legal Sex Male 7:34 PM EDT Gender Identity Not on file Sexual Orientation Not on file documented as of this encounter Plan of Treatment Upcoming Encounters Date Type Department Care Team (Late st Contact Info) Description 02/14/2025 9:30 AM EDT Office Visit [facility] [address] [address] Wesley Her DPM [address] [place] [address] 02/24/2025 11:00 AM EDT Office Visit [facility] [address] [place] [address] Shikha Doherty MD [address] [place] [address] 04/04/2025 2:10 PM EDT Office Visit [facility] [address] [place] [address] Ubaldo Carpio MD [address] [place] [address] 05/02/2025 2:00 PM EDT Procedure Visit [facility] [address] [place] [address] Wesley Her, DPM [address] [place] [address] documented as of this encounter Procedures Procedure Name Priority Date/Time Associated Diagnosis Comments CLINICAL PATHOLOGY REVIEW Routine 12/09/2024 8:43 AM EDT documented in this encounter Results * CLINICAL PATHOLOGY REVIEW (12/09/2024 8:43 AM EDT) CLINICAL PATHOLOGY REVIEW SEE RESULTS BELOW [facility] Comment: SPECIMEN SOURCE Urine LAB AP CASE REPORT: Clinical Pathology Report Case: [id number] Authorizing Provider: Cheo Kenny MD Collected: 12/09/2024 [facility] Ordering Location: [facility] Received: 12/09/[address] [place] [address] - Lab Pathologist: Luis Gresham MD Specimen: Urine LAB AP FINAL DIAGNOSIS: 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 No monoclonal protein identified. at 1233 EDT PERFORMED AT [facility] [address],[place] [address] The copy-to physician of this order is SEAN Simmons 12/09/2024 8:43 AM EDT 12/09/2024 8:43 AM EDT us Sean Yan EDGER AUTOMATIC LAB BLOOD ORDERABLES Fi nal Result [facility] documented in this encounter Visit Diagnoses Not on filedocumented in this encounter Care Teams Aviation Consultant Relationship Specialty Start Date End Date Shikha Doherty MD [address] [place], [place] [phone] PCP - General Family Medicine 08/10/23 01/29/25 Shikha Doherty MD [address] [place] [id number] PCP - General Family Medicine 01/30/25 Sean Yan NP [address] [place] [address] [place] [address] Nurse Practitioner Family Medicine 08/10/23 Renetta Bales, EARL [address] [place] [address] Registered Nurse Family Medicine 08/09/24 12/12/24 documented as of this encounter
--- OUTSIDE RECORDS SUMMARY | 2025-02-09 13:23 | XMS_ITS | Clinical Summary ---
Author Organization [facility] Address [address], [address] [place] [address] Care Team Providers Care Fitness Sales Consultant Name Role Phone Shikha Melendez MD Primary [...] Annual Wellness Visit (Medicare) 2024 Flu vaccine (#1) 02/10/2025 04/08/2023, 12/2021, 05/14/2021, Additional history exists Respiratory Syncytial Virus [...] ID:Not on file Type:Not on file Address: [address] [place] Care Teams Fitness Sales Consultant Relationship Specialty Start Date End Date Shikha Melendez MD [address] [place] [address] PCP - General Family Medicine 07/01/24
--- OUTSIDE RECORDS SUMMARY | 2025-02-09 13:24 | XMS_ITS | Encounter Summary ---
Author Organization [facility] Address [address] [place] [address] Care Team Providers Care Manager Metrology Name Role Phone Neetu Calzada DO Unavailable [phone] Neetu Calzada DO Primary Care Provider [phone] Shikha Doherty MD Primary Care Provider [phone] Dorys Yan QUALITY COMPLIANCE MANAGER Unavailable [phone] Shikha Loja RN Unavailable [phone] Renetta Bales RN Unavailable [phone] Neetu Calzada DO Unavailable [phone] Shikha Doherty MD Primary Care Provider [phone] Encounter Details Date Type Department Care Team (Late st Contact Info) Description 06/11/2023 [facility] [address] [place] [address] Neetu Calzada DO [address] [facility] [address] [place] [address] Social History Tobacco Use Types [...] How often do you attend chur or christian services? Never 12/25/2022 Do you belong to any clubs o r organizations such as orthodoxy groups, unions, fraternal or athletic groups, or [...] Patient Health Questionnaire-2 Score 0 12/25/2022 [facility] Occupat ional Health - Occupational Stress [...] EDT Office Visit [facility] [address] [place] [address] Wesley Her DPSissy [address] [place], [place] [address] 02/24/2025 11:00 AM EDT Office Visit [facility] [address] [place] [address] Shikha Doherty MD [address] [place] [address] 04/04/2025 2:10 PM EDT Office Visit [facility] [address] [place] [address] Ubaldo Carpio MD [address] [place] [address] 05/02/2025 2:00 PM EDT Procedure Visit [facility] [address] [place] [address] Wesley Her DPSissy [address] [place] [address] documented as of this encounter Visit Diagnoses Not on filedocumented in this encounter Care Teams Manager Metrology Relationship Specialty Start Date End Date Neetu Calzada DO [address] [facility] [address] [facility] [place] [address] PCP - ACO Reach 12/04/22 08/18/24 Neetu Calzada DO [address] [facility] [address] [facility] [place] [address] PCP - General Family Medicine 12/25/22 08/09/23 Shikha Doherty MD [address] [place] [address] PCP - General Family Medicine 08/10/23 01/29/25 Neetu Calzada DO [address] [facility] [address] [facility] [place] [address] PCP - ACO Reach 08/26/24 10/13/24 Shikha Doherty MD [facility] [place] [address] PCP - General Family Medicine 01/30/25 Dorys Yan NP [address] [place] [address] Nurse Practitioner Family Medicine 08/10/23 Shikha Loja, EARL [address] [place] [address] Registered Nurse Family Medicine 08/04/24 08/09/24 Renetta Bales, RN [address] [place] [address] Registered Nurse Family Medicine 08/09/24 12/12/24 documented as of this encounter
--- OUTSIDE RECORDS SUMMARY | 2025-02-09 13:24 | XMS_ITS | Encounter Summary ---
Author Organization [facility] tem Address [id number] [address] [place] [address] Care Team Providers Care Gate Attendant Name Role Phone SegundotrinhFroylania Yessica CHEMIST WATER PURIFICATION-DRUG SAFETY DATA MANAGEMENT SPECIALIST Primary Care Pro vider Reason for Referral * Consultation (Routine) - Closed Specialty Diagnoses / Procedures Referred By Torsten dunn Referred To Contact Nephrology Diagnoses Stage 3 chronic kidney disease, unspecified whether stage 3a or 3b CKD ([facility]) Milvia Gil MD [address] [place] [address] Phone: tel: fax: Diogo Byrnes MD Phone: tel: fax: Referral ID Status Reason Start Date Expiration Date V isits Requested Visits Authorized [id number] Closed Specialty Services Required 02/21/2021 02/21/2022 1 1 Reason for Visit * Reason Onset Date Comments Med Refill 02/21/2021 Encounter Details Date Type Department Care Team (Late st Contact Info) Description 02/21/2021 Refill [facility] [address] [phone] Yola Coronel RN Med Refill Social History [...] Unspecified Whether Stage 3a Or 3b Ckd ([facility]) 1 Occurrences starting 02/21/2021 until 08/24/2021 documented as of this encounter Visit Diagnoses Diagnosis Stage 3 chronic kidney disease, unspecified whether stage 3a or 3b CKD ([facility])- Primary documented in this encounter Additional Health Concerns Infection Onset Date Last Indicated Resolved Time COVID-19 Rule-Out 10/10/2023 10/10/2023 10/10/2023 7:20 AM EDT Enteric Rule-Out 07/19/2024 07/18/2024 07/19/2024 11:37 AM EST Assessment Noted Time A Body Mass Index follow-up plan has been documented for the patient 08/30/2019 10:09 AM EST documented as of this encounter Care Teams Gate Attendant Relationship Specialty Start Date End Date Dorys Yan APRN-DRUG SAFETY DATA MANAGEMENT SPECIALIST [address] [place] [address] PCP - General Family Medicine 09/09/24 documented as of this encounter
--- OUTSIDE RECORDS SUMMARY | 2025-02-09 13:24 | XMS_ITS | Patient Health Record ---
Author Organization [facility] [place] Address [address] [place] [address] Care Team Providers Care Cleat Blanker Name Role Phone Dorys Yan CNP Primary Care Provider Jami LindsaychuchoCheo Unavailable [phone] Allergies Allergen (clinical drug ingredient) Drug/Non Drug Allergy documented on EMR Reaction Allergy Type Onset Date Status ondansetron Ondansetron Unknown Drug Allergy Act edna warfarin Warfarin Unknown Drug Allergy Active Results Component Value Reference Range Notes CBC AUTO DIFF (Not yet revie wed by provider) Interpretation: Performing Lab: Notes/Report: [facility] , White Blood Count 14.5 4.0-11.0 10 [...] 0.00-0.03 10 3/uL Performing Lab: see note - [facility] LB PROF CHEM 8 (BAS METB) (Not yet reviewed by provider) Interpretation: Performing Lab: Notes/Report: [facility] , Sodium 135 136-145 mmol/L Potassium 4.4 3.5-5.1 mmol/L Chloride 99 98-107 mmol/L Carbon Dioxide 29.3 21.0-32.0 mmol/L Anion Gap 11.1 Glucose 160 74-106 mg/dL Blood Urea Nitrogen 21.0 7.0-18.0 mg/dL Creatinine 1.91 0.70-1.30 mg/dL Estimated GFR ( Dalila 43 >=60 mL/min/1.73m 2 Estimated GFR (Non- Su 35 >=60 mL/min/1.73m 2 BUN Creatinine Ratio 11.0 Calcium 9.0 8.5-10.1 mg/dL Performing Lab: see note [facility] LB MICROALBUMIN WITH RATIO Reviewed date:12/12/2024 03:48:08 PM Interpretation: Performing Lab: Notes/Report: URINE CREATININE,RDM 111.87 MALB/CREAT RATIO 94.8 0.0-30.0 mg/g MICROALBUMIN, URINE 10.6 0.0-1.9 mg/dL PERFORMED AT [address], [place] [address] URINE PROTEIN ELECTROPHORESI S Reviewed date:12/12/2024 03:44:19 PM Interpretation: Performing Lab: Notes/Report: PERFORMED AT [address],[place] [address] URINE PROTEIN ELECTROPHORESIS INTERP See Pathology Report SERUM PROTEIN ELECTROPHORESI S Reviewed date:12/12/2024 03:48:05 PM Interpretation: Performing Lab: Notes/Report: Unremarkable protein distribution, no monoclonal bands 3.5 PERFORMED AT [address],[place] [address] TOTAL PROTEIN 6.9 6.0-8.0 g/dL ALPHA 1 GLOBULIN 0.3 0.1-0.4 g/dL ALPHA 2 GLOBULIN 0.9 0.4-1.1 g/dL BETA GLOBULIN 1.0 0.5-1.2 g/dL GAMMA GLOBULIN 1.2 0.5-1.6 g/dL PROTEIN ELECTROPHORESIS INTERP SEE RESULTS BELOW URIC ACID Reviewed date:12/12/2024 03:48:22 PM Interpretation: Performing Lab: Notes/Report: URIC ACID 7.3 2.6-7.2 mg/dL PERFORMED AT [address],[place] [address] VITAMIN D 25 HYD TOT Reviewed date:12/12/2024 03:48:14 PM Interpretation: Performing Lab: Notes/Report: VITAMIN D 25 HYD TOT 15.9 30.0-100.0 ng/mL Insufficiency 20-29 ng/mL Vitamin D status 25 [place] Vitamin D PERFORMED AT [address], [place] [address] Toxicity >100 ng/mL Sufficiency 30-100 ng/mL Deficiency <20 ng/mL NOTE: A pediatric reference range has not been established by the energy consultant of this kit. The [place] [employer] recommends a Vitamin D level of = or >20ng/mL in infants and children. ------ PTHI ([facility]) Reviewed date:12/12/2024 03:48:31 PM Interpretation: Performing Lab: Notes/Report: PTH INTACT 70 12-88 pg/mL PERFORMED AT [address], [place] [address] PHOSPHORUS Reviewed date:12/12/2024 03:48:25 PM Interpretation: Performing Lab: Notes/Report: PHOSPHORUS 3.6 2.4-4.9 mg/dL PERFORMED AT [address], [place] [address] MAGNESIUM Reviewed date:12/12/2024 03:48:28 PM Interpretation: Performing Lab: Notes/Report: MAGNESIUM 1.9 1.8-2.6 mg/dL PERFORMED AT [address] [place] [address] ALBUMIN Reviewed date:12/12/2024 03:48:16 PM Interpretation: Performing Lab: Notes/Report: ALBUMIN 3.7 3.2-5.3 g/dL PERFORMED AT [address] [place] [address] CBC (COMPLETE BLOOD COUNT) * Reviewed date:12/12/2024 03:48:36 PM Interpretation: Performing Lab: Notes/Report: WBC 7.9 4-11 x10E9/L RBC COUNT 4.26 4.1-5.7 X10E12/L HEMOGLOBIN 10.7 13-17 g/dL HEMATOCRIT 33.7 39-50 % MCV 79 80-100 fL MCH 25.1 27-34 pg MCHC 31.7 32-36 g/dL RDW 18.5 11.5-15 % PLATELET COUNT 270 150-450 X10E9/L MPV 8.6 7-12 fL PERFORMED AT [address] [place] [address] BMP w/GFR Reviewed date:12/12/2024 03:48:19 PM Interpretation: Performing Lab: Notes/Report: SODIUM 140 134-146 mmol/L POTASSIUM 4.4 3.5-5.0 mmol/L CHLORIDE 99 98-109 mmol/L CARBON DIOXIDE 27 22-32 mmol/L ANION GAP 14 5-15 mmol/L BLOOD UREA NITROGEN 17 5-27 mg/dL CREATININE 1.69 0.60-1.30 mg/dL METHOD TRACE ABLE TO [facility] STANDARD GLUCOSE 276 65-99 mg/dL CALCIUM 9.1 8.5-10.5 mg/dL EGFR (CKD-EPI) NON-RACE DEPENDENT 43 >=60 ml/min/1.73sq.m PERFORMED AT [address] [place] [address] not use a race coefficient. Reported eGFR is based on the CKD-EPI 2020 equation that does CLINICAL PATHOLOGY REVIEW Reviewed date:12/12/2024 02:26:42 PM Interpretation: Performing Lab:[facility] [address] [place] [address], [address], [place]. 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 PERFORMED AT [address],[place] [address] Pathologist: Sami Gresham MD LAB AP CASE REPORT: The copy-to physician of this order is DORYS Simmons Specimen: Urine Clinical Pathology Report Case: [id number] LAB AP FINAL DIAGNOSIS: No monoclonal protein identified. Authorizing Provider: Cheo Kenny MD Collected: 12/09/202443 SPECIMEN SOURCE Urine Ordering Location: [facility] Received: 12/09/202443 at 1233 EDT URINALYSIS [...] A clinical correlation is recommended. PERFORMED AT [address],[place] [address] Reason For Referral No Information Medications Medication SIG (Take, Route, Frequency, Duration) Notes Start Date End Date Status Dapagliflozin Propanediol 10 MG 1 tablet Orally Once a day Active Lisinopril 10 MG 1 tablet Orally Once a day Not-Taking Famotidine 20 MG 1 tablet at bedtime as needed Orally Once a day Active Magnesium Oxide 400 MG 1 tablet with jessica d Orally Once a day Not-Taking Glimepiride 4 MG 1 tablet with breakf ast or the first main meal of the day Orally BID Active metFORMIN HCl 1000 MG 1 tablet with a me al Orally BID Not-Taking Insulin Glargine 100 UNIT/ML as directed Subcutaneous Active Nitroglycerin 0.4 MG 1 tablet under the tongue and allow to dissolve as needed. Take every 5 minutes up to 3 times if chest pain persists Sublingual every 5 minutes of needed for chest pain As needed Not-Taking Cetirizine HCl 10 MG 1 tablet Orally Onc e a day Not-Taking Clopidogrel Bisulfate 75 MG 1 tablet Orally Once a day Active Farxiga 10 MG 1 tablet Orally Once a day Not-Taking Aspirin 81 81 MG 1 tablet Orally Once a day Active Rosuvastatin Calcium 10 MG 1 tablet Orally Once a day Active Carvedilol 6.25 MG 1 tablet with food Orally Twice a day Active Memantine HCl 5 MG 1 tablet Orally BID Active oxyCODONE HCl 5 MG 1 tablet as needed Orally every 6 hrs Active Pioglitazone HCl 30 MG 1 tablet Orally O nce a day Active Acetaminophen 325 MG 1 tablet as needed Orally Active Rivaroxaban 2.5 MG 1 tablet with food Orally Twice a day Active Problems Problem Type SNOMED Code ICD Code Onset Dates Problem Status W/U Status Risk Notes Problem Foot ulcer due to type 2 diabetes mellitus (4134641827342) Type 2 diabetes mellitus with foot ulcer (E11.621) Active confirmed Problem Ischemic ulcer of right foot due to atherosclerotic disease (disorder) (92704650258017941 ) Atherosclerosis of wrangell arteries of right leg with ulceration of other part of foot (I70.235) Active confirmed Problem Anemia (031366036) Anemia (D64.9) Active confir med Problem Chronic ulcer of great toe of right foot with fat layer exposed (L97.512) Active confirmed Problem Chronic ulcer of foot (488880262) Non-pressure chronic ulcer of right heel and midfoot with fat layer exposed (L97.412) Active confirmed Problem Essential hypertension (50362748) Asymptomatic hypertension (I10) Active confirmed Problem Ischemic ulcer of right midfoot due to atherosclerotic disease (disorder) (68414871848394410 ) Atherosclerosis of wrangell artery of right lower extremity with ulceration of midfoot (I70.234) Active confirmed Problem Chronic kidney disease stage 3B (disorder) (637149418) Chronic kidney disease, stage 3b (N18.32) Active confirmed Vital Signs Blood pressure diastolic 64 mm Hg 12/19/2024 Height 5 ft 9in in 12/19/2024 Blood pressure systolic 102 mm Hg 12/19/2024 Weight 223.0 lbs 12/19/2024 BMI 32.93 kg/m2 12/19/2024 Encounters Encounter Location Date Provider Diagnosis [facility] [address] [place] [address] 10/26/2024 Cheo Kenny [facility] [place] [address] [place] [phone] 12/19/2024 Cheo Kenny Type 2 diabetes mellitus with foot ulcer E11.621 ; Chronic kidney disease, stage 3b N18.32 ; Asymptomatic hypertension I10 and Anemia D64.9 [facility] [address] [place] [phone] 11/07/2024 Cheo Kenny Type 2 diabetes mellitus [...] DM control and prevtioenn of CKD progression 12/19/2024 Type 2 diabetes mellitus with foot ulcer (ICD-10 - E11.621) 12/19/2024 Chronic kidney disease, stage 3b (ICD-10 - N18.32) 69 yo M with CKD 3b related to DM and cardiorenal issues Continue Farxiga for management of DM and prevention of CKD progression Electrolytes are OK Albuminuria remains mild Encourage OTC iron supplement MWF for Hgb over 10 with low MCV F/U with wound care for his foot ulcers Avoid NSAIDs and IV contrast use PTH and vit D are OK No issues with gout, uric acid is near 7 12/19/2024 Asymptomatic hypertension (ICD-10 - I10) 11/07/2024 Asymptomatic hypertension (ICD-10 - I10) 11/07/2024 Anemia (ICD-10 - D64.9) 12/19/2024 Anemia (ICD-10 - D64.9) Plan Of Treatment Pending Test Test Name Order Date UA (URINALYSIS, COMPLETE) 11/07/2024 UA (URINALYSIS, COMPLETE) 12/19/2024 ALBUMIN, BLOOD 12/19/2024 ALBUMIN, BLOOD 11/07/2024 MAGNESIUM 11/07/2024 MAGNESIUM 12/19/2024 CBC NO DIFF 12/19/2024 CBC NO DIFF 11/07/2024 PROTEIN ELECTROPHORESIS, BLOOD (SEP) MICROALBUMIN with ALB/CREAT RATIO, URINE (MALB)) 11/07/2024 PHOSPHORUS 12/19/2024 PHOSPHORUS 11/07/2024 PTH INTACT (PARATHYROID HORMONE) 025 PROTEIN ELECTROPHORESIS, URINE RANDOM (U EP) 11/07/2024 VITAMIN D, 25 LEVEL (TOTAL) 11/07/2024 BMP w/GFR 11/07/2024 URIC ACID 11/07/2024 RENAL PANEL 12/19/2024 CBC AUTO DIFF 10/19/2024 PROF CHEM 8 (BAS METB) 10/19/2024 MICROALBUMIN w THEATRICAL AGENT RATIO 12/19/2024 Next Appt Details Provider Name:Cheo Kenny, 04/24/2025 12:00:00 PM, [address] [facility], [place], [address], Insurance Providers Payer Name Payer Address Payer Phone Subscriber Number Group Number Insured Name Patient Relationship to Insured Coverage Start Date Coverage End Date [place] [address] [place] [address] [id number] Donny Jose Self - patient is the insured FRONTPATH [address] [place], [place] [id number] Donny Jose Self - patient is the insured Medical (General) History Medical History History ICD Code adenomatous polyp of descending colon chest pain 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
--- OUTSIDE RECORDS SUMMARY | 2025-02-09 13:25 | XMS_ITS | Encounter Summary ---
Author Organization [facility] Address [address] [place] [address] Care Team Providers Care Polymer Materials Consultant Name Role Phone Shikha Doherty MD Primary Care Provider [phone] Dorys Yan BASEBALL COACH Unavailable [phone] Encounter Details Date Type Department Care Team (Latest Contact Info) Description 01/27/2025 Travel Social History Tobacco Use Types Packs/Day [...] How often do you attend [facility] or hoahaoism services? Never 12/25/2022 Do you belong to any clubs o r organizations such as orthodox groups, unions, fraternal or athletic groups, [...] Recorded Patient Health Questionnaire-2 Score 0 11/24/2023 [facility] Occupat ional Health - [...] Visit [facility] [address] [place] [phone] Wesley Her DPM [address] [facility] [place] [address] 02/24/2025 11:00 AM EDT Office Visit [facility] [address] [place] [phone] Shikha Doherty MD [address] [place] [address] 04/04/2025 2:10 PM EDT Office Visit [facility] [address] [place] [address] Ubaldo Carpio MD [address] [place] [address] 05/02/2025 2:00 PM EDT Procedure Visit [facility] [address] [facility] [place] [phone] Wesley Hre DPM [address] [place], [place] [phone] documented as of this encounter Visit Diagnoses Not on filedocumented in this encounter Care Teams Polymer Materials Consultant Relationship Specialty Start Date End Date Shikha Doherty MD [address] [place] [address] PCP - General Family Medicine 08/10/23 01/29/25 Dorys Yan NP [address] [place] [address] Nurse Practitioner Family Medicine 08/10/23 documented as of this encounter
--- OUTSIDE RECORDS SUMMARY | 2025-02-09 13:25 | XMS_ITS | Encounter Summary ---
Author Organization [facility] Address [address] [place] [facility] [place] [address] Care Team Providers Care Veterinary Medical Officer Name Role Phone Neetu Calzada DO Unavailable [phone] Shikha Doherty MD Primary Care Provider [phone] Dorys Yan WRAPPING MACHINE HELPER Unavailable [phone] Shikha Loja RN Unavailable [phone] Renetta Bales RN Unavailable [phone] Zheng, Neetu Rutledge DO Unavailable [phone] Shikha Doherty MD Primary Care Provider [phone] Encounter Details Date Type Department Care Team (Late st Contact Info) Description 02/25/2024 [facility] [address] [place] [address] Shikha Dohrety MD [address] [place] [address] Social History Tobacco Use Types [...] How often do you attend chur or sabianist services? Never 12/25/2022 Do you belong to any clubs o r organizations such as hoahaoism groups, unions, fraternal or athletic groups, or [...] Recorded Patient Health Questionnaire-2 Score 0 11/24/2023 [facility] [place] of Occupat ional Health - Occupational Stress [...] Office Visit [facility] [address] [place] [phone] Wesley Her DPM [address] [place] [address] 02/24/2025 11:00 AM EDT Office Visit [facility] [address] [facility] [place] [phone] Shikha Doherty MD [address] [facility] [place] [place], [place] [phone] 04/04/2025 2:10 PM EDT Office Visit [facility] [address] [place] [id number] Ubaldo Carpio MD [address] [place] [address] 05/02/2025 2:00 PM EDT Procedure Visit [facility] [address] [place] [address] Wesley Her, DPM [address] [place], [place] [phone] documented as of this encounter Visit Diagnoses Not on filedocumented in this encounter Care Teams Veterinary Medical Officer Relationship Specialty Start Date End Date Neetu Calzada DO [address] [facility] [address] [place] [address] PCP - ACO Reach 12/04/22 08/18/24 Shikha Doherty MD [address] [place], [place] [phone] PCP - General Family Medicine 08/10/23 01/29/25 Neetu Calzada DO [address] [facility] [address] [place] [address] PCP - ACO Reach 08/26/24 10/13/24 Shikha Doherty MD [address] [place], [place] [phone] PCP - General Family Medicine 01/30/25 Dorys Yan NP [address] [place] [address] Nurse Practitioner Family Medicine 08/10/23 Shikha Loja, RN [address] [place], [place] [phone] Registered Nurse Family Medicine 08/04/24 08/09/24 Renetta Bales RN [address] [place], [place] [phone] Registered Nurse Family Medicine 08/09/24 12/12/24 documented as of this encounter
--- OUTSIDE RECORDS SUMMARY | 2025-02-09 13:25 | XMS_ITS | Clinical Summary ---
Author Organization [facility] Address [address] [place] [address] Care Team Providers Care House Detective Name Role Phone SegundolarisateeSean Yessica STATION INSPECTOR Unavailable [phone] Shikha Doherty MD Primary Care Provider [phone] Allergies Active Allergy Reactions Criticality Noted Date Comments Ondansetron Unknown 12/25/2022 Warfarin 02/14/2017 Vomiting Medications magnesium oxide (Mag-Ox) 400 MG tablet 1 (one) time each day at the same time Active acetaminophen (Tylenol) 325 MG tablet every 4 (four) hours Active aspirin 81 MG EC tablet Take 81 mg by mouth in the morning. 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 5 Active amoxicillin-clavula sana (Augmentin) 875-125 MG tablet Take 875 mg by mouth in the morning and 875 mg before bedtime. 5 Active cilostazol (Pletal) 100 MG tablet Take 100 mg by mouth in the morning and 100 mg in the evening. 5 Active glimepiride (Amaryl) 4 MG tabletIndications:T ype 2 diabetes mellitus with diabetic chronic kidney disease (HCC) TAKE 1 TABLET BY MOUTH TWICE A DAY WITH MEALS 180 tablet 1 5 Active famotidine (Pepcid) 20 MG tabletIndications:G astroesophageal reflux disease with esophagitis without hemorrhage TAKE 1 TABLET BY MOUTH TWICE A DAY NEEDED 180 tablet 1 5 Active memantine (Namenda) 5 MG tabletIndications:D ementia without behavioral disturbance (HCC) TAKE 1 TABLET BY MOUTH TWICE A DAY 180 tablet 1 5 Active oxyCODONE-acetamino phen (Percocet) 5-325 MG tablet 1 tablet Acti ve Farxiga 10 MGIndications:Type 2 diabetes mellitus with other diabetic kidney complication (HCC) TAKE 1 TABLET (10 MG) BY MOUTH DAILY. 90 tablet 1 5 Active insulin glargine (Lantus SoloStar) 100 UNIT/ML penIndications:Diab etes mellitus with peripheral vascular disease (HCC) INJECT 60 UNIT UNDER THE SKIN ONCE DAILY 54 mL 1 5 Active pioglitazone (Actos) 45 MG tabletIndications:T ype 2 diabetes mellitus with other diabetic kidney complication (HCC) TAKE 1 TABLET BY MOUTH EVERY DAY 90 tablet 1 5 Active cetirizine (ZyrTEC) 10 MG tabletIndications:P ost-nasal drainage TAKE 1 TABLET (10 MG) BY MOUTH DAILY. 90 tablet 5 Active carvedilol (Coreg) 6.25 MG tabletIndications:A therosclerosis of coronary artery bypass graft(s), unspecified, with other forms of angina pectoris TAKE 1 TABLET BY MOUTH TWICE A DAY 180 tablet 1 5 Active rosuvastatin (Crestor) 10 MG tabletIndications:M ixed hyperlipidemia TAKE 1 TABLET BY MOUTH EVERY DAY 90 tablet 5 Active sulfamethoxazole-tr imethoprim (Bactrim DS) 800-160 MG per tablet Take 1 tablet by mouth in the morning and 1 tablet before bedtime. 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 12/25/2022 Current use of group home anticoagulation 023 Dementia without behavioral disturbance 12/26/19 Diabetes mellitus with peripheral vascular disea se 12/25/2022 Follicular acne 12/25/2022 Former smoker, stopped smoking many years ago Gastroesophageal reflux dise ase with esophagitis without hemorrhage 12/25/2022 H/O cardiac arrest 12/25/2022 History of adenomatous polyp of colon 12/25/2022 History of malignant neoplasm of large intestine 12/25/2022 Hypomagnesemia 12/25/2022 long-term current use of oral hypoglycemic drug 12/25/2022 [...] Encounters Date Type Department Care Team Description 02/08/2025 Results Follow-Up [facility] Family Medicine [address] [place] [phone] Shikha Doherty MD 01/30/2025 3:30 PM EDT Office Visit [facility] [address] [place] [address] Wesley Her, DPM History of amputation (HHS-HCC) (Primary Dx); 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 ([place], [place] [id number] Sean Yan NP Mixed hyperlipidemia 12/28/2024 Refill [facility] [address] [facility] ([place], [place] [phone] Shikha Doherty MD Mixed hyperlipidemia 12/28/2024 Refill [facility] [address] [facility] ([place] [place] [phone] Sean Yan NP Post-nasal drainage 12/28/2024 Refill [facility] [address] [facility] ([place] [place] [phone] Diane Eller NP Essential (primary) hypertension ; Atherosclerosis of coronary artery bypass graft(s), unspecified, with other forms of angina pectoris 12/28/2024 Refill [facility] [address] [place] [address] Uabldo Carpio MD Type 2 diabetes mellitus with other diabetic kidney complication (HCC) 12/27/2024 [facility] [address] [facility] ([place] [place] [phone] Sean Yan NP Diabetes mellitus with peripheral vascular disease (HCC) 12/12/2024 Patient Outreach [facility] [address] [place] [address] Renetta Bales RN 12/11/2024 Refill [facility] [address] [place] [phone] Ubaldo Carpio MD Type 2 diabetes mellitus with other diabetic kidney complication (HCC) 12/09/2024 External Result Encounter [facility] Unsolicited Sean Yan NP 12/02/2024 10:50 AM EDT Office Visit [facility] [address] [place] [address] Ubaldo Carpio MD Controlled type 2 diabetes [...] to 33.9 in adult 12/02/2024 Bamboo flowsheet [facility] [address] [place] [address] Ubaldo Carpio MD 11/24/2024 Refill [facility] [address] [place] [address] Ubaldo Carpio MD Type 2 diabetes mellitus with other diabetic kidney complication (HCC); Gastroesophageal reflux disease with esophagitis without hemorrhage; Dementia without behavioral disturbance (HCC) from Last 3 Months Immunizations Immunization [...] How often do you attend chur or quaker services? Never 12/25/2022 Do you belong to [...] Recorded Patient Health Questionnaire-2 Score 0 11/24/2023 [facility] - Occupational Stress Questionnaire Answer Date Recorded [...] EDT Inhaled Oxygen Concentration - - Weight 103 kg (227 lb) 01/30/2025 3:25 PM EDT Height 175.3 cm (5' 9 ) 01/30/2025 3:25 PM EDT Body Mass Index 33.52 01/30/2025 3:25 PM EDT Plan of Treatment Upcoming Encounters Date Type Department Care Team (Late st Contact Info) Description 02/14/2025 9:30 AM EDT Office Visit [facility] [place] [facility] [address] [place] [phone] Wesley Her DPM [address] [place], [place] [id number] 02/24/2025 11:00 AM EDT Office Visit [facility] [address] [place] [phone] Shikha Doherty MD [address] [place] [address] 04/04/2025 2:10 PM EDT Office Visit [facility] [address] [place] [address] Ubaldo Carpio MD [address] [place] [address] 05/02/2025 2:00 PM EDT Procedure Visit [facility] [address] [place] [address] Wesley Her DPSissy [address] [place] [address] Health Maintenance Due Date Last Done Comments [...] PATHOLOGY REVIEW Routine 12/09/2024 8:43 AM EDT POCT GLYCOSYLATED HEMOGLOBIN (HGB A1C) Routine 12/02/2024 [...] Recently Relevant to Health Maintenance Results * CLINICAL PATHOLOGY REVIEW (12/09/2024 8:43 AM EDT) CLINICAL PATHOLOGY REVIEW SEE RESULTS BELOW [facility] Comment: SPECIMEN SOURCE Urine LAB AP CASE REPORT: Clinical Pathology Report Case: [id number] Authorizing Provider: Cheo Kenny MD Collected: 12/09/2024 0843 Ordering Location: [facility] Received: 12/09/2024 0843 [facility] - Lab Pathologist: Luis Gresham MD Specimen: Urine LAB AP FINAL DIAGNOSIS: 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 No monoclonal protein identified. at 1233 EDT PERFORMED AT [facility] [address],[place] [address] The copy-to physician of this order is SEAN Simmons 12/09/2024 8:43 AM EDT 12/09/2024 8:43 AM EDT Sean Yan STATION INSPECTOR LAB BLOOD ORDERABLES Fi nal Result [facility] * POCT glycosylated hemoglobin (Hb A1C) docked [...] Narrative 04/05/2021 12:00 PM EDT PERFORMED AT [facility] LOCATION:[id number] Procedure Note CONVERSION, GENERIC - 11/26/2022 PERFORMED AT [facility] LOCATION:[id number] Neetu Calzada DO OPHTH PHOTOGRAPHY Final Result * Colonoscopy (08/19/2019 12:00 PM EST) Anatomical Region Laterality Modality Endoscopy 08/19/2019 12:0 0 PM EST Narrative 08/19/2019 12:00 PM EST PERFORMED AT [facility] LOCATION:[id number] Procedure Note CONVERSION, GENERIC - 11/26/2022 PERFORMED AT [facility] LOCATION:[id number] Hua Mccullough ENDOSCOPY PROCEDURE ORDERABLES Final Result from Last 3 Months or Most Recently Relevant to Health Maintenance Insurance MEDICARE [facility] Care Teams House Detective Relationship Specialty Start Date End Date Shikha Doherty MD [address] [place] [address] PCP - General Family Medicine 01/30/25 Sean Yan NP Nurse Practitioner Family Medicine 08/10/23
--- OUTSIDE RECORDS SUMMARY | 2025-02-09 13:25 | XMS_ITS | Encounter Summary ---
Author Organization [facility] Address [id number] [address] [place] [address] Care Team Providers Care Director Of Critical Care Name Role Phone Segundotrinh Dorys A RESISTANCE BRAZER-JUNIOR LOAN PROCESSOR Primary Care Pro vider Encounter Details Date Type Department Care Team (Late st Contact Info) Description 08/02/2024 Telephone [facility] [address] [place] [address] Elyssa Santos MD [address] [facility] [address] [place] [address] Social History Tobacco Use Types Packs/Day Years Used Date Smoking Tobacco: Former Smokeless Tobacco: Never Alcohol Use Standard Drinks/Week Comments No 0 (1 standard drink = 0.6 oz pur e alcohol) [facility] Utilities Answer Date Recorded In the past 12 months has [employer], gas, oil, or water [facility] threatened to shut off services in your [...] health care. [place] can be reached at [phone] Thank you. * Telephone Encounter - Nikki [...] as of this encounter Care Teams Director Of Critical Care Relationship Specialty Start Date End Date Dorys Yan APRN-MALLORIE [address] [place] [address] PCP - General Family Medicine 09/09/24 documented as of this encounter
--- OUTSIDE RECORDS SUMMARY | 2025-02-09 13:25 | XMS_ITS | Clinical Summary ---
Author Organization [employer] tem Address [id number] [address] [place] [address] Care Team Providers Care Percussion Instructor Name Role Phone Dorys Yan Abigail DOUBLER HELPER-GUIDANCE AND CONTROL SYSTEM ENGINEER Primary Care Pro vider Allergies Active Allergy [...] PAD (peripheral artery disease) 09/13/2024 Atherosclerosis of [place] of right lower extremity with [...] 10:10 AM EDT Office Visit [facility] V[facility] Surgery [address] [place] [phone] Elyssa Santos MD 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) 12/22/2024 Travel 12/06/2024 Travel 11/28/2024 9:51 AM EDT - 11/28/2024 11:59 PM EDT Hospital Encounter [facility] - Vascular [address] [place] [address] Elyssa Santos MD 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) Discharge Disposition: Home 11/28/2024 Travel 11/24/2024 10:00 AM EDT Office Visit [facility] Vascular Surgery [address] [place] [phone] Elyssa Santos MD Critical limb ischemia of [...] pur e alcohol) sober since age 36 [facility] Utilities Answer Date Recorded In the past 12 months has [employer], gas, oil, or water [employer]ood threatened to shut off services in your [...] Additional history exists Depression Screening 09/13/2025 09/13/2024 Adult BMI Screening 12/22/2025 12/22/2024 Tobacco Screening 12/22/2025 12/22/2024 Colonoscopy 07/22/2027 07/22/2024, 07/13, 08/19/2019, Additional [...] safe discharge Medical Devices Implanted Type Area Rubber Compounder Supervisor Device Identifier Shelf Expiration Date Model / Serial / Lot Patch Vsc 8x.8cm Xenosure Bvn Pricrd Tiss Strl Rpl [id number] - [id number] Implanted:Qty: 1 on 07/29/2024 by Elyssa Santos MD at [facility] Graft Right: Arterial [employer] [id number] 12/07/2029 E0.8P8 / / [id number] Description:RIGHT FEMORAL AR VALE Graft Cv 60cm 7mm Thor [address] - [id number] - [id number] Implanted:Qty: 1 on 09/13/2024 by Elyssa Santos MD at [facility] Graft Right: Arterial GETINGE [employer] 03/12/2029 [id number] / [id number] Stent 7fr 135cm Vbx Ba Ppm Expandable Cath Hep Vbhn Eprsth 8 Rpl [id number] - [id number] - [id number] Implanted:Qty: 1 on 07/29/2024 by Elyssa Santos MD at [facility] Stent Right: Arterial [place] [id number] 12/26/2026 [id number] / [id number] / Description:RIGHT ILIAC Stent Vsc Innova 8mm 100mm 130cm 6fr Dlv Sys Rdpq Slf Xpd - [id number] Implanted:Qty: 1 on 07/29/2024 by Elyssa Santos MD at [facility] Stent Right: Arterial [employer] I [id number] 02/01/2025 [id number] / / [id number] Description:RIGHT ILIAC Procedures Procedure Name Priority Date/Time [...] EDT) Case Report Clinical Pathology Report Case: [id number] Authorizing Provider: Cheo Kenny MD Collected: 12/09/2024 [facility] Ordering Location: [facility] Received: 12/09/[address] [place] [address] - Lab Pathologist: Luis Gresham MD Specimen: Urine 12/11/2024 12:33 PM EDT [facility] Final Diagnosis 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 No monoclonal protein identified. 12/11/2024 12:33 PM EDT [facility] at 1233 EDT Urine / Unknown 12/09/2024 8 :43 AM EDT 12/09/2024 8:43 AM EDT us Cheo Kenny MD PATHOLOGY/CYTOLOGY ORDERABLES F inal Result [facility] [address] [place] [address], [place] [phone] * (ABNORMAL) Microalbumin - Albumin: Creatinine Urine Ratio (12/06/2024 11:49 AM EDT) URINE CREATININE,RDM 111.87 mg/dL 12/07/2024 5:55 AM EDT [facility] MALB/CREAT RATIO 94.8(H) 0.0 - 30.0 mg/g 12/07/2024 5:55 AM EDT [facility] MICROALBUMIN, URINE 10.6(H) 0.0 - 1.9 mg/dL 12/07/2024 5:55 AM EDT [facility] Urine Urine specimen collection, clean catch / Unknown 12/06/2024 11:49 AM EDT 12/06/2024 11:49 AM EDT us Cheo Kenny MD URINE ORDERABLES Final Result [facility] [address] [place] [address], [place] [phone] * Protein electrophoresis, urine (12/06/2024 11:49 AM EDT) Urine Protein Electrophoresis Interp See Pathology Report 12/12/2024 6:56 AM EDT [facility] Urine Urine specimen collection, clean catch / Unknown 12/06/2024 11:49 AM EDT 12/06/2024 11:49 AM EDT us Cheo Kenny MD URINE ORDERABLES Final Result [facility] [address] [place] [address], [place] [phone] * (ABNORMAL) Urinalysis (12/06/2024 11:49 AM EDT) COLOR Yellow Yellow, Colorless 12/06/2024 9:02 PM EDT [facility] TURBIDITY Clear Clear 12/06/2024 9:02 PM EDT [facility] SPECIFIC GRAVITY 1.031 1.003 - 1.035 12/06/2024 9:02 PM EDT [facility] NITRITE Negative Negative 12/06/2024 9:02 PM T [facility] PH,URINE 5.5 5.0 - 8.5 12/06/2024 9:02 PM EDT [facility] LEUKOCYTE ESTERASE Negative Negative 12/06/2024 9:02 PM T [facility] Comment:High Concentrations of Glucose May Decrease the Reactivity of the Dipstick Leukocyte Test Pad. PROTEIN Trace(A) Negative 12/06/2024 9:02 PM EDT [facility] KETONES (URINE) Negative Negative 9:02 PM T [facility] UROBILINOGEN <1.1 eu/dL <1.1 eu/dL 12/06/2024 9:02 PM EDT [facility] BILIRUBIN (URINE) Negative Negative 025 9:02 PM T [facility] BLOOD/HGB Trace(A) Negative 12/06/2024 9:02 PM T [facility] HYALINE CASTS 3(H) 0 - 2 12/06/2024 9:02 PM T [facility] MUCOUS Present(A) None 12/06/2024 9:02 PM T [facility] R.B.CELLS 10(H) 0 - 5 12/06/2024 9:02 PM T [facility] W.B.CELLS 1 0 - 5 12/06/2024 9:02 PM T [facility] GLUCOSE (URINE) >1000 mg/dL(A) Negative 12/06/2024 9:02 PM T [facility] Urine Urine specimen collection, clean catch / Unknown 12/06/2024 11:49 AM EDT 12/06/2024 11:49 AM EDT [facility] - 12/06/2024 9:02 PM EDT Urine received without preservative. Delays in transport may affect results. Interpret with caution. A clinical correlation is recommended. Cheo Kenny MD URINE ORDERABLES Final Result [facility] [address] [place] [address], * Parathyroid Hormone, intact (12/06/2024 10:47 AM EDT) PTH INTACT 70 12 - 88 pg/mL 12/06/2024 2:23 PM EDT [facility] Blood Venous blood / Unknown Venipuncture / Unknown 12/06/2024 10:47 AM EDT 12/06/2024 10:47 AM EDT us Cheo Kenny MD LAB BLOOD ORDERABLES Final Resu lt Performing Organization Address City/[facility]/ZIP Co de Phone Number [facility] [address] [place] [address], * (ABNORMAL) Vitamin D 25 hydroxy (12/06/2024 10:47 AM EDT) Pathologist [facility] VITAMIN D 25 HYD TOT 15.9(L) 30.0 - 100.0 ng/mL 12/06/2024 2:31 PM EDT [facility] Blood Venous blood / Unknown Venipuncture / Unknown 12/06/2024 10:47 AM EDT 12/06/2024 10:47 AM EDT Narrative [facility] - 12/06/2024 2:31 PM EDT Vitamin D status 25 [place] Vitamin D Deficiency <20 ng/mL Insufficiency 20-29 ng/mL Sufficiency 30-100 ng/mL Toxicity >100 ng/mL NOTE: A pediatric reference range has not been established by the traffic routing engineer of this kit. The [place] [employer] recommends a Vitamin D level of = or >20ng/mL in infants and children. us Cheo Kenny MD LAB BLOOD ORDERABLES Final Resu lt [facility] [address] [place] [address], [place] [phone] * (ABNORMAL) CBC without diff (12/06/2024 10:47 AM EDT) WBC 7.9 4 - 11 x10E9/L 12/06/2024 1:39 PM EDT [facility] RBC Count 4.26 4.1 - 5.7 X10E12/L 12/06/2024 1:39 PM EDT [facility] Hemoglobin 10.7(L) 13 - 17 g/dL 12/06/2024 1:39 PM EDT [facility] Hematocrit 33.7(L) 39 - 50 % 12/06/2024 1:39 PM EDT [facility] MCV 79(L) 80 - 100 fL 12/06/2024 1:39 PM EDT [facility] MCH 25.1(L) 27 - 34 pg 12/06/2024 1:39 PM EDT [facility] MCHC 31.7(L) 32 - 36 g/dL 12/06/2024 1:39 PM EDT [facility] RDW 18.5(H) 11.5 - 15 % 12/06/2024 1:39 PM EDT [facility] Platelet Count 270 150 - 450 X10E9/L 12/06/2024 1:39 PM EDT [facility] MPV 8.6 7 - 12 fL 12/06/2024 1:39 PM EDT [facility] Blood Venous blood / Unknown Venipuncture / Unknown 12/06/2024 10:47 AM EDT 12/06/2024 10:47 AM EDT Cheo Kenny MD LAB BLOOD ORDERABLES Final Resu lt [facility] [address] [place] [address], [place] [phone] * (ABNORMAL) Uric acid (12/06/2024 10:47 AM EDT) URIC ACID 7.3(H) 2.6 - 7.2 mg/dL 12/06/2024 2:27 PM EDT [facility] Blood Venous blood / Unknown Venipuncture / Unknown 12/06/2024 10:47 AM EDT 12/06/2024 10:47 AM EDT Cheo Kenny MD LAB BLOOD ORDERABLES Final Resu lt [facility] [address] [place] [address], [place] [phone] * Protein electrophoresis, serum (12/06/2024 10:47 AM EDT) TOTAL PROTEIN 6.9 6.0 - 8.0 g/dL 12/07/2024 11:54 AM EDT [facility] ALPHA 1 GLOBULIN 0.3 0.1 - 0.4 g/dL 12/07/2024 11:54 AM EDT [facility] ALPHA 2 GLOBULIN 0.9 0.4 - 1.1 g/dL 12/07/2024 11:54 AM EDT [facility] BETA GLOBULIN 1.0 0.5 - 1.2 g/dL 12/07/2024 11:54 AM EDT [facility] GAMMA GLOBULIN 1.2 0.5 - 1.6 g/dL 12/07/2024 11:54 AM EDT [facility] Protein Electrophoresis Interp Unremarkable protein distribution, no monoclonal bands 12/07/2024 11:54 AM EDT [facility] Albumin 3.5 3.4 - 5.3 g/dL 12/07/2024 11:54 AM EDT [facility] Blood Venous blood / Unknown Venipuncture / Unknown 12/06/2024 10:47 AM EDT 12/06/2024 10:47 AM EDT us Cheo Kenny MD LAB BLOOD ORDERABLES Final Resu lt Performing Organization Address City/[facility]/ZIP Co de Phone Number [facility] [address] [place] [address], [place] [phone] * Phosphorus (12/06/2024 10:47 AM EDT) PHOSPHORUS 3.6 2.4 - 4.9 mg/dL 12/06/2024 2:27 PM EDT [facility] Blood Venous blood / Unknown Venipuncture / Unknown 12/06/2024 10:47 AM EDT 12/06/2024 10:47 AM EDT us Cheo Kenny MD LAB BLOOD ORDERABLES Final Resu lt Performing Organization Address City/[facility]/ZIP Co de Phone Number [facility] [address] [place] [address], * Magnesium (12/06/2024 10:47 AM EDT) MAGNESIUM 1.9 1.8 - 2.6 mg/dL 12/06/2024 2:27 PM EDT [facility] Blood Venous blood / Unknown Venipuncture / Unknown 12/06/2024 10:47 AM EDT 12/06/2024 10:47 AM EDT us Cheo Kenny MD LAB BLOOD ORDERABLES Final Resu lt Performing Organization Address City/[facility]/ZIP Co de Phone Number [facility] [address] [place] [address], [place] [phone] * Albumin (12/06/2024 10:47 AM EDT) ALBUMIN 3.7 3.2 - 5.3 g/dL 12/06/2024 2:27 PM EDT [facility] Blood Venous blood / Unknown Venipuncture / Unknown 12/06/2024 10:47 AM EDT 12/06/2024 10:47 AM EDT us Cheo Kenny MD LAB BLOOD ORDERABLES Final Resu lt [facility] [address] [place] [address], [place] [phone] * (ABNORMAL) Basic Metabolic Panel (12/06/2024 10:47 AM EDT) SODIUM 140 134 - 146 mmol/L 12/06/2024 2:27 PM EDT [facility] POTASSIUM 4.4 3.5 - 5.0 mmol/L 12/06/2024 2:27 PM EDT [facility] CHLORIDE 99 98 - 109 mmol/L 12/06/2024 2:27 PM EDT [facility] CARBON DIOXIDE 27 22 - 32 mmol/L 12/06/2024 2:27 PM EDT [facility] ANION GAP 14 5 - 15 mmol/L 12/06/2024 2:27 PM EDT [facility] BLOOD UREA NITROGEN 17 5 - 27 mg/dL 12/06/2024 2:27 PM EDT [facility] CREATININE 1.69(H) 0.60 - 1.30 mg/dL 12/06/2024 2:27 PM EDT [facility] Comment:METHOD TRACEABLE TO IDMS STANDARD GLUCOSE 276(H) 65 - 99 mg/dL 12/06/2024 2:27 PM EDT [facility] CALCIUM 9.1 8.5 - 10.5 mg/dL 12/06/2024 2:27 PM EDT [facility] EGFR Non-Race Dependent 43(L) >=60 ml/min/1.7 3sq.m 12/06/2024 2:27 PM EDT [facility] Comment: Reported eGFR is based on the CKD-EPI 2020 equation that does not use a race coefficient. Blood Venous blood / Unknown Venipuncture / Unknown 12/06/2024 10:47 AM EDT 12/06/2024 10:47 AM EDT us Cheo Kenny MD LAB BLOOD ORDERABLES Final Resu lt [facility] [address] [place] [address], [place] [phone] * Vas art doppler lwr bilat mult [...] on 07/20/2024 12:34 AM Elyssa Gomes MD [facility] US ORDERABLES Final Res ult from Last 3 Months or Most Recently Relevant to Health Maintenance Insurance [facility] MEDICARE MEDICARE [facility] Advance Directives * Full Code (Latest Code Status on File) Date Activated Date Inactivated Comments 09/13/2024 1:10 PM 09/17/2024 7:39 PM * Full Code Date Activated Date Inactivated Comments 07/17/2024 4:41 AM 08/01/2024 2:44 PM * Full Code Date Activated Date Inactivated Comments 07/02/2021 12:24 PM 07/03/2021 3:02 PM Care Teams Percussion Instructor Relationship Specialty Start Date End Date Dorys Yan APRN-MALLORIE [address] [place] [address] PCP - General Family Medicine 09/09/24
--- OUTSIDE RECORDS SUMMARY | 2025-02-09 13:25 | XMS_ITS | Encounter Summary ---
Author Organization [facility] Address [id number] [address] [place] [address] Care Team Providers Care Copper Tapper Name Role Phone SegundoDorys tsang UNDERWRITING CLERK-PHYSICAL MEDICINE TEACHER Primary Care Pro vider Encounter Details Date Type Department Care Team (Late st Contact Info) Description 08/11/2024 Orders Only [facility] [address] [place] [address] Elyssa Santos MD [address], [facility] [address] [place] [address] Social History Tobacco Use Types Packs/Day Years Used Date Smoking Tobacco: Former Smokeless Tobacco: Never Alcohol Use Standard Drinks/Week Comments No 0 (1 standard drink = 0.6 oz pur e alcohol) [facility] Utilities Answer Date Recorded In the past 12 months has [employer], gas, oil, or water [employer] threatened to shut off services in your [...] documented as of this encounter Care Teams Copper Tapper Relationship Specialty Start Date End Date Dorys Yan APRN-MALLORIE [address] [place] [address] PCP - General Family Medicine 09/09/24 documented as of this encounter
--- OUTSIDE RECORDS SUMMARY | 2025-02-09 13:25 | XMS_ITS | Encounter Summary ---
Author Organization [facility] tem Address [id number] [address] [place] [address] Care Team Providers Care Hostess Host Name Role Phone Dorys Yan SET ILLUSTRATOR-TOWN CLERK Primary Care Pro vider Encounter Details Date Type Department Care Team (Late st Contact Info) Description 02/14/2021 Orders Only [facility] [address] [place] [id number] External, Scanning Provider Social History Tobacco Use [...] Edited Result - Final Performing Organization Address [facility] de Phone Number MANUALLY TRANSCRIBED RESULTS * Multiple labs (11/01/2020) us Scanning Provider External [place] IMAGING Final Result Performing Organization Address [facility] de Phone Number MANUALLY TRANSCRIBED RESULTS * ECG 12 lead (11/01/2020) us Scanning Provider External ECG ORDERABLES Final Result Performing Organization Address [facility] de Phone Number MANUALLY TRANSCRIBED RESULTS * ECG 12 lead (11/01/2020) us Scanning Provider External ECG ORDERABLES Final Result Performing Organization Address [facility] de Phone Number MANUALLY TRANSCRIBED [...] documented as of this encounter Care Teams Hostess Host Relationship Specialty Start Date End Date Dorys Yan APRN-TOWN CLERK [address] [place] [address] PCP - General Family Medicine 09/09/24 documented as of this encounter
--- OUTSIDE RECORDS SUMMARY | 2025-02-09 13:25 | XMS_ITS | Encounter Summary ---
Author Organization [employer] Address [id number] [address] [place] [address] Care Team Providers Care Power Tool Repair Technician Name Role Phone MirelahersonDorys oliveira APRN-HONING MACHINE SET UP OPERATOR TOOL Primary Care Pro vider Reason for Visit * Reason Onset Date Comments cardiac clearance 07/17/2024 Encounter Details Date Type Department Care Team (Late st Contact Info) Description 07/17/2024 Telephone [facility] [address] [place] [phone] Amna Pimentel cardiac clearance Social History Tobacco Use Types Packs/Day Years Used Date Smoking Tobacco: Former Smokeless Tobacco: Never Alcohol Use Standard Drinks/Week Comments No 0 (1 standard drink = 0.6 oz pur e alcohol) [facility] Utilities Answer Date Recorded In the [...] - 07/17/2024 5:46 AM EST Contract: [id number] [phone] [facility] cardiac clearance room B7 tx amna--I sent [...] documented as of this encounter Care Teams Power Tool Repair Technician Relationship Specialty Start Date End Date Dorys Yan APRN-MALLORIE [address] [place] [address] PCP - General Family Medicine 09/09/24 documented as of this encounter
--- OUTSIDE RECORDS SUMMARY | 2025-02-09 13:25 | XMS_ITS | Encounter Summary ---
Author Organization [facility] Address [address] [facility] [place] [address] Care Team Providers Care Cornice Upholsterer Name Role Phone MirelahersonteeDorys Yessica TRADEMARK ATTORNEY Unavailable [phone] Shikha Doherty MD Primary Care Provider [phone] Encounter Details Date Type Department Care Team (Late st Contact Info) Description 02/08/2025 Results Follow-Up [facility] Family Medicine [address] [place] [address] Shikha Doherty MD [address] [place] [address] Social History Tobacco Use Types [...] often do you attend chur ch or latter-day services? Never 12/25/2022 Do you belong to any clubs o r organizations such as buddhism groups, unions, fraternal or athletic groups, or [...] Recorded Patient Health Questionnaire-2 Score 0 11/24/2023 [facility] - Occupational Stress Questionnaire Answer Date Recorded [...] EDT Office Visit [facility] [address] [place] [phone] Wesley Her, DPM [address] [facility] [place] [address] 02/24/2025 11:00 AM EDT Office Visit [facility] [address] [facility] [place] [address] Shikha Doherty MD [address] [facility] [place] [address] 04/04/2025 2:10 PM EDT Office Visit [facility] [address] [place] [phone] Ubaldo Carpio MD [address] [place] [address] 05/02/2025 2:00 PM EDT Procedure Visit [facility] [address] [place] [address] Wesley Her, DPM [address] [place], [place] [phone] documented as of this encounter Visit Diagnoses Not on filedocumented in this encounter Care Teams Cornice Upholsterer Relationship Specialty Start Date End Date Shikha Doherty MD [address] [place], [place] [phone] PCP - General Family Medicine 01/30/25 Dorys Yan NP Nurse Practitioner Family Medicine 08/10/23 documented as of this encounter
--- OUTSIDE RECORDS SUMMARY | 2025-02-09 13:25 | XMS_ITS | Encounter Summary ---
Author Organization [facility] Address [address] [place] [address] Care Team Providers Care Motion Picture Commentator Name Role Phone Dorys Yan STOVE BOTTOM WORKER Unavailable [phone] Shikha Doherty MD Primary Care Provider [phone] Encounter Details Date Type Department Care Team (Latest Contact Info) Description 01/30/2025 Travel Social History Tobacco Use Types Packs/Day [...] you attend [facility] or yazidism services? Never 12/25/2022 Do you belong to [...] Recorded Patient Health Questionnaire-2 Score 0 11/24/2023 [facility] - Occupational [...] Visit [facility] [address] [place] [address] Wesley Her DPM [address] [facility] [place] [address] 02/24/2025 11:00 AM EDT Office Visit [facility] [address] [place] [phone] Shikha Doherty MD [address] [place] [address] 04/04/2025 2:10 PM EDT Office Visit [facility] [address] [place] [address] Ubaldo Carpio MD [address] [place] [address] 05/02/2025 2:00 PM EDT Procedure Visit [facility] [address] [facility] [place] [phone] Wesley Her DPM [address] [place], [place] [id number] documented as of this encounter Visit Diagnoses Not on filedocumented in this encounter Care Teams Motion Picture Commentator Relationship Specialty Start Date End Date Shikha Doherty MD [address] [place], [place] [phone] PCP - General Family Medicine 01/30/25 Dorys Yan NP Nurse Practitioner Family Medicine 08/10/23 documented as of this encounter
--- OUTSIDE RECORDS SUMMARY | 2025-02-09 13:25 | XMS_ITS | Encounter Summary ---
Author Organization [facility] Address [address] [facility] [address] Care Team Providers Care Radiology Assistant Name Role Phone MirelahersonteeDorys Yessica REGISTERED NURSE STEP DOWN Unavailable [phone] Shikha Doherty MD Primary Care Provider [phone] Encounter Details Date Type Department Care Team (Late st Contact Info) Description 01/30/2025 B[facility] [address] [place] [address] Wesley Her DPSissy [address] [place], [place] [id number] Social History Tobacco Use Types Packs/Day Years [...] often do you attend chur ch or advent services? Never 12/25/2022 Do you belong to any clubs o r organizations such as judaism groups, unions, fraternal or athletic groups, or [...] Patient Health Questionnaire-2 Score 0 11/24/2023 [facility] of Occupat ional Health - Occupational Stress [...] Visit [facility] [address] [id number] Wesley Her, DPM [address] [place] [address] 02/24/2025 11:00 AM EDT Office Visit [facility] [address] [facility] [place] [phone] Shikha Doherty MD [address] [facility] [place] [address] 04/04/2025 2:10 PM EDT Office Visit [facility] [address] [place] [address] Ubaldo Carpio MD [address] [place] [address] 05/02/2025 2:00 PM EDT Procedure Visit [facility] [address] [place] [address] Wesley Her, DPM [address] [place], [place] [id number] documented as of this encounter Visit Diagnoses Not on filedocumented in this encounter Care Teams Radiology Assistant Relationship Specialty Start Date End Date Shikha Doherty MD [address] [place], [place] [id number] PCP - General Family Medicine 01/30/25 Dorys Yan NP Nurse Practitioner Family Medicine 08/10/23 documented as of this encounter
--- OUTSIDE RECORDS SUMMARY | 2025-02-09 13:25 | XMS_ITS | Encounter Summary ---
Author Organization [facility] Address [address] [place] [address] Care Team Providers Care Drying And Winding Supervisor Name Role Phone Zheng Neetu Maty DO Unavailable [phone] Shikha Doherty MD Primary Care Provider [phone] Dorys Yan LAWYER CRIMINAL Unavailable Shikha Loja RN Unavailable [phone] Renetta Bales RN Unavailable [phone] Zheng Neetu Rutledge DO Unavailable [phone] Shikha Doherty MD Primary Care Provider [phone] Reason for Visit * Reason Comments Med Refill Encounter Details Date Type Department Care Team (Late st Contact Info) Description 07/08/2024 Refill [facility] [address] [place] [phone] Dorys Yan LAWYER CRIMINAL [address] [place] [id number] Mixed hyperlipidemia Social History Tobacco Use Types [...] How often do you attend chur or taoist services? Never 12/25/2022 Do you belong to any clubs o r organizations such as holiness groups, unions, fraternal or athletic groups, or [...] Recorded Patient Health Questionnaire-2 Score 0 11/24/2023 [facility] of Occupat ional Health - Occupational Stress [...] place to sleep or slept in a usp (including now)? No 12/25/2022 Sex and Gender [...] Office Visit [facility] [address] [place] [address] Wesley Her DPM [address] [place] [address] 02/24/2025 11:00 AM EDT Office Visit [facility] [address] [place] [facility] [place] [phone] Shikha Doherty MD [address] [place] [address] 04/04/2025 2:10 PM EDT Office Visit [facility] [place] [address] [place] [address] Ubaldo Carpio MD [address] [place] [address] 05/02/2025 2:00 PM EDT Procedure Visit [facility] [address] [place] [phone] Wesley Her DPM [address] [place] [address] documented as of this encounter Visit Diagnoses Diagnosis Mixed hyperlipidemia Mixed hyperlipidemia documented in this encounter Care Teams Drying And Winding Supervisor Relationship Specialty Start Date End Date Neetu Calzada DO [address] [facility] [address] [place] [phone] PCP - ACO Reach 12/04/22 08/18/24 Shikha Doherty MD [address] [facility] [place] [address] PCP - General Family Medicine 08/10/23 01/29/25 Neetu Calzada DO [address] [address] [place] [address] PCP - ACO Reach 08/26/24 10/13/24 Shikha Doherty MD [address] [facility] [place] [address] PCP - General Family Medicine 01/30/25 Dorys Yan NP [address] [facility] [place] [address] Nurse Practitioner Family Medicine 08/10/23 Shikha Loja, EARL [address] [facility] [place] [address] Registered Nurse Family Medicine 08/04/24 08/09/24 Renetta Bales, RN [address] [facility] [place] [address] Registered Nurse Family Medicine 08/09/24 12/12/24 documented as of this encounter
== END 2025-02-09 13:21 | disposition home or self-care (01) ==
LOC: WC 13:21
PROVIDERS: Visit Provider Physician Assistant
DX: I70.235 Atherosclerosis of native arteries of right leg with ulceration of other part of foot (principal); L97.512 Non-pressure chronic ulcer of other part of right foot with fat layer exposed
CPT/HCPCS: G0463